=== PATIENT | female | born 1960 | race Caucasian/White ===

== ENCOUNTER 2024-04-16 09:10 | Inpatient (IN) | payer MEDICARE, OTHER ==
[2024-04-16] MEDS ORDERED: NALOXONE 0.4 MG/ML 1 ML VIAL IV PRN ×2 (09:38→11:51)
[2024-04-16] MEDS ORDERED: ACETAMINOPHEN TAB 325 MG TAB PO PRN (09:38)
--- NOTE | 2024-04-16 09:47 | ED ---
General Adult HPI - General Chief complaint: Nausea/Vomiting/Diarrhea Stated complaint: NVD Time Seen by Provider: 04/16/24 09:13 Source: patient, RN/MD, EMS, RN notes reviewed, old records reviewed Mode of arrival: EMS Limitations: no limitations - History of Present Illness Initial comments: 63-year-old female transferred from outside hospital for hypovolemic shock. Patient has had chronic diarrhea for approximately 1 month. She was seen at outside hospital hypotensive with poor IV access. Central line was placed and the patient was resuscitated with 3 L of normal saline. She continued to be hypotensive and was started on norepinephrine and transferred for ICU care. Patient states that the diarrhea has been present for at least 1 month and she had a admission at an outside hospital for similar. She does have history of congestive heart failure. Denies dyspnea. Denies lower extremity swelling. Denies pain complaints. Denies fever. Workup revealed elevated BUN and creatinine. And the patient had minimal urine output. Leal catheter and central line placed prior to transfer. - Related Data Home Medications Medication Instructions Recorded Confirmed Aspirin EC [Ecotrin Low Dose] 81 mg PO DAILY 04/16/24 04/16/24 Atorvastatin [Lipitor] 20 mg PO HS 04/16/24 04/16/24 Empagliflozin [Jardiance] 25 mg PO DAILY 04/16/24 04/16/24 FLUoxetine HCL 40 mg PO DAILY 04/16/24 04/16/24 Magnesium Oxide [Magox 400] 400 mg PO DAILY 04/16/24 04/16/24 Sacubitril/Valsartan [Entresto 24 1 tab PO BID 04/16/24 04/16/24 mg-26 mg Tablet] carvediloL [Coreg] 3.125 mg PO BID 04/16/24 04/16/24 Allergies Allergy/AdvReac Type Severity Reaction Status Date / Time Penicillins Allergy Rash/Hives Verified 04/16/24 10:24 Review of Systems ROS Statement: Those systems with pertinent positive or pertinent negative responses have been documented in the HPI. ROS Other: All systems not noted in ROS Statement are negative. General Exam General appearance: alert, in no apparent distress Head exam: Present: atraumatic, normocephalic Eye exam: Present: normal appearance ENT exam: Present: mucous membranes dry Neck exam: Present: normal inspection. Absent: tenderness, meningismus Respiratory exam: Present: normal lung sounds bilaterally. Absent: respiratory distress, wheezes, rales Cardiovascular Exam: Present: regular rate, normal rhythm GI/Abdominal exam: Present: soft. Absent: distended, tenderness, guarding, rebound Extremities exam: Present: normal inspection, normal capillary refill. Absent: pedal edema Neurological exam: Present: alert, oriented X3 Psychiatric exam: Present: normal affect, normal mood Skin exam: Present: warm, dry, intact Course Vital Signs 04/16/24 04/16/24 09:30 10:23 Temperature 97 F L Pulse Rate 85 Respiratory 19 Rate Blood Pressure 80/51 93/41 O2 Sat by Pulse 100 Oximetry Medical Decision Making - Medical Decision Making Was pt. sent in by a medical professional or institution (ALTHEA Marsh, PARK MANAGER, urgent care, hospital, or intermediate...) When possible be specific @Sent from [facility] for ICU care Did you speak to anyone other than the patient for history (EMS, parent, family, police, friend...)? What history was obtained from this source @ -No Did you review nursing and triage notes (agree or disagree)? Why? @ -I reviewed and agree with nursing and triage notes Were old charts reviewed (outside hosp., previous admission, EMS record, old EKG, old radiological studies, urgent care reports/EKG's, intermediate records)? Report findings @ -No old charts were reviewed Differential Weakness: Hypoglycemia, shock, sepsis, hyponatremia, anemia, infection, TN, ETOH, adverse medicine reaction, overdose, stroke, this is not meant to be an all-inclusive list. EKG interpreted by me (3pts min.). @ -Sinus rhythm with PVC rate of 78 MT interval 137, QRS duration 132, QTc 452 X-rays interpreted by me (1pt min.). @ -None done CT interpreted by me (1pt min.). @ -None done U/S interpreted by me (1pt. min.). @ -None done What testing was considered but not performed or refused? (CT, X-rays, U/S, labs )? Why? @ -None What meds were considered but not given or refused? Why? @ -None Did you discuss the management of the patient with other professionals (professionals i.e. ALTHEA Marsh, PARK MANAGER, lab, RT, psych nurse, public health social worker, metal riveting machine operator, teacher, airplane first officer, case aide)? Give summary @Case discussed with Dr. Tomasz dorsey for the ICU and [facility] physician group regarding admission. Was smoking cessation discussed for >3mins.? @ -No Was critical care preformed (if so, how long)? @ -[Yes 35 minutes Were there social determinants of health that impacted care today? How? (Homelessness, low income, unemployed, alcoholism, drug addiction, transportation, low edu. Level, literacy, decrease access to med. care, usp, rehab)? @ -No Was there de-escalation of care discussed even if they declined (Discuss DNR or withdrawal of care, Hospice)? DNR status @ -No What co-morbidities impacted this encounter? (DM, HTN, Smoking, COPD, CAD, Cancer, CVA, ARF, Chemo, Hep., AIDS, mental health diagnosis, sleep apnea, morbid obesity)? @ -[Congestive heart failure. Was patient admitted / discharged? Hospital course, mention meds given and route, prescriptions, significant lab abnormalities, going to OR and other pertinent info. @ -63-year-old female presenting for evaluation of hypotension likely secondary to hypovolemia from chronic diarrhea. Patient had central line and Leal catheter placed prior to transfer. She received a 3 L bolus. She will be continued on IV fluid and does continue to require norepinephrine for blood pressure support. Repeat laboratory test including CBC, CMP urinalysis, blood culture, and C. difficile have been ordered. Repeat chest x-ray has been ordered these results are pending. Admitted to the ICU Undiagnosed new problem with uncertain prognosis? @ -[No Drug Therapy requiring intensive monitoring for toxicity (Heparin, Nitro, Insulin, Cardizem)? @ -No Were any procedures done? @ -No Diagnosis/symptom? @ -YONATAN, hypovolemia, hypotension Acute, or Chronic, or Acute on Chronic? @ -Acute Uncomplicated (without systemic symptoms) or Complicated (systemic symptoms)? @ -[Complicated Side effects of treatment? @ -No Exacerbation, Progression, or Severe Exacerbation? @ -No Poses a threat to life or bodily function? How? (Chest pain, USA, TN, pneumonia, PE, COPD, DKA, ARF, appy, cholecystitis, CVA, Diverticulitis, Homicidal, Suicidal, threat to staff... and all critical care pts) @Yes, hypovolemic shock - Lab Data Result diagrams: 04/16/24 10:00 04/16/24 10:00 Lab Results 04/16/24 04/16/24 04/16/24 Range/Units 10:00 10:00 10:00 WBC 6.0 (3.8-10.6) k/uL RBC 3.13 L (3.80-5.40) m/uL Hgb 10.3 L (11.4-16.0) gm/dL Hct 32.1 L (34.0-46.0) % MCV 102.6 H (80.0-100.0) fL MCH 33.0 (25.0-35.0) pg MCHC 32.2 (31.0-37.0) g/dL RDW 13.0 (11.5-15.5) % Plt Count 294 (150-450) k/uL MPV 7.5 Neutrophils % 53 % Lymphocytes % 23 % Monocytes % 7 % Eosinophils % 12 % Basophils % 0 % Neutrophils # 3.2 (1.3-7.7) k/uL Lymphocytes # 1.4 (1.0-4.8) k/uL Monocytes # 0.4 (0-1.0) k/uL Eosinophils # 0.7 (0-0.7) k/uL Basophils # 0.0 (0-0.2) k/uL Hypochromasia Slight Macrocytosis Slight PT 11.9 (10.0-12.5) sec INR 1.1 (<1.2) APTT 26.7 (22.0-30.0) sec Sodium 136 L (137-145) mmol/L Potassium 3.9 (3.5-5.1) mmol/L Chloride 106 (98-107) mmol/L Carbon Dioxide 18 L (22-30) mmol/L Anion Gap 12 mmol/L BUN 40 H (7-17) mg/dL Creatinine 2.13 H (0.52-1.04) mg/dL Est GFR (CKD-EPI)AfAm 27 (>60 ml/min/1.73 sqM) Est GFR (CKD-EPI)NonAf 24 (>60 ml/min/1.73 sqM) Glucose 84 (74-99) mg/dL Calcium 9.6 (8.4-10.2) mg/dL Magnesium 2.1 (1.6-2.3) mg/dL Total Bilirubin 0.9 (0.2-1.3) mg/dL AST 37 H (14-36) U/L ALT 17 (4-34) U/L Alkaline Phosphatase 91 (38-126) U/L Total Protein 5.8 L (6.3-8.2) g/dL Albumin 2.8 L (3.5-5.0) g/dL Critical Care Time Critical Care Time: Yes Total Critical Care Time: 35 Disposition Clinical Impression: Hypovolemic shock, Dehydration, YONATAN (acute kidney injury) Disposition: ADMITTED IP TO [facility] Condition: Serious Is patient prescribed a controlled substance at d/c from ED?: No Referrals: Nonstaff,Physician [Primary Care Provider] - 1-2 days Time of Disposition: 09:47
[2024-04-16] MEDS: PANTOPRAZOLE 40 MG/10 ML VIAL IVP STA (09:59)
[2024-04-16] MEDS: NOREPINEPHRINE 32 MG in SODIUM CHLORIDE 0.9% 218 ML IV ONE (10:00)
[2024-04-16] MEDS: SODIUM CHLORIDE 0.9% 1,000 ML IV SCH (10:00)
[2024-04-16 10:12] LABS: Basophils % (A) 0 %; Eosinophils # (A) 0.7 k/uL (0-0.7); Eosinophils % (A) 12 %; HCT 32.1 % (34.0-46.0); HGB 10.3 gm/dL (11.4-16.0); Hypochromasia Slight; Lymphocytes # (A) 1.4 k/uL (1.0-4.8); Lymphocytes % (A) 23 %; MCHC 32.2 g/dL (31.0-37.0); MCV 102.6 fL (80.0-100.0); Macrocytosis Slight; Mean Platelet Volume 7.5; Monocytes # (A) 0.4 k/uL (0-1.0); Monocytes % (A) 7 %; Neutrophils # (A) 3.2 k/uL (1.3-7.7); Neutrophils % (A) 53 %; Platelet Count 294 k/uL (150-450); RBC 3.13 m/uL (3.80-5.40)
[2024-04-16 10:21] LABS: INR 1.1 (<1.2); Partial Thromboplastin Time 26.7 sec (22.0-30.0); Prothrombin Time 11.9 sec (10.0-12.5)
--- NOTE | 2024-04-16 10:29 | XR ---
EXAMINATION TYPE: XR chest 1V portable DATE OF EXAM: 04/16/2024 10:12 AM COMPARISON: None CLINICAL INDICATION: Female, 63 years old with history of gabriel; [facility] TECHNIQUE: XR chest 1V portable Frontal view of the chest. FINDINGS: Lungs/Pleura: Right lower lobe subtle airspace opacities suggested. There is no evidence of pleural e ffusion, focal consolidation, or pneumothorax. Pulmonary vascularity: Unremarkable. Heart/mediastinum: Cardiomediastinal silhouette is unremarkable. Musculoskeletal: No acute osseous pathology. Other findings: None Lines/Tubes: IMPRESSION: Right lower lobe airspace opacities correlate for pneumonia [facility] Tatiana Dillon, , 04/16/2024 10:27 AM
[2024-04-16 10:33] LABS: ALT 17 U/L (4-34); AST 37 U/L (14-36); African American GFR (CKD) 27 (>60 ml/min/1.73 sqM); Albumin 2.8 g/dL (3.5-5.0); Alkaline Phosphatase 91 U/L (38-126); Anion Gap 12 mmol/L; Blood Urea Nitrogen 40 mg/dL (7-17); Calcium 9.6 mg/dL (8.4-10.2); Carbon Dioxide 18 mmol/L (22-30); Chloride 106 mmol/L (98-107); Glucose 84 mg/dL (74-99); Magnesium 2.1 mg/dL (1.6-2.3); Non-African American GFR(CKD) 24 (>60 ml/min/1.73 sqM); Potassium 3.9 mmol/L (3.5-5.1); Sodium 136 mmol/L (137-145); Total Bilirubin 0.9 mg/dL (0.2-1.3); Total Protein 5.8 g/dL (6.3-8.2)
[2024-04-16 11:08] LABS: Appearance,Urine Cloudy (Clear); Bilirubin,Urine Negative (Negative); Blood,Urine Moderate (Negative); Color,Urine Yellow; Glucose,Urine (UA) 4+ (Negative); Hyaline Casts,Urine 3 /lpf (0-2); Ketones,Urine Negative (Negative); Leukocyte Esterase,Urine Small (Negative); Mucus,Urine Few /hpf; Nitrite,Urine Negative (Negative); Protein,Urine 1+ (Negative); RBC,Urine 14 /hpf (0-5); Red Blood Cell Casts,Urine 7 /lpf (0); Specific Gravity,Urine 1.017 (1.001-1.035); Squamous Epithelial Cell,Urine 7 /hpf (0-4); Urobilinogen,Urine <2.0 mg/dL (<2.0); WBC,Urine 40 /hpf (0-5)
[2024-04-16 11:49] LABS: Glucose,Whole Blood 71 mg/dL (70-110)
[2024-04-16 12:16] LABS: Basophils % (A) 1 %; Eosinophils # (A) 0.8 k/uL (0-0.7); Eosinophils % (A) 12 %; HCT 34.3 % (34.0-46.0); HGB 10.8 gm/dL (11.4-16.0); Hypochromasia Slight; Lymphocytes # (A) 1.3 k/uL (1.0-4.8); Lymphocytes % (A) 21 %; MCH 32.9 pg (25.0-35.0); MCHC 31.5 g/dL (31.0-37.0); MCV 104.4 fL (80.0-100.0); Macrocytosis Slight; Mean Platelet Volume 8.4; Monocytes # (A) 0.4 k/uL (0-1.0); Monocytes % (A) 6 %; Neutrophils # (A) 3.7 k/uL (1.3-7.7); Neutrophils % (A) 57 %; Platelet Count 293 k/uL (150-450); RBC 3.29 m/uL (3.80-5.40); RDW 13.1 % (11.5-15.5); WBC 6.5 k/uL (3.8-10.6)
[2024-04-16 12:46] LABS: African American GFR (CKD) 28 (>60 ml/min/1.73 sqM); Anion Gap 9 mmol/L; Blood Urea Nitrogen 40 mg/dL (7-17); Calcium 9.6 mg/dL (8.4-10.2); Carbon Dioxide 21 mmol/L (22-30); Chloride 106 mmol/L (98-107); Glucose 83 mg/dL (74-99); Magnesium 2.1 mg/dL (1.6-2.3); Non-African American GFR(CKD) 24 (>60 ml/min/1.73 sqM); Potassium 4.1 mmol/L (3.5-5.1); Sodium 136 mmol/L (137-145)
--- NOTE | 2024-04-16 13:40 | P.CNPUL ---
History of Present Illness Consult date: 04/16/24 Requesting physician: Kennedy Camargo Reason for consult: other Chief complaint: Low blood pressure. History of present illness: Pulmonary consult dated April 16, 2024. 63-year-old female who was seen in the emergency department, by the ER physician, ship from an outside hospital, for weeks, of nausea, vomiting, diarrhea, and resultant dehydration. Apparently the patient has not been feeli ng well for about a month. She has had chronic loose stools. She apparently had a central line placed, in the left groin, and she was transferred down to [facility]. The patient was then seen, and evaluated, and required norepinephrine, for blood pressure support. Fluid resuscitation was not enough. The patient's systolic blood pressures were still in the 80s. The patient apparently has a history of hyperlipidemia, diabetes, and hypertension. The patient is seen this morning, in room 2, of the emergency department. She is currently on 3 L nasal cannula. The patient is getting saline, via bolus, and also receiving norepinephrine at 0.03 mcg/kg/min. As mentioned, she does have a left femoral triple-lumen catheter in place. White count 6.5, hemoglobin 10.8, hematocrit 34.3, and platelet count normal. Coagulation studies were normal. Sodium 136, potassium 4.1, chlorides 106, CO2 21, BUN 40, creatinine 2.12. Calcium was 9.6, and magnesium was 2.1. Urine was cloudy. There is a moderate amount of blood. Small positive leukocyte esterase, 14 RBCs, 40 WBCs, and rare WBC clumps. Chest x-ray showed possible right lower lobe pneumonia. Review of Systems REVIEW OF SYSTEMS: CONSTITUTIONAL: Weakness. NEUROLOGIC: [ Negative.] HEENT: [ Negative.] CARDIAC: [Negative.] PULMONARY: [Negative.] GI: Nausea, vomiting, and diarrhea. : [Negative.] RHEUMATOLOGIC: [ Negative.] IMMUNOLOGIC: [ Negative.] ENDOCRINE: [Negative. ] DERMATOLOGIC: [Negative.] Past Medical History Past Medical History: Heart Failure, COPD, Hyperlipidemia, Hypertension History of Any Multi-Drug Resistant Organisms: None Reported Past Surgical History: Unable to Obtain Past Psychological History: No Psychological Hx Reported Smoking Status: Former smoker Past Alcohol Use History: None Reported Medications and Allergies Home Medications Medication Instructions Recorded Confirmed Type Aspirin EC [Ecotrin Low Dose] 81 mg PO DAILY 04/16/24 04/16/24 History Atorvastatin [Lipitor] 20 mg PO HS 04/16/24 04/16/24 History Empagliflozin [Jardiance] 25 mg PO DAILY 04/16/24 04/16/24 History FLUoxetine HCL 40 mg PO DAILY 04/16/24 04/16/24 History Magnesium Oxide [Magox 400] 400 mg PO DAILY 04/16/24 04/16/24 History Sacubitril/Valsartan [Entresto 24 1 tab PO BID 04/16/24 04/16/24 History mg-26 mg Tablet] carvediloL [Coreg] 3.125 mg PO BID 04/16/24 04/16/24 History Allergies Allergy/AdvReac Type Severity Reaction Status Date / Time Penicillins Allergy Rash/Hives Verified 04/16/24 10:24 Physical Exam Osteopathic Statement: *. No significant issues noted on an osteopathic structural exam other than those noted in the History and Physical/Consult. Vitals: Vital Signs Temp Pulse Resp BP Pulse Ox 04/16/24 11:00 80 19 103/66 99 04/16/24 10:23 93/41 04/16/24 09:30 97 F L 85 19 80/51 100 Intake and Output 04/15/24 04/16/24 04/16/24 22:59 06:59 14:59 Other: Weight 99.79 kg No acute distress, oriented 3. Awake and alert, currently on 3 L nasal cannula. HEENT examination is grossly unremarkable. Mucous membranes are moist. No oral lesions. Neck supple. Full range of motion. No adenopathy thyromegaly or neck vein d istention. Cardiovascular examination reveals regular rhythm rate. S1-S2 normal. No S3 or S4. No discernible murmur noted. Lungs reveal clear breath sounds. Breath sounds are equal bilaterally. No adventitious lung sounds including wheezes rhonchi or crackles. Abdomen soft bowel sounds are heard. No masses or tenderness. Extremities are intact. No cyanosis clubbing or edema. Left groin triple-lumen catheter. Skin is without rash or lesion. Neurologic examination is brief but nonfocal. Results - Laboratory Findings CBC and BMP: 04/16/24 12:05 04/16/24 12:05 PT/INR, D-dimer PT 11.9 sec (10.0-12.5) 04/16/24 10:00 INR 1.1 (<1.2) 04/16/24 10:00 Abnormal lab findings: Abnormal Labs 04/16/24 04/16/24 04/16/24 10:00 10:00 10:34 RBC 3.13 L Hgb 10.3 L Hct 32.1 L MCV 102.6 H Eosinophils # Sodium 136 L Carbon Dioxide 18 L BUN 40 H Creatinine 2.13 H AST 37 H Total Protein 5.8 L Albumin 2.8 L Urine Appearance Cloudy H Urine Protein 1+ H Urine Glucose (UA) 4+ H Urine Blood Moderate H Ur Leukocyte Esterase Small H Urine RBC 14 H Urine WBC 40 H Urine WBC Clumps Rare H Ur Squamous Epith Cells 7 H Hyaline Casts 3 H Urine Mucus Few H 04/16/24 04/16/24 12:05 12:05 RBC 3.29 L Hgb 10.8 L Hct MCV 104.4 H Eosinophils # 0.8 H Sodium 136 L Carbon Dioxide 21 L BUN 40 H Creatinine 2.12 H AST Total Protein Albumin Urine Appearance Urine Protein Urine Glucose (UA) Urine Blood Ur Leukocyte Esterase Urine RBC Urine WBC Urine WBC Clumps Ur Squamous Epith Cells Hyaline Casts Urine Mucus - Diagnostic Findings Chest x-ray: image reviewed Assessment and Plan Assessment: Chronic nausea, vomiting, and diarrhea, leading to dehydration, and hypotension. S/P left femoral line placement, for fluid administration, and pressors. History of hypertension. History of hyperlipidemia. History of diabetes mellitus. Plan: Plan dated April 16, 2024. I was called by the emergency room physician, as this patient presented with severe and profound hypotension, secondary to dehydration. Apparently for the last month, she has been having nausea, vomiting, and diarrhea. The patient was seen in outside hospital, transferred down here. The patient was given fluid resuscitation, and norepinephrine for blood pressure support. Labs, x-rays, and all medications are reviewed. We will continue to follow the patient, make recommendations along the way. The patient is admitted to the intensive care unit, for further monitoring and management. Additional recommendations and suggestions are forthcoming. Prognosis is guarded. Dictation was produced using [employer] software. Please excuse any grammatical, word or spelling errors. Time with Patient: Greater than 30
[2024-04-16] MEDS: NOREPINEPHRINE 32 MG in SODIUM CHLORIDE 0.9% 218 ML IV SCH (13:49)
--- NOTE | 2024-04-16 13:50 | P.NPCON ---
History of Present Illness - Reason for Consult acute renal failure - History of Present Illness Patient is a 63-year-old female with history of COPD, hypertension, hyperlipidemia and CHF who is admitted to the hospital with complaints of nausea vomiting and diarrhea which has been on and off for almost a month now. Patient was admitted in the thumb area and was maintained on IV fluids. She continued t o be hypotensive and was therefore transferred to [facility]. Currently maintained on Levophed. Patient has received 3 L of fluid bolus in the ER. No previous history of kidney diseases Serum creatinine staying at 2.1 mg/dL. No previous labs available for comparison. No history of fever or chills No diarrhea noted here since admission Past Medical History Past Medical History: Heart Failure, COPD, Hyperlipidemia, Hypertension History of Any Multi-Drug Resistant Organisms: None Reported Past Surgical History: Unable to Obtain Additional Past Surgical History / Comment(s): Left Mastectomy 1995 Chemo and radiation, Left achilles tendon repair Past Anesthesia/Blood Transfusion Reactions: No Reported Reaction Past Psychological History: No Psychological Hx Reported Smoking Status: Former smoker Past Alcohol Use History: None Reported Medications and Allergies Home Medications Medication Instructions Recorded Confirmed Type Aspirin EC [Ecotrin Low Dose] 81 mg PO DAILY 04/16/24 04/16/24 History Atorvastatin [Lipitor] 20 mg PO HS 04/16/24 04/16/24 History Empagliflozin [Jardiance] 25 mg PO DAILY 04/16/24 04/16/24 History FLUoxetine HCL 40 mg PO DAILY 04/16/24 04/16/24 History Magnesium Oxide [Magox 400] 400 mg PO DAILY 04/16/24 04/16/24 History Sacubitril/Valsartan [Entresto 24 1 tab PO BID 04/16/24 04/16/24 History mg-26 mg Tablet] carvediloL [Coreg] 3.125 mg PO BID 04/16/24 04/16/24 History Allergies Allergy/AdvReac Type Severity Reaction Status Date / Time Penicillins Allergy Rash/Hives Verified 04/16/24 10:24 Physical Exam Vitals: Vital Signs Temp Pulse Resp BP Pulse Ox 04/16/24 11:00 80 19 103/66 99 04/16/24 10:23 93/41 04/16/24 09:30 97 F L 85 19 80/51 100 Intake and Output 04/15/24 04/16/2425 22:59 06:59 14:59 Other: Weight 99.79 kg Patient is awake, comfortable, no acute distress. Alert or oriented x 3 Poor dental hygiene Examination of the heart S1 and S2 Examination of the lungs bilateral breath sounds are heard Abdomen is soft nontender Examination of lower extremity shows no significant edema NATIONAL ACCOUNT REPRESENTATIVE exam grossly intact Results - Lab Results Most recent lab results Calcium 9.6 mg/dL (8.4-10.2) 04/16/24 12:05 Magnesium 2.1 mg/dL (1.6-2.3) 04/16/24 12:05 04/16/24 12:05 04/16/24 12:05 Assessment and Plan Assessment: 1. Acute kidney injury, ATN, nonoliguric secondary to hypotension and volume depletion. Currently maintained on IV hydration. UA shows 1+ protein moderate blood WBC is 40. Abdominal imaging was done at an outside facility. 2. Volume depletion from nausea vomiting and diarrhea 3. Hypotension associated with volume depletion and underlying infection possibly viral gastroenteritis 4. Pyuria rule out UTI 5. [place] metabolic acidosis secondary to diarrhea and GI fluid loss, improved 6. Anemia rule out iron deficiency Plan: Continue with aggressive IV hydration. Repeat labs in a.m. Review abdominal imaging done at outside facility to rule out urinary obstruction Continue to avoid nephrotoxic agents Hold Jardiance and Entresto Thank you for the consultation. We will continue to follow the patient with you during her hospitalization
[2024-04-16] MEDS ORDERED: IPRATROPIUM-ALBUTEROL 3 ML NEB INHALATION PRN (16:55)
--- NOTE | 2024-04-16 16:56 | P.HPIM ---
History of Present Illness H&P Date: 04/16/24 63 year old F with COPD 2L home O2, CHF reported EF 30-40%, melanoma of the liver presents to the ED as a transfer from an outside hospital. Sister at bedside contributing to the history. Patient reports intractable nausea, vomiting and diarrhea since February. She was diagnosed with melanoma of the liver in May and started immunotherapy in November or December. Symptoms persistent since then. Last immunotherapy was last Saturday. She reports poor appetite. Denies headache, LE edema, fever or chills, cough, chest pain, shortness of breath, palpitations, changes in urination. No dizziness, numbne ss/weakness/tinging of the extremities. In the ED she underwent extensive evaluation. BP 80/51, HR 85, RR 19, T 97F, 100% on 3L NC. CBC, Coag panel, CMP significant for RBC 3.13, Hg 10.3, Hct 32.1, MCV 102.6, Na 136, bicarb 18, BUN 40, Cr 2.13, AST 37, alb 2.8. Mag 2.1. Lactic acid 0.7. UA moderate blood, small LE. CXR RLL opacity. EKG sinus rhythm with PVCs, intraventricular conduction delay, no ST T wave changes. Patient is admitted to ICU. General: non toxic, no distress, appears at stated age Derm: warm, dry Head: atraumatic, normocephalic, symmetric Mouth: no lip lesion, mucus membranes moist Cardiovascular: S1S2 reg, no murmur Lungs: Clear to auscultation bilaterally, no rales , no accessory muscle use Ext: no gross muscle atrophy, no edema, no contractures Neuro: no focal neuro deficits Psych: Alert and oriented. Based on my assessment of this patient, this patient meets a high complexity level of care. Hypovolemic shock: Levophed to maintain MAP > 65. NS at 130 cc/hr. Hold Coreg and Entresto. Telemetry monitoring. ICU on board. Nausea, vomiting and diarrhea: Persistent likely related to immunotherapy. Obtain stool culture, C. diff, stool for ova and parasites. YONATAN with hyponatremia and metabolic acidosis: Likely prerenal. Holding Entresto and Jardiance. Nephrology on board. Macrocytic anemia: Obtain iron studies, B12, Folate. HFrEF: Not in acute exacerbation. Holding Coreg and Entresto. Holding Jardiance. Judicious use of fluids given history of CHF. Chronic respiratory failure on 2L NC + COPD not in acute exacerbation. Melanoma of the liver: Following Oncology outpatient. CODE STATUS: FULL CODE. DVT Prophylaxis: Heparin GI Prophylaxis: Protonix IV Designated medical POA if patient is not able to make medical decisions for themselves: Brother I have reviewed the following furniture sales consultant notes: ED note. I have reviewed the results of the following tests: As above. I have ordered the following tests: As above. I have discussed the care of this patient with the following independent historian: RN. Sister at bedside. I have independently interpreted the following test below: EKG. I have discussed the management of this patient with the following physician: Past Medical History Past Medical History: Heart Failure, COPD, Hyperlipidemia, Hypertension History of Any Multi-Drug Resistant Organisms: None Reported Past Surgical History: Unable to Obtain Additional Past Surgical History / Comment(s): Left Mastectomy 1995 Chemo and radiation, Left achilles tendon repair Past Anesthesia/Blood Transfusion Reactions: No Reported Reaction Past Psychological History: No Psychological Hx Reported Smoking Status: Former smoker Past Alcohol Use History: None Reported Medications and Allergies Home Medications Medication Instructions Recorded Confirmed Type Aspirin EC [Ecotrin Low Dose] 81 mg PO DAILY 04/16/24 04/16/24 History Atorvastatin [Lipitor] 20 mg PO HS 04/16/24 04/16/24 History Empagliflozin [Jardiance] 25 mg PO DAILY 04/16/24 04/16/24 History FLUoxetine HCL 40 mg PO DAILY 04/16/24 04/16/24 History Magnesium Oxide [Magox 400] 400 mg PO DAILY 04/16/24 04/16/24 History Sacubitril/Valsartan [Entresto 24 1 tab PO BID 04/16/24 04/16/24 History mg-26 mg Tablet] carvediloL [Coreg] 3.125 mg PO BID 04/16/24 04/16/24 History Allergies Allergy/AdvReac Type Severity Reaction Status Date / Time Penicillins Allergy Rash/Hives Verified 04/16/24 10:24 Physical Exam Vitals: Vital Signs Temp Pulse Resp BP Pulse Ox 04/16/24 16:15 87 14 96/61 97 04/16/24 16:00 97.2 F L 89 17 100/65 04/16/24 15:45 86 19 99/64 04/16/24 15:30 90 19 99/66 04/16/24 15:15 87 18 114/88 97 04/16/24 15:00 87 19 93/77 96 04/16/24 14:45 90 16 113/72 88 L 04/16/24 14:30 89 20 109/70 98 04/16/24 14:15 89 17 121/79 96 04/16/24 14:00 89 19 105/75 96 04/16/24 13:45 90 18 103/71 93 L 04/16/24 13:30 90 19 110/79 97 04/16/24 13:15 90 20 125/75 98 04/16/24 13:00 88 17 133/74 95 04/16/24 12:45 87 12 125/74 94 L 04/16/24 12:30 80 19 119/70 92 L 04/16/24 12:15 82 18 120/75 83 L 04/16/24 12:00 87 12 100/57 93 L 04/16/24 11:48 89 16 04/16/24 11:00 80 19 103/66 99 04/16/24 10:23 93/41 04/16/24 09:30 97 F L 85 19 80/51 100 Intake and Output 04/16/24 04/16/24 04/16/24 06:59 14:59 22:59 Intake Total 508.484 660 Output Total 125 125 Balance 383.484 535 Intake: IV 390 260 Sodium Chloride 0.9% 1, 390 260 000 ml @ 130 mls/hr IV . Q7H42M [facility] Rx#:[id number] Intake, IV Titration 0.484 Amount Norepinephrine 32 mg In 0.484 Sodium Chloride 0.9% 218 ml @ 0.05 MCG/KG/MIN 2. 339 mls/hr IV .Q24H [facility] Rx#:[id number] Oral 118 400 Output: Urine 125 125 Other: Weight 99.79 kg Results CBC & Chem 7: 04/16/24 12:05 04/16/24 12:05 Labs: Abnormal Lab Results - Last 24 Hours (Table) 04/16/24 04/16/24 04/16/24 Range/Units 10:00 10:00 10:34 RBC 3.13 L (3.80-5.40) m/uL Hgb 10.3 L (11.4-16.0) gm/dL Hct 32.1 L (34.0-46.0) % MCV 102.6 H (80.0-100.0) fL Eosinophils # (0-0.7) k/uL Sodium 136 L (137-145) mmol/L Carbon Dioxide 18 L (22-30) mmol/L BUN 40 H (7-17) mg/dL Creatinine 2.13 H (0.52-1.04) mg/dL AST 37 H (14-36) U/L Total Protein 5.8 L (6.3-8.2) g/dL Albumin 2.8 L (3.5-5.0) g/dL Urine Appearance Cloudy H (Clear) Urine Protein 1+ H (Negative) Urine Glucose (UA) 4+ H (Negative) Urine Blood Moderate H (Negative) Ur Leukocyte Esterase Small H (Negative) Urine RBC 14 H (0-5) /hpf Urine WBC 40 H (0-5) /hpf Urine WBC Clumps Rare H (None) /hpf Ur Squamous Epith Cells 7 H (0-4) /hpf Hyaline Casts 3 H (0-2) /lpf Urine Mucus Few H (None) /hpf 04/16/24 04/16/24 Range/Units 12:05 12:05 RBC 3.29 L (3.80-5.40) m/uL Hgb 10.8 L (11.4-16.0) gm/dL Hct (34.0-46.0) % MCV 104.4 H (80.0-100.0) fL Eosinophils # 0.8 H (0-0.7) k/uL Sodium 136 L (137-145) mmol/L Carbon Dioxide 21 L (22-30) mmol/L BUN 40 H (7-17) mg/dL Creatinine 2.12 H (0.52-1.04) mg/dL AST (14-36) U/L Total Protein (6.3-8.2) g/dL Albumin (3.5-5.0) g/dL Urine Appearance (Clear) Urine Protein (Negative) Urine Glucose (UA) (Negative) Urine Blood (Negative) Ur Leukocyte Esterase (Negative) Urine RBC (0-5) /hpf Urine WBC (0-5) /hpf Urine WBC Clumps (None) /hpf Ur Squamous Epith Cells (0-4) /hpf Hyaline Casts (0-2) /lpf Urine Mucus (None) /hpf
[2024-04-16 17:55] LABS: Appearance,Urine Cloudy (Clear); Bacteria,Urine Rare /hpf; Bilirubin,Urine Negative (Negative); Blood,Urine Moderate (Negative); Color,Urine Light Yellow; Glucose,Urine (UA) 4+ (Negative); Ketones,Urine Trace (Negative); Leukocyte Esterase,Urine Negative (Negative); Mucus,Urine Occasional /hpf; Nitrite,Urine Negative (Negative); Protein,Urine Trace (Negative); RBC,Urine 17 /hpf (0-5); Specific Gravity,Urine 1.011 (1.001-1.035); Squamous Epithelial Cell,Urine <1 /hpf (0-4); Urobilinogen,Urine <2.0 mg/dL (<2.0); WBC,Urine 2 /hpf (0-5)
[2024-04-16] MEDS: ATORVASTATIN 20 MG TAB PO SCH (19:47)
[2024-04-16] MEDS: HEPARIN SODIUM,PORCINE 5,000 UNIT/ML 1 ML VIAL SQ SCH (19:47)
[2024-04-17 05:07] LABS: African American GFR (CKD) 58 (>60 ml/min/1.73 sqM); Anion Gap 10 mmol/L; Blood Urea Nitrogen 31 mg/dL (7-17); Carbon Dioxide 16 mmol/L (22-30); Chloride 108 mmol/L (98-107); Glucose 86 mg/dL (74-99); Non-African American GFR(CKD) 50 (>60 ml/min/1.73 sqM); Potassium 4.2 mmol/L (3.5-5.1); Sodium 134 mmol/L (137-145)
--- NOTE | 2024-04-17 05:22 | XR ---
EXAMINATION TYPE: XR chest 1V DATE OF EXAM: 04/17/2024 CLINICAL INDICATION: Female, 63 years old with history of RLL pneumonia, progress study. TECHNIQUE: Single AP portable semiupright view of the chest is obtained. COMPARISON: Chest x-ray from one day earlier FINDINGS: Stable patchy right basilar increased opacity. Left lung remains clear. Stable cardiomegal y. Surgical clips in the left axilla are redemonstrated. Osseous structures are intact. IMPRESSION: Stable right lower lung increased opacity could reflect acute infiltrate versus scarring/ atelectasis. [facility], , 04/17/2024 5:20 AM
[2024-04-17 06:58] LABS: Basophils % (A) 0 %; Eosinophils # (A) 0.7 k/uL (0-0.7); Eosinophils % (A) 13 %; HCT 33.4 % (34.0-46.0); HGB 10.9 gm/dL (11.4-16.0); Hypochromasia Slight; Lymphocytes # (A) 1.1 k/uL (1.0-4.8); Lymphocytes % (A) 21 %; MCH 33.8 pg (25.0-35.0); MCHC 32.5 g/dL (31.0-37.0); Macrocytosis Slight; Mean Platelet Volume 8.1; Monocytes # (A) 0.5 k/uL (0-1.0); Monocytes % (A) 9 %; Neutrophils % (A) 55 %; Platelet Count 298 k/uL (150-450); RBC 3.21 m/uL (3.80-5.40); RDW 13.5 % (11.5-15.5); WBC 5.5 k/uL (3.8-10.6)
[2024-04-17] MEDS: ASPIRIN 81 MG PO SCH (08:41)
[2024-04-17] MEDS: FLUoxetine HCL 20 MG CAP PO SCH (08:41)
[2024-04-17] MEDS: PANTOPRAZOLE 40 MG/10 ML VIAL IV SCH (08:41)
[2024-04-17] MEDS: DEXTROSE 5% IN WATER 1,000 ML with SODIUM BICARB (1 MEQ/ML) 150 ML IV SCH (10:41)
[2024-04-17 10:44] VITALS: BMI 32.5
--- NOTE | 2024-04-17 10:59 | P.PN ---
Subjective Patient is seen for follow-up for acute kidney injury mostly ischemic ATN from significant hypotension and volume depletion. Currently off of pressors Maintained on saline at 130 cc an hour No diarrhea reported No significant complaints today. Overall feeling better. Serum creatinine decreased to 1.1 from 2.1 yesterday. Objective - Vital Signs Vital signs: Vital Signs Temp 97.9 F 04/17/24 10:00 Pulse 101 H 04/17/24 10:00 Resp 19 04/17/24 10:00 BP 117/84 04/17/24 10:00 Pulse Ox 95 04/17/24 08:00 FiO2 Intake & Output 04/16/24 04/17/24 04/17/24 18:59 06:59 18:59 Intake Total 9412.325 2316 970 Output Total 350 890 290 Balance 1079.841 670 680 Weight 99.79 kg 99.79 kg Intake: IV 910 1560 390 Sodium Chloride 0.9% 1, 910 1560 390 000 ml @ 130 mls/hr IV . Q7H42M [facility] Rx#:[id number] Intake, IV Titration 1.841 100 Amount Dextrose 5% in Water 1, 100 000 ml @ 100 mls/hr IV . [id number] [facility] with Sodium Bicarb (1 Meq/ml) 150 ml Rx#:[id number] Norepinephrine 32 mg In 1.841 Sodium Chloride 0.9% 218 ml @ 0.05 MCG/KG/MIN 2. 339 mls/hr IV .Q24H [facility] Rx#:[id number] Oral 518 Tube Feeding 480 Output: Urine 350 890 290 Other: Voiding Method Indwelling Catheter Indwelling Catheter Indwelling Catheter - Exam Patient is awake, comfortable, no acute distress. Alert or oriented x 3 Poor dental hygiene Examination of the heart S1 and S2 Examination of the lungs bilateral breath sounds are heard Abdomen is soft nontender Examination of lower extremity shows no significant edema [employer]GER [employer] exam grossly intact - Labs CBC & Chem 7: 04/17/24 05:33 04/17/24 04:34 Labs: Abnormal Lab Results - Last 24 Hours (Table) 04/16/24 04/16/24 04/16/24 Range/Units 10:34 12:05 12:05 RBC 3.29 L (3.80-5.40) m/uL Hgb 10.8 L (11.4-16.0) gm/dL Hct (34.0-46.0) % MCV 104.4 H (80.0-100.0) fL Eosinophils # 0.8 H (0-0.7) k/uL Sodium 136 L (137-145) mmol/L Chloride (98-107) mmol/L Carbon Dioxide 21 L (22-30) mmol/L BUN 40 H (7-17) mg/dL Creatinine 2.12 H (0.52-1.04) mg/dL Urine Appearance Cloudy H (Clear) Urine Protein 1+ H (Negative) Urine Glucose (UA) 4+ H (Negative) Urine Ketones (Negative) Urine Blood Moderate H (Negative) Ur Leukocyte Esterase Small H (Negative) Urine RBC 14 H (0-5) /hpf Urine WBC 40 H (0-5) /hpf Urine WBC Clumps Rare H (None) /hpf Ur Squamous Epith Cells 7 H (0-4) /hpf Urine Bacteria (None) /hpf Hyaline Casts 3 H (0-2) /lpf Urine Mucus Few H (None) /hpf 04/16/24 04/17/24 04/17/24 Range/Units 16:30 04:34 05:33 RBC 3.21 L (3.80-5.40) m/uL Hgb 10.9 L (11.4-16.0) gm/dL Hct 33.4 L (34.0-46.0) % MCV 104.0 H (80.0-100.0) fL Eosinophils # (0-0.7) k/uL Sodium 134 L (137-145) mmol/L Chloride 108 H (98-107) mmol/L Carbon Dioxide 16 L (22-30) mmol/L BUN 31 H (7-17) mg/dL Creatinine 1.15 H (0.52-1.04) mg/dL Urine Appearance Cloudy H (Clear) Urine Protein Trace H (Negative) Urine Glucose (UA) 4+ H (Negative) Urine Ketones Trace H (Negative) Urine Blood Moderate H (Negative) Ur Leukocyte Esterase (Negative) Urine RBC 17 H (0-5) /hpf Urine WBC (0-5) /hpf Urine WBC Clumps (None) /hpf Ur Squamous Epith Cells (0-4) /hpf Urine Bacteria Rare H (None) /hpf Hyaline Casts (0-2) /lpf Urine Mucus Occasional H (None) /hpf Assessment and Plan Assessment: 1. Acute kidney injury, ATN, nonoliguric secondary to hypotension and volume depletion. Currently maintained on IV hydration. UA shows 1+ protein moderate blood WBC is 40. Abdominal imaging was done at an outside facility. 2. Volume depletion from nausea vomiting and diarrhea 3. Hypotension associated with volume depletion and underlying infection possibly viral gastroenteritis 4. Pyuria rule out UTI 5. Nongap metabolic acidosis secondary to diarrhea and GI fluid loss 6. Anemia rule out iron deficiency Plan: Continue with aggressive IV hydration. Change IV fluids to IV bicarb Repeat labs in a.m. Review abdominal imaging done at outside facility to rule out urinary obstruction Continue to avoid nephrotoxic agents Continue to hold Jardiance and Entresto
--- NOTE | 2024-04-17 12:56 | P.PN ---
Subjective Progress Note Date: 04/17/24 63 year old F with COPD 2L home O2, CHF reported EF 30-40%, melanoma of the liver presents to the ED as a transfer from an outside hospital. Sister at bedside contributing to the history. Patient reports intractable nausea, vomiting and diarrhea since February. She was diagnosed with melanoma of the liver in May and started immunotherapy in November or December. Symptoms persistent since then. Last immunotherapy was last Saturday. She reports poor appetite. Denies headache, LE edema, fever or chills, cough, chest pain, shortness of breath, palpitations, changes in urination. No dizziness, numbness/weakness/tinging of the extremities. In the ED she underwent extensive evaluation. BP 80/51, HR 85, RR 19, T 97F, 100% on 3L NC. CBC, Coag panel, CMP significant for RBC 3.13, Hg 10.3, Hct 32.1, MCV 102.6, Na 136, bicarb 18, BUN 40, Cr 2.13, AST 37, alb 2.8. Mag 2.1. Lactic acid 0.7. UA moderate blood, small LE. CXR RLL opacity. EKG sinus rhythm with PVCs, intraventricular conduction delay, no ST T wave changes. Patient is admitted to ICU. Started on NS and Levophed. 04/17 Patient was seen and examined. Feeling better. No bowel movement. Nausea but no vomiting. Off Levophed now. Maintained on D5 bicarb drip at 100 cc/hr. CBC and BMP significant RBC 3.21, Hg 10.9, Hct 33.4, MCV 104, Na 134, Cl 108, bicarb 16, BUN 31, Cr 1.15. UCx growing GNB. General: non toxic, no distress, appears at stated age Derm: warm, dry Head: atraumatic, normocephalic, symmetric Mouth: no lip lesion, mucus membranes moist Cardiovascular: S1S2 reg, no murmur Lungs: Clear to auscultation bilaterally, no rales , no accessory muscle use Ext: no gross muscle atrophy, no edema, no contractures Neuro: no focal neuro deficits Psych: Alert and oriented. Based on my assessment of this patient, this patient meets a high complexity level of care. Hypovolemic shock: Levophed to maintain MAP > 65. D5 bicarb drip at 100 cc/hr per Nephrology. Hold Coreg and Entresto. Telemetry monitoring. ICU on board. Nausea, vomiting and diarrhea: Persistent likely related to immunotherapy. Obtain stool culture, C. diff, stool for ova and parasites. YONATAN with hyponatremia and metabolic acidosis: Likely prerenal. Holding Entresto and Jardiance. IV hydration as above. Nephrology on board. Macrocytic anemia: Obtain iron studies, B12, Folate. HFrEF: Not in acute exacerbation. Holding Coreg and Entresto. Holding Jardiance. Judicious use of fluids given history of CHF. Echo ordered. Chronic respiratory failure on 2L NC + COPD not in acute exacerbation. Melanoma of the liver: Following Oncology outpatient. CODE STATUS: FULL CODE. DVT Prophylaxis: Heparin GI Prophylaxis: Protonix IV Designated medical POA if patient is not able to make medical decisions for themselves: Brother I have reviewed the following showroom consultant notes: Nephrology note. I have reviewed the results of the following tests: CBC, BMP, UCx. I have ordered the following tests: CBC and BMP in the AM. I have discussed the care of this patient with the following independent historian: I have independently interpreted the following test below: I have discussed the management of this patient with the following physician: Objective - Vital Signs Vital signs: Vital Signs Temp 98.0 F 04/17/24 12:00 Pulse 98 04/17/24 12:00 Resp 16 04/17/24 12:00 BP 94/64 04/17/24 12:00 Pulse Ox 97 04/17/24 12:00 FiO2 Intake & Output 04/16/24 04/17/24 04/17/24 18:59 06:59 18:59 Intake Total 9131.201 0701 1070 Output Total 350 890 380 Balance 1079.841 670 690 Weight 99.79 kg 99.79 kg Intake: IV 910 1560 390 Sodium Chloride 0.9% 1, 910 1560 390 000 ml @ 130 mls/hr IV . Q7H42M [facility] Rx#:[id number] Intake, IV Titration 1.841 200 Amount Dextrose 5% in Water 1, 200 000 ml @ 100 mls/hr IV . [id number] [facility] with Sodium Bicarb (1 Meq/ml) 150 ml Rx#:[id number] Norepinephrine 32 mg In 1.841 Sodium Chloride 0.9% 218 ml @ 0.05 MCG/KG/MIN 2. 339 mls/hr IV .Q24H [facility] Rx#:[id number] Oral 518 Tube Feeding 480 Output: Urine 350 890 380 Other: Voiding Method Indwelling Catheter Indwelling Catheter Indwelling Catheter - Labs CBC & Chem 7: 04/17/24 05:33 04/17/24 04:34 Labs: Abnormal Lab Results - Last 24 Hours (Table) 04/16/24 04/17/24 04/17/24 Range/Units 16:30 04:34 05:33 RBC 3.21 L (3.80-5.40) m/uL Hgb 10.9 L (11.4-16.0) gm/dL Hct 33.4 L (34.0-46.0) % MCV 104.0 H (80.0-100.0) fL Sodium 134 L (137-145) mmol/L Chloride 108 H (98-107) mmol/L Carbon Dioxide 16 L (22-30) mmol/L BUN 31 H (7-17) mg/dL Creatinine 1.15 H (0.52-1.04) mg/dL Urine Appearance Cloudy H (Clear) Urine Protein Trace H (Negative) Urine Glucose (UA) 4+ H (Negative) Urine Ketones Trace H (Negative) Urine Blood Moderate H (Negative) Urine RBC 17 H (0-5) /hpf Urine Bacteria Rare H (None) /hpf Urine Mucus Occasional H (None) /hpf Microbiology - Last 24 Hours (Table) 04/16/24 10:34 Urine Culture - Preliminary Urine,Voided Gram Neg Bacilli
--- NOTE | 2024-04-17 13:07 | P.PN ---
Subjective Progress Note Date: 04/17/24 Principal diagnosis: Hypotension. Pulmonary consult dated April 16, 2024. 63-year-old female who was seen in the emergency department, by the ER physician, ship from an outside hospital, for weeks, of nausea, vomiting, diarrhea, and resultant dehydration. Apparently the patient has not been feeling well for about a month. She has had chronic loose stools. She apparently had a central line placed, in the left groin, and she was transferred down to [facility]. The patient was then seen, and evaluated, and required norepinephrine, for blood pressure support. Fluid resuscitation was not enough. The patient's systolic blood pressures were still in the 80s. The patient apparently has a history of hyperlipidemia, diabetes, and hypertension. The patient is seen this morning, in room 2, of the emergency department. She is currently on 3 L nasal cannula. The patient is getting saline, via bolus, and also receiving norepinephrine at 0.03 mcg/kg/min. As mentioned, she does have a left femoral triple-lumen catheter in place. White count 6.5, hemoglobin 10.8, hematocrit 34.3, and platelet count normal. Coagulation studies were normal. Sodium 136, potassium 4.1, chlorides 106, CO2 21, BUN 40, creatinine 2.12. Calcium was 9.6, and magnesium was 2.1. Urine was cloudy. There is a moderate amount of blood. Small positive leukocyte esterase, 14 RBCs, 40 WBCs, and rare WBC clumps. Chest x-ray showed possible right lower lobe pneumonia. Progress note dated April 17, 2024. 63-year-old female seen in the emergency department yesterday, who came to the hospital with complaints of nausea, vomiting, and diarrhea, for weeks, with severe dehydration, and hypotension. Yesterday, the patient was on norepinephrine, and, had a left femoral line placed, at the outside hospital. Today, she is seen in room 257. She is awake and alert. She is on 3 L by nasal cannula. She is getting saline at 130 cc an hour. The leather cartridge belt maker will change her to D5W, with 3 ampoules of sodium bicarbonate, at 100 cc an hour. Current laboratory data includes a white count 5.5, hemoglobin 10.9, hematocrit 33.4, and a platelet count of 298,000. Sodium 134, potassium 4.2, chlorides 108, CO2 16, BUN 31, and creatinine 1.15. Magnesium is 2.1. Calcium is 10. Urine is positive for gram-negative bacilli. Chest x-ray shows stable right lower lung opacity, which may relate to either atelectasis, scarring, or acute infiltrate. Objective - Vital Signs Vital signs: Vital Signs Temp 98.0 F 04/17/24 12:00 Pulse 98 04/17/24 12:00 Resp 16 04/17/24 12:00 BP 94/64 04/17/24 12:00 Pulse Ox 97 04/17/24 12:00 FiO2 Intake & Output 04/16/24 04/17/24 04/17/24 18:59 06:59 18:59 Intake Total 0719.994 8862 1070 Output Total 350 890 380 Balance 1079.841 670 690 Weight 99.79 kg 99.79 kg Intake: IV 910 1560 390 Sodium Chloride 0.9% 1, 910 1560 390 000 ml @ 130 mls/hr IV . Q7H42M [facility] Rx#:[id number] Intake, IV Titration 1.841 200 Amount Dextrose 5% in Water 1, 200 000 ml @ 100 mls/hr IV . [id number] [facility] with Sodium Bicarb (1 Meq/ml) 150 ml Rx#:[id number] Norepinephrine 32 mg In 1.841 Sodium Chloride 0.9% 218 ml @ 0.05 MCG/KG/MIN 2. 339 mls/hr IV .Q24H [facility] Rx#:[id number] Oral 518 Tube Feeding 480 Output: Urine 350 890 380 Other: Voiding Method Indwelling Catheter Indwelling Catheter Indwelling Catheter - Exam No acute distress, oriented 3. HEENT examination is grossly unremarkable. Mucous membranes are moist. No oral lesions. Neck supple. Full range of motion. No adenopathy thyromegaly or neck vein distention. Cardiovascular examination reveals regular rhythm rate. S1-S2 normal. No S3 or S4. No discernible murmur noted. Lungs reveal clear breath sounds. Breath sounds are equal bilaterally. No adventitious lung sounds including wheezes rhonchi or crackles. Abdomen soft bowel sounds are heard. No masses or tenderness. Extremities are intact. No cyanosis clubbing or edema. Skin is without rash or lesion. Neurologic examination is brief but nonfocal. - Labs CBC & Chem 7: 04/17/24 05:33 04/17/24 04:34 Labs: Abnormal Lab Results - Last 24 Hours (Table) 04/16/24 04/17/24 04/17/24 Range/Units 16:30 04:34 05:33 RBC 3.21 L (3.80-5.40) m/uL Hgb 10.9 L (11.4-16.0) gm/dL Hct 33.4 L (34.0-46.0) % MCV 104.0 H (80.0-100.0) fL Sodium 134 L (137-145) mmol/L Chloride 108 H (98-107) mmol/L Carbon Dioxide 16 L (22-30) mmol/L BUN 31 H (7-17) mg/dL Creatinine 1.15 H (0.52-1.04) mg/dL Urine Appearance Cloudy H (Clear) Urine Protein Trace H (Negative) Urine Glucose (UA) 4+ H (Negative) Urine Ketones Trace H (Negative) Urine Blood Moderate H (Negative) Urine RBC 17 H (0-5) /hpf Urine Bacteria Rare H (None) /hpf Urine Mucus Occasional H (None) /hpf Microbiology - Last 24 Hours (Table) 04/16/24 10:34 Urine Culture - Preliminary Urine,Voided Gram Neg Bacilli Assessment and Plan Assessment: Chronic nausea, vomiting, and diarrhea, leading to dehydration, and hypotension. S/P left femoral line placement, for fluid administration, and pressors. Gram-negative bacillary urinary tract infection. History of hypertension. History of hyperlipidemia. History of diabetes mellitus. Plan: Plan dated April 16, 2024. I was called by the emergency room physician, as this patient presented with severe and profound hypotension, secondary to dehydration. Apparently for the last month, she has been having nausea, vomiting, and diarrhea. The patient was seen in outside hospital, transferred down here. The patient was given fluid resuscitation, and norepinephrine for blood pressure support. Labs, x-rays, and all medications are reviewed. We will continue to follow the patient, make recommendations along the way. The patient is admitted to the intensive care unit, for further monitoring and management. Additional recommendations and suggestions are forthcoming. Prognosis is guarded. Dictation was produced using [employer] software. Please excuse any grammatical, word or spelling errors. Plan dated April 17, 2024. 63-year-old female seen in room 257. She is feeling much better. The patient did have a urine sample, showing gram-negative bacilli. She may have a urinary tract infection. The patient is not having any urinary tract complaints. She was on norepinephrine, for blood pressure support, because of severe nausea, vomiting, and diarrhea, for nearly a month. Clinically, she is doing much better. She is currently on nasal O2 at 3 L. Her IV is now D5W with 3 ampoules of sodium bicarb and at 100 cc an hour. Labs, x-rays, and all medications are reviewed. The patient's overall prognosis remains guarded. We will continue to follow the patient, make recommendations along the way. Time with Patient: Less than 30
[2024-04-17] MEDS: SODIUM CHLORIDE 0.9% 1,000 ML IV ONE (13:40)
[2024-04-17] MEDS: NOREPINEPHRINE 4 MG in SODIUM CHLORIDE 0.9% 250 ML IV SCH (15:55)
--- NOTE | 2024-04-17 18:13 | CA ---
Transthoracic Echo Report Name: Desiree Cotton Age: 63 Gender: F : 1960 Exam Date: 04/17/2024 14:05 Exam Location: [place] [facility] Ht (in): 69 Wt (lb): 220 Ordering Physician: Elvia Woods MD Attending/Referring Phys: Roustabout Pusher Maria Esther Paul RDCS Procedure CPT: Indications: chf Cardiac Hx: Technical Quality: Good Contrast 1: Definity Total Dose (mL): 2 Contrast 2: Total Dose (mL): MEASUREMENTS (Male / Female) Normal Values 2D ECHO LV Diastolic Diameter PLAX 5.8 cm 4.2 - 5.9 / 3.9 - 5.3 cm LV Systolic Diameter PLAX 4.5 cm IVS Diastolic Thickness 1.1 cm 0.6 - 1.0 / 0.6 - 0.9 cm LVPW Diastolic Thickness 1.2 cm 0.6 - 1.0 / 0.6 - 0.9 cm LV Relative Wall Thickness 0.4 RV Internal Dim ED PLAX 2.2 cm LA Systolic Diameter LX 4.5 cm 3.0 - 4.0 / 2.7 - 3.8 cm LV Diastolic Volume MOD BP 153.2 cm??? 67 - 155 / 56 - 104 cm??? LV Systolic Volume MOD BP 89.4 cm??? 22 - 58 / 19 - 49 cm??? LV Ejection Fraction MOD BP 41.6 % >= 55 % LV Cardiac Index MOD BP 2737.8 cm???/min???m??? LV Diastolic Volume MOD 4C 146.2 cm??? LV Systolic Volume MOD 4C 94.8 cm??? LV Ejection Fraction MOD 4C 35.2 % LV Cardiac Index MOD 4C 2208.4 cm???/min???m??? LV Diastolic Length 4C 9.0 cm LV Systolic Length 4C 8.5 cm LV Diastolic Volume MOD 2C 157.1 cm??? LV Systolic Volume MOD 2C 88.9 cm??? LV Ejection Fraction MOD 2C 43.4 % LV Cardiac Index MOD 2C 2926.1 cm???/min???m??? LV Diastolic Length 2C 9.3 cm LV Systolic Length 2C 8.8 cm LA Volume 57.6 cm??? 18 - 58 / 22 - 52 cm??? LA Volume Index 25.7 cm???/m??? 16 - 28 cm???/m??? M-MODE Aortic Root Diameter MM 3.6 cm LA Systolic Diameter MM 3.2 cm LA Ao Ratio MM 0.9 AV Cusp Separation MM 1.5 cm DOPPLER AV Peak Velocity 195.2 cm/s AV Peak Gradient 15.2 mmHg AV Mean Velocity 141.5 cm/s AV Mean Gradient 9.0 mmHg AV Velocity Time Integral 39.2 cm LVOT Peak Velocity 100.7 cm/s LVOT Peak Gradient 4.1 mmHg LVOT Velocity Time Integral 18.9 cm TR Peak Velocity 254.5 cm/s TR Peak Gradient 25.9 mmHg Right Ventricular Systolic Press 40.5 mmHg FINDINGS Left Ventricle Left ventricular ejection fraction is estimated at 20-25 %. Mildly increased septal wall thickness. Mildly increased posterior wall thickness. Moderately increased left ventricular diastolic diameter. Severely increased left ventricular diastolic volume. Severely increased left ventricular systolic volume. Moderately decreased left ventricular ejection fraction. Right Ventricle Moderate right ventricular dilatation. Mild pulmonary hypertension. Right Atrium Moderate right atrial dilatation. Left Atrium Moderately increased left atrial diameter. Mildly increased left atrial volume. Mitral Valve Structurally normal mitral valve. Mild mitral regurgitation. No mitral stenosis. Aortic Valve Trileaflet aortic valve. No aortic stenosis. No aortic regurgitation. Tricuspid Valve Structurally normal tricuspid valve. Mild tricuspid regurgitation. No tricuspid stenosis. Pulmonic Valve Structurally normal pulmonic valve. Trace pulmonic regurgitation. No pulmonic stenosis. Pericardium No pericardial or pleural effusion. Aorta Aorta at upper limits of normal. CONCLUSIONS Diagnosis congestive heart failure Reduced LV systolic function ejection fraction less than 25% Biatrial enlargement RV enlargement Dilated IVC Previewed by: Dr. Tc Bryan MD (Electronically Signed) Final Date: 17 April 2024 18:12
[2024-04-18 04:24] LABS: Basophils % (A) 0 %; Eosinophils # (A) 0.6 k/uL (0-0.7); Eosinophils % (A) 12 %; HCT 34.8 % (34.0-46.0); Hypochromasia Slight; Lymphocytes # (A) 1.1 k/uL (1.0-4.8); Lymphocytes % (A) 24 %; MCH 32.8 pg (25.0-35.0); MCHC 31.7 g/dL (31.0-37.0); MCV 103.4 fL (80.0-100.0); Macrocytosis Slight; Monocytes # (A) 0.3 k/uL (0-1.0); Monocytes % (A) 7 %; Neutrophils # (A) 2.5 k/uL (1.3-7.7); Neutrophils % (A) 54 %; Platelet Count 310 k/uL (150-450); RBC 3.36 m/uL (3.80-5.40); RDW 12.9 % (11.5-15.5); WBC 4.7 k/uL (3.8-10.6)
[2024-04-18 04:51] LABS: African American GFR (CKD) 86 (>60 ml/min/1.73 sqM); Anion Gap 5 mmol/L; Blood Urea Nitrogen 20 mg/dL (7-17); Calcium 9.7 mg/dL (8.4-10.2); Carbon Dioxide 29 mmol/L (22-30); Chloride 102 mmol/L (98-107); Glucose 96 mg/dL (74-99); Non-African American GFR(CKD) 75 (>60 ml/min/1.73 sqM); Potassium 3.3 mmol/L (3.5-5.1); Sodium 136 mmol/L (137-145)
[2024-04-18] MEDS ORDERED: Potassium Replacement Protocol 1 EACH MISC MISCELLANE PRN (04:56)
[2024-04-18] MEDS: POTASSIUM CHLORIDE ER 20 MEQ TAB.ER PO SCH (06:16)
--- NOTE | 2024-04-18 06:51 | XR ---
EXAMINATION TYPE: XR chest 1V DATE OF EXAM: 04/18/2024 COMPARISON: 04/17/2024 CLINICAL INDICATION: Female, 63 years old with history of RLL pneumonia; TECHNIQUE: Single frontal view of the chest is obtained. FINDINGS: There is been no interval change in the mild cardiomegaly and an mild diffuse increased interstitial density reflecting either chronic interstitial changes or mild vascular congestion/interstitial edema . There is no pneumothorax or pleural effusion. The osseous structures are intact. IMPRESSION: No interval changes as described above. [facility], , 04/18/2024 6:49 AM
--- NOTE | 2024-04-18 10:10 | P.PN ---
Subjective Progress Note Date: 04/18/24 63 year old F with COPD 2L home O2, CHF reported EF 30-40%, melanoma of the liver presents to the ED as a transfer from an outside hospital. Sister at bedside contributing to the history. Patient reports intractable nausea, vomiting and diarrhea since February. She was diagnosed with melanoma of the liver in May and started immunotherapy in November or December. Symptoms persistent since then. Last immunotherapy was last Saturday. She reports poor appetite. Denies headache, LE edema, fever or chills, cough, chest pain, shortness of breath, palpitations, changes in urination. No dizziness, numbness/weakness/tinging of the extremities. In the ED she underwent extensive evaluation. BP 80/51, HR 85, RR 19, T 97F, 100% on 3L NC. CBC, Coag panel, CMP significant for RBC 3.13, Hg 10.3, Hct 32.1, MCV 102.6, Na 136, bicarb 18, BUN 40, Cr 2.13, AST 37, alb 2.8. Mag 2.1. Lactic acid 0.7. UA moderate blood, small LE. CXR RLL opacity. EKG sinus rhythm with PVCs, intraventricular conduction delay, no ST T wave changes. Patient is admitted to ICU. Started on NS and Levophed. 04/17 Patient was seen and examined. Feeling better. No bowel movement. Nausea but no vomiting. Off Levophed now. Maintained on D5 bicarb drip at 100 cc/hr. CBC and BMP significant RBC 3.21, Hg 10.9, Hct 33.4, MCV 104, Na 134, Cl 108, bicarb 16, BUN 31, Cr 1.15. UCx growing GNB. 04/18 Patient was seen and examined. Feeling better. Had a bowel movement however cultures werent collected. On Levophed at 0.01 mcg/kg/min. Echo shows EF 20-25% mod diastolic dysfunction. CBC and BMP significant RBC 3.36, Hg 11, MCV 103.4, Na 136, K 3.3, BUN 20. Cortisol 1.6. General: non toxic, no distress, appears at stated age Derm: warm, dry Head: atraumatic, normocephalic, symmetric Mouth: no lip lesion, mucus membranes moist Cardiovascular: S1S2 reg, no murmur Lungs: Clear to auscultation bilaterally, no rales , no accessory muscle use Ext: no gross muscle atrophy, no edema, no contractures Neuro: no focal neuro deficits Psych: Alert and oriented. Based on my assessment of this patient, this patient meets a high complexity level of care. Hypovolemic shock: Levophed to maintain MAP > 65. D5 bicarb drip at 100 cc/hr per Nephrology. Hold Coreg and Entresto. Telemetry monitoring. ICU on board. Hypokalemia: Replace via protocol. Check Mag. Repeat BMP in the AM. Nausea, vomiting and diarrhea: Persistent likely related to immunotherapy. Obtain stool culture, C. diff, stool for ova and parasites. Hyponatremia: Likely prerenal. Holding Entresto and Jardiance. IV hydration as above. Nephrology on board. Macrocytic anemia: Obtain iron studies, B12, Folate. HFrEF: Not in acute exacerbation. Holding Coreg and Entresto. Holding Jardiance. Judicious use of fluids given history of CHF. Echo ordered. Chronic respiratory failure on 2L NC + COPD not in acute exacerbation. Melanoma of the liver: Following Oncology outpatient. Resolved: YONATAN CODE STATUS: FULL CODE. DVT Prophylaxis: Heparin GI Prophylaxis: Protonix IV Designated medical POA if patient is not able to make medical decisions for themselves: Brother I have reviewed the following senior application security consultant notes: Pulmonary note. I have reviewed the results of the following tests: CBC, BMP, Cortisol. I have ordered the following tests: CBC and BMP in the AM. Mag. Stool Cx pending . Iron studies, B12, Folate pending. I have discussed the care of this patient with the following independent historian: ALLAN. I have independently interpreted the following test below: I have discussed the management of this patient with the following physician: Objective - Vital Signs Vital signs: Vital Signs Temp 97.9 F 04/18/24 08:00 Pulse 99 04/18/24 09:45 Resp 12 04/18/24 09:45 BP 108/72 04/18/24 09:45 Pulse Ox 93 L 04/18/24 09:45 FiO2 Intake & Output 04/17/24 04/18/24 04/18/24 18:59 06:59 18:59 Intake Total 2631.862 1293.148 320 Output Total 695 880 155 Balance 1936.862 413.148 165 Weight 99.79 kg 102.7 kg Intake: IV 390 1100 320 Dextrose 5% in Water 1, 1100 300 000 ml @ 100 mls/hr IV . [id number] BUZZ with Sodium Bicarb (1 Meq/ml) 150 ml Rx#:[id number] KVO 20 Sodium Chloride 0.9% 1, 390 000 ml @ 130 mls/hr IV . [id number] BUZZ Rx#:[id number] Intake, IV Titration 1521.862 193.148 0 Amount Dextrose 5% in Water 1, 500 100 000 ml @ 100 mls/hr IV . [id number] BUZZ with Sodium Bicarb (1 Meq/ml) 150 ml Rx#:[id number] Norepinephrine 4 mg In 21.862 93.148 0 Sodium Chloride 0.9% 250 ml @ 0.03 MCG/KG/MIN 11. 406 mls/hr IV .[id number] BUZZ Rx#:[id number] Sodium Chloride 0.9% 1, 1000 000 ml @ 999 mls/hr IV . Q1H1M ONE Rx#:[id number] Tube Feeding 720 Output: Urine 695 880 155 Other: Voiding Method Indwelling Catheter Indwelling Catheter Indwelling Catheter - Labs CBC & Chem 7: 04/18/24 04:13 04/18/24 04:13 Labs: Abnormal Lab Results - Last 24 Hours (Table) 04/17/24 04/18/24 04/18/24 Range/Units 14:40 04:13 04:13 RBC 3.36 L (3.80-5.40) m/uL Hgb 11.0 L (11.4-16.0) gm/dL MCV 103.4 H (80.0-100.0) fL Sodium 136 L (137-145) mmol/L Potassium 3.3 L (3.5-5.1) mmol/L BUN 20 H (7-17) mg/dL Cortisol 1.6 L (3.1-22.4) UG/DL Microbiology - Last 24 Hours (Table) 04/16/24 11:46 Blood Culture - Preliminary Blood 04/16/24 10:34 Urine Culture - Preliminary Urine,Voided Gram Neg Bacilli
[2024-04-18 11:31] LABS: % Iron Saturation 20.37 (12.00-45.00); Iron 33 UG/DL (50-170); Total Iron Binding Capacity 162 UG/DL (228-460)
--- NOTE | 2024-04-18 11:45 | P.PN ---
Subjective Progress Note Date: 04/18/24 Patient is seen for follow-up for acute kidney injury mostly ischemic ATN from significant hypotension and volume depletion. Currently off of pressors Maintained on bicarb drip low K 3.3 today low cortisol level , plan to start Solu-cortef No new complaints today. Overall feeling better. Serum creatinine 0.8 from 1.1 from 2.1 Objective - Vital Signs Vital signs: Vital Signs Temp 97.9 F 04/18/24 08:00 Pulse 105 H 04/18/24 11:00 Resp 16 04/18/24 11:00 BP 98/67 04/18/24 11:00 Pulse Ox 96 04/18/24 11:00 FiO2 Intake & Output 04/17/24 04/18/24 04/18/24 18:59 06:59 18:59 Intake Total 2631.862 1293.148 540 Output Total 695 880 305 Balance 1936.862 413.148 235 Weight 99.79 kg 102.7 kg Intake: IV 390 1100 540 Dextrose 5% in Water 1, 1100 500 000 ml @ 100 mls/hr IV . [id number] BUZZ with Sodium Bicarb (1 Meq/ml) 150 ml Rx#:[id number] KVO 40 Sodium Chloride 0.9% 1, 390 000 ml @ 130 mls/hr IV . Q7H42M BUZZ Rx#:[id number] Intake, IV Titration 1521.862 193.148 0 Amount Dextrose 5% in Water 1, 500 100 000 ml @ 100 mls/hr IV . [id number] BUZZ with Sodium Bicarb (1 Meq/ml) 150 ml Rx#:[id number] Norepinephrine 4 mg In 21.862 93.148 0 Sodium Chloride 0.9% 250 ml @ 0.03 MCG/KG/MIN 11. 406 mls/hr IV .[id number] BUZZ Rx#:[id number] Sodium Chloride 0.9% 1, 1000 000 ml @ 999 mls/hr IV . Q1H1M ONE Rx#:[id number] Tube Feeding 720 Output: Urine 695 880 305 Other: Voiding Method Indwelling Catheter Indwelling Catheter Indwelling Catheter - Exam Patient is awake, comfortable, no acute distress. Alert or oriented x 3 Poor dental hygiene Examination of the heart S1 and S2 Examination of the lungs bilateral breath sounds are heard Abdomen is soft nontender Examination of lower extremity shows no significant edema [employer] exam grossly intact - Labs CBC & Chem 7: 04/18/24 04:13 04/18/24 04:13 Labs: Abnormal Lab Results - Last 24 Hours (Table) 04/17/24 04/18/24 04/18/24 Range/Units 14:40 04:13 04:13 RBC 3.36 L (3.80-5.40) m/uL Hgb 11.0 L (11.4-16.0) gm/dL MCV 103.4 H (80.0-100.0) fL Sodium 136 L (137-145) mmol/L Potassium 3.3 L (3.5-5.1) mmol/L BUN 20 H (7-17) mg/dL Cortisol 1.6 L (3.1-22.4) UG/DL Microbiology - Last 24 Hours (Table) 04/16/24 11:46 Blood Culture - Preliminary Blood 04/16/24 10:34 Urine Culture - Preliminary Urine,Voided Gram Neg Bacilli Assessment and Plan Assessment: 1. Acute kidney injury, ATN, nonoliguric secondary to hypotension and volume depletion. Currently maintained on IV hydration. UA shows 1+ protein moderate blood WBC is 40. Abdominal imaging was done at an outside facility. 2. Volume depletion from nausea vomiting and diarrhea 3. Hypotension associated with volume depletion and underlying infection possibly viral gastroenteritis 4. Pyuria rule out UTI, WBC 2 on UA 04/16 5. Nongap metabolic acidosis secondary to diarrhea and GI fluid loss 6. Anemia rule out iron deficiency 7. Adrenal insufficiency, cortisol level 1.6 Plan: YONATAN resolved , cr. 0.8, discontinue IV bicarb drip Encourage PO hydration Adrenal insufficiency, started on solu-cortef hypokalemia, replacement ordered Review abdominal imaging done at outside facility to rule out urinary obstructi on Continue to avoid nephrotoxic agents Continue to hold Jardiance and Entresto check labs in am
[2024-04-18] MEDS: HYDROCORTISONE SUCCINATE 100 MG/2 ML VIAL IV SCH (11:46)
[2024-04-18] MEDS ORDERED: Magnesium Replacement Protocol 1 EACH MISC MISCELLANE PRN (11:57)
[2024-04-18] MEDS: MAGNESIUM SULFATE-D5W PMX 1 GM in DEXTROSE/WATER 1 100ML.BAG IVPB SCH ×2 (12:33→18:07)
--- NOTE | 2024-04-18 13:01 | P.PN ---
Subjective Progress Note Date: 04/18/24 Principal diagnosis: Hypotension. Pulmonary consult dated April 16, 2024. 63-year-old female who was seen in the emergency department, by the ER physician, ship from an outside hospital, for weeks, of nausea, vomiting, diarrhea, and resultant dehydration. Apparently the patient has not been feeling well for about a month. She has had chronic loose stools. She apparently had a central line placed, in the left groin, and she was transferred down to [facility]. The patient was then seen, and evaluated, and required norepinephrine, for blood pressure support. Fluid resuscitation was not enough. The patient's systolic blood pressures were still in the 80s. The patient apparently has a history of hyperlipidemia, diabetes, and hypertension. The patient is seen this morning, in room 2, of the emergency department. She is currently on 3 L nasal cannula. The patient is getting saline, via bolus, and also receiving norepinephrine at 0.03 mcg/kg/min. As mentioned, she does have a left femoral triple-lumen catheter in place. White count 6.5, hemoglobin 10.8, hematocrit 34.3, and platelet count normal. Coagulation studies were normal. Sodium 136, potassium 4.1, chlorides 106, CO2 21, BUN 40, creatinine 2.12. Calcium was 9.6, and magnesium was 2.1. Urine was cloudy. There is a moderate amount of blood. Small positive leukocyte esterase, 14 RBCs, 40 WBCs, and rare WBC clumps. Chest x-ray showed possible right lower lobe pneumonia. Progress note dated April 17, 2024. 63-year-old female seen in the emergency department yesterday, who came to the hospital with complaints of nausea, vomiting, and diarrhea, for weeks, with severe dehydration, and hypotension. Yesterday, the patient was on norepinephrine, and, had a left femoral line placed, at the outside hospital. Today, she is seen in room 257. She is awake and alert. She is on 3 L by nasal cannula. She is getting saline at 130 cc an hour. The broom worker will change her to D5W, with 3 ampoules of sodium bicarbonate, at 100 cc an hour. Current laboratory data includes a white count 5.5, hemoglobin 10.9, hematocrit 33.4, and a platelet count of 298,000. Sodium 134, potassium 4.2, chlorides 108, CO2 16, BUN 31, and creatinine 1.15. Magnesium is 2.1. Calcium is 10. Urine is positive for gram-negative bacilli. Chest x-ray shows stable right lower lung opacity, which may relate to either atelectasis, scarring, or acute infiltrate. Progress note dated April 18. 63-year-old female seen today in room 257. The patient developed hypotension last night, and had to go back on norepinephrine. I asked him to draw a cortisol level on the patient. It was quite low at 1.6. Currently, the norepinephrine has been weaned off, but she will likely need it again. Cu rrently, she is on 2 L nasal cannula. She is getting D5W with 3 ampoules of sodium bicarbonate at 100 cc an hour. The patient is also getting saline at 10 cc an hour. We add hydrocortisone 50 mg IV push every 6 hours. White count 4.7, hemoglobin 11, hematocrit 34.8, platelet count normal. Sodium 136, potassium 4.1, chlorides 102, CO2 29, BUN 20, and creatinine 0.83. Magnesium 1.5. Cortisol level was 1.6. Urine was positive for gram-negative bacilli. Chest x-ray shows no interval change. Objective - Vital Signs Vital signs: Vital Signs Temp 97.7 F 04/18/24 12:00 Pulse 106 H 04/18/24 12:15 Resp 21 04/18/24 12:15 BP 101/71 04/18/24 12:15 Pulse Ox 95 04/18/24 12:15 FiO2 Intake & Output 04/17/24 04/18/24 04/18/24 18:59 06:59 18:59 Intake Total 2631.862 1293.148 650 Output Total 695 880 430 Balance 1936.862 413.148 220 Weight 99.79 kg 102.7 kg Intake: IV 390 1100 650 Dextrose 5% in Water 1, 1100 600 000 ml @ 100 mls/hr IV . [id number] BUZZ with Sodium Bicarb (1 Meq/ml) 150 ml Rx#:[id number] KVO 50 Sodium Chloride 0.9% 1, 390 000 ml @ 130 mls/hr IV . Q7H42M BUZZ Rx#:[id number] Intake, IV Titration 1521.862 193.148 0 Amount Dextrose 5% in Water 1, 500 100 000 ml @ 100 mls/hr IV . [id number] BUZZ with Sodium Bicarb (1 Meq/ml) 150 ml Rx#:[id number] Norepinephrine 4 mg In 21.862 93.148 0 Sodium Chloride 0.9% 250 ml @ 0.03 MCG/KG/MIN 11. 406 mls/hr IV .[id number] BUZZ Rx#:[id number] Sodium Chloride 0.9% 1, 1000 000 ml @ 999 mls/hr IV . Q1H1M ONE Rx#:[id number] Tube Feeding 720 Output: Urine 695 880 430 Other: Voiding Method Indwelling Catheter Indwelling Catheter Indwelling Catheter - Exam No acute distress, oriented 3. HEENT examination is grossly unremarkable. Mucous membranes are moist. No oral lesions. Neck supple. Full range of motion. No adenopathy thyromegaly or neck vein distention. Cardiovascular examination reveals regular rhythm rate. S1-S2 normal. No S3 or S4. No discernible murmur noted. Lungs reveal clear breath sounds. Breath sounds are equal bilaterally. No adventitious lung sounds including wheezes rhonchi or crackles. Abdomen soft bowel sounds are heard. No masses or tenderness. Extremities are intact. No cyanosis clubbing or edema. Skin is without rash or lesion. Neurologic examination is brief but nonfocal. - Labs CBC & Chem 7: 04/18/24 04:13 04/18/24 11:00 Labs: Abnormal Lab Results - Last 24 Hours (Table) 04/17/24 04/18/24 04/18/24 Range/Units 14:40 04:13 04:13 RBC 3.36 L (3.80-5.40) m/uL Hgb 11.0 L (11.4-16.0) gm/dL MCV 103.4 H (80.0-100.0) fL Sodium 136 L (137-145) mmol/L Potassium 3.3 L (3.5-5.1) mmol/L BUN 20 H (7-17) mg/dL Magnesium (1.6-2.3) mg/dL Iron 33 L (50-170) UG/DL TIBC 162 L (228-460) UG/DL Transferrin 116.0 L (204.0-354.0) mg/dL Ferritin 800.0 H (10.0-291.0) ng/mL Vitamin B12 1104.0 H (200.0-944.0) pg/mL Cortisol 1.6 L (3.1-22.4) UG/DL 04/18/24 Range/Units 11:00 RBC (3.80-5.40) m/uL Hgb (11.4-16.0) gm/dL MCV (80.0-100.0) fL Sodium (137-145) mmol/L Potassium (3.5-5.1) mmol/L BUN (7-17) mg/dL Magnesium 1.5 L (1.6-2.3) mg/dL Iron (50-170) UG/DL TIBC (228-460) UG/DL Transferrin (204.0-354.0) mg/dL Ferritin (10.0-291.0) ng/mL Vitamin B12 (200.0-944.0) pg/mL Cortisol (3.1-22.4) UG/DL Microbiology - Last 24 Hours (Table) 04/16/24 11:46 Blood Culture - Preliminary Blood 04/16/24 10:34 Urine Culture - Preliminary Urine,Voided Gram Neg Bacilli Assessment and Plan Assessment: Chronic nausea, vomiting, and diarrhea, leading to dehydration, and hypotension. Absolute/relative adrenal insufficiency. S/P left femoral line placement, for fluid administration, and pressors. Gram-negative bacillary urinary tract infection. History of hypertension. History of hyperlipidemia. History of diabetes mellitus. Plan: Plan dated April 16, 2024. I was called by the emergency room physician, as this patient presented with severe and profound hypotension, secondary to dehydration. Apparently for the last month, she has been having nausea, vomiting, and diarrhea. The patient was seen in outside hospital, transferred down here. The patient was given fluid resuscitation, and norepinephrine for blood pressure support. Labs, x-rays, and all medications are reviewed. We will continue to follow the patient, make recommendations along the way. The patient is admitted to the intensive care unit, for further monitoring and management. Additional recommendations and suggestions are forthcoming. Prognosis is guarded. Dictation was produced using [employer] software. Please excuse any grammatical, word or spelling errors. Plan dated April 17, 2024. 63-year-old female seen in room 257. She is feeling much better. The patient did have a urine sample, showing gram-negative bacilli. She may have a urinary tract infection. The patient is not having any urinary tract complaints. She was on norepinephrine, for blood pressure support, because of severe nausea, vomiting, and diarrhea, for nearly a month. Clinically, she is doing much better. She is currently on nasal O2 at 3 L. Her IV is now D5W with 3 ampoules of sodium bicarb and at 100 cc an hour. Labs, x-rays, and all medications are reviewed. The patient's overall prognosis remains guarded. We will continue to follow the patient, make recommendations along the way. Plan dated April 18, 2024. The patient is seen in room 257. She continues on O2 at 2 L. She is getting D5W with 3 A of sodium bicarbonate at 100 cc an hour. She is also getting saline at 10 cc an hour. The patient's cortisol level was 1.6. She is placed on hydrocortisone 50 mg every 6 hours. Labs, x-rays, and medications are reviewed. We will continue to follow the patient, and make recommendations along the way. The patient was on norepinephrine through the night, and it was just recently turned off. And may need to be restarted. The patient will stay in the intensive care unit. Labs, x-rays, and medications are reviewed. We will continue to follow the patient, and make recommendations. Dictation was produced using [employer] software. Please excuse any grammatical, word or spelling errors. Time with Patient: Greater than 30
[2024-04-19 06:33] LABS: Basophils % (A) 0 %; Eosinophils % (A) 1 %; HCT 33.1 % (34.0-46.0); HGB 10.8 gm/dL (11.4-16.0); Hypochromasia Slight; Lymphocytes # (A) 0.5 k/uL (1.0-4.8); Lymphocytes % (A) 11 %; MCH 33.4 pg (25.0-35.0); MCHC 32.7 g/dL (31.0-37.0); Macrocytosis Slight; Mean Platelet Volume 7.4; Monocytes # (A) 0.2 k/uL (0-1.0); Monocytes % (A) 5 %; Neutrophils # (A) 3.8 k/uL (1.3-7.7); Neutrophils % (A) 82 %; Platelet Count 344 k/uL (150-450); RBC 3.25 m/uL (3.80-5.40); RDW 12.8 % (11.5-15.5); WBC 4.7 k/uL (3.8-10.6)
[2024-04-19 06:44] LABS: African American GFR (CKD) >90 (>60 ml/min/1.73 sqM); Anion Gap 5 mmol/L; Blood Urea Nitrogen 16 mg/dL (7-17); Calcium 9.6 mg/dL (8.4-10.2); Carbon Dioxide 30 mmol/L (22-30); Chloride 100 mmol/L (98-107); Glucose 151 mg/dL (74-99); Non-African American GFR(CKD) >90 (>60 ml/min/1.73 sqM); Sodium 135 mmol/L (137-145)
--- NOTE | 2024-04-19 06:47 | XR ---
EXAMINATION TYPE: XR chest 1V portable DATE OF EXAM: 04/19/2024 COMPARISON: 04/18/2024 CLINICAL INDICATION: Female, 63 years old with history of PNA; TECHNIQUE: Single frontal view of the chest is obtained. FINDINGS: Stable mild cardiomegaly with moderate pulmonary vascular congestion. No pleural effusion or pneumoth orax. No airspace consolidation. The osseous structures are intact. IMPRESSION: No change in the acute cardiopulmonary process. [facility], Workstation: [facility], 04/19/2024 6:45 AM
[2024-04-19 07:05] LABS: Potassium 3.7 mmol/L (3.5-5.1)
--- NOTE | 2024-04-19 10:22 | P.PN ---
Subjective Progress Note Date: 04/19/24 63 year old F with COPD 2L home O2, CHF reported EF 30-40%, melanoma of the liver presents to the ED as a transfer from an outside hospital. Sister at bedside contributing to the history. Patient reports intractable nausea, vomiting and diarrhea since February. She was diagnosed with melanoma of the liver in May and started immunotherapy in November or December. Symptoms persistent since then. Last immunotherapy was last Saturday. She reports poor appetite. Denies headache, LE edema, fever or chills, cough, chest pain, shortness of breath, palpitations, changes in urination. No dizziness, numbness/weakness/tinging of the extremities. In the ED she underwent extensive evaluation. BP 80/51, HR 85, RR 19, T 97F, 100% on 3L NC. CBC, Coag panel, CMP significant for RBC 3.13, Hg 10.3, Hct 32.1, MCV 102.6, Na 136, bicarb 18, BUN 40, Cr 2.13, AST 37, alb 2.8. Mag 2.1. Lactic acid 0.7. UA moderate blood, small LE. CXR RLL opacity. EKG sinus rhythm with PVCs, intraventricular conduction delay, no ST T wave changes. Patient is admitted to ICU. Started on NS and Levophed. Cortisol was low at 1.6, started on Solu-Cortef. Echo shows EF 20-25% mod diastolic dysfunction. UCx growing Klebsiella 10-50k, patient asymptomatic but started empirically on Rocephin. 04/19 Patient was seen and examined. Feeling better. Had a bowel movement which was formed, cultures sent. Reports some swelling in the legs. Weaned off Levophed. UCx Klebsiella. BCx negative so far. CBC and BMP significant RBC 3.25, Hg 10.8, Hct 33.1, MCV 102, Na 135, glu 151. Mag 2.0. Iron studies show Fe 33, Ferritin 800, B12 1104, Folate 6.2. CXR shows mild cardiomegaly with moderate pulmonary vascular congestion. General: non toxic, no distress, appears at stated age Derm: warm, dry Head: atraumatic, normocephalic, symmetric Mouth: no lip lesion, mucus membranes moist Cardiovascular: S1S2 reg, no murmur Lungs: Decreased BS bilaterally, no rales , no accessory muscle use Ext: no gross muscle atrophy, 1+ LE edema, no contractures Neuro: no focal neuro deficits Psych: Alert and oriented. Based on my assessment of this patient, this patient meets a high complexity level of care. HFrEF with mild exacerbation: Holding Coreg and Entresto. Restart Jardiance. Judicious use of fluids given history of CHF. Echo as above. Consider low dose of Lasix when BP improves. Hypovolemia, shock resolved: Levophed weaned off. Off IV fluids. Hold Coreg and Entresto. Telemetry monitoring. Downgrade when bed available. Adrenal insufficiency: Cortisol 1.6. Started on Solu-Cortef at 50 mg IV Q6H. Check ACTH. Nausea, vomiting and diarrhea: Persistent likely related to immunotherapy. Obtain stool culture, C. diff, stool for ova and parasites. Hyponatremia: Likely hypovolemic. Improved. Nephrology on board. Macrocytic anemia: Iron studies indicate AOCD likely related to malignancy. B12 1104. Folate low-normal at 6.3, started on Folic acid 1 mg PO QD. Chronic respiratory failure on 2L NC + COPD not in acute exacerbation. Melanoma of the liver: Following Oncology outpatient. Resolved: YONATAN, Hypovolemic shock, HypoK, HypoMg CODE STATUS: FULL CODE. DVT Prophylaxis: Heparin GI Prophylaxis: Protonix IV Designated medical POA if patient is not able to make medical decisions for themselves: Brother I have reviewed the following strategy consultant notes: Pulmonary note. I have reviewed the results of the following tests: CBC, BMP, Mag, Iron studies, B12, Folate. I have ordered the following tests: CBC and BMP in the AM. Mag. Stool Cx pending . ACTH. I have discussed the care of this patient with the following independent historian: ALLAN. I have independently interpreted the following test below: CXR I have discussed the management of this patient with the following physician: Objective - Vital Signs Vital signs: Vital Signs Temp 97.6 F 04/19/24 08:00 Pulse 86 04/19/24 09:00 Resp 16 04/19/24 09:00 BP 93/67 04/19/24 09:00 Pulse Ox 95 04/19/24 09:00 FiO2 Intake & Output 04/18/24 04/19/24 04/19/24 17:59 06:59 18:59 Intake Total 40 Output Total 205 Balance -165 Weight Intake: IV 40 Dextrose 5% in Water 1, 0 000 ml @ 100 mls/hr IV . [id number] BUZZ with Sodium Bicarb (1 Meq/ml) 150 ml Rx#:[id number] KVO 40 Intake, IV Titration Amount Norepinephrine 4 mg In Sodium Chloride 0.9% 250 ml @ 0.03 MCG/KG/MIN 11. 406 mls/hr IV .[id number] BUZZ Rx#:[id number] Output: Urine 205 Other: Voiding Method Indwelling Catheter # Bowel Movements 1 - Labs CBC & Chem 7: 04/19/24 05:59 04/19/24 05:59 Labs: Abnormal Lab Results - Last 24 Hours (Table) 04/18/24 04/18/24 04/19/24 Range/Units 04:13 11:00 05:59 RBC (3.80-5.40) m/uL Hgb (11.4-16.0) gm/dL Hct (34.0-46.0) % MCV (80.0-100.0) fL Lymphocytes # (1.0-4.8) k/uL Sodium 135 L (137-145) mmol/L Glucose 151 H (74-99) mg/dL Magnesium 1.5 L (1.6-2.3) mg/dL Iron 33 L (50-170) UG/DL TIBC 162 L (228-460) UG/DL Transferrin 116.0 L (204.0-354.0) mg/dL Ferritin 800.0 H (10.0-291.0) ng/mL Vitamin B12 1104.0 H (200.0-944.0) pg/mL 04/19/24 Range/Units 05:59 RBC 3.25 L (3.80-5.40) m/uL Hgb 10.8 L (11.4-16.0) gm/dL Hct 33.1 L (34.0-46.0) % MCV 102.0 H (80.0-100.0) fL Lymphocytes # 0.5 L (1.0-4.8) k/uL Sodium (137-145) mmol/L Glucose (74-99) mg/dL Magnesium (1.6-2.3) mg/dL Iron (50-170) UG/DL TIBC (228-460) UG/DL Transferrin (204.0-354.0) mg/dL Ferritin (10.0-291.0) ng/mL Vitamin B12 (200.0-944.0) pg/mL Microbiology - Last 24 Hours (Table) 04/16/24 11:46 Blood Culture - Preliminary Blood 04/16/24 10:34 Urine Culture - Final Urine,Voided Klebsiella pneumoniae
[2024-04-19] MEDS: FOLIC ACID 1 MG TAB PO SCH (10:35)
--- NOTE | 2024-04-19 12:10 | P.PN ---
Subjective Progress Note Date: 04/19/24 Principal diagnosis: Hypotension. Pulmonary consult dated April 16, 2024. 63-year-old female who was seen in the emergency department, by the ER physician, ship from an outside hospital, for weeks, of nausea, vomiting, diarrhea, and resultant dehydration. Apparently the patient has not been feeling well for about a month. She has had chronic loose stools. She apparently had a central line placed, in the left groin, and she was transferred down to [facility]. The patient was then seen, and evaluated, and required norepinephrine, for blood pressure support. Fluid resuscitation was not enough. The patient's systolic blood pressures were still in the 80s. The patient apparently has a history of hyperlipidemia, diabetes, and hypertension. The patient is seen this morning, in room 2, of the emergency department. She is currently on 3 L nasal cannula. The patient is getting saline, via bolus, and also receiving norepinephrine at 0.03 mcg/kg/min. As mentioned, she does have a left femoral triple-lumen catheter in place. White count 6.5, hemoglobin 10.8, hematocrit 34.3, and platelet count normal. Coagulation studies were normal. Sodium 136, potassium 4.1, chlorides 106, CO2 21, BUN 40, creatinine 2.12. Calcium was 9.6, and magnesium was 2.1. Urine was cloudy. There is a moderate amount of blood. Small positive leukocyte esterase, 14 RBCs, 40 WBCs, and rare WBC clumps. Chest x-ray showed possible right lower lobe pneumonia. Progress note dated April 17, 2024. 63-year-old female seen in the emergency department yesterday, who came to the hospital with complaints of nausea, vomiting, and diarrhea, for weeks, with severe dehydration, and hypotension. Yesterday, the patient was on norepinephrine, and, had a left femoral line placed, at the outside hospital. Today, she is seen in room 257. She is awake and alert. She is on 3 L by nasal cannula. She is getting saline at 130 cc an hour. The cabinetmaker supervisor will change her to D5W, with 3 ampoules of sodium bicarbonate, at 100 cc an hour. Current laboratory data includes a white count 5.5, hemoglobin 10.9, hematocrit 33.4, and a platelet count of 298,000. Sodium 134, potassium 4.2, chlorides 108, CO2 16, BUN 31, and creatinine 1.15. Magnesium is 2.1. Calcium is 10. Urine is positive for gram-negative bacilli. Chest x-ray shows stable right lower lung opacity, which may relate to either atelectasis, scarring, or acute infiltrate. Progress note dated April 18. 63-year-old female seen today in room 257. The patient developed hypotension last night, and had to go back on norepinephrine. I asked him to draw a cortisol level on the patient. It was quite low at 1.6. Currently, the norepinephrine has been weaned off, but she will likely need it again. Cu rrently, she is on 2 L nasal cannula. She is getting D5W with 3 ampoules of sodium bicarbonate at 100 cc an hour. The patient is also getting saline at 10 cc an hour. We add hydrocortisone 50 mg IV push every 6 hours. White count 4.7, hemoglobin 11, hematocrit 34.8, platelet count normal. Sodium 136, potassium 4.1, chlorides 102, CO2 29, BUN 20, and creatinine 0.83. Magnesium 1.5. Cortisol level was 1.6. Urine was positive for gram-negative bacilli. Chest x-ray shows no interval change. Progress note dated April 19, 2024. 63-year-old female seen today in room 257. She is resting comfortably. She is on 2 L nasal cannula. She had been on norepinephrine, but it has been weaned off. Nonetheless, her blood pressures are still a bit low. She is getting saline at KVO. Her cortisol level was very low, and she was placed on hydrocortisone 50 mg IV push every 6 hours for her adrenal insufficiency. She had demonstrated Klebsiella in the urine, and is currently on Rocephin. Labs include a white count 4.7, hemoglobin 10.8, hematocrit 33.1, and a platelet count of 344,000. Sodium 135, potassium 3.7, chlorides 100, CO2 30, BUN 16, creatinine 0.63. Glucose is 151. Calcium 9.6, magnesium is 2.0. Chest x-ray shows mild cardiomegaly, with mild pulmonary vascular congestion. Objective - Vital Signs Vital signs: Vital Signs Temp 97.6 F 04/19/24 12:00 Pulse 90 04/19/24 12:00 Resp 12 04/19/24 12:00 BP 98/75 04/19/24 12:00 Pulse Ox 94 L 04/19/24 12:00 FiO2 Intake & Output 04/18/24 04/19/24 04/19/24 17:59 06:59 18:59 Intake Total 60 Output Total 265 Balance -205 Weight Intake: IV 60 Dextrose 5% in Water 1, 0 000 ml @ 100 mls/hr IV . [id number] BUZZ with Sodium Bicarb (1 Meq/ml) 150 ml Rx#:[id number] KVO 60 Intake, IV Titration Amount Norepinephrine 4 mg In Sodium Chloride 0.9% 250 ml @ 0.03 MCG/KG/MIN 11. 406 mls/hr IV .[id number] BUZZ Rx#:[id number] Output: Urine 265 Other: Voiding Method Indwelling Catheter # Bowel Movements 1 - Exam No acute distress, oriented 3. Currently on 2 L. HEENT examination is grossly unremarkable. Mucous membranes are moist. No oral lesions. Neck supple. Full range of motion. No adenopathy thyromegaly or neck vein distention. Cardiovascular examination reveals regular rhythm rate. S1-S2 normal. No S3 or S4. No discernible murmur noted. Lungs reveal clear breath sounds. Breath sounds are equal bilaterally. No adventitious lung sounds including wheezes rhonchi or crackles. Abdomen soft bowel sounds are heard. No masses or tenderness. Extremities are intact. No cyanosis clubbing or edema. Skin is without rash or lesion. Neurologic examination is brief but nonfocal. - Labs CBC & Chem 7: 04/19/24 05:59 04/19/24 05:59 Labs: Abnormal Lab Results - Last 24 Hours (Table) 04/18/24 04/18/24 04/19/24 Range/Units 04:13 11:00 05:59 RBC (3.80-5.40) m/uL Hgb (11.4-16.0) gm/dL Hct (34.0-46.0) % MCV (80.0-100.0) fL Lymphocytes # (1.0-4.8) k/uL Sodium 135 L (137-145) mmol/L Glucose 151 H (74-99) mg/dL Magnesium 1.5 L (1.6-2.3) mg/dL Iron 33 L (50-170) UG/DL TIBC 162 L (228-460) UG/DL Transferrin 116.0 L (204.0-354.0) mg/dL Ferritin 800.0 H (10.0-291.0) ng/mL Vitamin B12 1104.0 H (200.0-944.0) pg/mL 04/19/24 Range/Units 05:59 RBC 3.25 L (3.80-5.40) m/uL Hgb 10.8 L (11.4-16.0) gm/dL Hct 33.1 L (34.0-46.0) % MCV 102.0 H (80.0-100.0) fL Lymphocytes # 0.5 L (1.0-4.8) k/uL Sodium (137-145) mmol/L Glucose (74-99) mg/dL Magnesium (1.6-2.3) mg/dL Iron (50-170) UG/DL TIBC (228-460) UG/DL Transferrin (204.0-354.0) mg/dL Ferritin (10.0-291.0) ng/mL Vitamin B12 (200.0-944.0) pg/mL Microbiology - Last 24 Hours (Table) 04/16/24 11:46 Blood Culture - Preliminary Blood 04/16/24 10:34 Urine Culture - Final Urine,Voided Klebsiella pneumoniae Assessment and Plan Assessment: Chronic nausea, vomiting, and diarrhea, leading to dehydration, and hypotension. Absolute/relative adrenal insufficiency. S/P left femoral line placement, for fluid administration, and pressors. Klebsiella urinary tract infection. History of hypertension. History of hyperlipidemia. History of diabetes mellitus. Plan: Plan dated April 16, 2024. I was called by the emergency room physician, as this patient presented with severe and profound hypotension, secondary to dehydration. Apparently for the last month, she has been having nausea, vomiting, and diarrhea. The patient was seen in outside hospital, transferred down here. The patient was given fluid resuscitation, and norepinephrine for blood pressure support. Labs, x-rays, and all medications are reviewed. We will continue to follow the patient, make recommendations along the way. The patient is admitted to the intensive care unit, for further monitoring and management. Additional recommendations and suggestions are forthcoming. Prognosis is guarded. Dictation was produced using [employer] software. Please excuse any grammatical, word or spelling errors. Plan dated April 17, 2024. 63-year-old female seen in room 257. She is feeling much better. The patient did have a urine sample, showing gram-negative bacilli. She may have a urinary tract infection. The patient is not having any urinary tract complaints. She was on norepinephrine, for blood pressure support, because of severe nausea, vomiting, and diarrhea, for nearly a month. Clinically, she is doing much better. She is currently on nasal O2 at 3 L. Her IV is now D5W with 3 ampoules of sodium bicarb and at 100 cc an hour. Labs, x-rays, and all medications are reviewed. The patient's overall prognosis remains guarded. We will continue to follow the patient, make recommendations along the way. Plan dated April 18, 2024. The patient is seen in room 257. She continues on O2 at 2 L. She is getting D5W with 3 A of sodium bicarbonate at 100 cc an hour. She is also getting saline at 10 cc an hour. The patient's cortisol level was 1.6. She is placed on hydrocortisone 50 mg every 6 hours. Labs, x-rays, and medications are reviewed. We will continue to follow the patient, and make recommendations along the way. The patient was on norepinephrine through the night, and it was just recently turned off. And may need to be restarted. The patient will stay in the intensive care unit. Labs, x-rays, and medications are reviewed. We will continue to follow the patient, and make recommendations. Dictation was produced using [employer] software. Please excuse any grammatical, word or spelling errors. Plan dated April 19, 2024. The patient is seen today in room 257. She continues on nasal O2 at 2 L. The patient had been on norepinephrine, but that has been weaned down. She is getting saline at KVO. For adrenal insufficiency, the patient was placed on hydrocortisone, 50 mg every 6 hours. Klebsiella, was found to have a urine, and the patient is currently on Rocephin, for urinary tract infection, and urosepsis. All labs, x-rays, and medications are reviewed. We will continue to follow the patient, make recommendations. The patient may be able to be transferred out of the intensive care unit, later today, if she does not require norepinephrine. We will continue to follow. Dictation was produced using [employer] software. Please excuse any grammatical, word or spelling errors. Time with Patient: Greater than 30
--- NOTE | 2024-04-19 12:20 | P.PN ---
Subjective Progress Note Date: 04/19/24 Patient is seen for follow-up for acute kidney injury mostly ischemic ATN from significant hypotension and volume depletion. s/p pressors and IVF No new complaints today. Overall feeling better. Serum creatinine 0.6 from 0.8 Objective - Vital Signs Vital signs: Vital Signs Temp 97.6 F 04/19/24 12:00 Pulse 90 04/19/24 12:00 Resp 12 04/19/24 12:00 BP 98/75 04/19/24 12:00 Pulse Ox 94 L 04/19/24 12:00 FiO2 Intake & Output 04/18/24 04/19/24 04/19/24 17:59 06:59 18:59 Intake Total 60 Output Total 265 Balance -205 Weight Intake: IV 60 Dextrose 5% in Water 1, 0 000 ml @ 100 mls/hr IV . [id number] [id number] with Sodium Bicarb (1 Meq/ml) 150 ml Rx#:[id number] KVO 60 Intake, IV Titration Amount Norepinephrine 4 mg In Sodium Chloride 0.9% 250 ml @ 0.03 MCG/KG/MIN 11. 406 mls/hr IV .[id number] [id number] Rx#:[id number] Output: Urine 265 Other: Voiding Method Indwelling Catheter # Bowel Movements 1 - Exam Patient is awake, comfortable, no acute distress. Alert or oriented x 3 Poor dental hygiene Examination of the heart S1 and S2 Examination of the lungs bilateral breath sounds are heard Abdomen is soft nontender Examination of lower extremity shows no significant edema [employer] exam grossly intact - Labs CBC & Chem 7: 04/19/24 05:59 04/19/24 05:59 Labs: Abnormal Lab Results - Last 24 Hours (Table) 04/18/24 04/18/24 04/19/24 Range/Units 04:13 11:00 05:59 RBC (3.80-5.40) m/uL Hgb (11.4-16.0) gm/dL Hct (34.0-46.0) % MCV (80.0-100.0) fL Lymphocytes # (1.0-4.8) k/uL Sodium 135 L (137-145) mmol/L Glucose 151 H (74-99) mg/dL Magnesium 1.5 L (1.6-2.3) mg/dL Iron 33 L (50-170) UG/DL TIBC 162 L (228-460) UG/DL Transferrin 116.0 L (204.0-354.0) mg/dL Ferritin 800.0 H (10.0-291.0) ng/mL Vitamin B12 1104.0 H (200.0-944.0) pg/mL 04/19/24 Range/Units 05:59 RBC 3.25 L (3.80-5.40) m/uL Hgb 10.8 L (11.4-16.0) gm/dL Hct 33.1 L (34.0-46.0) % MCV 102.0 H (80.0-100.0) fL Lymphocytes # 0.5 L (1.0-4.8) k/uL Sodium (137-145) mmol/L Glucose (74-99) mg/dL Magnesium (1.6-2.3) mg/dL Iron (50-170) UG/DL TIBC (228-460) UG/DL Transferrin (204.0-354.0) mg/dL Ferritin (10.0-291.0) ng/mL Vitamin B12 (200.0-944.0) pg/mL Microbiology - Last 24 Hours (Table) 04/16/24 11:46 Blood Culture - Preliminary Blood 04/16/24 10:34 Urine Culture - Final Urine,Voided Klebsiella pneumoniae Assessment and Plan Assessment: 1. Acute kidney injury, ATN, nonoliguric secondary to hypotension and volume depletion. Currently maintained on IV hydration. UA shows 1+ protein moderate blood WBC is 40. Abdominal imaging was done at an outside facility. 2. Volume depletion from nausea vomiting and diarrhea 3. Hypotension associated with volume depletion and underlying infection possibly viral gastroenteritis 4. Pyuria rule out UTI, WBC 2 on UA 04/16 5. Nongap metabolic acidosis secondary to diarrhea and GI fluid loss 6. Anemia rule out iron deficiency 7. Adrenal insufficiency, cortisol level 1.6 started on solu-cortef Plan: YONATAN resolved Encourage PO hydration Continue to avoid nephrotoxic agents OK to resume Jardiance and Entresto if needed check labs in am
[2024-04-20 03:18] LABS: HGB 10.1 gm/dL (11.4-16.0); MCH 32.9 pg (25.0-35.0); MCHC 32.6 g/dL (31.0-37.0); MCV 100.8 fL (80.0-100.0); Mean Platelet Volume 7.6; Platelet Count 360 k/uL (150-450); RBC 3.08 m/uL (3.80-5.40); RDW 13.4 % (11.5-15.5); WBC 5.4 k/uL (3.8-10.6)
[2024-04-20 03:57] LABS: African American GFR (CKD) 90 (>60 ml/min/1.73 sqM); Anion Gap 5 mmol/L; Blood Urea Nitrogen 21 mg/dL (7-17); Calcium 9.5 mg/dL (8.4-10.2); Carbon Dioxide 31 mmol/L (22-30); Chloride 100 mmol/L (98-107); Glucose 146 mg/dL (74-99); Non-African American GFR(CKD) 78 (>60 ml/min/1.73 sqM); Potassium 3.5 mmol/L (3.5-5.1); Sodium 136 mmol/L (137-145)
[2024-04-20] MEDS: carvediloL 3.125 MG TAB PO SCH (06:48)
--- NOTE | 2024-04-20 06:48 | P.PN ---
Subjective Progress Note Date: 04/20/24 63 year old F with COPD 2L home O2, CHF reported EF 30-40%, melanoma of the liver presents to the ED as a transfer from an outside hospital. Sister at bedside contributing to the history. Patient reports intractable nausea, vomiting and diarrhea since February. She was diagnosed with melanoma of the liver in May and started immunotherapy in November or December. Symptoms persistent since then. Last immunotherapy was last Saturday. She reports poor appetite. Denies headache, LE edema, fever or chills, cough, chest pain, shortness of breath, palpitations, changes in urination. No dizziness, numbness/weakness/tinging of the extremities. In the ED she underwent extensive evaluation. BP 80/51, HR 85, RR 19, T 97F, 100% on 3L NC. CBC, Coag panel, CMP significant for RBC 3.13, Hg 10.3, Hct 32.1, MCV 102.6, Na 136, bicarb 18, BUN 40, Cr 2.13, AST 37, alb 2.8. Mag 2.1. Lactic acid 0.7. UA moderate blood, small LE. CXR RLL opacity. EKG sinus rhythm with PVCs, intraventricular conduction delay, no ST T wave changes. Patient is admitted to ICU. Started on NS and Levophed. Cortisol was low at 1.6, started on Solu-Cortef. Echo shows EF 20-25% mod diastolic dysfunction. UCx growing Klebsiella 10-50k, patient asymptomatic but started empirically on Rocephin. Levophed weaned off 04/19 and patient transferred out of ICU. 04/20 Patient was seen and examined. Feeling better. Stool cultures are pending however diarrhea seems to have improved significantly. Off IVF. BCx negative so far. CBC and BMP significant RBC 3.08, Hg 10.1, Hct 31, MCV 100.8, Na 136, bicarb 31, BUN 21, glu 146. General: non toxic, no distress, appears at stated age Derm: warm, dry Head: atraumatic, normocephalic, symmetric Mouth: no lip lesion, mucus membranes moist Cardiovascular: S1S2 reg, no murmur Lungs: Decreased BS bilaterally, no rales , no accessory muscle use Ext: no gross muscle atrophy, 1+ LE edema, no contractures Neuro: no focal neuro deficits Psych: Alert and oriented. Based on my assessment of this patient, this patient meets a high complexity level of care. HFrEF with mild exacerbation: Restart Coreg 3.125 mg PO BID and Entresto 24-26mg PO BID. Restart Jardiance 10 mg PO QD. Judicious use of fluids given history of CHF. Echo as above. Consider low dose of Lasix if BP maintains. Hypovolemia, shock resolved: Levophed weaned off. Off IV fluids. Restarted Coreg and Entresto as above today. Telemetry monitoring. Adrenal insufficiency: Cortisol 1.6. Continue Solu-Cortef at 50 mg IV Q6H. ACTH pending. Nausea, vomiting and diarrhea: Persistent likely related to immunotherapy. Stool culture, C. diff, stool for ova and parasites pending. Hyponatremia: Likely hypovolemic. Improved. Nephrology on board. Macrocytic anemia: Iron studies indicate AOCD likely related to malignancy. B12 1104. Folate low-normal at 6.3, started on Folic acid 1 mg PO QD. Chronic respiratory failure on 2L NC + COPD not in acute exacerbation. Melanoma of the liver: Following Oncology outpatient. Resolved: YONATAN, Hypovolemic shock, HypoK, HypoMg Shock resolved. Borderline BP, restarted Coreg + Entresto + Jardiance today. Monitor BP. Appears a bit volume overloaded. Consider low dose Lasix for diuresis if BP maintains. PT consulted. Anticipate DC in 1-2 days. CODE STATUS: FULL CODE. DVT Prophylaxis: Heparin GI Prophylaxis: Protonix IV Designated medical POA if patient is not able to make medical decisions for them selves: Brother I have reviewed the following aerodynamic consultant notes: Nephrology note. I have reviewed the results of the following tests: CBC, BMP, Mag, Iron studies, B12, Folate. I have ordered the following tests: CBC and BMP in the AM. Mag. Stool Cx pending. ACTH pending. I have discussed the care of this patient with the following independent historian: I have independently interpreted the following test below: I have discussed the management of this patient with the following physician: Objective - Vital Signs Vital signs: Vital Signs Temp 97.6 F 04/20/24 00:50 Pulse 96 04/20/24 00:50 Resp 18 04/20/24 00:50 BP 105/69 04/20/24 00:50 Pulse Ox 95 04/20/24 00:50 FiO2 Intake & Output 04/19/24 04/19/24 04/20/24 06:59 18:59 06:59 Intake Total 320 540 Output Total 595 Balance -275 540 Weight Intake: IV 80 Dextrose 5% in Water 1, 0 000 ml @ 100 mls/hr IV . [id number] BUZZ with Sodium Bicarb (1 Meq/ml) 150 ml Rx#:[id number] KVO 80 Oral 240 540 Output: Urine 595 Other: Voiding Method Indwelling Catheter Bedside Commode # Voids 1 # Bowel Movements 1 - Labs CBC & Chem 7: 04/20/24 02:55 04/20/24 02:55 Labs: Abnormal Lab Results - Last 24 Hours (Table) 04/19/24 04/20/24 04/20/24 Range/Units 05:59 02:55 02:55 RBC 3.08 L (3.80-5.40) m/uL Hgb 10.1 L (11.4-16.0) gm/dL Hct 31.0 L (34.0-46.0) % MCV 100.8 H (80.0-100.0) fL Sodium 135 L 136 L (137-145) mmol/L Carbon Dioxide 31 H (22-30) mmol/L BUN 21 H (7-17) mg/dL Glucose 151 H 146 H (74-99) mg/dL Microbiology - Last 24 Hours (Table) 04/16/24 11:46 Blood Culture - Preliminary Blood
[2024-04-20] MEDS: DAPAGLIFLOZIN PROPANEDIOL 10 MG TABLET PO SCH (07:59)
[2024-04-20] MEDS: SACUBITRIL/VALSARTAN 24 MG-26 MG TABLET PO SCH (07:59)
[2024-04-20] MEDS: PANTOPRAZOLE 40 MG TABLET PO SCH (07:59)
--- NOTE | 2024-04-20 11:39 | P.PN ---
Subjective Patient is seen in follow-up for acute kidney injury. Renal function back to baseline. Tolerating oral intake. No active complaints. Vital signs are stable. General: No acute distress. HEENT: Head exam is unremarkable. LUNGS: No audible rhonchi or wheezes. HEART: Rate and Rhythm are regular. ABDOMEN: Nontender. EXTREMITITES: Trace edema in ankles. Objective - Vital Signs Vital signs: Vital Signs Temp 97.7 F 04/20/24 07:07 Pulse 86 04/20/24 07:07 Resp 18 04/20/24 07:07 BP 120/73 04/20/24 07:07 Pulse Ox 95 04/20/24 07:46 FiO2 Intake & Output 04/19/24 04/20/24 04/20/24 18:59 06:59 18:59 Intake Total 320 540 Output Total 595 Balance -275 540 Intake: IV 80 Dextrose 5% in Water 1, 0 000 ml @ 100 mls/hr IV . [id number] BUZZ with Sodium Bicarb (1 Meq/ml) 150 ml Rx#:[id number] KVO 80 Oral 240 540 Output: Urine 595 Other: Voiding Method Indwelling Catheter Bedside Commode # Voids 1 # Bowel Movements 1 - Labs CBC & Chem 7: 04/20/24 02:55 04/20/24 02:55 Labs: Abnormal Lab Results - Last 24 Hours (Table) 04/20/24 04/20/24 Range/Units 02:55 02:55 RBC 3.08 L (3.80-5.40) m/uL Hgb 10.1 L (11.4-16.0) gm/dL Hct 31.0 L (34.0-46.0) % MCV 100.8 H (80.0-100.0) fL Sodium 136 L (137-145) mmol/L Carbon Dioxide 31 H (22-30) mmol/L BUN 21 H (7-17) mg/dL Glucose 146 H (74-99) mg/dL Microbiology - Last 24 Hours (Table) 04/19/24 07:50 Stool Culture - Preliminary Stool 04/16/24 11:46 Blood Culture - Preliminary Blood Assessment and Plan Plan: Assessment: 1. Acute kidney injury secondary to ATN secondary to hypovolemia, hypotension. Resolved. GFR back to baseline. 2. Adrenal insufficiency maintained on Solu-Cortef. 3. Metabolic acidosis secondary to acute kidney injury, IV fluids and GI losses. Resolved. 4. Acute on chronic systolic CHF ejection fraction of 20 to 25%. Plan: Maintain SGLT2 inhibitor. Change IV Solu-Cortef to oral Cortef 5 twice daily. Patient will need to follow-up with endocrinology outpatient for further workup for adrenal sufficiency. Avoid nephrotoxins. Follow-up outpatient 1 to 2 weeks postdischarge.
[2024-04-20] MEDS: POTASSIUM CHLORIDE ER 20 MEQ TAB.ER PO STA (12:10)
--- NOTE | 2024-04-20 16:56 | P.PN ---
Subjective Progress Note Date: 04/20/24 63-year-old female who was seen in the emergency department, by the ER physician, ship from an outside hospital, for weeks, of nausea, vomiting, diarrhea, and resultant dehydration. Apparently the patient has not been feeling well for about a month. She has had chronic loose stools. She apparently had a central line placed, in the left groin, and she was transferred down to [facility]. The patient was then seen, and evaluated, and required norepinephrine, for blood pressure support. Fluid resuscitation was not enough. The patient's systolic blood pressures were still in the 80s. The patient apparently has a history of hyperlipidemia, diabetes, and hypertension. The patient is seen this morning, in room 2, of the emergency department. She is currently on 3 L nasal cannula. The patient is getting saline, via bolus, and also receiving norepinephrine at 0.03 mcg/kg/min. As mentioned, she does have a left femoral triple-lumen catheter in place. White count 6.5, hemoglobin 10.8, hematocrit 34.3, and platelet count normal. Coagulation studies were normal. Sodium 136, potassium 4.1, chlorides 106, CO2 21, BUN 40, creatinine 2.12. Calcium was 9.6, and magnesium was 2.1. Urine was cloudy. There is a moderate amount of blood. Small positive leukocyte esterase, 14 RBCs, 40 WBCs, and rare WBC clumps. Chest x-ray showed possible right lower lobe pneumonia. Progress note dated April 17, 2024. 63-year-old female seen in the emergency department yesterday, who came to the hospital with complaints of nausea, vomiting, and diarrhea, for weeks, with severe dehydration, and hypotension. Yesterday, the patient was on norepinephrine, and, had a left femoral line placed, at the outside hospital. Today, she is seen in room 257. She is awake and alert. She is on 3 L by nasal cannula. She is getting saline at 130 cc an hour. The member services coordinator will change her to D5W, with 3 ampoules of sodium bicarbonate, at 100 cc an hour. Current laboratory data includes a white count 5.5, hemoglobin 10.9, hematocrit 33.4, and a platelet count of 298,000. Sodium 134, potassium 4.2, chlorides 108, CO2 16, BUN 31, and creatinine 1.15. Magnesium is 2.1. Calcium is 10. Urine is positive for gram-negative bacilli. Chest x-ray shows stable right lower lung opacity, which may relate to either atelectasis, scarring, or acute infiltrate. Progress note dated April 18. 63-year-old female seen today in room 257. The patient developed hypotension last night, and had to go back on norepinephrine. I asked him to draw a cortisol level on the patient. It was quite low at 1.6. Currently, the norepinephrine has been weaned off, but she will likely need it again. C urrently, she is on 2 L nasal cannula. She is getting D5W with 3 ampoules of sodium bicarbonate at 100 cc an hour. The patient is also getting saline at 10 cc an hour. We add hydrocortisone 50 mg IV push every 6 hours. White count 4.7, hemoglobin 11, hematocrit 34.8, platelet count normal. Sodium 136, potassium 4.1, chlorides 102, CO2 29, BUN 20, and creatinine 0.83. Magnesium 1.5. Cortisol level was 1.6. Urine was positive for gram-negative bacilli. Chest x-ray shows no interval change. Progress note dated April 19, 2024. 63-year-old female seen today in room 257. She is resting comfortably. She is on 2 L nasal cannula. She had been on norepinephrine, but it has been weaned off. Nonetheless, her blood pressures are still a bit low. She is getting saline at KVO. Her cortisol level was very low, and she was placed on hydrocortisone 50 mg IV push every 6 hours for her adrenal insufficiency. She had demonstrated Klebsiella in the urine, and is currently on Rocephin. Labs include a white count 4.7, hemoglobin 10.8, hematocrit 33.1, and a platelet count of 344,000. Sodium 135, potassium 3.7, chlorides 100, CO2 30, BUN 16, creatinine 0.63. Glucose is 151. Calcium 9.6, magnesium is 2.0. Chest x-ray shows mild cardiomegaly, with mild pulmonary vascular congestion. On 04/20/2024, patient is being seen for a follow-up. The patient is doing well. She was seen by our services earlier for nausea and emesis and diarrhea and secondary dehydration and hypotension. The patient resuscitated IV fluids. She was given bicarb replacement. She was suspected to have adrenal sufficiency and the patient was given IV hydrocortisone. Subsequently, she was found to have a gram-negative urine tract infection with Klebsiella. The patient is currently on IV Rocephin. Hemodynamically stable. Afebrile. White cell count of 5.4. Hemoglobin is at 10 and a platelet count of 360. Renal function is normal. Electrolytes are normal and the patient is currently on room air oxygen. Serum iron was low at 33. No other new complaints for now. The patient is feeling better. Cultures are still pending however, the patient's diarrhea is improved. The blood pressure is also within normal limits. She has heart failure with reduced left ventricular ejection fraction and had echocardiogram showed an ejection fraction of 20 to 25% and biatrial enlargement and RV enlargement with dilated IVC. She is on Entresto. She is on Coreg. IV fluids are currently at KVO. Objective - Vital Signs Vital signs: Vital Signs Temp 97.9 F 04/20/24 12:56 Pulse 69 04/20/24 12:56 Resp 18 04/20/24 12:56 BP 105/73 04/20/24 12:56 Pulse Ox 93 L 04/20/24 12:56 FiO2 Intake & Output 04/19/24 04/20/24 04/20/24 18:59 06:59 18:59 Intake Total 320 540 Output Total 595 Balance -275 540 Intake: IV 80 Dextrose 5% in Water 1, 0 000 ml @ 100 mls/hr IV . [id number] BUZZ with Sodium Bicarb (1 Meq/ml) 150 ml Rx#:[id number] KVO 80 Oral 240 540 Output: Urine 595 Other: Voiding Method Indwelling Catheter Bedside Commode # Voids 1 # Bowel Movements 1 - Exam No acute distress, oriented 3. Currently on room air oxygen HEENT examination is grossly unremarkable. Mucous membranes are moist. No oral lesions. Neck supple. Full range of motion. No adenopathy thyromegaly or neck vein distention. Cardiovascular examination reveals regular rhythm rate. S1-S2 normal. No S3 or S4. No discernible murmur noted. Lungs reveal clear breath sounds. Breath sounds are equal bilaterally. No adventitious lung sounds including wheezes rhonchi or crackles. Abdomen soft bowel sounds are heard. No masses or tenderness. Extremities are intact. No cyanosis clubbing or edema. Skin is without rash or lesion. Neurologic examination is brief but nonfocal. - Labs CBC & Chem 7: 04/20/24 02:55 03 02:55 Labs: Abnormal Lab Results - Last 24 Hours (Table) 04/20/24 04/20/24 Range/Units 02:55 02:55 RBC 3.08 L (3.80-5.40) m/uL Hgb 10.1 L (11.4-16.0) gm/dL Hct 31.0 L (34.0-46.0) % MCV 100.8 H (80.0-100.0) fL Sodium 136 L (137-145) mmol/L Carbon Dioxide 31 H (22-30) mmol/L BUN 21 H (7-17) mg/dL Glucose 146 H (74-99) mg/dL Microbiology - Last 24 Hours (Table) 04/19/24 07:50 Stool Culture - Preliminary Stool 04/16/24 11:46 Blood Culture - Preliminary Blood Assessment and Plan Plan: Chronic nausea, vomiting, and diarrhea, leading to dehydration, and hypotension, recovered and the patient is currently normotensive and diarrhea is subsiding. Hypotension secondary to basketball depletion and possibly a septic component from the gram-negative urine tract infection CHF with impaired LV function with an ejection fraction of 20 to 25% Klebsiella urinary tract infection History of hypertension. History of hyperlipidemia. History of diabetes mellitus. Plan: Patient currently on room air oxygen IV fluids to KVO Continue IV Rocephin Entresto Coreg Farxiga Discontinue the stress dose hydrocortisone Monitor hemodynamics Echocardiogram was noted Maintained on aspirin Time with Patient: Greater than 30
[2024-04-20] MEDS: HYDROCORTISONE 10 MG TAB PO SCH (22:18)
[2024-04-21 04:46] LABS: African American GFR (CKD) 87 (>60 ml/min/1.73 sqM); Anion Gap 5 mmol/L; Blood Urea Nitrogen 23 mg/dL (7-17); Calcium 9.4 mg/dL (8.4-10.2); Carbon Dioxide 30 mmol/L (22-30); Chloride 101 mmol/L (98-107); Glucose 96 mg/dL (74-99); Non-African American GFR(CKD) 75 (>60 ml/min/1.73 sqM); Sodium 136 mmol/L (137-145)
[2024-04-21 05:04] LABS: HCT 30.7 % (34.0-46.0); HGB 9.7 gm/dL (11.4-16.0); Hypochromasia Moderate; MCH 33.1 pg (25.0-35.0); MCHC 31.7 g/dL (31.0-37.0); MCV 104.5 fL (80.0-100.0); Macrocytosis Slight; Mean Platelet Volume 7.1; Platelet Count 282 k/uL (150-450); RBC 2.94 m/uL (3.80-5.40); WBC 5.2 k/uL (3.8-10.6)
[2024-04-21] MEDS: POTASSIUM CHLORIDE ER 20 MEQ TAB.ER PO STA (06:58)
--- NOTE | 2024-04-21 14:40 | P.PN ---
Subjective Progress Note Date: 04/21/24 Hospital Course: 63 year old F with COPD 2L home O2, CHF reported EF 30-40%, melanoma of the li ronald presents to the ED as a transfer from an outside hospital. Sister at bedside contributing to the history. Patient reports intractable nausea, vomiting and diarrhea since February. She was diagnosed with melanoma of the liver in May and started immunotherapy in November or December. Symptoms persistent since then. Last immunotherapy was last Saturday. She reports poor appetite. Denies headache, LE edema, fever or chills, cough, chest pain, shortness of breath, palpitations, changes in urination. No dizziness, numbness/weakness/tinging of the extremities. In the ED she underwent extensive evaluation. BP 80/51, HR 85, RR 19, T 97F, 100% on 3L NC. CBC, Coag panel, CMP significant for RBC 3.13, Hg 10.3, Hct 32.1, MCV 102.6, Na 136, bicarb 18, BUN 40, Cr 2.13, AST 37, alb 2.8. Mag 2.1. Lactic acid 0.7. UA moderate blood, small LE. CXR RLL opacity. EKG sinus rhythm with PVCs, intraventricular conduction delay, no ST T wave changes. Patient is admitted to ICU. Started on NS and Levophed. Cortisol was low at 1.6, started on Solu-Cortef. Echo shows EF 20-25% mod diastolic dysfunction. UCx growing Klebsiella 10-50k, patient asymptomatic but started empirically on Rocephin. Levo was weaned and patient transferred to [facility]. Restart Coreg 3.125 mg PO BID and Entresto 24-26mg PO BID. Restart Jardiance 10 mg PO QD. Change IV Solu-Cortef to oral Cortef 5 twice daily.Patient will need to follow-up with endocrinology outpatient for further workup for adrenal sufficiency. Subjective: Patient was seen and examined at bedside, feeling generally well, Fatigue is still present, denies shortness of breath or chest pain Pertinent positives and negatives as discussed above, a complete review of systems was performed and all other systems are negative. Vitals Signs Reviewed. General: [nontoxic], [no distress], [appears at stated age] Derm: [warm], [dry] Head: [atraumatic], [normocephalic], [symmetric] Eyes: [EOMI], [no lid lag], [anicteric sclera] Mouth: [no lip lesion], [mucus membranes moist] Cardiovascular: [S1S2 reg], [no murmur] Lungs: [CTA bilateral], [no rhonchi, no rales] , [no accessory muscle use] Abdominal: [soft], [ nontender to palpation], [no guarding], [no appreciable organomegaly] Ext: [no gross muscle atrophy], [no edema], [no contractures] Neuro: [ CN II-XI grossly intact], [no focal neuro deficits] Psych: [Alert], [oriented], [appropriate affect] Data Reviewed Today: Pertinent Labs: No leukocytosis, hemoglobin stable at 9.7, platelet count normal, sodium stable 136, potassium low 3.0, normal bicarb, creatinine Assessment and Plan: HypoKalemia, resolved, repeat in the morning HFrEF with mild exacerbation -continue Coreg 3.125 mg PO BID and Entresto 24-26mg PO BID, Jardiance 10 mg PO QD -Judicious use of fluids given history of CHF. Echo as above. Consider low dose of Lasix if BP maintains. Hypovolemic shock resolved - Levophed weaned off. Off IV fluids. Restarted Coreg and Entresto as above . Telemetry monitoring. Adrenal insufficiency -Cortisol 1.6. stopped Solu-Cortef at 50 mg IV Q6H, on cortef 5 PO BID since 04/20. ACTH <1.50.Patient will need to f/u with endocrinology as outpatient Nausea, vomiting and diarrhea: Persistent likely related to immunotherapy. Stool culture, C. diff, stool for ova and parasites pending. Hyponatremia: Likely hypovolemic. Improved. Nephrology on board. Macrocytic anemia: Iron studies indicate AOCD likely related to malignancy. B12 1104. Folate low-normal at 6.3, started on Folic acid 1 mg PO QD. Chronic respiratory failure on 2L NC + COPD not in acute exacerbation. Melanoma of the liver: Following Oncology outpatient. Resolved: YONATAN, Hypovolemic shock, HypoK, HypoMg CODE STATUS: FULL CODE. DVT Prophylaxis: Heparin Anticipated discharge place: home Anticipated discharge time: 24-48 hours Objective - Vital Signs Vital signs: Vital Signs Temp 97.7 F 04/21/24 00:56 Pulse 80 04/21/24 08:00 Resp 18 04/21/24 08:00 BP 109/70 04/21/24 06:52 Pulse Ox 91 L 04/21/24 06:52 FiO2 Intake & Output 04/20/24 04/21/24 04/21/24 18:59 06:59 18:59 Intake Total 360 Balance 360 Intake: Oral 360 Other: Voiding Method Toilet Toilet # Voids 1 2 # Bowel Movements 1 - Labs CBC & Chem 7: 04/21/24 04:08 04/21/24 04:08 Labs: Abnormal Lab Results - Last 24 Hours (Table) 04/21/24 04/21/24 Range/Units 04:08 04:08 RBC 2.94 L (3.80-5.40) m/uL Hgb 9.7 L (11.4-16.0) gm/dL Hct 30.7 L (34.0-46.0) % MCV 104.5 H (80.0-100.0) fL Sodium 136 L (137-145) mmol/L Potassium 3.0 L (3.5-5.1) mmol/L BUN 23 H (7-17) mg/dL Microbiology - Last 24 Hours (Table) 04/19/24 07:50 Stool Culture - Preliminary Stool
[2024-04-21] MEDS: SODIUM CHLORIDE 0.9% 500 ML 500 ML IV ONE (16:30)
--- NOTE | 2024-04-21 18:12 | P.PN ---
Subjective Progress Note Date: 04/21/24 63-year-old female who was seen in the emergency department, by the ER physician, ship from an outside hospital, for weeks, of nausea, vomiting, diarrhea, and resultant dehydration. Apparently the patient has not been feeling well for about a month. She has had chronic loose stools. She apparently had a central line placed, in the left groin, and she was transferred down to [facility]. The patient was then seen, and evaluated, and required norepinephrine, for blood pressure support. Fluid resuscitation was not enough. The patient's systolic blood pressures were still in the 80s. The patient apparently has a history of hyperlipidemia, diabetes, and hypertension. The patient is seen this morning, in room 2, of the emergency department. She is currently on 3 L nasal cannula. The patient is getting saline, via bolus, and also receiving norepinephrine at 0.03 mcg/kg/min. As mentioned, she does have a left femoral triple-lumen catheter in place. White count 6.5, hemoglobin 10.8, hematocrit 34.3, and platelet count normal. Coagulation studies were normal. Sodium 136, potassium 4.1, chlorides 106, CO2 21, BUN 40, creatinine 2.12. Calcium was 9.6, and magnesium was 2.1. Urine was cloudy. There is a moderate amount of blood. Small positive leukocyte esterase, 14 RBCs, 40 WBCs, and rare WBC clumps. Chest x-ray showed possible right lower lobe pneumonia. Progress note dated April 17, 2024. 63-year-old female seen in the emergency department yesterday, who came to the hospital with complaints of nausea, vomiting, and diarrhea, for weeks, with severe dehydration, and hypotension. Yesterday, the patient was on norepinephrine, and, had a left femoral line placed, at the outside hospital. Today, she is seen in room 257. She is awake and alert. She is on 3 L by nasal cannula. She is getting saline at 130 cc an hour. The varnish finisher will change her to D5W, with 3 ampoules of sodium bicarbonate, at 100 cc an hour. Current laboratory data includes a white count 5.5, hemoglobin 10.9, hematocrit 33.4, and a platelet count of 298,000. Sodium 134, potassium 4.2, chlorides 108, CO2 16, BUN 31, and creatinine 1.15. Magnesium is 2.1. Calcium is 10. Urine is positive for gram-negative bacilli. Chest x-ray shows stable right lower lung opacity, which may relate to either atelectasis, scarring, or acute infiltrate. Progress note dated April 18. 63-year-old female seen today in room 257. The patient developed hypotension last night, and had to go back on norepinephrine. I asked him to draw a cortisol level on the patient. It was quite low at 1.6. Currently, the norepinephrine has been weaned off, but she will likely need it again. C urrently, she is on 2 L nasal cannula. She is getting D5W with 3 ampoules of sodium bicarbonate at 100 cc an hour. The patient is also getting saline at 10 cc an hour. We add hydrocortisone 50 mg IV push every 6 hours. White count 4.7, hemoglobin 11, hematocrit 34.8, platelet count normal. Sodium 136, potassium 4.1, chlorides 102, CO2 29, BUN 20, and creatinine 0.83. Magnesium 1.5. Cortisol level was 1.6. Urine was positive for gram-negative bacilli. Chest x-ray shows no interval change. Progress note dated April 19, 2024. 63-year-old female seen today in room 257. She is resting comfortably. She is on 2 L nasal cannula. She had been on norepinephrine, but it has been weaned off. Nonetheless, her blood pressures are still a bit low. She is getting saline at KVO. Her cortisol level was very low, and she was placed on hydrocortisone 50 mg IV push every 6 hours for her adrenal insufficiency. She had demonstrated Klebsiella in the urine, and is currently on Rocephin. Labs include a white count 4.7, hemoglobin 10.8, hematocrit 33.1, and a platelet count of 344,000. Sodium 135, potassium 3.7, chlorides 100, CO2 30, BUN 16, creatinine 0.63. Glucose is 151. Calcium 9.6, magnesium is 2.0. Chest x-ray shows mild cardiomegaly, with mild pulmonary vascular congestion. On 04/20/2024, patient is being seen for a follow-up. The patient is doing well. She was seen by our services earlier for nausea and emesis and diarrhea and secondary dehydration and hypotension. The patient resuscitated IV fluids. She was given bicarb replacement. She was suspected to have adrenal sufficiency and the patient was given IV hydrocortisone. Subsequently, she was found to have a gram-negative urine tract infection with Klebsiella. The patient is currently on IV Rocephin. Hemodynamically stable. Afebrile. White cell count of 5.4. Hemoglobin is at 10 and a platelet count of 360. Renal function is normal. Electrolytes are normal and the patient is currently on room air oxygen. Serum iron was low at 33. No other new complaints for now. The patient is feeling better. Cultures are still pending however, the patient's diarrhea is improved. The blood pressure is also within normal limits. She has heart failure with reduced left ventricular ejection fraction and had echocardiogram showed an ejection fraction of 20 to 25% and biatrial enlargement and RV enlargement with dilated IVC. She is on Entresto. She is on Coreg. IV fluids are currently at KVO. On 04/21/2024, the patient is being seen for a follow-up. Doing well. No specific complaints on today's evaluation. She is currently on room air oxygen with a pulse ox of 93%. The white cell count is at 5.2, hemoglobin 9.7, platelet count of 282, BUN of 23 with a creatinine of 0.8 and a sodium levels at 136. Potassium level is at 3.0. Rest of the medications remains unchanged. Objective - Vital Signs Vital signs: Vital Signs Temp 98.0 F 04/21/24 14:00 Pulse 60 04/21/24 14:00 Resp 18 04/21/24 14:00 BP 98/65 04/21/24 14:00 Pulse Ox 93 L 04/21/24 14:00 FiO2 Intake & Output 04/20/24 04/21/24 04/21/24 18:59 06:59 18:59 Intake Total 360 Balance 360 Intake: Oral 360 Other: Voiding Method Toilet Toilet # Voids 1 2 # Bowel Movements 1 - Exam No acute distress, oriented 3. Currently on room air oxygen HEENT examination is grossly unremarkable. Mucous membranes are moist. No oral lesions. Neck supple. Full range of motion. No adenopathy thyromegaly or neck vein distention. Cardiovascular examination reveals regular rhythm rate. S1-S2 normal. No S3 or S4. No discernible murmur noted. Lungs reveal clear breath sounds. Breath sounds are equal bilaterally. No adventitious lung sounds including wheezes rhonchi or crackles. Abdomen soft bowel sounds are heard. No masses or tenderness. Extremities are intact. No cyanosis clubbing or edema. Skin is without rash or lesion. Neurologic examination is brief but nonfocal. - Labs CBC & Chem 7: 04/21/24 04:08 04/21/24 04:08 Labs: Abnormal Lab Results - Last 24 Hours (Table) 04/21/24 04/21/24 Range/Units 04:08 04:08 RBC 2.94 L (3.80-5.40) m/uL Hgb 9.7 L (11.4-16.0) gm/dL Hct 30.7 L (34.0-46.0) % MCV 104.5 H (80.0-100.0) fL Sodium 136 L (137-145) mmol/L Potassium 3.0 L (3.5-5.1) mmol/L BUN 23 H (7-17) mg/dL Microbiology - Last 24 Hours (Table) 04/16/24 11:46 Blood Culture - Final Blood 04/19/24 07:50 Stool Culture - Preliminary Stool Assessment and Plan Plan: Chronic nausea, vomiting, and diarrhea, leading to dehydration, and hypotension, recovered and the patient is currently normotensive and diarrhea is subsiding. Hypotension secondary to basketball depletion and possibly a septic component from the gram-negative urine tract infection CHF with impaired LV function with an ejection fraction of 20 to 25% Klebsiella urinary tract infection History of hypertension. History of hyperlipidemia. History of diabetes mellitus. Plan: Patient currently on room air oxygen IV fluids to KVO Continue IV Rocephin Josesto Coreg Farga Monitor hemodynamics Echocardiogram was noted Maintained on aspirin
[2024-04-22 07:06] VITALS: BP 112/74; RESP 18; TEMP 97.7
[2024-04-22 08:09] VITALS: PULSE 86
[2024-04-22 08:35] LABS: Basophils # (A) 0.07 X 10*3/uL (0.00-0.10); Basophils % (A) 1.3 %; Eosinophils # (A) 0.55 X 10*3/uL (0.04-0.35); Eosinophils % (A) 10.4 %; HCT 30.6 % (37.2-46.3); HGB 10.1 g/dL (12.0-15.0); Lymphocytes # (A) 1.45 X 10*3/uL (0.90-5.00); Lymphocytes % (A) 27.5 %; MCH 33.6 pg (27.0-32.0); MCV 101.7 FL (80.0-97.0); Mean Platelet Volume 9.3 FL (9.5-12.2); Monocytes # (A) 0.72 X 10*3/uL (0.20-1.00); Monocytes % (A) 13.7 %; NRBC Per 100 WBC 0 X 10*3/uL (0.00-0.01); Neutrophils # (A) 2.46 X 10*3/uL (1.80-7.70); Neutrophils % (A) 46.7 %; Platelet Count 364 X 10*3/uL (140-440); RBC 3.01 X 10*6/uL (4.10-5.20); RDW 13.2 % (11.5-14.5); WBC 5.27 X 10*3/uL (4.50-10.00)
[2024-04-22 08:59] LABS: BUN/Creat Ratio 23.86 Ratio (12.00-20.00); Blood Urea Nitrogen 16.7 mg/dL (9.0-27.0); Calcium 8.9 mg/dL (8.7-10.3); Carbon Dioxide 25.7 mmol/L (21.6-31.8); Chloride 105 mmol/L (96-109); Glucose 105 mg/dL (70-110); Potassium 3.7 mmol/L (3.5-5.5); Sodium 140 mmol/L (135-145)
--- NOTE | 2024-04-22 13:37 | P.DS ---
Providers Date of admission: 04/16/24 09:39 Attending physician: Kennedy Camargo Consults: 04/16/24 09:38 Consult Physician Routine Consulting Provider: Liv Lynn Consult Reason/Comments: YONATAN Do you want consulting provider notified?: Yes 04/16/24 11:01 Consult Physician Routine Consulting Provider: Chito Tolbert Reason/Comments: ICU management Do you want consulting provider notified?: Already Contacted Primary care physician: [facility] Course: Discharge Diagnosis: Hypovolemic shock, resolved Secondary adrenal insufficiency Nausea, vomiting, diarrhea, improved Hyponatremia, resolved Hypokalemia, resolved HFrEF with mild exacerbation, resolved Macrocytic anemia YONATAN secondary to hypovolemic shock, resolved Hospital Course: 63 year old F with COPD 2L home O2, CHF reported EF 30-40%, melanoma of the liver presents to the ED as a transfer from an outside hospital. Sister at bedside contributing to the history. Patient reports intractable nausea, vom iting and diarrhea since February. She was diagnosed with melanoma of the liver in May and started immunotherapy in November or December. Symptoms persistent since then. Last immunotherapy was last Saturday. She reports poor appetite. Denies headache, LE edema, fever or chills, cough, chest pain, shortness of breath, palpitations, changes in urination. No dizziness, numbness/weakness/tinging of the extremities. In the ED she underwent extensive evaluation. BP 80/51, HR 85, RR 19, T 97F, 100% on 3L NC. CBC, Coag panel, CMP significant for RBC 3.13, Hg 10.3, Hct 32.1, MCV 102.6, Na 136, bicarb 18, BUN 40, Cr 2.13, AST 37, alb 2.8. Mag 2.1. Lactic acid 0.7. UA moderate blood, small LE. CXR RLL opacity. EKG sinus rhythm with PVCs, intraventricular conduction delay, no ST T wave changes. Patient is admitted to ICU. Started on NS and Levophed. Cortisol was low at 1.6, started on Solu-Cortef. Echo shows EF 20-25% mod diastolic dysfunction. UCx growing Klebsiella 10-50k, patient asymptomatic but started empirically on Rocephin. Levo was weaned and patient transferred to [facility]. Restart Coreg 3.125 mg PO BID and Entresto 24-26mg PO BID. Restart Jardiance 10 mg PO QD. Change IV Solu-Cortef to oral Cortef 5 twice daily.Patient will need to follow-up with endocrinology outpatient for further workup for adrenal sufficiency. Patient has been discharged on 04/22 in stable condition, home blood pressures stable, sodium and potassium normalized, creatinine WNL, no leukocytosis, stable hemoglobin of 10.1. Patient was instructed to follow-up with primary care physician, cardiology, nephrology, requested referral to our credit control clerk. She was provided with 1 more day of antibiotics to complete 5 days course for UTI, will be discharged on oral Cortef, folic acid 1 mg daily. Patient seen and examined at bedside. No active complaints Vital signs reviewed and stable. General: [nontoxic], [no distress], [appears at stated age] Derm: [warm], [dry] Head: [atraumatic], [normocephalic], [symmetric] Eyes: [EOMI], [no lid lag], [anicteric sclera] Mouth: [no lip lesion], [mucus membranes moist] Cardiovascular: [S1S2 reg], [no murmur] Lungs: [CTA bilateral], [no rhonchi, no rales] , [no accessory muscle use] Abdominal: [soft], [ nontender to palpation], [no guarding], [no appreciable organomegaly] Ext: [no gross muscle atrophy], [no edema], [no contractures] Neuro: [ CN II-XI grossly intact], [no focal neuro deficits] Psych: [Alert], [oriented], [appropriate affect] A total of 42 minutes of time were spent preparing this complex discharge summary. Patient was discharged on 04/22/2024. Patient Condition at Discharge: Serious Plan - Discharge Summary Discharge Rx Participant: Yes New Discharge Prescriptions: New Hydrocortisone [Cortef] 5 mg PO BID #30 tab Folic Acid 1 mg PO DAILY #30 tab ceFIXime [Suprax] 400 mg PO DAILY #1 capsule Continue Sacubitril/Valsartan [Entresto 24 mg-26 mg Tablet] 1 tab PO BID Aspirin EC [Ecotrin Low Dose] 81 mg PO DAILY Empagliflozin [Jardiance] 25 mg PO DAILY carvediloL [Coreg] 3.125 mg PO BID Magnesium Oxide [Magox 400] 400 mg PO DAILY Atorvastatin [Lipitor] 20 mg PO HS FLUoxetine HCL 40 mg PO DAILY Discharge Medication List Aspirin EC [Ecotrin Low Dose] 81 mg PO DAILY 04/16/24 [History] Atorvastatin [Lipitor] 20 mg PO HS 04/16/24 [History] Empagliflozin [Jardiance] 25 mg PO DAILY 04/16/24 [History] FLUoxetine HCL 40 mg PO DAILY 04/16/24 [History] Magnesium Oxide [Magox 400] 400 mg PO DAILY 04/16/24 [History] Sacubitril/Valsartan [Entresto 24 mg-26 mg Tablet] 1 tab PO BID 04/16/24 [History] carvediloL [Coreg] 3.125 mg PO BID 04/16/24 [History] Folic Acid 1 mg PO DAILY #30 tab 04/22/24 [Rx] Hydrocortisone [Cortef] 5 mg PO BID #30 tab 04/22/24 [Rx] ceFIXime [Suprax] 400 mg PO DAILY #1 capsule 04/22/24 [Rx] Follow up Appointment(s)/Referral(s): Jason Siddiqui MD [STAFF PHYSICIAN] - 1 Week Nonstaff,Physician [REFERRING] - 1-2 days Joshua Simon DO [STAFF PHYSICIAN] - 1 Week Patient Instructions/Handouts: Heart Failure (DC), Dehydration (DC), Secondary Adrenal Insufficiency (DC) Activity/Diet/Wound Care/Special Instructions: Please,follow up [facility] primary care physician, glucose control to see an credit control clerk for further evaluation of possible adrenal insufficiency as we discussed. Please, follow-up with electrician supervisor airplane. We also provided you contact information of , a bottle packer, in case you don't have one. you need to follow up regarding your Heart failure. Discharge Disposition: HOME SELF-CARE
--- NOTE | 2024-04-22 19:59 | P.PN ---
Subjective Progress Note Date: 04/22/24 63-year-old female who was seen in the emergency department, by the ER physician, ship from an outside hospital, for weeks, of nausea, vomiting, diarrhea, and resultant dehydration. Apparently the patient has not been feeling well for about a month. She has had chronic loose stools. She apparently had a central line placed, in the left groin, and she was transferred down to [facility]. The patient was then seen, and evaluated, and required norepinephrine, for blood pressure support. Fluid resuscitation was not enough. The patient's systolic blood pressures were still in the 80s. The patient apparently has a history of hyperlipidemia, diabetes, and hypertension. The patient is seen this morning, in room 2, of the emergency department. She is currently on 3 L nasal cannula. The patient is getting saline, via bolus, and also receiving norepinephrine at 0.03 mcg/kg/min. As mentioned, she does have a left femoral triple-lumen catheter in place. White count 6.5, hemoglobin 10.8, hematocrit 34.3, and platelet count normal. Coagulation studies were normal. Sodium 136, potassium 4.1, chlorides 106, CO2 21, BUN 40, creatinine 2.12. Calcium was 9.6, and magnesium was 2.1. Urine was cloudy. There is a moderate amount of blood. Small positive leukocyte esterase, 14 RBCs, 40 WBCs, and rare WBC clumps. Chest x-ray showed possible right lower lobe pneumonia. Progress note dated April 17, 2024. 63-year-old female seen in the emergency department yesterday, who came to the hospital with complaints of nausea, vomiting, and diarrhea, for weeks, with severe dehydration, and hypotension. Yesterday, the patient was on norepinephrine, and, had a left femoral line placed, at the outside hospital. Today, she is seen in room 257. She is awake and alert. She is on 3 L by nasal cannula. She is getting saline at 130 cc an hour. The cyber defense forensics analyst will change her to D5W, with 3 ampoules of sodium bicarbonate, at 100 cc an hour. Current laboratory data includes a white count 5.5, hemoglobin 10.9, hematocrit 33.4, and a platelet count of 298,000. Sodium 134, potassium 4.2, chlorides 108, CO2 16, BUN 31, and creatinine 1.15. Magnesium is 2.1. Calcium is 10. Urine is positive for gram-negative bacilli. Chest x-ray shows stable right lower lung opacity, which may relate to either atelectasis, scarring, or acute infiltrate. Progress note dated April 18. 63-year-old female seen today in room 257. The patient developed hypotension last night, and had to go back on norepinephrine. I asked him to draw a cortisol level on the patient. It was quite low at 1.6. Currently, the norepinephrine has been weaned off, but she will likely need it again. C urrently, she is on 2 L nasal cannula. She is getting D5W with 3 ampoules of sodium bicarbonate at 100 cc an hour. The patient is also getting saline at 10 cc an hour. We add hydrocortisone 50 mg IV push every 6 hours. White count 4.7, hemoglobin 11, hematocrit 34.8, platelet count normal. Sodium 136, potassium 4.1, chlorides 102, CO2 29, BUN 20, and creatinine 0.83. Magnesium 1.5. Cortisol level was 1.6. Urine was positive for gram-negative bacilli. Chest x-ray shows no interval change. Progress note dated April 19, 2024. 63-year-old female seen today in room 257. She is resting comfortably. She is on 2 L nasal cannula. She had been on norepinephrine, but it has been weaned off. Nonetheless, her blood pressures are still a bit low. She is getting saline at KVO. Her cortisol level was very low, and she was placed on hydrocortisone 50 mg IV push every 6 hours for her adrenal insufficiency. She had demonstrated Klebsiella in the urine, and is currently on Rocephin. Labs include a white count 4.7, hemoglobin 10.8, hematocrit 33.1, and a platelet count of 344,000. Sodium 135, potassium 3.7, chlorides 100, CO2 30, BUN 16, creatinine 0.63. Glucose is 151. Calcium 9.6, magnesium is 2.0. Chest x-ray shows mild cardiomegaly, with mild pulmonary vascular congestion. On 04/20/2024, patient is being seen for a follow-up. The patient is doing well. She was seen by our services earlier for nausea and emesis and diarrhea and secondary dehydration and hypotension. The patient resuscitated IV fluids. She was given bicarb replacement. She was suspected to have adrenal sufficiency and the patient was given IV hydrocortisone. Subsequently, she was found to have a gram-negative urine tract infection with Klebsiella. The patient is currently on IV Rocephin. Hemodynamically stable. Afebrile. White cell count of 5.4. Hemoglobin is at 10 and a platelet count of 360. Renal function is normal. Electrolytes are normal and the patient is currently on room air oxygen. Serum iron was low at 33. No other new complaints for now. The patient is feeling better. Cultures are still pending however, the patient's diarrhea is improved. The blood pressure is also within normal limits. She has heart failure with reduced left ventricular ejection fraction and had echocardiogram showed an ejection fraction of 20 to 25% and biatrial enlargement and RV enlargement with dilated IVC. She is on Entresto. She is on Coreg. IV fluids are currently at KVO. On 04/21/2024, the patient is being seen for a follow-up. Doing well. No specific complaints on today's evaluation. She is currently on room air oxygen with a pulse ox of 93%. The white cell count is at 5.2, hemoglobin 9.7, platelet count of 282, BUN of 23 with a creatinine of 0.8 and a sodium levels at 136. Potassium level is at 3.0. Rest of the medications remains unchanged. On 04/22/2024, the patient is being seen for a follow-up. No new complaints. Doing well. Hemodynamically stable. The patient is to be discharged home today and she will complete the course of antibiotics on outpatient basis and she will be given cefixime 4 mg. No specific complaints. She is on room air oxygen. To lerating her diet. Hemodynamically stable. Objective - Vital Signs Vital signs: Vital Signs Temp 97.7 F 04/22/24 07:01 Pulse 86 04/22/24 08:00 Resp 18 04/22/24 08:00 BP 112/74 04/22/24 07:01 Pulse Ox 94 L 04/22/24 07:01 FiO2 Intake & Output 04/21/24 04/22/24 04/22/24 18:59 06:59 18:59 Intake Total 540 Balance 540 Intake: Oral 540 Other: Voiding Method Toilet Toilet Toilet # Voids 4 4 # Bowel Movements 3 - Exam No acute distress, oriented 3. Currently on room air oxygen HEENT examination is grossly unremarkable. Mucous membranes are moist. No oral lesions. Neck supple. Full range of motion. No adenopathy thyromegaly or neck vein distention. Cardiovascular examination reveals regular rhythm rate. S1-S2 normal. No S3 or S4. No discernible murmur noted. Lungs reveal clear breath sounds. Breath sounds are equal bilaterally. No adventitious lung sounds including wheezes rhonchi or crackles. Abdomen soft bowel sounds are heard. No masses or tenderness. Extremities are intact. No cyanosis clubbing or edema. Skin is without rash or lesion. Neurologic examination is brief but nonfocal. - Labs CBC & Chem 7: 04/22/24 03:54 04/22/24 03:54 Labs: Abnormal Lab Results - Last 24 Hours (Table) 04/22/24 04/22/24 Range/Units 03:54 03:54 RBC 3.01 L (4.10-5.20) X 10*6/uL Hgb 10.1 L (12.0-15.0) g/dL Hct 30.6 L (37.2-46.3) % MCV 101.7 H (80.0-97.0) FL MCH 33.6 H (27.0-32.0) pg MPV 9.3 L (9.5-12.2) FL Eosinophils # 0.55 H (0.04-0.35) X 10*3/uL BUN/Creatinine Ratio 23.86 H (12.00-20.00) Ratio Microbiology - Last 24 Hours (Table) 04/19/24 07:50 Stool Culture - Final Stool 04/16/24 11:46 Blood Culture - Final Blood Assessment and Plan Plan: Chronic nausea, vomiting, and diarrhea, leading to dehydration, and hypotension, recovered and the patient is currently normotensive and diarrhea is recovered and the patient is normalized. Hypotension secondary to basketball depletion and possibly a septic component from the gram-negative urine tract infection, recovered CHF with impaired LV function with an ejection fraction of 20 to 25% Klebsiella urinary tract infection, on IV Rocephin History of hypertension. History of hyperlipidemia. History of diabetes mellitus. Plan: Patient currently on room air oxygen IV fluids to KVO Continue IV Rocephin [facility] Monitor hemodynamics Echocardiogram was noted Maintained on aspirin Will discharge home on antibiotics
--- NOTE | 2024-04-24 11:43 | CDI ---
Documentation Clarification Form Date: 04/24/2024 11:29:41 AM From: Leigh Stephens Admit Date: 04/16/2024 09:39:00 AM Patient Name: Desiree Cotton Visit Number: [id number] Discharge Date: 04/22/2024 03:06:00 PM ATTENTION: The Clinical Documentation Specialists (CDI) and [facility] Coding Staff appreciate your assistance in clarifying documentation. Please respond to the clarification below the line at the bottom and electronically sign. The CDI & [facility] Coding staff will review the response and follow-up if needed. Please note: Queries are made part of the Legal Health Record. If you have any questions, please contact the author of this message via ITS. Doctor/Provider: Elvia Woods Per PN's 04/20 - 04/22 Hypotension secondary to volume depletion and possibly a septic component from the gram negative UTI. Based on this information and the findings below, is there an additional diagnosis that is clinically appropriate for this patient? History/Risk Factors: Gram negative UTI, ATN, hypovolemic shock, Clinical Indicators: WBC 6.0 Lactic acid: .7 Blood cultures: negative Vitals signs: 97 Fm 85 bpm, 19, 80/51, 100% 3L NC Treatment: IV Rocephin, Levophed Antibiotics: Rocephin IV Bolus: Saline bolus and Vasopressor Is there an additional diagnosis that is clinically appropriate for this patient? [ ] Sepsis, present on admission [ ] Sepsis, developed during stay, not present on admission [ ] Severe Sepsis with organ failure [ ] Septic Shock [ x ] SIRS, without underlying infectious process [ ] No additional diagnosis/not clinically significant [ ] Other, please specify [ ] Unable to determine SIRS Criteria: 2 or more of the following may indicate SIRS Temperature < 96.8F (36C) or > 101.0F (38.3C) Heart Rate > 90 bpm Respiratory Rate > 20 breaths/min or PaCO2 < 32 mmHg White Blood Cell Count > 12,000 or < 4,000 cells/mm3 or > 10% bands MTDD
== END 2024-04-22 15:06 | disposition home or self-care (01) | DRG 682 ==
LOC: EC 09:10 → 2SICU 09:39 → 4SSUR 04-19 16:13
PROVIDERS: ADMIT Student in an Organized Health Care Education/Training Program; ATTEND Student in an Organized Health Care Education/Training Program
PROC: 3E043XZ Introduction of Vasopressor into Central Vein, Percutaneous Approach (ICD-10-PCS; principal; 2024-04-16)
DX: N17.0 Acute kidney failure with tubular necrosis (principal); I50.23 Acute on chronic systolic (congestive) heart failure; R57.1 Hypovolemic shock; E27.49 Other adrenocortical insufficiency; E87.20 Acidosis, unspecified; B96.1 Klebsiella pneumoniae [K. pneumoniae] as the cause of diseases classified elsewhere; D63.8 Anemia in other chronic diseases classified elsewhere; C22.8 Malignant neoplasm of liver, primary, unspecified as to type; J44.9 Chronic obstructive pulmonary disease, unspecified; E11.9 Type 2 diabetes mellitus without complications; I11.0 Hypertensive heart disease with heart failure; J96.10 Chronic respiratory failure, unspecified whether with hypoxia or hypercapnia; R65.10 Systemic inflammatory response syndrome (SIRS) of non-infectious origin without acute organ dysfunction; E87.1 Hypo-osmolality and hyponatremia; N39.0 Urinary tract infection, site not specified; D53.9 Nutritional anemia, unspecified; E78.5 Hyperlipidemia, unspecified; E86.0 Dehydration; E87.6 Hypokalemia; I45.9 Conduction disorder, unspecified; I49.3 Ventricular premature depolarization; Z99.81 Dependence on supplemental oxygen; Z79.82 Long term (current) use of aspirin; Z79.84 Long term (current) use of oral hypoglycemic drugs; Z79.899 Other long term (current) drug therapy; Z87.891 Personal history of nicotine dependence; Z90.12 Acquired absence of left breast and nipple; Z92.3 Personal history of irradiation; Z92.21 Personal history of antineoplastic chemotherapy; A08.4 Viral intestinal infection, unspecified; E83.42 Hypomagnesemia
CPT/HCPCS: 36415; 71045; 80048; 80053; 81001; 82024; 82533; 82607; 82728; 82746; 83540; 83550; 83605; 83735; 84132; 85025; 85027; 85610; 85730; 87040; 87045; 87046; 87077; 87086; 87186; 93005; 93306; 94760; 96365; 96366; 96375; 99291

== ENCOUNTER 2024-05-28 17:46 | Inpatient (IN) | payer MEDICARE, OTHER ==
[2024-05-28] MEDS ORDERED: NALOXONE 0.4 MG/ML 1 ML VIAL IV PRN (18:27)
--- NOTE | 2024-05-28 18:27 | ED ---
General Adult HPI - General Chief complaint: Dizziness Stated complaint: UTI Time Seen by Provider: 05/28/24 17:50 Source: EMS Mode of arrival: EMS Limitations: no limitations - History of Present Illness Initial comments: Dictation was produced using [employer] dictation software. please excuse any grammatical, word or spelling errors. Chief Complaint: 63-year-old female transferred to our emergency department for urosepsis History of Present Illness: Patient 63-year-old female transferred from [facility]. Patient was initially seen there for worsening weakness. She was worked up found to be hypotensive. Central venous catheter was placed. Patient had UTI was given broad-spectrum antibiotics and vancomycin and cefepime. She had right femoral central venous catheter line placed. Patient states she feels improved. Patient transferred for ICU admission. The ROS documented in this emergency department record has been reviewed and confirmed by me. Those systems with pertinent positive or negative responses have been documented in the HPI. All other systems are other negative and/or noncontributory. - Related Data Home Medications Medication Instructions Recorded Confirmed Aspirin EC [Ecotrin Low Dose] 81 mg PO DAILY 04/16/24 04/16/24 Atorvastatin [Lipitor] 20 mg PO HS 04/16/24 04/16/24 Empagliflozin [Jardiance] 25 mg PO DAILY 04/16/24 04/16/24 FLUoxetine HCL 40 mg PO DAILY 04/16/24 04/16/24 Magnesium Oxide [Magox 400] 400 mg PO DAILY 04/16/24 04/16/24 Sacubitril/Valsartan [Entresto 24 1 tab PO BID 04/16/24 04/16/24 mg-26 mg Tablet] carvediloL [Coreg] 3.125 mg PO BID 04/16/24 04/16/24 Previous Rx's Medication Instructions Recorded Folic Acid 1 mg PO DAILY #30 tab 04/22/24 Hydrocortisone [Cortef] 5 mg PO BID #30 tab 04/22/24 ceFIXime [Suprax] 400 mg PO DAILY #1 capsule 04/22/24 Allergies Allergy/AdvReac Type Severity Reaction Status Date / Time Penicillins Allergy Rash/Hives Verified 05/28/24 18:00 Review of Systems ROS Statement: Those systems with pertinent positive or pertinent negative responses have been documented in the HPI. ROS Other: All systems not noted in ROS Statement are negative. Past Medical History Past Medical History: Heart Failure, COPD, Hyperlipidemia, Hypertension History of Any Multi-Drug Resistant Organisms: None Reported Past Surgical History: Unable to Obtain Additional Past Surgical History / Comment(s): Left Mastectomy 1995 Chemo and radiation, Left achilles tendon repair Past Anesthesia/Blood Transfusion Reactions: No Reported Reaction Past Psychological History: No Psychological Hx Reported Smoking Status: Former smoker Past Alcohol Use History: None Reported General Exam - General Exam Comments Initial Comments: PHYSICAL EXAM: General Impression: Alert and oriented x3, not in acute distress HEENT: Normocephalic atraumatic, extra-ocular movements intact, pupils equal and reactive to light bilaterally, mucous membranes moist. Cardiovascular: Heart regular rate and rhythm Chest: Able to complete full sentences, no retractions, no tachypnea Abdomen: abdomen soft, non-tender, non-distended, no organomegaly Musculoskeletal: Pulses present and equal in all extremities, no peripheral edema Motor: no focal deficits noted Neurological: CN II-XII grossly intact, no focal motor or sensory deficits noted Skin: Intact with no visualized rashes right femoral central venous catheter site clean dry and intact Psych: Normal affect and mood Limitations: no limitations Course Vital Signs 05/28/24 05/28/24 17:56 18:05 Temperature 98.5 F Pulse Rate 91 Respiratory 22 Rate Blood Pressure 99/69 O2 Sat by Pulse 91 L 94 L Oximetry Medical Decision Making - Medical Decision Making Was pt. sent in by a medical professional or institution (ALTHEA Marsh, GLOBAL ACCOUNT DIRECTOR, urgent care, hospital, or longterm...) When possible be specific @ -Sent in from [facility] Did you speak to anyone other than the patient for history (EMS, parent, family, police, friend...)? What history was obtained from this source @ -No Did you review nursing and triage notes (agree or disagree)? Why? @ -I reviewed and agree with nursing and triage notes Were old charts reviewed (outside hosp., previous admission, EMS record, old EKG, old radiological studies, urgent care reports/EKG's, longterm records)? Report findings @ -Transfer documentation reviewed. Discharge summary from April 22, 2024 also reviewed show patient was recently admitted Differential Diagnosis (chest pain, altered mental status, abdominal pain women, abdominal pain men, vaginal bleeding, musculoskeletal, weakness, fever, dyspnea, syncope, headache, dizziness, GI bleed, back pain, seizure, CVA, palpatations, mental health)? @ -Differential Weakness: Hypoglycemia, shock, sepsis, hyponatremia, anemia, infection, DC, ETOH, adverse medicine reaction, overdose, stroke, this is not meant to be an all-inclusive list. EKG interpreted by me (3pts min.). @ -None done X-rays interpreted by me (1pt min.). @ -None done CT interpreted by me (1pt min.). @ -None done U/S interpreted by me (1pt. min.). @ -None done What testing was considered but not performed or refused? (CT, X-rays, U/S, labs)? Why? @ -None What meds were considered but not given or refused? Why? @ -None Was smoking cessation discussed for >3mins.? @ -No Were there social determinants of health that impacted care today? How? (Homelessness, low income, unemployed, alcoholism, drug addiction, transportation, low edu. Level, literacy, decrease access to med. care, half-way, rehab)? @ -No Was there de-escalation of care discussed even if they declined (Discuss DNR or withdrawal of care, Hospice)? DNR status @ -No What co-morbidities impacted this encounter? (DM, HTN, Smoking, COPD, CAD, Cancer, CVA, ARF, Chemo, Hep., AIDS, mental health diagnosis, sleep apnea, morbid obesity)? @ -Malignant melanoma, history of septic shock Was patient admitted / discharged? Hospital course, mention meds given and route, prescriptions, significant lab abnormalities, going to OR and other pertinent info. @ -63-year-old female transferred for urosepsis. Patient seen and initially evaluated at [facility]. She started on pressors after her blood pressure did not improve with IV fluids. Patient given broad-spectrum antibiotics. Vital signs on arrival are within acceptable limits. Patient well-appearing at the bedside no acute distress. Patient be admitted to ICU. Case discussed with hospitalist for admission. Case discussed with foster winder for ICU admission. Did you discuss the management of the patient with other professionals (professionals i.e. , PA, GLOBAL ACCOUNT DIRECTOR, lab, RT, psych nurse, medical social worker, clothes wringer, teacher, training officer, foster care case manager)? Give summary @ -See above Was critical care preformed (if so, how long)? @ -Yes, 33 minutes for continued management of urosepsis Undiagnosed new problem with uncertain prognosis? @ -No Drug Therapy requiring intensive monitoring for toxicity (Heparin, Nitro, Insulin, Cardizem)? @ -No Were any procedures done? @ -No Diagnosis/symptom? Acute, or Chronic, or Acute on Chronic? Uncomplicated (without systemic symptoms) or Complicated (systemic symptoms)? @ -Urosepsis Side effects of treatment? @ -No Exacerbation, Progression, or Severe Exacerbation? @ -No Poses a threat to life or bodily function? How? (Chest pain, USA, DC, pneumonia, PE, COPD, DKA, ARF, appy, cholecystitis, CVA, Diverticulitis, Homicidal, Suicidal, threat to staff... and all critical care pts) @ -yes Disposition Clinical Impression: Sepsis secondary to UTI Disposition: ADMITTED IP TO THIS [facility] Condition: Critical Referrals: Nonstaff,Physician [Primary Care Provider] - 1-2 days Decision Time: 18:27
[2024-05-28] MEDS ORDERED: VANCOMYCIN IV PER PHARMACY 1 EACH MISC MISCELLANE PRN (18:29)
[2024-05-28] MEDS: NOREPINEPHRINE 4 MG in SODIUM CHLORIDE 0.9% 250 ML IV ONE (18:38)
[2024-05-28] MEDS: LACTATED RINGERS 1,000 ML IV SCH (18:40)
[2024-05-28] MEDS: HYDROCORTISONE SUCCINATE 100 MG/2 ML VIAL IV STA (18:41)
[2024-05-28 19:49] LABS: Glucose,Whole Blood 69 mg/dL (70-110)
[2024-05-28 22:57] LABS: Glucose,Whole Blood 133 mg/dL (70-110)
[2024-05-29] MEDS: CEFEPIME 1 GM in SODIUM CHLORIDE 0.9% 50 ML IVPB SCH (00:19)
[2024-05-29 03:18] LABS: Basophils # (A) 0.06 10*3/uL (0.00-0.10); Basophils % (A) 0.9 %; Eosinophils # (A) 0.02 10*3/uL (0.04-0.35); Eosinophils % (A) 0.3 %; HCT 32.4 % (37.2-46.3); HGB 10.3 g/dL (12.0-15.0); Lymphocytes % (A) 9.2 %; MCH 32.6 pg (27.0-32.0); MCHC 31.8 g/dL (32.0-37.0); MCV 102.5 fL (80.0-97.0); Mean Platelet Volume 9.6 fL (9.5-12.2); Monocytes # (A) 0.14 10*3/uL (0.20-1.00); Monocytes % (A) 2.1 %; Platelet Count 271 10*3/uL (140-440); RBC 3.16 10*6/uL (4.10-5.20); RDW 12.2 % (11.5-14.5); WBC 6.55 10*3/uL (4.50-10.00)
[2024-05-29 03:46] LABS: African American GFR (CKD) 45 (>60 ml/min/1.73 sqM); Anion Gap 13 mmol/L; Blood Urea Nitrogen 33 mg/dL (7-17); Calcium 10.4 mg/dL (8.4-10.2); Carbon Dioxide 19 mmol/L (22-30); Chloride 101 mmol/L (98-107); Glucose 127 mg/dL (74-99); Non-African American GFR(CKD) 39 (>60 ml/min/1.73 sqM); Potassium 4.7 mmol/L (3.5-5.1); Sodium 133 mmol/L (137-145)
--- NOTE | 2024-05-29 08:08 | XR ---
EXAMINATION TYPE: XR chest 1V portable DATE OF EXAM: 05/29/2024 5:35 AM COMPARISON: 04/19/2024 CLINICAL INDICATION: Female, 63 years old with history of sepsis, , FINDINGS: Heart mildly enlarged. Mild hyperinflation. Similar interstitial density, right greater than left. No consolidation or pleural effusion. Surgical clips left axilla. IMPRESSION: COPD with similar mild cardiomegaly and interstitial opacities, right greater than left. [facility], Workstation: [email or web address], 05/29/2024 8:06 AM
[2024-05-29] MEDS: VANCOMYCIN 1,250 MG in SODIUM CHLORIDE 0.9% 250 ML IVPB ONE (10:08)
--- NOTE | 2024-05-29 10:32 | P.CNPUL ---
History of Present Illness Consult date: 05/29/24 Requesting physician: Usman العلي Reason for consult: other Chief complaint: Hypotension. History of present illness: Pulmonary consultation dated May 29, 2024. 63-year-old female sent in from an outside hospital, with urinary tract infection/urosepsis. The patient was seen in our emergency department, and was evaluated for dizziness, and urinary tract infection. The patient was appare ntly found to be hypotensive, a central line was placed, patient was given antibiotics, and norepinephrine. The patient is seen today in the intensive care unit, room 262. She is on 3 L of oxygen. He is getting lactated Ringer's at 100 cc an hour, norepinephrine at 7 mcg/min. She is currently on cefepime and vancomycin. I have asked the nurses to check a cortisol level, TSH. I saw the patient between April 16, and April 22, at which time she was admitted with nausea, vomiting, diarrhea, and hypotension. At that time also she required a central venous catheter, and also norepinephrine. She does have a history of hypertension, hyperlipidemia, CHF, COPD, and diabetes. Current laboratory data includes a white count of 6.55, hemoglobin 10.3, hematocrit 32.4, and platelet count 271,000. Sodium 133, potassium 4.7, chlorides 101, CO2 19, anion gap 13, BUN 33, creatinine 1.41. Glucose is 127. Calcium 10.4. The patient's chest x- ray shows changes of COPD, cardiomegaly, and interstitial opacities, right greater than left. Review of Systems REVIEW OF SYSTEMS: CONSTITUTIONAL: Weakness. NEUROLOGIC: [ Negative.] HEENT: [ Negative.] CARDIAC: [Negative.] PULMONARY: [Negative.] GI: [Negative.] : Urinary tract infection. RHEUMATOLOGIC: [ Negative.] IMMUNOLOGIC: [ Negative.] ENDOCRINE: [Negative. ] DERMATOLOGIC: [Negative.] Past Medical History Past Medical History: Heart Failure, COPD, Hyperlipidemia, Hypertension History of Any Multi-Drug Resistant Organisms: None Reported Past Surgical History: Unable to Obtain Additional Past Surgical History / Comment(s): Left Mastectomy 1994 Chemo and radiation, Left achilles tendon repair Past Anesthesia/Blood Transfusion Reactions: No Reported Reaction Past Psychological History: No Psychological Hx Reported Smoking Status: Former smoker Past Alcohol Use History: None Reported Medications and Allergies Home Medications Medication Instructions Recorded Confirmed Type Aspirin EC [Ecotrin Low Dose] 81 mg PO DAILY 04/16/24 05/28/24 History Empagliflozin [Jardiance] 25 mg PO DAILY 04/16/24 05/28/24 History FLUoxetine HCL 40 mg PO DAILY 04/16/24 05/28/24 History Magnesium Oxide [Magox 400] 400 mg PO DAILY 04/16/24 05/28/24 History Sacubitril/Valsartan [Entresto 24 1 tab PO BID 04/16/24 05/28/24 History mg-26 mg Tablet] carvediloL [Coreg] 3.125 mg PO BID 04/16/24 05/28/24 History Folic Acid 1 mg PO DAILY #30 tab 04/22/24 05/28/24 Rx Hydrocortisone [Cortef] 5 mg PO BID #30 tab 04/22/24 05/28/24 Rx Allergies Allergy/AdvReac Type Severity Reaction Status Date / Time Penicillins Allergy Rash/Hives Verified 05/28/24 18:51 Physical Exam Osteopathic Statement: *. No significant issues noted on an osteopathic structural exam other than those noted in the History and Physical/Consult. Vitals: Vital Signs Temp Pulse Resp BP Pulse Ox 05/29/24 10:00 90 11 L 112/63 100 05/29/24 09:15 98 05/29/24 09:00 86 17 114/58 97 05/29/24 08:00 97.4 F L 92 16 93/48 97 05/29/24 07:00 89 14 110/68 99 05/29/24 06:00 98 19 94/60 94 L 05/29/24 05:00 89 15 101/60 86 L 05/29/24 04:00 97.4 F L 84 18 94/59 97 05/29/24 03:00 88 23 85/57 98 05/29/24 02:00 87 19 93/58 97 05/29/24 01:00 81 15 100/70 97 05/29/24 00:00 97.4 F L 87 13 117/74 97 05/28/24 23:03 22 100/66 96 05/28/24 23:00 83 12 104/78 97 05/28/24 22:00 86 17 102/64 98 05/28/24 21:00 88 13 102/65 98 05/28/24 20:00 97.6 F 84 19 88/64 97 05/28/24 19:49 94 L 05/28/24 19:41 98.8 F 92 15 94/76 98 05/28/24 19:00 84 16 97/50 99 05/28/24 18:43 85 20 98/54 97 05/28/24 18:05 94 L 05/28/24 17:56 98.5 F 91 22 99/69 91 L Intake and Output 05/28/24 05/29/24 05/29/24 22:59 06:59 14:59 Intake Total 366.842 929.714 419.129 Output Total 225 1400 590 Balance 141.842 -470.286 -170.871 Intake: IV 300 Lactated Ringers 1,000 ml 300 @ 100 mls/hr IV .Q10H BUZZ Rx#:[id number] Intake, IV Titration 366.842 929.714 119.129 Amount Lactated Ringers 1,000 ml 300 800 100 @ 100 mls/hr IV .Q10H BUZZ Rx#:[id number] Norepinephrine 4 mg In 66.842 129.714 19.129 Sodium Chloride 0.9% 250 ml @ 0.03 MCG/KG/MIN 7. 772 mls/hr IV .Q24H ONE Rx#:[id number] Output: Urine 225 1400 590 Other: Voiding Method Indwelling Catheter Indwelling Catheter Indwelling Catheter Weight 68 kg 84.9 kg No acute distress, oriented 3. Currently on 3 L. HEENT examination is grossly unremarkable. Mucous membranes are moist. No oral lesions. Neck supple. Full range of motion. No adenopathy thyromegaly or neck vein distention. Cardiovascular examination reveals regular rhythm rate. S1-S2 normal. No S3 or S4. No discernible murmur noted. Lungs reveal clear breath sounds. Breath sounds are equal bilaterally. No adventitious lung sounds including wheezes rhonchi or crackles. Abdomen soft bowel sounds are heard. No masses or tenderness. Extremities are intact. No cyanosis clubbing or edema. Skin is without rash or lesion. Neurologic examination is brief but nonfocal. Results - Laboratory Findings CBC and BMP: 05/29/24 02:45 05/29/24 02:45 Abnormal lab findings: Abnormal Labs 05/28/24 05/28/24 05/29/24 19:48 22:56 02:45 RBC Hgb Hct MCV MCH MCHC Lymphocytes # Monocytes # Eosinophils # Sodium 133 L Carbon Dioxide 19 L BUN 33 H Creatinine 1.41 H Glucose 127 H POC Glucose (mg/dL) 69 L 133 H Calcium 10.4 H 05/29/24 02:45 RBC 3.16 L Hgb 10.3 L Hct 32.4 L MCV 102.5 H MCH 32.6 H MCHC 31.8 L Lymphocytes # 0.60 L Monocytes # 0.14 L Eosinophils # 0.02 L Sodium Carbon Dioxide BUN Creatinine Glucose POC Glucose (mg/dL) Calcium - Diagnostic Findings Chest x-ray: image reviewed Assessment and Plan Assessment: Suspected urinary tract infection, with urosepsis, and septic shock. History of recent admission, between April 16 and April 22, 2024, for hypotension secondary to nausea, vomiting, and diarrhea. History of hypertension. History of hyperlipidemia. History of CHF. History of COPD. History of diabetes mellitus. Plan: Plan dated May 29, 2024. The patient is seen in consultation, in room 262. The patient is currently on 3 L nasal cannula. She does have a central line in place. She is getting lactated Ringer's at 100 cc an hour. She is getting norepinephrine at 7 mcg/min, her antibiotics include cefepime and vancomycin. We asked the nurse to put a order in for a stat cortisol level, TSH. All labs, x-rays, and medications are reviewed. The patient's prognosis remains guarded. Will continue to follow the patient, make recommendations. Dictation was produced using [employer] software. Please excuse any grammatical, word or spelling errors. Time with Patient: Greater than 30
[2024-05-29 11:10] LABS: T4, Free (Free Thyroxine) 1.98 ng/dL (0.78-2.19)
--- NOTE | 2024-05-29 14:16 | P.HPIM ---
History of Present Illness 62-year-old female came in with complaints of UTI which includes dysuria which was severe found to have abnormal urine found to be septic, hypotensive, admitted to ICU and Levophed drip at this time patient has history of congestive heart failure EF of around 25% not in acute exacerbation at this time patient was on Entresto as an outpatient patient is presently receiving 100 cc of normal saline. Patient is on cefepime. 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 Well developed, well nourished. Obese HEENT: Pupils are round and equally reacting to light. EOMI. No scleral icterus. No conjunctival pallor. Normocephalic, atraumatic. No pharyngeal erythema. No thyromegaly. CARDIOVASCULAR: S1 and S2 present. No murmurs, rubs, or gallops. PULMONARY: Chest is clear to auscultation, no wheezing or crackles. ABDOMEN: Soft, nontender, nondistended, normoactive bowel sounds. No palpable organomegaly. MUSCULOSKELETAL: No joint swelling or deformity. EXTREMITIES: No cyanosis, clubbing, or pedal edema. NEUROLOGICAL: Gross neurological examination did not reveal any focal deficits. SKIN: No rashes. Assessment and plan Septic shock secondary to urinary tract infection: Patient will be continued on cefepime, vancomycin can be discontinued, awaiting urine cultures and blood cultures. Patient is also on hydrocortisone and home may have history of adrenal insufficiency - Acute renal failure probably acute tubular necrosis from septic shock continue with IV fluids and Levophed - Congestive heart failure chronic systolic function EF of around 25% without any acute exacerbation patient is hypovolemic at this time actually receiving IV fluids but will require close monitoring for heart failure. Her Entresto is being held at this time exacerbation. - Hypertension - Hyperlipidemia - COPD without any acute exacerbation - Type 2 diabetes mellitus for which patient was started on sliding scale insulin hold off on Jardiance DVT prophylaxis: Subcutaneous heparin Past Medical History Past Medical History: Heart Failure, COPD, Hyperlipidemia, Hypertension History of Any Multi-Drug Resistant Organisms: None Reported Past Surgical History: Unable to Obtain Additional Past Surgical History / Comment(s): Left Mastectomy 1995 Chemo and radiation, Left achilles tendon repair Past Anesthesia/Blood Transfusion Reactions: No Reported Reaction Past Psychological History: No Psychological Hx Reported Smoking Status: Former smoker Past Alcohol Use History: None Reported Medications and Allergies Home Medications Medication Instructions Recorded Confirmed Type Aspirin EC [Ecotrin Low Dose] 81 mg PO DAILY 04/16/24 05/28/24 History Empagliflozin [Jardiance] 25 mg PO DAILY 04/16/24 05/28/24 History FLUoxetine HCL 40 mg PO DAILY 04/16/24 05/28/24 History Magnesium Oxide [Magox 400] 400 mg PO DAILY 04/16/24 05/28/24 History Sacubitril/Valsartan [Entresto 24 1 tab PO BID 04/16/24 05/28/24 History mg-26 mg Tablet] carvediloL [Coreg] 3.125 mg PO BID 04/16/24 05/28/24 History Folic Acid 1 mg PO DAILY #30 tab 04/22/24 05/28/24 Rx Hydrocortisone [Cortef] 5 mg PO BID #30 tab 04/22/24 05/28/24 Rx Allergies Allergy/AdvReac Type Severity Reaction Status Date / Time Penicillins Allergy Rash/Hives Verified 05/28/24 18:51 Physical Exam Vitals: Vital Signs Temp Pulse Resp BP Pulse Ox 05/29/24 14:00 96 15 95/56 98 05/29/24 13:00 93 23 106/67 96 05/29/24 12:00 97.6 F 89 17 108/61 97 05/29/24 11:00 89 12 113/53 97 05/29/24 10:00 90 11 L 112/63 100 05/29/24 09:15 98 05/29/24 09:00 86 17 114/58 97 05/29/24 08:00 97.4 F L 92 16 93/48 97 05/29/24 07:00 89 14 110/68 99 05/29/24 06:00 98 19 94/60 94 L 05/29/24 05:00 89 15 101/60 86 L 05/29/24 04:00 97.4 F L 84 18 94/59 97 05/29/24 03:00 88 23 85/57 98 05/29/24 02:00 87 19 93/58 97 05/29/24 01:00 81 15 100/70 97 05/29/24 00:00 97.4 F L 87 13 117/74 97 05/28/24 23:03 22 100/66 96 05/28/24 23:00 83 12 104/78 97 05/28/24 22:00 86 17 102/64 98 05/28/24 21:00 88 13 102/65 98 05/28/24 20:00 97.6 F 84 19 88/64 97 05/28/24 19:49 94 L 05/28/24 19:41 98.8 F 92 15 94/76 98 05/28/24 19:00 84 16 97/50 99 05/28/24 18:43 85 20 98/54 97 05/28/24 18:05 94 L 05/28/24 17:56 98.5 F 91 22 99/69 91 L Intake and Output 05/28/24 05/29/24 05/29/24 22:59 06:59 14:59 Intake Total 366.842 708.498 1549.444 Output Total 225 1400 1065 Balance 141.842 -470.286 592.444 Intake: IV 1000 Cefepime 1 gm In Sodium 50 Chloride 0.9% 50 ml @ 100 mls/hr IVPB Q12H BUZZ Rx# :[id number] Lactated Ringers 1,000 ml 700 @ 100 mls/hr IV .Q10H BUZZ Rx#:[id number] Vancomycin 1,250 mg In 250 Sodium Chloride 0.9% 250 ml @ 125 mls/hr IVPB Q24H BUZZ Rx#:[id number] Intake, IV Titration 366.842 929.714 157.444 Amount Lactated Ringers 1,000 ml 300 800 100 @ 100 mls/hr IV .Q10H BUZZ Rx#:[id number] Norepinephrine 4 mg In 66.842 129.714 57.444 Sodium Chloride 0.9% 250 ml @ 0.03 MCG/KG/MIN 7. 772 mls/hr IV .Q24H ONE Rx#:[id number] Oral 500 Output: Urine 225 1400 1065 Other: Voiding Method Indwelling Catheter Indwelling Catheter Indwelling Catheter Weight 68 kg 84.9 kg Results CBC & Chem 7: 05/29/24 02:45 05/29/24 02:45 Labs: Abnormal Lab Results - Last 24 Hours (Table) 05/28/24 05/28/24 05/29/24 Range/Units 19:48 22:56 02:45 RBC (4.10-5.20) 10*6/uL Hgb (12.0-15.0) g/dL Hct (37.2-46.3) % MCV (80.0-97.0) fL MCH (27.0-32.0) pg MCHC (32.0-37.0) g/dL Lymphocytes # (0.90-5.00) 10*3/uL Monocytes # (0.20-1.00) 10*3/uL Eosinophils # (0.04-0.35) 10*3/uL Sodium 133 L (137-145) mmol/L Carbon Dioxide 19 L (22-30) mmol/L BUN 33 H (7-17) mg/dL Creatinine 1.41 H (0.52-1.04) mg/dL Glucose 127 H (74-99) mg/dL POC Glucose (mg/dL) 69 L 133 H (70-110) mg/dL Calcium 10.4 H (8.4-10.2) mg/dL TSH (0.465-4.680) mIU/L 05/29/24 05/29/24 Range/Units 02:45 09:40 RBC 3.16 L (4.10-5.20) 10*6/uL Hgb 10.3 L (12.0-15.0) g/dL Hct 32.4 L (37.2-46.3) % MCV 102.5 H (80.0-97.0) fL MCH 32.6 H (27.0-32.0) pg MCHC 31.8 L (32.0-37.0) g/dL Lymphocytes # 0.60 L (0.90-5.00) 10*3/uL Monocytes # 0.14 L (0.20-1.00) 10*3/uL Eosinophils # 0.02 L (0.04-0.35) 10*3/uL Sodium (137-145) mmol/L Carbon Dioxide (22-30) mmol/L BUN (7-17) mg/dL Creatinine (0.52-1.04) mg/dL Glucose (74-99) mg/dL POC Glucose (mg/dL) (70-110) mg/dL Calcium (8.4-10.2) mg/dL TSH 0.273 L (0.465-4.680) mIU/L Thrombosis Risk Factor Assmnt - Choose All That Apply Any of the Below Risk Factors Present?: Yes Each Factor Represents 1 point: Abnormal pulmonary function (COPD), Sepsis (< 1month) Other Risk Factors: Yes Each Risk Factor Represents 2 Points: Age 61-74 years Other congenital or acquired thrombophilia - If yes, enter type in comment: No Thrombosis Risk Factor Assessment Total Risk Factor Score: 4 Thrombosis Risk Factor Assessment Level: Moderate Risk
--- NOTE | 2024-05-29 15:07 | P.CRDCN ---
History of Present Illness History of present illness: HISTORY OF PRESENTING ILLNESS This is a pleasant 63-year-old with past medical history significant for hypertension, hyperlipidemia, cardiomyopathy apparently nonischemic, congestive heart failure, previous breast cancer in remission and more recent melanoma. She follows in the office with a predatory hunter out of bed X. She states she has been diagnosed with congestive heart failure and prior echo from her hospital from April 2024 showed EF 20-25%. Apparently there has been no discussion regarding a defibrillator in the past however. She believes she had a heart catheterization which showed no blockages. She denies any recent chest pain or pressure. Denies any significant shortness of breath. She has been feeling somewhat more fatigued and weak and was walking around and felt more weak and tried to sit down and tripped over her dog and fell. She had workup in the [facility] with concern of UTI and hypotension. She was placed on vasopressors. She remains on norepinephrine currently with well-controlled MAP. Creatinine 1.4. Her home carvedilol and heart failure regimen have been stopped and she is receiving IV fluids at 100 cc/h. EKG shows normal sinus rhyt hm with nonspecific ST depressions. Troponin normal. She states she has been receiving some form of chemotherapy or immunotherapy for her melanoma. She has been noted to have increasing ectopy with bigeminy as well as brief runs of nonsustained ventricular tachycardia. Magnesium and potassium in normal range. REVIEW OF SYSTEMS At the time of my exam: CONSTITUTIONAL: Denies fever or chills. CARDIOVASCULAR: Denies chest pain, shortness of breath, orthopnea, PND or palpitations. RESPIRATORY: Denies cough. GASTROINTESTINAL: Denies abdominal pain, diarrhea, constipation, nausea or vomiting. MUSCULOSKELETAL: Denies myalgias. NEUROLOGIC: Denies numbness, tingling or weakness. ENDOCRINE: Denies fatigue, weight change, polydipsia or polyurina. GENITOURINARY: Denies burning, hematuria or urgency with micturation. HEMATOLOGIC: Denies history of anemia or bleeding. PHYSICAL EXAMINATION Vital signs reviewed. CONSTITUTIONAL: No apparent distress. HEENT: Head is normocephalic. Pupils are equal, round. Sclerae anicteric. Mucous membranes of the mouth are moist. No JVD. No carotid bruit. CHEST EXAMINATION: Lungs are clear to auscultation. No chest wall tenderness is noted on palpation or with deep breathing. HEART EXAMINATION: Regular rate and rhythm. S1, S2 heard. No murmurs, gallops or rub. ABDOMEN: Soft, nontender. Positive bowel sounds. EXTREMITIES: 2+ peripheral pulses, no lower extremity edema and no calf tenderness. NEUROLOGIC EXAMINATION: Patient is awake, alert and oriented x3. ASSESSMENT Chronic systolic heart failure Ectopy with PVCs as well as ventricular tachycardia likely related to underlying cardiomyopathy Cardiomyopathy apparently nonischemic per patient Hypertension Hyperlipidemia Shock likely related to septic shock Sepsis Melanoma PLAN Patient with symptoms mainly attributed to weakness and shock with likely infectious etiology. Continue with current supportive care including norepinephrine. No need to repeat echo. Continue to hold heart failure regimen however add back carvedilol low-dose to help with ectopy. May consider discontinuation of SGLT2 inhibitor if patient has frequent UTIs. Obtain records from primary predatory hunter. No need to repeat echo. Further recommendations to follow. Past Medical History Past Medical History: Heart Failure, COPD, Hyperlipidemia, Hypertension History of Any Multi-Drug Resistant Organisms: None Reported Past Surgical History: Unable to Obtain Additional Past Surgical History / Comment(s): Left Mastectomy 1995 Chemo and radiation, Left achilles tendon repair Past Anesthesia/Blood Transfusion Reactions: No Reported Reaction Past Psychological History: No Psychological Hx Reported Smoking Status: Former smoker Past Alcohol Use History: None Reported Medications and Allergies Home Medications Medication Instructions Recorded Confirmed Type Aspirin EC [Ecotrin Low Dose] 81 mg PO DAILY 04/16/24 05/28/24 History Empagliflozin [Jardiance] 25 mg PO DAILY 04/16/24 05/28/24 History FLUoxetine HCL 40 mg PO DAILY 04/16/24 05/28/24 History Magnesium Oxide [Magox 400] 400 mg PO DAILY 04/16/24 05/28/24 History Sacubitril/Valsartan [Entresto 24 1 tab PO BID 04/16/24 05/28/24 History mg-26 mg Tablet] carvediloL [Coreg] 3.125 mg PO BID 04/16/24 05/28/24 History Folic Acid 1 mg PO DAILY #30 tab 04/22/24 05/28/24 Rx Hydrocortisone [Cortef] 5 mg PO BID #30 tab 04/22/24 05/28/24 Rx Allergies Allergy/AdvReac Type Severity Reaction Status Date / Time Penicillins Allergy Rash/Hives Verified 05/28/24 18:51 Physical Exam Vitals: Vital Signs Temp Pulse Resp BP Pulse Ox 05/29/24 14:00 96 15 95/56 98 05/29/24 13:00 93 23 106/67 96 05/29/24 12:00 97.6 F 89 17 108/61 97 05/29/24 11:00 89 12 113/53 97 05/29/24 10:00 90 11 L 112/63 100 05/29/24 09:15 98 05/29/24 09:00 86 17 114/58 97 05/29/24 08:00 97.4 F L 92 16 93/48 97 05/29/24 07:00 89 14 110/68 99 05/29/24 06:00 98 19 94/60 94 L 05/29/24 05:00 89 15 101/60 86 L 05/29/24 04:00 97.4 F L 84 18 94/59 97 05/29/24 03:00 88 23 85/57 98 05/29/24 02:00 87 19 93/58 97 05/29/24 01:00 81 15 100/70 97 05/29/24 00:00 97.4 F L 87 13 117/74 97 05/28/24 23:03 22 100/66 96 05/28/24 23:00 83 12 104/78 97 05/28/24 22:00 86 17 102/64 98 05/28/24 21:00 88 13 102/65 98 05/28/24 20:00 97.6 F 84 19 88/64 97 05/28/24 19:49 94 L 05/28/24 19:41 98.8 F 92 15 94/76 98 05/28/24 19:00 84 16 97/50 99 05/28/24 18:43 85 20 98/54 97 05/28/24 18:05 94 L 05/28/24 17:56 98.5 F 91 22 99/69 91 L Intake and Output 05/29/24 05/29/24 05/29/24 06:59 14:59 22:59 Intake Total 949.919 1727.444 Output Total 1400 1065 Balance -470.286 592.444 Intake: IV 1000 Cefepime 1 gm In Sodium 50 Chloride 0.9% 50 ml @ 100 mls/hr IVPB Q12H [facility] Rx# :[id number] Lactated Ringers 1,000 ml 700 @ 100 mls/hr IV .Q10H [facility] Rx#:[id number] Vancomycin 1,250 mg In 250 Sodium Chloride 0.9% 250 ml @ 125 mls/hr IVPB Q24H [facility] Rx#:[id number] Intake, IV Titration 929.714 157.444 Amount Lactated Ringers 1,000 ml 800 100 @ 100 mls/hr IV .Q10H [facility] Rx#:[id number] Norepinephrine 4 mg In 129.714 57.444 Sodium Chloride 0.9% 250 ml @ 0.03 MCG/KG/MIN 7. 772 mls/hr IV .Q24H [facility] Rx#:[id number] Oral 500 Output: Urine 1400 1065 Other: Voiding Method Indwelling Catheter Indwelling Catheter Weight 84.9 kg Results 05/29/24 02:45 05/29/24 02:45 CBC 05/29/24 Range/Units 02:45 WBC 6.55 (4.50-10.00) 10*3/uL RBC 3.16 L (4.10-5.20) 10*6/uL Hgb 10.3 L (12.0-15.0) g/dL Hct 32.4 L (37.2-46.3) % Plt Count 271 (140-440) 10*3/uL Comprehensive Metabolic Panel 05/29/24 Range/Units 02:45 Sodium 133 L (137-145) mmol/L Potassium 4.7 (3.5-5.1) mmol/L Chloride 101 (98-107) mmol/L Carbon Dioxide 19 L (22-30) mmol/L BUN 33 H (7-17) mg/dL Creatinine 1.41 H (0.52-1.04) mg/dL Glucose 127 H (74-99) mg/dL Calcium 10.4 H (8.4-10.2) mg/dL Current Medications Generic Name Dose Route Start Last Admin Trade Name Freq PRN Reason Stop Dose Admin Aspirin 81 mg 05/30/24 09:00 Aspirin 81 Mg PO DAILY [facility] Famotidine 20 mg 05/29/24 21:00 Famotidine 20 Mg Tab PO BID [facility] Fluoxetine HCl 40 mg 05/29/24 14:30 Fluoxetine Hcl 20 Mg Cap PO DAILY [facility] Heparin Sodium (Porcine) 5,000 unit 05/29/24 16:00 Heparin Sodium,Porcine 5,000 Unit/Ml 1 Ml Vial SQ Q8HR [facility] Norepinephrine Bitartrate 4 mg 254 mls @ 7.772 mls/hr 05/28/24 18:25 05/29/24 11:05 / Sodium Chloride IV 05/29/24 18:24 0.08 mcg/kg/min .Q24H ONE 20.726 mls/hr Administration Protocol 0.03 MCG/KG/MIN Lactated Ringer's 1,000 mls @ 100 mls/hr 05/28/24 18:30 05/29/24 14:14 Lactated Ringers IV 100 mls/hr .Q10H [facility] Administration Cefepime HCl 1 gm/ Sodium 50 mls @ 100 mls/hr 05/29/24 00:00 05/29/24 12:29 Chloride IVPB 100 mls/hr Q12H [facility] Administration Protocol Insulin Human Lispro 0 unit 05/29/24 17:30 Insulin Lispro (Humalog) 100 Unit/Ml 10 Ml Vl SQ ACHS [facility] Protocol Naloxone HCl 0.2 mg 05/28/24 18:27 Naloxone 0.4 Mg/Ml 1 Ml Vial IV Q2M PRN Opioid Reversal Intake and Output 05/29/24 05/29/24 05/29/24 06:59 14:59 22:59 Intake Total 728.615 0074.444 Output Total 1400 1065 Balance -470.286 592.444 Intake: IV 1000 Cefepime 1 gm In Sodium 50 Chloride 0.9% 50 ml @ 100 mls/hr IVPB Q12H [facility] Rx# :[id number] Lactated Ringers 1,000 ml 700 @ 100 mls/hr IV .Q10H [facility] Rx#:[id number] Vancomycin 1,250 mg In 250 Sodium Chloride 0.9% 250 ml @ 125 mls/hr IVPB Q24H [facility] Rx#:[id number] Intake, IV Titration 929.714 157.444 Amount Lactated Ringers 1,000 ml 800 100 @ 100 mls/hr IV .Q10H [facility] Rx#:[id number] Norepinephrine 4 mg In 129.714 57.444 Sodium Chloride 0.9% 250 ml @ 0.03 MCG/KG/MIN 7. 772 mls/hr IV .Q24H [facility] Rx#:[id number] Oral 500 Output: Urine 1400 1065 Other: Voiding Method Indwelling Catheter Indwelling Catheter Weight 84.9 kg 05/29/24 02:45 05/29/24 02:45
[2024-05-29] MEDS: HEPARIN SODIUM,PORCINE 5,000 UNIT/ML 1 ML VIAL SQ SCH (16:27)
[2024-05-29] MEDS: FLUoxetine HCL 20 MG CAP PO SCH (16:27)
[2024-05-29 17:08] LABS: Glucose,Whole Blood 111 mg/dL (70-110)
[2024-05-29] MEDS: INSULIN LISPRO (HumaLOG) 100 UNIT/ML 10 mL VL SQ SCH (17:08)
[2024-05-29] MEDS: carvediloL 3.125 MG TAB PO SCH (17:29)
[2024-05-29] MEDS: NOREPINEPHRINE 4 MG in SODIUM CHLORIDE 0.9% 250 ML IV SCH (18:47)
[2024-05-29 20:43] LABS: Glucose,Whole Blood 134 mg/dL (70-110)
[2024-05-29] MEDS: FAMOTIDINE 20 MG TAB PO SCH (20:45)
[2024-05-29] MEDS ORDERED: FAMOTIDINE 20 MG TAB PO SCH (21:00)
[2024-05-30 05:27] LABS: African American GFR (CKD) >90 (>60 ml/min/1.73 sqM); Anion Gap 7 mmol/L; Blood Urea Nitrogen 21 mg/dL (7-17); Carbon Dioxide 25 mmol/L (22-30); Chloride 105 mmol/L (98-107); Glucose 99 mg/dL (74-99); Non-African American GFR(CKD) 81 (>60 ml/min/1.73 sqM); Potassium 3.7 mmol/L (3.5-5.1); Sodium 137 mmol/L (137-145)
[2024-05-30 06:23] LABS: HCT 32.7 % (37.2-46.3); HGB 10.4 g/dL (12.0-15.0); MCH 32.5 pg (27.0-32.0); MCHC 31.8 g/dL (32.0-37.0); MCV 102.2 fL (80.0-97.0); Mean Platelet Volume 9.5 fL (9.5-12.2); Platelet Count 266 10*3/uL (140-440); RDW 12.4 % (11.5-14.5)
[2024-05-30 06:23] LABS: Glucose,Whole Blood 102 mg/dL (70-110)
[2024-05-30] MEDS ORDERED: Potassium Replacement Protocol 1 EACH MISC MISCELLANE PRN (07:53)
[2024-05-30] MEDS ORDERED: Magnesium Replacement Protocol 1 EACH MISC MISCELLANE PRN (07:53)
[2024-05-30] MEDS: MAGNESIUM SULFATE-D5W PMX 1 GM in DEXTROSE/WATER 1 100ML.BAG IVPB SCH (08:45)
[2024-05-30] MEDS: ASPIRIN 81 MG PO SCH (08:45)
[2024-05-30] MEDS: POTASSIUM BICARBONATE/CIT AC 20 MEQ TABLET.EFF NG-TUBE SCH ×2 (08:45→14:17)
[2024-05-30] MEDS ORDERED: VANCOMYCIN 1,250 MG in SODIUM CHLORIDE 0.9% 250 ML IVPB SCH (09:00)
--- NOTE | 2024-05-30 10:11 | P.PN ---
Subjective Progress Note Date: 05/30/24 Principal diagnosis: Hypotension, sepsis. Pulmonary consultation dated May 29, 2024. 63-year-old female sent in from an outside hospital, with urinary tract infection/urosepsis. The patient was seen in our emergency department, and was evaluated for dizziness, and urinary tract infection. The patient was apparently found to be hypotensive, a central line was placed, patient was given antibiotics, and norepinephrine. The patient is seen today in the intensive care unit, room 262. She is on 3 L of oxygen. He is getting lactated Ringer's at 100 cc an hour, norepinephrine at 7 mcg/min. She is currently on cefepime and vancomycin. I have asked the nurses to check a cortisol level, TSH. I saw the patient between April 16, and April 22, at which time she was admitted with nausea, vomiting, diarrhea, and hypotension. At that time also she required a central venous catheter, and also norepinephrine. She does have a history of hypertension, hyperlipidemia, CHF, COPD, and diabetes. Current laboratory data includes a white count of 6.55, hemoglobin 10.3, hematocrit 32.4, and platelet count 271,000. Sodium 133, potassium 4.7, chlorides 101, CO2 19, anion gap 13, BUN 33, creatinine 1.41. Glucose is 127. Calcium 10.4. The patient's chest x- ray shows changes of COPD, cardiomegaly, and interstitial opacities, right greater than left. Progress note dated May 30, 2024. 63-year-old female admitted with a diagnosis of urinary tract infection/urosepsis. The patient is seen today in room 262. She remains on norepinephrine at 9 mcg/min. She is on 2 L nasal cannula. She is getting lactated Ringer's at 100 cc an hour. She continues on cefepime. Because of her ongoing hypotension, relatively low her cortisol level, the patient is placed on hydrocortisone 50 mg every 6 hours. White count is 10.4, hemoglobin 10.4, hematocrit 32.7, platelet count 266,000. Sodium 137, potassium 3.7, chlorides 105, CO2 25, BUN 21, and creatinine 0.77. Glucose is 102. Calcium 10, magnesium 1.6. Chest x-ray shows changes of COPD, with some cardiomegaly. Objective - Vital Signs Vital signs: Vital Signs Temp 98.1 F 05/30/24 08:00 Pulse 93 05/30/24 09:00 Resp 14 05/30/24 09:00 BP 83/59 05/30/24 09:00 Pulse Ox 97 05/30/24 09:00 FiO2 Intake & Output 05/29/24 05/30/24 05/30/24 18:59 06:59 18:59 Intake Total 2216.086 1703.171 526.829 Output Total 1540 1045 310 Balance 676.086 658.171 216.829 Weight 87.9 kg Intake: IV 1400 1200 300 Cefepime 1 gm In Sodium 50 Chloride 0.9% 50 ml @ 100 mls/hr IVPB Q12H [facility] Rx# :[id number] Lactated Ringers 1,000 ml 1100 1200 300 @ 100 mls/hr IV .Q10H [facility] Rx#:[id number] Vancomycin 1,250 mg In 250 Sodium Chloride 0.9% 250 ml @ 125 mls/hr IVPB Q24H [facility] Rx#:[id number] Intake, IV Titration 316.086 281.171 226.829 Amount Lactated Ringers 1,000 ml 100 @ 100 mls/hr IV .Q10H [facility] Rx#:[id number] Norepinephrine 4 mg In 216.086 Sodium Chloride 0.9% 250 ml @ 0.03 MCG/KG/MIN 7. 772 mls/hr IV .Q24H [facility] Rx#:[id number] Norepinephrine 4 mg In 281.171 226.829 Sodium Chloride 0.9% 250 ml @ 0.03 MCG/KG/MIN 9. 704 mls/hr IV .Q24H [facility] Rx#:[id number] Oral 500 222 Output: Urine 1540 1045 310 Other: Voiding Method Indwelling Catheter Indwelling Catheter Indwelling Catheter # Bowel Movements 1 1 - Exam No acute distress, oriented 3. Currently on 2 L. HEENT examination is grossly unremarkable. Mucous membranes are moist. No oral lesions. Neck supple. Full range of motion. No adenopathy thyromegaly or neck vein distention. Cardiovascular examination reveals regular rhythm rate. S1-S2 normal. No S3 or S4. No discernible murmur noted. Lungs reveal clear breath sounds. Breath sounds are equal bilaterally. No adventitious lung sounds including wheezes rhonchi or crackles. Abdomen soft bowel sounds are heard. No masses or tenderness. Extremities are intact. No cyanosis clubbing or edema. Skin is without rash or lesion. Neurologic examination is brief but nonfocal. - Labs CBC & Chem 7: 05/30/24 05:19 05/30/24 04:43 Labs: Abnormal Lab Results - Last 24 Hours (Table) 05/29/24 05/29/24 05/29/24 Range/Units 09:40 17:06 20:42 WBC (4.50-10.00) 10*3/uL RBC (4.10-5.20) 10*6/uL Hgb (12.0-15.0) g/dL Hct (37.2-46.3) % MCV (80.0-97.0) fL MCH (27.0-32.0) pg MCHC (32.0-37.0) g/dL BUN (7-17) mg/dL POC Glucose (mg/dL) 111 H 134 H (70-110) mg/dL TSH 0.273 L (0.465-4.680) mIU/L 05/30/24 05/30/24 Range/Units 04:43 05:19 WBC 10.40 H (4.50-10.00) 10*3/uL RBC 3.20 L (4.10-5.20) 10*6/uL Hgb 10.4 L (12.0-15.0) g/dL Hct 32.7 L (37.2-46.3) % MCV 102.2 H (80.0-97.0) fL MCH 32.5 H (27.0-32.0) pg MCHC 31.8 L (32.0-37.0) g/dL BUN 21 H (7-17) mg/dL POC Glucose (mg/dL) (70-110) mg/dL TSH (0.465-4.680) mIU/L Assessment and Plan Assessment: Suspected urinary tract infection, with urosepsis, and septic shock. History of recent admission, between April 16 and April 22, 2024, for hypotension secondary to nausea, vomiting, and diarrhea. Possible relative adrenal insufficiency. History of hypertension. History of hyperlipidemia. History of CHF. History of COPD. History of diabetes mellitus. Plan: Plan dated May 29, 2024. The patient is seen in consultation, in room 262. The patient is currently on 3 L nasal cannula. She does have a central line in place. She is getting lactated Ringer's at 100 cc an hour. She is getting norepinephrine at 7 mcg/min, her antibiotics include cefepime and vancomycin. We asked the nurse to put a order in for a stat cortisol level, TSH. All labs, x-rays, and medications are reviewed. The patient's prognosis remains guarded. Will continue to follow the patient, make recommendations. Dictation was produced using ulike software. Please excuse any grammatical, word or sp elling errors. Plan dated May 30, 2024. The patient was seen in consultation yesterday. The patient continues on antibiotics. Additional recommendations and suggestions are forthcoming. The patient is on norepinephrine at 9 mcg/min. Because the cortisol level is relatively low, the patient is given hydrocortisone 50 mg every 6 hours, IV push. We will continue to follow make recommendations. Labs, x-rays, and medications are reviewed. Prognosis is guarded. The patient remains critically ill. Dictation was produced using ulike software. Please excuse any grammatical, word or spelling errors. Time with Patient: Greater than 30
--- NOTE | 2024-05-30 11:02 | P.PN ---
Subjective Progress Note Date: 05/30/24 HISTORY OF PRESENTING ILLNESS This is a pleasant 63-year-old with past medical history significant for hyp ertension, hyperlipidemia, cardiomyopathy apparently nonischemic, congestive heart failure, previous breast cancer in remission and more recent melanoma. She follows in the office with a bumper operator out of bed X. She states she has been diagnosed with congestive heart failure and prior echo from her hospital from April 2024 showed EF 20-25%. Apparently there has been no discussion regarding a defibrillator in the past however. She believes she had a heart catheterization which showed no blockages. She denies any recent chest pain or pressure. Denies any significant shortness of breath. She has been feeling somewhat more fatigued and weak and was walking around and felt more weak and tried to sit down and tripped over her dog and fell. She had workup in the [facility] with concern of UTI and hypotension. She was placed on vasopressors. She remains on norepinephrine currently with well-controlled MAP. Creatinine 1.4. Her home carvedilol and heart failure regimen have been stopped and she is receiving IV fluids at 100 cc/h. EKG shows normal sinus rhythm with nonspecific ST depressions. Troponin normal. She states she has been receiving some form of chemotherapy or immunotherapy for her melanoma. She has been noted to have increasing ectopy with bigeminy as well as brief runs of nonsustained ventricular tachycardia. Magnesium and potassium in normal range. 05/30 Patient is feeling okay. Denies any chest pain or pressure. No shortness of breath or dizziness. She remains on Levophed with blood pressures 8090s. WBC 10.4, hemoglobin 10.4, potassium 3.7, creatinine 0.77, magnesium 1.6. PHYSICAL EXAMINATION Vital signs reviewed. CONSTITUTIONAL: No apparent distress. HEENT: Head is normocephalic. Pupils are equal, round. Sclerae anicteric. Mucous membranes of the mouth are moist. No JVD. No carotid bruit. CHEST EXAMINATION: Lungs are clear to auscultation. No chest wall tenderness is noted on palpation or with deep breathing. HEART EXAMINATION: Regular rate and rhythm. S1, S2 heard. No murmurs, gallops or rub. ABDOMEN: Soft, nontender. Positive bowel sounds. EXTREMITIES: 2+ peripheral pulses, no lower extremity edema and no calf tenderness. NEUROLOGIC EXAMINATION: Patient is awake, alert and oriented x3. ASSESSMENT Chronic systolic heart failure Ectopy with PVCs as well as ventricular tachycardia likely related to underlying cardiomyopathy Cardiomyopathy apparently nonischemic per patient Hypertension Hyperlipidemia Shock likely related to septic shock Sepsis Melanoma PLAN Symptoms mainly attributed to weakness and shock with likely infectious etiology. Continue with current supportive care including norepinephrine. No need to repeat echo. Continue to hold heart failure regimen. Be somewhat improved with Coreg. May consider discontinuation of SGLT2 inhibitor if patient has frequent UTIs. Obtain records from primary bumper operator. Further recommendations to follow. Patient seen and examined in rounds with Dr. Hearn, plan of care agreed upon. Objective - Vital Signs Vital signs: Vital Signs Temp 97.5 F L 05/30/24 04:00 Pulse 98 05/30/24 07:00 Resp 18 05/30/24 07:00 BP 100/58 05/30/24 07:00 Pulse Ox 99 05/30/24 07:00 FiO2 Intake & Output 05/29/24 05/30/24 05/30/24 18:59 06:59 18:59 Intake Total 2216.086 1703.171 100 Output Total 1540 1045 75 Balance 676.086 658.171 25 Weight 87.9 kg Intake: IV 1400 1200 100 Cefepime 1 gm In Sodium 50 Chloride 0.9% 50 ml @ 100 mls/hr IVPB Q12H [facility] Rx# :[id number] Lactated Ringers 1,000 ml 1100 1200 100 @ 100 mls/hr IV .Q10H [facility] Rx#:[id number] Vancomycin 1,250 mg In 250 Sodium Chloride 0.9% 250 ml @ 125 mls/hr IVPB Q24H [facility] Rx#:[id number] Intake, IV Titration 316.086 281.171 Amount Lactated Ringers 1,000 ml 100 @ 100 mls/hr IV .Q10H [facility] Rx#:[id number] Norepinephrine 4 mg In 216.086 Sodium Chloride 0.9% 250 ml @ 0.03 MCG/KG/MIN 7. 772 mls/hr IV .Q24H [facility] Rx#:[id number] Norepinephrine 4 mg In 281.171 Sodium Chloride 0.9% 250 ml @ 0.03 MCG/KG/MIN 9. 704 mls/hr IV .Q24H [facility] Rx#:[id number] Oral 500 222 Output: Urine 1540 1045 75 Other: Voiding Method Indwelling Catheter Indwelling Catheter # Bowel Movements 1 1 - Labs CBC & Chem 7: 05/30/24 05:19 05/30/24 04:43 Labs: Abnormal Lab Results - Last 24 Hours (Table) 05/29/24 05/29/24 05/29/24 Range/Units 09:40 17:06 20:42 WBC (4.50-10.00) 10*3/uL RBC (4.10-5.20) 10*6/uL Hgb (12.0-15.0) g/dL Hct (37.2-46.3) % MCV (80.0-97.0) fL MCH (27.0-32.0) pg MCHC (32.0-37.0) g/dL BUN (7-17) mg/dL POC Glucose (mg/dL) 111 H 134 H (70-110) mg/dL TSH 0.273 L (0.465-4.680) mIU/L 05/30/24 05/30/24 Range/Units 04:43 05:19 WBC 10.40 H (4.50-10.00) 10*3/uL RBC 3.20 L (4.10-5.20) 10*6/uL Hgb 10.4 L (12.0-15.0) g/dL Hct 32.7 L (37.2-46.3) % MCV 102.2 H (80.0-97.0) fL MCH 32.5 H (27.0-32.0) pg MCHC 31.8 L (32.0-37.0) g/dL BUN 21 H (7-17) mg/dL POC Glucose (mg/dL) (70-110) mg/dL TSH (0.465-4.680) mIU/L
[2024-05-30 11:08] LABS: Glucose,Whole Blood 106 mg/dL (70-110)
[2024-05-30] MEDS: HYDROCORTISONE SUCCINATE 100 MG/2 ML VIAL IV SCH (11:28)
[2024-05-30 13:25] LABS: Magnesium 2.1 mg/dL (1.6-2.3); Potassium 3.8 mmol/L (3.5-5.1)
--- NOTE | 2024-05-30 14:16 | P.PN ---
Subjective Progress Note Date: 05/30/24 63-year-old with past medical history significant for hypertension, hyperlipidemia, cardiomyopathy apparently nonischemic, congestive heart failure, previous breast cancer in remission and more recent melanoma. She has been feeling somewhat more fatigued and weak and was walking around and felt more weak and tried to sit down and tripped over her dog and fell. She had workup in the [facility] with concern of UTI and hypotension. She was placed on vasopressors. Patient was admitted to ICU 05/30. Patient seen and examined. Blood work done this morning showed sodium 137, potassium 3.7, BUN 21, creatinine 0.77. Currently on IV cefepime. Patient also on Levophed and Solu-Cortef. Continues to have poor appetite REVIEW OF SYSTEMS: CONSTITUTIONAL: No fever, no malaise,. CARDIOVASCULAR: No chest pain, no palpitations, no syncope. PULMONARY: No shortness of breath, no cough, GASTROINTESTINAL: No diarrhea, no nausea, no vomiting, no abdominal pain. NEUROLOGICAL: No headaches, no weakness, PHYSICAL EXAMINATION: GENERAL: The patient is alert, chronically ill looking HEENT: Pupils are round and equally reacting to light. EOMI. No scleral icterus. No conjunctival pallor. Normocephalic, atraumatic. No pharyngeal erythema. No thyromegaly. CARDIOVASCULAR: S1 and S2 present. No murmurs, rubs, or gallops. PULMONARY: C good air entry bilateraly, no wheezing or crackles. ABDOMEN: Soft, nontender, nondistended, normoactive bowel sounds. No palpable organomegaly. MUSCULOSKELETAL: No joint swelling or deformity. EXTREMITIES: No cyanosis, clubbing, or pedal edema. NEUROLOGICAL: Gross neurological examination did not reveal any focal deficits. SKIN: No rashes. Assessment and plan UTI Septic shock Possible relative adrenal insufficiency. History of hypertension. History of hyperlipidemia. History of CHF. History of COPD. History of diabetes mellitus. Monitor vital signs Monitor CBC Monitor CMP Continue telemetry monitoring Ordered blood cultures Order urine culture Continue Levophed Continue IV cefepime Continue aspirin, Coreg Cardiology following ID consulted Labs and medication were reviewed.. Continue same treatment. Continue with s ymptomatic treatment. Resume home medication. Monitor labs and vitals. DVT and GI prophylaxis. Further recommendations as per clinical course of the patient Dictation was produced using [employer] dictation software. please excuse any grammatical, word or spelling errors. Objective - Vital Signs Vital signs: Vital Signs Temp 97.9 F 05/30/24 12:00 Pulse 86 05/30/24 14:00 Resp 14 05/30/24 14:00 BP 107/70 05/30/24 14:00 Pulse Ox 97 05/30/24 14:00 FiO2 Intake & Output 05/29/24 05/30/24 05/30/24 18:59 06:59 18:59 Intake Total 2216.086 5114.127 9907.734 Output Total 1540 1045 685 Balance 676.086 658.171 510.734 Weight 87.9 kg Intake: IV 1400 1200 800 Cefepime 1 gm In Sodium 50 Chloride 0.9% 50 ml @ 100 mls/hr IVPB Q12H [facility] Rx# :[id number] Lactated Ringers 1,000 ml 1100 1200 800 @ 100 mls/hr IV .Q10H [facility] Rx#:[id number] Vancomycin 1,250 mg In 250 Sodium Chloride 0.9% 250 ml @ 125 mls/hr IVPB Q24H [facility] Rx#:[id number] Intake, IV Titration 316.086 281.171 395.734 Amount Lactated Ringers 1,000 ml 100 @ 100 mls/hr IV .Q10H [facility] Rx#:[id number] Norepinephrine 4 mg In 216.086 Sodium Chloride 0.9% 250 ml @ 0.03 MCG/KG/MIN 7. 772 mls/hr IV .Q24H [facility] Rx#:[id number] Norepinephrine 4 mg In 281.171 395.734 Sodium Chloride 0.9% 250 ml @ 0.03 MCG/KG/MIN 9. 704 mls/hr IV .Q24H [facility] Rx#:[id number] Oral 500 222 Output: Urine 1540 1045 685 Other: Voiding Method Indwelling Catheter Indwelling Catheter Indwelling Catheter # Bowel Movements 1 1 - Labs CBC & Chem 7: 05/30/24 05:19 05/30/24 12:58 Labs: Abnormal Lab Results - Last 24 Hours (Table) 05/29/24 05/29/24 05/30/24 Range/Units 17:06 20:42 04:43 WBC (4.50-10.00) 10*3/uL RBC (4.10-5.20) 10*6/uL Hgb (12.0-15.0) g/dL Hct (37.2-46.3) % MCV (80.0-97.0) fL MCH (27.0-32.0) pg MCHC (32.0-37.0) g/dL BUN 21 H (7-17) mg/dL POC Glucose (mg/dL) 111 H 134 H (70-110) mg/dL 05/30/24 Range/Units 05:19 WBC 10.40 H (4.50-10.00) 10*3/uL RBC 3.20 L (4.10-5.20) 10*6/uL Hgb 10.4 L (12.0-15.0) g/dL Hct 32.7 L (37.2-46.3) % MCV 102.2 H (80.0-97.0) fL MCH 32.5 H (27.0-32.0) pg MCHC 31.8 L (32.0-37.0) g/dL BUN (7-17) mg/dL POC Glucose (mg/dL) (70-110) mg/dL Microbiology - Last 24 Hours (Table) 05/29/24 09:26 Urine Culture - Final Urine,Catheterized
[2024-05-30 16:20] LABS: Glucose,Whole Blood 116 mg/dL (70-110)
[2024-05-30 19:34] LABS: Glucose,Whole Blood 167 mg/dL (70-110)
[2024-05-31 05:59] LABS: Basophils # (A) 0.02 10*3/uL (0.00-0.10); Basophils % (A) 0.6 %; HCT 30.7 % (37.2-46.3); HGB 9.6 g/dL (12.0-15.0); Lymphocytes # (A) 0.39 10*3/uL (0.90-5.00); Lymphocytes % (A) 10.9 %; MCHC 31.3 g/dL (32.0-37.0); MCV 102.3 fL (80.0-97.0); Mean Platelet Volume 9.4 fL (9.5-12.2); Monocytes # (A) 0.11 10*3/uL (0.20-1.00); Monocytes % (A) 3.1 %; Neutrophils # (A) 3.03 10*3/uL (1.80-7.70); Neutrophils % (A) 84.8 %; Platelet Count 218 10*3/uL (140-440); RDW 12.4 % (11.5-14.5); WBC 3.57 10*3/uL (4.50-10.00)
[2024-05-31 06:14] LABS: Glucose,Whole Blood 108 mg/dL (70-110)
[2024-05-31 06:16] LABS: African American GFR (CKD) >90 (>60 ml/min/1.73 sqM); Anion Gap 11 mmol/L; Blood Urea Nitrogen 12 mg/dL (7-17); Calcium 9.6 mg/dL (8.4-10.2); Carbon Dioxide 24 mmol/L (22-30); Chloride 104 mmol/L (98-107); Glucose 109 mg/dL (74-99); Magnesium 1.7 mg/dL (1.6-2.3); Non-African American GFR(CKD) >90 (>60 ml/min/1.73 sqM); Sodium 139 mmol/L (137-145)
[2024-05-31] MEDS: MAGNESIUM SULFATE-D5W PMX 1 GM in DEXTROSE/WATER 1 100ML.BAG IVPB ONE (06:51)
--- NOTE | 2024-05-31 09:02 | P.PN ---
Subjective Progress Note Date: 05/31/24 Principal diagnosis: Hypotension, sepsis. Pulmonary consultation dated May 29, 2024. 63-year-old female sent in from an outside hospital, with urinary tract infection/urosepsis. The patient was seen in our emergency department, and was evaluated for dizziness, and urinary tract infection. The patient was apparently found to be hypotensive, a central line was placed, patient was given antibiotics, and norepinephrine. The patient is seen today in the intensive care unit, room 262. She is on 3 L of oxygen. He is getting lactated Ringer's at 100 cc an hour, norepinephrine at 7 mcg/min. She is currently on cefepime and vancomycin. I have asked the nurses to check a cortisol level, TSH. I saw the patient between April 16, and April 22, at which time she was admitted with nausea, vomiting, diarrhea, and hypotension. At that time also she required a central venous catheter, and also norepinephrine. She does have a history of hypertension, hyperlipidemia, CHF, COPD, and diabetes. Current laboratory data includes a white count of 6.55, hemoglobin 10.3, hematocrit 32.4, and platelet count 271,000. Sodium 133, potassium 4.7, chlorides 101, CO2 19, anion gap 13, BUN 33, creatinine 1.41. Glucose is 127. Calcium 10.4. The patient's chest x- ray shows changes of COPD, cardiomegaly, and interstitial opacities, right greater than left. Progress note dated May 30, 2024. 63-year-old female admitted with a diagnosis of urinary tract infection/urosepsis. The patient is seen today in room 262. She remains on norepinephrine at 9 mcg/min. She is on 2 L nasal cannula. She is getting lactated Ringer's at 100 cc an hour. She continues on cefepime. Because of her ongoing hypotension, relatively low her cortisol level, the patient is placed on hydrocortisone 50 mg every 6 hours. White count is 10.4, hemoglobin 10.4, hematocrit 32.7, platelet count 266,000. Sodium 137, potassium 3.7, chlorides 105, CO2 25, BUN 21, and creatinine 0.77. Glucose is 102. Calcium 10, magnesium 1.6. Chest x-ray shows changes of COPD, with some cardiomegaly. Progress note dated May 31, 2024. 63-year-old female seen today in room 262. The patient was initially admitted with a diagnosis of urinary tract infection/urosepsis, with hypotension. The patient was on norepinephrine, up until this morning. Currently, she is on 2 L of oxygen by nasal cannula. She is getting lactated Ringer's at 100 cc an hour. We did give her hydrocortisone yesterday, 50 mg every 6 hours IV push, which allowed her to come off the norepinephrine. We believe she has relative adrenal insufficiency. Currently, she is resting comfortably without complaints. White count is 3.6, hemoglobin 9.6, hematocrit 30.7, platelet count 218,000. Sodium 139, potassium 4, chlorides 104, CO2 24, anion gap 11, BUN 12, creatinine 0.64. Glucose is 108. Calcium 9.6, magnesium is normal at 1.7. Objective - Vital Signs Vital signs: Vital Signs Temp 97.9 F 05/31/24 08:00 Pulse 75 05/31/24 08:00 Resp 14 05/31/24 08:00 BP 95/57 05/31/24 08:00 Pulse Ox 98 05/31/24 08:00 FiO2 Intake & Output 05/30/24 05/31/24 05/31/24 18:59 06:59 18:59 Intake Total 2371.525 1530.119 100 Output Total 1660 1925 175 Balance 711.525 -394.881 -75 Weight 88.5 kg Intake: IV 1250 1300 100 Cefepime 1 gm In Sodium 50 Chloride 0.9% 50 ml @ 100 mls/hr IVPB Q12H [facility] Rx# :[id number] Lactated Ringers 1,000 ml 1100 1200 100 @ 100 mls/hr IV .Q10H [facility] Rx#:[id number] Magnesium Sulfate-D5w Pmx 100 100 1 gm In Dextrose/Water 1 100ml.bag @ 100 mls/hr IVPB Q1H [facility] Rx#: [id number] Intake, IV Titration 761.525 230.119 Amount Norepinephrine 4 mg In 761.525 230.119 Sodium Chloride 0.9% 250 ml @ 0.03 MCG/KG/MIN 9. 704 mls/hr IV .Q24H [facility] Rx#:[id number] Oral 360 Output: Urine 1660 1925 175 Other: Voiding Method Indwelling Catheter Indwelling Catheter Indwelling Catheter # Bowel Movements 1 - Exam No acute distress, oriented 3. Currently on 2 L. HEENT examination is grossly unremarkable. Mucous membranes are moist. No oral lesions. Neck supple. Full range of motion. No adenopathy thyromegaly or neck vein distention. Cardiovascular examination reveals regular rhythm rate. S1-S2 normal. No S3 or S4. No discernible murmur noted. Lungs reveal clear breath sounds. Breath sounds are equal bilaterally. No adventitious lung sounds including wheezes rhonchi or crackles. Abdomen soft bowel sounds are heard. No masses or tenderness. Extremities are intact. No cyanosis clubbing or edema. Skin is without rash or lesion. Neurologic examination is brief but nonfocal. - Labs CBC & Chem 7: 05/31/24 05:28 05/31/24 05:28 Labs: Abnormal Lab Results - Last 24 Hours (Table) 05/30/24 05/30/24 05/31/24 Range/Units 16:19 19:32 05:28 WBC (4.50-10.00) 10*3/uL RBC (4.10-5.20) 10*6/uL Hgb (12.0-15.0) g/dL Hct (37.2-46.3) % MCV (80.0-97.0) fL MCHC (32.0-37.0) g/dL MPV (9.5-12.2) fL Lymphocytes # (0.90-5.00) 10*3/uL Monocytes # (0.20-1.00) 10*3/uL Eosinophils # (0.04-0.35) 10*3/uL Glucose 109 H (74-99) mg/dL POC Glucose (mg/dL) 116 H 167 H (70-110) mg/dL 05/31/24 Range/Units 05:28 WBC 3.57 L (4.50-10.00) 10*3/uL RBC 3.00 L (4.10-5.20) 10*6/uL Hgb 9.6 L (12.0-15.0) g/dL Hct 30.7 L (37.2-46.3) % MCV 102.3 H (80.0-97.0) fL MCHC 31.3 L (32.0-37.0) g/dL MPV 9.4 L (9.5-12.2) fL Lymphocytes # 0.39 L (0.90-5.00) 10*3/uL Monocytes # 0.11 L (0.20-1.00) 10*3/uL Eosinophils # 0.00 L (0.04-0.35) 10*3/uL Glucose (74-99) mg/dL POC Glucose (mg/dL) (70-110) mg/dL Microbiology - Last 24 Hours (Table) 05/29/24 09:40 Blood Culture - Preliminary Blood 05/29/24 09:26 Urine Culture - Final Urine,Catheterized Assessment and Plan Assessment: Suspected urinary tract infection, with urosepsis, and septic shock. History of recent admission, between April 16 and April 22, 2024, for hypotension secondary to nausea, vomiting, and diarrhea. Probable relative adrenal insufficiency. History of hypertension. History of hyperlipidemia. History of CHF. History of COPD. History of diabetes mellitus. Plan: Plan dated May 29, 2024. The patient is seen in consultation, in room 262. The patient is currently on 3 L nasal cannula. She does have a central line in place. She is getting lactated Ringer's at 100 cc an hour. She is getting norepinephrine at 7 mcg/min, her antibiotics include cefepime and vancomycin. We asked the nurse to put a order in for a stat cortisol level, TSH. All labs, x-rays, and medicatio ns are reviewed. The patient's prognosis remains guarded. Will continue to follow the patient, make recommendations. Dictation was produced using [employer] software. Please excuse any grammatical, word or spelling errors. Plan dated May 30, 2024. The patient was seen in consultation yesterday. The patient continues on antibiotics. Additional recommendations and suggestions are forthcoming. The patient is on norepinephrine at 9 mcg/min. Because the cortisol level is relatively low, the patient is given hydrocortisone 50 mg every 6 hours, IV push. We will continue to follow make recommendations. Labs, x-rays, and medications are reviewed. Prognosis is guarded. The patient remains critically ill. Dictation was produced using [employer] software. Please excuse any grammatical, word or spelling errors. Plan dated May 31, 2024. The patient appears to be doing much better. Once we started giving her hydrocortisone, she was able to be weaned off norepinephrine. This would suggest relative adrenal insufficiency. Labs, x-rays, and medications are reviewed. The patient is currently on 2 L. Respiratory status is stable. Hemodynamic status is stable. The patient has been having a few runs of ventricular tachycardia, and if she leaves the unit today, she should go to 3 S. or the cardiac stepdown unit. We will continue to follow. Prognosis is guarde d. All labs, x-rays, and medications are reviewed. Dictation was produced using [employer] dictation software. Please excuse any grammatical, word or spelling errors. Time with Patient: Less than 30
--- NOTE | 2024-05-31 10:43 | P.CONS ---
History of Present Illness - Reason for Consult Consult date: 05/30/24 Sepsis Requesting physician: Nilesh Lezama - Chief Complaint Weakness x few days - History of Present Illness Patient is a 63-year-old female with a past medical history significant for COPD hypertension hyperlipidemia heart failure with initial presentation to the [facility] for evaluation of worsening weakness that apparently was getting worse over the last few days before presentation to the hospital patient was found to be hypotensive she did have a positive UA was diagnosed with sepsis secondary to UTI given a dose of vancomycin and cefepime subsequently patient has been transferred to [facility] for ICU admission patient on presentation to the hospital was afebrile and no fever have been called subsequently patient was not tachycardic she was hypotensive and is currently on a pressor support not hypoxic or need for supplemental oxygen patient did have white count 10.40 creatinine 0.77 blood urine culture obtained which are currently pending patient did have a chest x-ray COPD with similar mild cardiomegaly and interstitial opacity right greater than left patient has been continued on cefepime infectious disease was consulted today for further management of antibiotic therapy patient denies having any headache or URI symptoms no chest pain no shortness with occasional cough denies any nausea vomiting abdominal pain did have some burning of urine but no hematuria or flank pain Review of Systems Positive point and negatives has been mentioned in the HPI, complete review of systems was performed and all other systems are negative Past Medical History Past Medical History: Heart Failure, COPD, Hyperlipidemia, Hypertension History of Any Multi-Drug Resistant Organisms: None Reported Past Surgical History: Unable to Obtain Additional Past Surgical History / Comment(s): Left Mastectomy 1995 Chemo and radiation, Left achilles tendon repair Past Anesthesia/Blood Transfusion Reactions: No Reported Reaction Past Psychological History: No Psychological Hx Reported Smoking Status: Former smoker Past Alcohol Use History: None Reported Medications and Allergies Home Medications Medication Instructions Recorded Confirmed Type Aspirin EC [Ecotrin Low Dose] 81 mg PO DAILY 04/16/24 05/28/24 History Empagliflozin [Jardiance] 25 mg PO DAILY 04/16/24 05/28/24 History FLUoxetine HCL 40 mg PO DAILY 04/16/24 05/28/24 History Magnesium Oxide [Magox 400] 400 mg PO DAILY 04/16/24 05/28/24 History Sacubitril/Valsartan [Entresto 24 1 tab PO BID 04/16/24 05/28/24 History mg-26 mg Tablet] carvediloL [Coreg] 3.125 mg PO BID 04/16/24 05/28/24 History Folic Acid 1 mg PO DAILY #30 tab 04/22/24 05/28/24 Rx Hydrocortisone [Cortef] 5 mg PO BID #30 tab 04/22/24 05/28/24 Rx Allergies Allergy/AdvReac Type Severity Reaction Status Date / Time Penicillins Allergy Rash/Hives Verified 05/28/24 18:51 Physical Exam Vitals: Vital Signs Temp Pulse Resp BP Pulse Ox 05/30/24 14:00 86 14 107/70 97 05/30/24 13:45 89 22 99/67 96 05/30/24 13:30 85 16 105/60 95 05/30/24 13:15 84 19 95/51 96 05/30/24 13:00 89 24 96/62 96 05/30/24 12:45 87 20 94/59 96 05/30/24 12:30 85 19 94/65 97 05/30/24 12:15 86 20 62/49 97 05/30/24 12:00 97.9 F 94 16 91/57 98 05/30/24 11:45 81 20 93/48 98 05/30/24 11:30 86 19 81/52 97 05/30/24 11:15 81 19 77/59 98 05/30/24 11:00 80 20 83/59 98 05/30/24 10:45 80 16 86/58 98 05/30/24 10:30 81 21 102/23 97 05/30/24 10:15 89 22 82/51 95 05/30/24 10:00 84 22 86/57 95 05/30/24 09:45 82 22 89/59 95 05/30/24 09:30 87 24 97/55 95 05/30/24 09:15 95 18 94/68 96 05/30/24 09:00 93 14 83/59 97 05/30/24 08:45 87 16 86/51 97 05/30/24 08:30 88 12 99/60 98 05/30/24 08:15 93 19 99/50 98 05/30/24 08:00 98.1 F 88 22 83/51 98 05/30/24 07:45 87 20 72/48 100 05/30/24 07:30 89 19 96/59 98 05/30/24 07:15 93 14 94/50 98 05/30/24 07:00 98 18 100/58 99 05/30/24 06:45 101 H 21 96/62 98 05/30/24 06:30 107 H 18 95/53 96 05/30/24 06:15 103 H 18 100/53 95 05/30/24 06:00 93 21 87/54 95 05/30/24 05:45 101 H 19 99/59 93 L 05/30/24 05:30 99 21 97/56 95 05/30/24 05:15 106 H 17 93/57 90 L 05/30/24 05:00 101 H 19 87/66 94 L 05/30/24 04:45 105 H 19 94/62 96 05/30/24 04:30 102 H 20 85/56 96 05/30/24 04:15 104 H 17 102/54 97 05/30/24 04:00 97.5 F L 103 H 22 109/58 97 05/30/24 03:45 105 H 20 103/58 96 05/30/24 03:30 106 H 16 95/67 97 05/30/24 03:15 101 H 16 99/56 98 05/30/24 03:00 100 23 89/53 97 05/30/24 02:45 105 H 19 83/54 97 05/30/24 02:30 103 H 18 76/42 97 05/30/24 02:15 98 21 91/57 96 05/30/24 02:00 103 H 19 78/52 97 05/30/24 01:45 100 22 85/55 97 05/30/24 01:30 102 H 24 85/53 96 05/30/24 01:15 98 22 86/57 97 05/30/24 01:00 100 20 85/57 99 05/30/24 00:45 98 21 97/59 99 05/30/24 00:30 99 14 88/58 99 05/30/24 00:15 100 22 91/62 98 05/30/24 00:00 97.5 F L 100 19 81/60 99 05/29/24 23:45 98 22 65/42 98 05/29/24 23:30 107 H 18 83/47 98 05/29/24 23:16 101 H 24 83/47 98 05/29/24 23:15 101 H 21 79/57 98 05/29/24 23:00 101 H 23 83/57 98 05/29/24 22:45 100 24 88/69 99 05/29/24 22:30 98 23 81/58 99 05/29/24 22:15 96 22 81/52 05/29/24 22:00 101 H 21 78/53 97 05/29/24 21:45 102 H 20 75/51 97 05/29/24 21:30 101 H 22 71/51 98 05/29/24 21:15 100 23 79/55 97 05/29/24 21:00 101 H 23 77/54 98 05/29/24 20:45 100 22 86/55 98 05/29/24 20:30 102 H 22 89/54 98 05/29/24 20:15 101 H 26 H 84/55 98 05/29/24 20:00 97.5 F L 101 H 30 H 94/56 95 05/29/24 19:45 99 53 H 90/58 98 05/29/24 19:30 104 H 15 81/57 98 05/29/24 19:15 104 H 23 87/47 97 05/29/24 19:00 102 H 23 88/51 97 05/29/24 18:00 103 H 21 74/55 96 05/29/24 17:00 107 H 14 91/51 98 05/29/24 16:00 97.5 F L 90 20 113/71 99 05/29/24 15:00 86 16 104/62 96 Intake and Output 05/29/24 05/30/24 05/30/24 22:59 06:59 14:59 Intake Total 1298.116 778.902 3386.734 Output Total 750 770 685 Balance 548.116 193.697 510.734 Intake: IV 800 800 800 Lactated Ringers 1,000 ml 800 800 800 @ 100 mls/hr IV .Q10H [facility] Rx#:[id number] Intake, IV Titration 276.116 163.697 395.734 Amount Norepinephrine 4 mg In 158.642 Sodium Chloride 0.9% 250 ml @ 0.03 MCG/KG/MIN 7. 772 mls/hr IV .Q24H [facility] Rx#:[id number] Norepinephrine 4 mg In 117.474 163.697 395.734 Sodium Chloride 0.9% 250 ml @ 0.03 MCG/KG/MIN 9. 704 mls/hr IV .Q24H [facility] Rx#:[id number] Oral 222 Output: Urine 750 770 685 Other: Voiding Method Indwelling Catheter Indwelling Catheter Indwelling Catheter # Bowel Movements 1 1 Weight 87.9 kg GENERAL DESCRIPTION: Elderly female lying in bed, no distress. No tachypnea or accessory muscle of respiration use. HEENT: Shows Pallor , no scleral icterus. Oral mucous membrane is dry. NECK: Trachea central, no thyromegaly. LUNGS: Unlabored breathing. Clear to auscultation anteriorly. No wheeze or crackle. HEART: S1, S2, regular rate and rhythm. No loud murmur ABDOMEN: Soft, no tenderness , guarding or rigidity, no organomegaly EXTREMITIES: No edema of feet. SKIN: No rash, no masses palpable. NEUROLOGICAL: The patient is awake, alert, oriented x3, mood and affect normal. Results CBC & Chem 7: 05/31/24 05:28 05/31/24 05:28 Labs: Abnormal Lab Results - Last 24 Hours (Table) 05/29/24 05/29/24 05/30/24 Range/Units 17:06 20:42 04:43 WBC (4.50-10.00) 10*3/uL RBC (4.10-5.20) 10*6/uL Hgb (12.0-15.0) g/dL Hct (37.2-46.3) % MCV (80.0-97.0) fL MCH (27.0-32.0) pg MCHC (32.0-37.0) g/dL BUN 21 H (7-17) mg/dL POC Glucose (mg/dL) 111 H 134 H (70-110) mg/dL 05/30/24 Range/Units 05:19 WBC 10.40 H (4.50-10.00) 10*3/uL RBC 3.20 L (4.10-5.20) 10*6/uL Hgb 10.4 L (12.0-15.0) g/dL Hct 32.7 L (37.2-46.3) % MCV 102.2 H (80.0-97.0) fL MCH 32.5 H (27.0-32.0) pg MCHC 31.8 L (32.0-37.0) g/dL BUN (7-17) mg/dL POC Glucose (mg/dL) (70-110) mg/dL Microbiology - Last 24 Hours (Table) 05/29/24 09:26 Urine Culture - Final Urine,Catheterized Assessment and Plan (1) Penicillin allergy Current Visit: Yes Status: Acute Code(s): Z88.0 - ALLERGY STATUS TO PENICILLIN SNOMED Code(s): 53998902 (2) Sepsis secondary to UTI Current Visit: Yes Status: Acute Code(s): A41.9 - SEPSIS, UNSPECIFIED ORGANISM; N39.0 - URINARY TRACT INFECTION, SITE NOT SPECIFIED SNOMED Code(s): 118625827 Plan: 1patient [facility] with sepsis in this patient who did have hyperte nsion with elevated white count urinary symptoms positive UA concerning for likely urinary source for this sepsis and likely from enteric gram-negative pathogen 2-nursing staff has been advised to get blood and urine culture information from the facility where patient presented initially 3-penicillin allergy that we will limit number of antibiotic safety use 4-patient to be treated with cefepime while waiting for those culture to be finalized 5-check ultrasound of the bladder and kidneys to make sure no evidence of any structural abnormality We will follow on clinical condition and cultures to further adjust medication if needed Thank you for this consultation we will follow the patient along with you Dictation was produced using [employer] dictation software. please excuse any grammatical, word or spelling errors. Time with Patient: Greater than 30
--- NOTE | 2024-05-31 12:03 | US ---
EXAMINATION TYPE: US kidneys/renal and bladder DATE OF EXAM: 05/31/2024 COMPARISON: NONE CLINICAL INDICATION: Female, 63 years old with history of uti and bacteremia; TECHNIQUE: Grayscale imaging of the bilateral kidneys and urinary bladder: FINDINGS: EXAM MEASUREMENTS: Right Kidney: 12.9x5.1x5.7 cm Left Kidney: 11.24.5x5.8 cm slightly limited scan due to pt body habitus & overlying bowel/rib shadow Right Kidney: No hydronephrosis or masses seen Left Kidney: No hydronephrosis or masses seen Bladder: ?thickened irregular wall: 0.7cm vs bladder not being full enough? Bilateral Jets seen: pt has catheter in, unable to visualize jets IMPRESSION: 1. No solid renal mass, renal calcification or hydronephrosis. 2. Limited evaluation of the urinary bladder due to presence of Leal catheter and suboptimal distent ion [facility] Workstation: [email or web address] 05/31/2024 12:01 PM
--- NOTE | 2024-05-31 12:14 | P.PN ---
Subjective Progress Note Date: 05/31/24 HISTORY OF PRESENTING ILLNESS This is a pleasant 63-year-old with past medical history significant for hyp ertension, hyperlipidemia, cardiomyopathy apparently nonischemic, congestive heart failure, previous breast cancer in remission and more recent melanoma. She follows in the office with a hot repairman out of bed X. She states she has been diagnosed with congestive heart failure and prior echo from her hospital from April 2024 showed EF 20-25%. Apparently there has been no discussion regarding a defibrillator in the past however. She believes she had a heart catheterization which showed no blockages. She denies any recent chest pain or pressure. Denies any significant shortness of breath. She has been feeling somewhat more fatigued and weak and was walking around and felt more weak and tried to sit down and tripped over her dog and fell. She had workup in the [facility] with concern of UTI and hypotension. She was placed on vasopressors. She remains on norepinephrine currently with well-controlled MAP. Creatinine 1.4. Her home carvedilol and heart failure regimen have been stopped and she is receiving IV fluids at 100 cc/h. EKG shows normal sinus rhythm with nonspecific ST depressions. Troponin normal. She states she has been receiving some form of chemotherapy or immunotherapy for her melanoma. She has been noted to have increasing ectopy with bigeminy as well as brief runs of nonsustained ventricular tachycardia. Magnesium and potassium in normal range. 05/30 Patient is feeling okay. Denies any chest pain or pressure. No shortness of breath or dizziness. She remains on Levophed with blood pressures 8090s. WBC 10.4, hemoglobin 10.4, potassium 3.7, creatinine 0.77, magnesium 1.6. 05/31 Seen and examined in ICU. She is feeling better. No chest pain or shortness of breath. She has been off of Levophed. Creatinine 0.64, potassium 4.0, magnesi um 1.7. PHYSICAL EXAMINATION Vital signs reviewed. CONSTITUTIONAL: No apparent distress. HEENT: Head is normocephalic. Pupils are equal, round. Sclerae anicteric. Mucous membranes of the mouth are moist. No JVD. No carotid bruit. CHEST EXAMINATION: Lungs are clear to auscultation. No chest wall tenderness is noted on palpation or with deep breathing. HEART EXAMINATION: Regular rate and rhythm. S1, S2 heard. No murmurs, gallops or rub. ABDOMEN: Soft, nontender. Positive bowel sounds. EXTREMITIES: 2+ peripheral pulses, no lower extremity edema and no calf tenderness. NEUROLOGIC EXAMINATION: Patient is awake, alert and oriented x3. ASSESSMENT Chronic systolic heart failure Ectopy with PVCs as well as ventricular tachycardia likely related to underlying cardiomyopathy Cardiomyopathy apparently nonischemic per patient Hypertension Hyperlipidemia Shock likely related to septic shock Sepsis Melanoma PLAN She has been improving symptom mcmanus. She is off Levophed. Kidney function has been stable. Symptoms mainly attributed to weakness and shock with likely infectious etiology. May consider discontinuation of SGLT2 inhibitor if patient has frequent UTIs. Cardiology to sign off, reinitiate heart failure regimen as tolerates and monitor for volume overload. Please call with any questions or concerns. Otherwise follow-up with hot repairman 1 week postdischarge. Patient seen and examined in rounds with Dr. Hearn, plan of care agreed upon. Objective - Vital Signs Vital signs: Vital Signs Temp 97.9 F 05/31/24 08:00 Pulse 74 05/31/24 11:00 Resp 12 05/31/24 11:00 BP 94/83 05/31/24 11:00 Pulse Ox 96 05/31/24 11:00 FiO2 Intake & Output 05/30/24 05/31/24 05/31/24 18:59 06:59 18:59 Intake Total 2371.525 1530.119 760 Output Total 1660 1925 625 Balance 711.525 -394.881 135 Weight 88.5 kg Intake: IV 1250 1300 400 Cefepime 1 gm In Sodium 50 Chloride 0.9% 50 ml @ 100 mls/hr IVPB Q12H BUZZ Rx# :[id number] Lactated Ringers 1,000 ml 1100 1200 400 @ 100 mls/hr IV .Q10H BUZZ Rx#:[id number] Magnesium Sulfate-D5w Pmx 100 100 1 gm In Dextrose/Water 1 100ml.bag @ 100 mls/hr IVPB Q1H BUZZ Rx#: [id number] Intake, IV Titration 761.525 230.119 Amount Norepinephrine 4 mg In 761.525 230.119 Sodium Chloride 0.9% 250 ml @ 0.03 MCG/KG/MIN 9. 704 mls/hr IV .Q24H BUZZ Rx#:[id number] Oral 360 360 Output: Urine 1660 1925 625 Other: Voiding Method Indwelling Catheter Indwelling Catheter Indwelling Catheter # Bowel Movements 1 - Labs CBC & Chem 7: 05/31/24 05:28 05/31/24 05:28 Labs: Abnormal Lab Results - Last 24 Hours (Table) 05/30/24 05/30/24 05/31/24 Range/Units 16:19 19:32 05:28 WBC (4.50-10.00) 10*3/uL RBC (4.10-5.20) 10*6/uL Hgb (12.0-15.0) g/dL Hct (37.2-46.3) % MCV (80.0-97.0) fL MCHC (32.0-37.0) g/dL MPV (9.5-12.2) fL Lymphocytes # (0.90-5.00) 10*3/uL Monocytes # (0.20-1.00) 10*3/uL Eosinophils # (0.04-0.35) 10*3/uL Glucose 109 H (74-99) mg/dL POC Glucose (mg/dL) 116 H 167 H (70-110) mg/dL 05/31/24 Range/Units 05:28 WBC 3.57 L (4.50-10.00) 10*3/uL RBC 3.00 L (4.10-5.20) 10*6/uL Hgb 9.6 L (12.0-15.0) g/dL Hct 30.7 L (37.2-46.3) % MCV 102.3 H (80.0-97.0) fL MCHC 31.3 L (32.0-37.0) g/dL MPV 9.4 L (9.5-12.2) fL Lymphocytes # 0.39 L (0.90-5.00) 10*3/uL Monocytes # 0.11 L (0.20-1.00) 10*3/uL Eosinophils # 0.00 L (0.04-0.35) 10*3/uL Glucose (74-99) mg/dL POC Glucose (mg/dL) (70-110) mg/dL Microbiology - Last 24 Hours (Table) 05/29/24 09:40 Blood Culture - Preliminary Blood 04/18/25 09:26 Urine Culture - Final Urine,Catheterized
[2024-05-31 12:29] LABS: Glucose,Whole Blood 157 mg/dL (70-110)
--- NOTE | 2024-05-31 14:09 | P.PN ---
Subjective Progress Note Date: 05/31/24 63-year-old with past medical history significant for hypertension, hyperlipidemia, cardiomyopathy apparently nonischemic, congestive heart failure, previous breast cancer in remission and more recent melanoma. She has been feeling somewhat more fatigued and weak and was walking around and felt more weak and tried to sit down and tripped over her dog and fell. She had workup in the [facility] with concern of UTI and hypotension. She was placed on vasopressors. Patient was admitted to ICU 05/30. Patient seen and examined. Blood work done this morning showed sodium 137, potassium 3.7, BUN 21, creatinine 0.77. Currently on IV cefepime. Patient also on Levophed and Solu-Cortef. Continues to have poor appetite /20. Patient seen and examined. Patient currently off Levophed drip. Patient more alert, denies any chest pain. Denies shortness of breath. REVIEW OF SYSTEMS: CONSTITUTIONAL: No fever, no malaise,. CARDIOVASCULAR: No chest pain, no palpitations, no syncope. PULMONARY: No shortness of breath, no cough, GASTROINTESTINAL: No diarrhea, no nausea, no vomiting, no abdominal pain. NEUROLOGICAL: No headaches, no weakness, PHYSICAL EXAMINATION: GENERAL: The patient is alert, chronically ill looking HEENT: Pupils are round and equally reacting to light. EOMI. No scleral icterus. No conjunctival pallor. Normocephalic, atraumatic. No pharyngeal erythema. No thyromegaly. CARDIOVASCULAR: S1 and S2 present. No murmurs, rubs, or gallops. PULMONARY: C good air entry bilateraly, no wheezing or crackles. ABDOMEN: Soft, nontender, nondistended, normoactive bowel sounds. No palpable organomegaly. MUSCULOSKELETAL: No joint swelling or deformity. EXTREMITIES: No cyanosis, clubbing, or pedal edema. NEUROLOGICAL: Gross neurological examination did not reveal any focal deficits. SKIN: No rashes. Assessment and plan UTI Septic shock Possible relative adrenal insufficiency. History of hypertension. History of hyperlipidemia. History of CHF. History of COPD. History of diabetes mellitus. Monitor vital signs Monitor CBC Monitor CMP Continue telemetry monitoring Follow-up on blood cultures and follow-up urine cultures Continue IV cefepime Continue aspirin, [facility] Cardiology signed off ID following Labs and medication were reviewed.. Continue same treatment. Continue with symptomatic treatment. Resume home medication. Monitor labs and vitals. DVT and GI prophylaxis. Further recommendations as per clinical course of the patient Dictation was produced using [employer] dictation software. please excuse any grammatical, word or spelling errors. Objective - Vital Signs Vital signs: Vital Signs Temp 97.9 F 05/31/24 08:00 Pulse 74 05/31/24 11:00 Resp 12 05/31/24 11:00 BP 94/83 05/31/24 11:00 Pulse Ox 96 05/31/24 11:00 FiO2 Intake & Output 05/30/24 05/31/24 05/31/24 18:59 06:59 18:59 Intake Total 2371.525 1530.119 760 Output Total 1660 1925 625 Balance 711.525 -394.881 135 Weight 88.5 kg Intake: IV 1250 1300 400 Cefepime 1 gm In Sodium 50 Chloride 0.9% 50 ml @ 100 mls/hr IVPB Q12H BUZZ Rx# :[id number] Lactated Ringers 1,000 ml 1100 1200 400 @ 100 mls/hr IV .Q10H BUZZ Rx#:[id number] Magnesium Sulfate-D5w Pmx 100 100 1 gm In Dextrose/Water 1 100ml.bag @ 100 mls/hr IVPB Q1H BUZZ Rx#: [id number] Intake, IV Titration 761.525 230.119 Amount Norepinephrine 4 mg In 761.525 230.119 Sodium Chloride 0.9% 250 ml @ 0.03 MCG/KG/MIN 9. 704 mls/hr IV .Q24H BUZZ Rx#:[id number] Oral 360 360 Output: Urine 1660 1925 625 Other: Voiding Method Indwelling Catheter Indwelling Catheter Indwelling Catheter # Bowel Movements 1 - Labs CBC & Chem 7: 05/31/24 05:28 05/31/24 05:28 Labs: Abnormal Lab Results - Last 24 Hours (Table) 05/30/24 05/30/24 05/31/24 Range/Units 16:19 19:32 05:28 WBC (4.50-10.00) 10*3/uL RBC (4.10-5.20) 10*6/uL Hgb (12.0-15.0) g/dL Hct (37.2-46.3) % MCV (80.0-97.0) fL MCHC (32.0-37.0) g/dL MPV (9.5-12.2) fL Lymphocytes # (0.90-5.00) 10*3/uL Monocytes # (0.20-1.00) 10*3/uL Eosinophils # (0.04-0.35) 10*3/uL Glucose 109 H (74-99) mg/dL POC Glucose (mg/dL) 116 H 167 H (70-110) mg/dL 05/31/24 05/31/24 Range/Units 05:28 12:28 WBC 3.57 L (4.50-10.00) 10*3/uL RBC 3.00 L (4.10-5.20) 10*6/uL Hgb 9.6 L (12.0-15.0) g/dL Hct 30.7 L (37.2-46.3) % MCV 102.3 H (80.0-97.0) fL MCHC 31.3 L (32.0-37.0) g/dL MPV 9.4 L (9.5-12.2) fL Lymphocytes # 0.39 L (0.90-5.00) 10*3/uL Monocytes # 0.11 L (0.20-1.00) 10*3/uL Eosinophils # 0.00 L (0.04-0.35) 10*3/uL Glucose (74-99) mg/dL POC Glucose (mg/dL) 157 H (70-110) mg/dL Microbiology - Last 24 Hours (Table) 05/29/24 09:40 Blood Culture - Preliminary Blood 05/29/24 09:26 Urine Culture - Final Urine,Catheterized
[2024-05-31 14:25] LABS: Appearance,Urine Clear (Clear); Bilirubin,Urine Negative (Negative); Blood,Urine Moderate (Negative); Color,Urine Colorless; Glucose,Urine (UA) 4+ (Negative); Hyaline Casts,Urine 1 /lpf (0-2); Leukocyte Esterase,Urine Moderate (Negative); Mucus,Urine Rare /hpf; Nitrite,Urine Negative (Negative); Protein,Urine Trace (Negative); RBC,Urine 3 /hpf (0-5); Specific Gravity,Urine 1.019 (1.001-1.035); Squamous Epithelial Cell,Urine <1 /hpf (0-4); Urobilinogen,Urine <2.0 mg/dL (<2.0); WBC,Urine 21 /hpf (0-5)
[2024-05-31 14:28] LABS: Ketones,Urine 2+ (Negative)
--- NOTE | 2024-05-31 14:39 | P.PN ---
Subjective Progress Note Date: 05/31/24 Principal diagnosis: Reason for follow-up is UTI/sepsis Patient is a 63-year-old female with a past medical history significant for COPD hypertension hyperlipidemia heart failure with initial presentation to the [facility] for evaluation of worsening weakness, patient diagnosed with sepsis secondary UTI prompting transfer to [facility]. On today's evaluation that is 05/31/2024, Patient is afebrile patient is currently on room air and denies having any shortness of breath, the patient denies any chest pain or cough, the patient denies any nausea vomiting did not have any abdominal pain and no diarrhea. Patient white count is 3.57 creatinine 0.64 blood cultures so far pending abdominal bladder ultrasound no solid renal mass or hydronephrosis Objective - Vital Signs Vital signs: Vital Signs Temp 98.0 F 05/31/24 13:00 Pulse 75 05/31/24 14:00 Resp 12 05/31/24 14:00 BP 93/71 05/31/24 14:00 Pulse Ox 95 05/31/24 14:00 FiO2 Intake & Output 05/30/24 05/31/24 05/31/24 18:59 06:59 18:59 Intake Total 2371.525 0557.362 4105 Output Total 1660 1925 875 Balance 711.525 -394.881 285 Weight 88.5 kg Intake: IV 1250 1300 800 Cefepime 1 gm In Sodium 50 100 Chloride 0.9% 50 ml @ 100 mls/hr IVPB Q12H BUZZ Rx# :[id number] Lactated Ringers 1,000 ml 1100 1200 700 @ 100 mls/hr IV .Q10H BUZZ Rx#:[id number] Magnesium Sulfate-D5w Pmx 100 100 1 gm In Dextrose/Water 1 100ml.bag @ 100 mls/hr IVPB Q1H BUZZ Rx#: [id number] Intake, IV Titration 761.525 230.119 Amount Norepinephrine 4 mg In 761.525 230.119 Sodium Chloride 0.9% 250 ml @ 0.03 MCG/KG/MIN 9. 704 mls/hr IV .Q24H BUZZ Rx#:[id number] Oral 360 360 Output: Urine 1660 1925 875 Other: Voiding Method Indwelling Catheter Indwelling Catheter Indwelling Catheter # Bowel Movements 1 - Exam GENERAL DESCRIPTION: An elderly female lying in bed in no distress RESPIRATORY SYSTEM: Unlabored breathing , decreased breath sounds at bases HEART: S1 S2 regular rate and rhythm , ABDOMEN: Soft , no tenderness EXTREMITIES: No edema feet - Labs CBC & Chem 7: 05/31/24 05:28 05/31/24 05:28 Labs: Abnormal Lab Results - Last 24 Hours (Table) 05/30/24 05/30/24 05/31/24 Range/Units 16:19 19:32 05:28 WBC (4.50-10.00) 10*3/uL RBC (4.10-5.20) 10*6/uL Hgb (12.0-15.0) g/dL Hct (37.2-46.3) % MCV (80.0-97.0) fL MCHC (32.0-37.0) g/dL MPV (9.5-12.2) fL Lymphocytes # (0.90-5.00) 10*3/uL Monocytes # (0.20-1.00) 10*3/uL Eosinophils # (0.04-0.35) 10*3/uL Glucose 109 H (74-99) mg/dL POC Glucose (mg/dL) 116 H 167 H (70-110) mg/dL Urine Protein (Negative) Urine Glucose (UA) (Negative) Urine Ketones (Negative) Urine Blood (Negative) Ur Leukocyte Esterase (Negative) Urine WBC (0-5) /hpf Urine Mucus (None) /hpf 05/31/24 05/31/24 05/31/24 Range/Units 05:28 12:28 14:10 WBC 3.57 L (4.50-10.00) 10*3/uL RBC 3.00 L (4.10-5.20) 10*6/uL Hgb 9.6 L (12.0-15.0) g/dL Hct 30.7 L (37.2-46.3) % MCV 102.3 H (80.0-97.0) fL MCHC 31.3 L (32.0-37.0) g/dL MPV 9.4 L (9.5-12.2) fL Lymphocytes # 0.39 L (0.90-5.00) 10*3/uL Monocytes # 0.11 L (0.20-1.00) 10*3/uL Eosinophils # 0.00 L (0.04-0.35) 10*3/uL Glucose (74-99) mg/dL POC Glucose (mg/dL) 157 H (70-110) mg/dL Urine Protein Trace H (Negative) Urine Glucose (UA) 4+ H (Negative) Urine Ketones 2+ H (Negative) Urine Blood Moderate H (Negative) Ur Leukocyte Esterase Moderate H (Negative) Urine WBC 21 H (0-5) /hpf Urine Mucus Rare H (None) /hpf Microbiology - Last 24 Hours (Table) 05/29/24 09:40 Blood Culture - Preliminary Blood 05/29/24 09:26 Urine Culture - Final Urine,Catheterized Assessment and Plan (1) Penicillin allergy Current Visit: Yes Status: Acute Code(s): Z88.0 - ALLERGY STATUS TO PENICILLIN SNOMED Code(s): 37850313 (2) Sepsis secondary to UTI Current Visit: Yes Status: Acute Code(s): A41.9 - SEPSIS, UNSPECIFIED ORGANISM; N39.0 - URINARY TRACT INFECTION, SITE NOT SPECIFIED SNOMED Code(s): 521475576 Plan: 1patient presented hospital with sepsis in this patient who did have hypertension with elevated white count urinary symptoms positive UA concerning for likely urinary source for this sepsis and likely from enteric gram-negative pathogen 2--penicillin allergy that we will limit number of antibiotic safety use 3- ultrasound of the bladder and kidneys did not show any hydronephrosis 4patient is currently being treated with cefepime pending finalization of the culture done at the initial facility Dictation was produced using [employer] dictation software. please excuse any grammatical, word or spelling errors.
[2024-05-31 16:27] LABS: Glucose,Whole Blood 140 mg/dL (70-110)
[2024-05-31 20:12] LABS: Glucose,Whole Blood 134 mg/dL (70-110)
[2024-06-01 05:05] LABS: HCT 26.5 % (37.2-46.3); HGB 8.4 g/dL (12.0-15.0); Lymphocytes # (A) 0.48 10*3/uL (0.90-5.00); Lymphocytes % (A) 10.3 %; MCH 31.9 pg (27.0-32.0); MCHC 31.7 g/dL (32.0-37.0); MCV 100.8 fL (80.0-97.0); Mean Platelet Volume 9.4 fL (9.5-12.2); Monocytes # (A) 0.22 10*3/uL (0.20-1.00); Monocytes % (A) 4.7 %; Neutrophils # (A) 3.96 10*3/uL (1.80-7.70); Neutrophils % (A) 84.6 %; Platelet Count 198 10*3/uL (140-440); RBC 2.63 10*6/uL (4.10-5.20); RDW 12.3 % (11.5-14.5); WBC 4.68 10*3/uL (4.50-10.00)
[2024-06-01 05:17] LABS: ALT 8 U/L (4-34); AST 15 U/L (14-36); African American GFR (CKD) >90 (>60 ml/min/1.73 sqM); Albumin 2.4 g/dL (3.5-5.0); Alkaline Phosphatase 70 U/L (38-126); Anion Gap 7 mmol/L; Blood Urea Nitrogen 14 mg/dL (7-17); Calcium 9.5 mg/dL (8.4-10.2); Carbon Dioxide 25 mmol/L (22-30); Chloride 102 mmol/L (98-107); Glucose 123 mg/dL (74-99); Non-African American GFR(CKD) >90 (>60 ml/min/1.73 sqM); Potassium 3.4 mmol/L (3.5-5.1); Sodium 134 mmol/L (137-145); Total Bilirubin 0.4 mg/dL (0.2-1.3); Total Protein 5.3 g/dL (6.3-8.2)
[2024-06-01] MEDS: POTASSIUM CHLORIDE 20 MEQ in WATER FOR INJECTION 1 100ML.BAG IVPB SCH (05:44)
[2024-06-01 06:14] LABS: Glucose,Whole Blood 133 mg/dL (70-110)
[2024-06-01] MEDS: SODIUM CHLORIDE 0.9% 1,000 ML IV SCH (09:05)
--- NOTE | 2024-06-01 09:06 | P.PN ---
Subjective Progress Note Date: 06/01/24 HPI: This patient has nonischemic cardiomyopathy urinary tract infection was transferred with significant hypotension from an outside hospital placed on Levophed which has been discontinued patient feels well today has no chest discomfort or shortness of breath her blood pressure is between 93-1 08 systolic doing well decent urine output. She is receiving antibiotics for UTI. I am recommending that we place her on 75 cc of normal saline increase activity and if she does well possible discharge to telemetry later on today she is maintaining sinus rhythm. PHYSICIAL EXAM: Vitals are stable JVD 1 cm no carotid bruit S1-S2 heard normally no significant murmurs lungs reveal decent air entry abdomen is soft lower extremities reveal diminished pulses Central nervous system is normal. IMPRESSION: 1. UTI with hypotension. 2. Nonischemic cardiomyopathy. 3. History of melanoma. 4. History of hyperlipidemia. 5.. RECOMMENDATIONS: Continue supportive care, 75 cc normal saline daily increase activity move her to telemetry if stable later on today.. Objective - Vital Signs Vital signs: Vital Signs Temp 97.5 F L 06/01/24 00:00 Pulse 72 06/01/24 06:00 Resp 18 06/01/24 06:00 BP 108/78 06/01/24 06:00 Pulse Ox 92 L 06/01/24 06:00 FiO2 Intake & Output 05/31/24 06/01/24 06/01/24 18:59 06:59 18:59 Intake Total 1560 1250 Output Total 1075 1035 Balance 485 215 Weight 91.4 kg Intake: IV 1200 1250 Cefepime 1 gm In Sodium 100 50 Chloride 0.9% 50 ml @ 100 mls/hr IVPB Q12H BUZZ Rx# :[id number] Lactated Ringers 1,000 ml 1100 1200 @ 100 mls/hr IV .Q10H BUZZ Rx#:[id number] Oral 360 Output: Urine 1075 1035 Other: Voiding Method Indwelling Catheter Indwelling Catheter - Labs CBC & Chem 7: 06/01/24 04:22 06/01/24 04:22 Labs: Abnormal Lab Results - Last 24 Hours (Table) 05/31/24 05/31/24 05/31/24 Range/Units 12:28 14:10 16:26 RBC (4.10-5.20) 10*6/uL Hgb (12.0-15.0) g/dL Hct (37.2-46.3) % MCV (80.0-97.0) fL MCHC (32.0-37.0) g/dL MPV (9.5-12.2) fL Lymphocytes # (0.90-5.00) 10*3/uL Eosinophils # (0.04-0.35) 10*3/uL Sodium (137-145) mmol/L Potassium (3.5-5.1) mmol/L Glucose (74-99) mg/dL POC Glucose (mg/dL) 157 H 140 H (70-110) mg/dL Total Protein (6.3-8.2) g/dL Albumin (3.5-5.0) g/dL Urine Protein Trace H (Negative) Urine Glucose (UA) 4+ H (Negative) Urine Ketones 2+ H (Negative) Urine Blood Moderate H (Negative) Ur Leukocyte Esterase Moderate H (Negative) Urine WBC 21 H (0-5) /hpf Urine Mucus Rare H (None) /hpf 05/31/24 06/01/24 06/01/24 Range/Units 20:11 04:22 04:22 RBC 2.63 L (4.10-5.20) 10*6/uL Hgb 8.4 L (12.0-15.0) g/dL Hct 26.5 L (37.2-46.3) % MCV 100.8 H (80.0-97.0) fL MCHC 31.7 L (32.0-37.0) g/dL MPV 9.4 L (9.5-12.2) fL Lymphocytes # 0.48 L (0.90-5.00) 10*3/uL Eosinophils # 0.00 L (0.04-0.35) 10*3/uL Sodium 134 L (137-145) mmol/L Potassium 3.4 L (3.5-5.1) mmol/L Glucose 123 H (74-99) mg/dL POC Glucose (mg/dL) 134 H (70-110) mg/dL Total Protein 5.3 L (6.3-8.2) g/dL Albumin 2.4 L (3.5-5.0) g/dL Urine Protein (Negative) Urine Glucose (UA) (Negative) Urine Ketones (Negative) Urine Blood (Negative) Ur Leukocyte Esterase (Negative) Urine WBC (0-5) /hpf Urine Mucus (None) /hpf 06/01/24 Range/Units 06:12 RBC (4.10-5.20) 10*6/uL Hgb (12.0-15.0) g/dL Hct (37.2-46.3) % MCV (80.0-97.0) fL MCHC (32.0-37.0) g/dL MPV (9.5-12.2) fL Lymphocytes # (0.90-5.00) 10*3/uL Eosinophils # (0.04-0.35) 10*3/uL Sodium (137-145) mmol/L Potassium (3.5-5.1) mmol/L Glucose (74-99) mg/dL POC Glucose (mg/dL) 133 H (70-110) mg/dL Total Protein (6.3-8.2) g/dL Albumin (3.5-5.0) g/dL Urine Protein (Negative) Urine Glucose (UA) (Negative) Urine Ketones (Negative) Urine Blood (Negative) Ur Leukocyte Esterase (Negative) Urine WBC (0-5) /hpf Urine Mucus (None) /hpf Microbiology - Last 24 Hours (Table) 05/29/24 09:40 Blood Culture - Preliminary Blood
[2024-06-01 11:37] LABS: Glucose,Whole Blood 135 mg/dL (70-110)
--- NOTE | 2024-06-01 13:58 | P.PN ---
Subjective Progress Note Date: 06/01/24 63-year-old female sent in from an outside hospital, with urinary tract infection/urosepsis. The patient was seen in our emergency department, and was evaluated for dizziness, and urinary tract infection. The patient was apparently found to be hypotensive, a central line was placed, patient was given antibiotics, and norepinephrine. The patient is seen today in the intensive care unit, room 262. She is on 3 L of oxygen. He is getting lactated Ringer's at 100 cc an hour, norepinephrine at 7 mcg/min. She is currently on cefepime and vancomycin. I have asked the nurses to check a cortisol level, TSH. I saw the patient between April 16, and April 22, at which time she was admitted with nausea, vomiting, diarrhea, and hypotension. At that time also she required a central venous catheter, and also norepinephrine. She does have a history of hypertension, hyperlipidemia, CHF, COPD, and diabetes. Current laboratory data includes a white count of 6.55, hemoglobin 10.3, hematocrit 32.4, and platelet count 271,000. Sodium 133, potassium 4.7, chlorides 101, CO2 19, anion gap 13, BUN 33, creatinine 1.41. Glucose is 127. Calcium 10.4. The patient's chest x- ray shows changes of COPD, cardiomegaly, and interstitial opacities, right greater than left. Progress note dated May 30, 2024. 63-year-old female admitted with a diagnosis of urinary tract infection/urosepsis. The patient is seen today in room 262. She remains on norepinephrine at 9 mcg/min. She is on 2 L nasal cannula. She is getting lactated Ringer's at 100 cc an hour. She continues on cefepime. Because of her ongoing hypotension, relatively low her cortisol level, the patient is placed on hydrocortisone 50 mg every 6 hours. White count is 10.4, hemoglobin 10.4, hematocrit 32.7, platelet count 266,000. Sodium 137, potassium 3.7, chlorides 105, CO2 25, BUN 21, and creatinine 0.77. Glucose is 102. Calcium 10, magnesium 1.6. Chest x-ray shows changes of COPD, with some cardiomegaly. Progress note dated May 31, 2024. 63-year-old female seen today in room 262. The patient was initially admitted with a diagnosis of urinary tract infection/urosepsis, with hypotension. The patient was on norepinephrine, up until this morning. Currently, she is on 2 L of oxygen by nasal cannula. She is getting lactated Ringer's at 100 cc an hour. We did give her hydrocortisone yesterday, 50 mg every 6 hours IV push, which allowed her to come off the norepinephrine. We believe she has relative adrenal insufficiency. Currently, she is resting comfortably without complaints. White count is 3.6, hemoglobin 9.6, hematocrit 30.7, platelet count 218,000. Sodium 139, potassium 4, chlorides 104, CO2 24, anion gap 11, BUN 12, creatinine 0.64. Glucose is 108. Calcium 9.6, magnesium is normal at 1.7. On 06/01/2024, the patient is being seen for a follow-up. Condition is stable. Hemodynamically stable. No respiratory distress and the patient is currently on room air oxygen. She remains in normal sinus rate of 75 cc an hour. She remains on broad-spectrum antibiotics with IV cefepime. Noted the patient was given antibiotics prior to her admission to our hospital and based on that the cultures came back negative. Urine tract infection/sepsis was highly suspected. She is currently afebrile. Pressors were discontinued yesterday and the patient has been off pressors since. Leal catheter still in place. The white cell count is 4.6 with a hemoglobin 8.4 and a platelet count of 198. Sodium levels at 134, potassium is at 3.4, BUN is 14 with a creatinine of 0.5. Chest x-ray at the time of admission showed mild pulm vascular congestion and cardiomegaly. Otherwise no other acute abnormalities noted. She is awake and alert and communicating. Cardiac rhythm is sinus. Objective - Vital Signs Vital signs: Vital Signs Temp 98.3 F 06/01/24 08:00 Pulse 77 06/01/24 08:00 Resp 23 06/01/24 09:00 BP 93/62 06/01/24 09:00 Pulse Ox 94 L 06/01/24 08:00 FiO2 Intake & Output 05/31/24 06/01/24 06/01/24 18:59 06:59 18:59 Intake Total 1560 1250 Output Total 1075 1035 Balance 485 215 Weight 91.4 kg Intake: IV 1200 1250 Cefepime 1 gm In Sodium 100 50 Chloride 0.9% 50 ml @ 100 mls/hr IVPB Q12H [facility] Rx# :[id number] Lactated Ringers 1,000 ml 1100 1200 @ 100 mls/hr IV .Q10H [facility] Rx#:[id number] Oral 360 Output: Urine 1075 1035 Other: Voiding Method Indwelling Catheter Indwelling Catheter - Exam The patient appeared well nourished and normally developed. Vital signs as documented. Head exam is unremarkable. No scleral icterus or corneal arcus noted. Neck is without jugular venous distension, thyromegaly, or carotid bruits. Carotid upstrokes are brisk bilaterally. Lungs are clear to auscultation and percussion. Few crackles at lung base bilaterally otherwise normal. Cardiac exam reveals the PMI to be normally sized and situated. Rhythm is regular. First and second heart sounds normal. No murmurs, rubs or gallops. Abdominal exam reveals normal bowel sounds, no masses, no organomegaly and no aortic enlargement. Extremities are nonedematous and both femoral and pedal pulses are normal. Examination of the skin revealed no evidence of significant rashes, suspicious appearing nevi or other concerning lesions. Neurologically, the patient is awake and alert and the patient does not have any focal neurological deficit. Cranial nerves are essentially intact. - Labs CBC & Chem 7: 06/01/24 04:22 06/01/24 04:22 Labs: Abnormal Lab Results - Last 24 Hours (Table) 05/31/24 05/31/24 05/31/24 Range/Units 12:28 14:10 16:26 RBC (4.10-5.20) 10*6/uL Hgb (12.0-15.0) g/dL Hct (37.2-46.3) % MCV (80.0-97.0) fL MCHC (32.0-37.0) g/dL MPV (9.5-12.2) fL Lymphocytes # (0.90-5.00) 10*3/uL Eosinophils # (0.04-0.35) 10*3/uL Sodium (137-145) mmol/L Potassium (3.5-5.1) mmol/L Glucose (74-99) mg/dL POC Glucose (mg/dL) 157 H 140 H (70-110) mg/dL Total Protein (6.3-8.2) g/dL Albumin (3.5-5.0) g/dL Urine Protein Trace H (Negative) Urine Glucose (UA) 4+ H (Negative) Urine Ketones 2+ H (Negative) Urine Blood Moderate H (Negative) Ur Leukocyte Esterase Moderate H (Negative) Urine WBC 21 H (0-5) /hpf Urine Mucus Rare H (None) /hpf 05/31/24 06/01/24 06/01/24 Range/Units 20:11 04:22 04:22 RBC 2.63 L (4.10-5.20) 10*6/uL Hgb 8.4 L (12.0-15.0) g/dL Hct 26.5 L (37.2-46.3) % MCV 100.8 H (80.0-97.0) fL MCHC 31.7 L (32.0-37.0) g/dL MPV 9.4 L (9.5-12.2) fL Lymphocytes # 0.48 L (0.90-5.00) 10*3/uL Eosinophils # 0.00 L (0.04-0.35) 10*3/uL Sodium 134 L (137-145) mmol/L Potassium 3.4 L (3.5-5.1) mmol/L Glucose 123 H (74-99) mg/dL POC Glucose (mg/dL) 134 H (70-110) mg/dL Total Protein 5.3 L (6.3-8.2) g/dL Albumin 2.4 L (3.5-5.0) g/dL Urine Protein (Negative) Urine Glucose (UA) (Negative) Urine Ketones (Negative) Urine Blood (Negative) Ur Leukocyte Esterase (Negative) Urine WBC (0-5) /hpf Urine Mucus (None) /hpf 06/01/24 Range/Units 06:12 RBC (4.10-5.20) 10*6/uL Hgb (12.0-15.0) g/dL Hct (37.2-46.3) % MCV (80.0-97.0) fL MCHC (32.0-37.0) g/dL MPV (9.5-12.2) fL Lymphocytes # (0.90-5.00) 10*3/uL Eosinophils # (0.04-0.35) 10*3/uL Sodium (137-145) mmol/L Potassium (3.5-5.1) mmol/L Glucose (74-99) mg/dL POC Glucose (mg/dL) 133 H (70-110) mg/dL Total Protein (6.3-8.2) g/dL Albumin (3.5-5.0) g/dL Urine Protein (Negative) Urine Glucose (UA) (Negative) Urine Ketones (Negative) Urine Blood (Negative) Ur Leukocyte Esterase (Negative) Urine WBC (0-5) /hpf Urine Mucus (None) /hpf Microbiology - Last 24 Hours (Table) 05/29/24 09:40 Blood Culture - Preliminary Blood Assessment and Plan Plan: Shock with secondary hypotension. This could be multifactorial. Obviously, there is a significant concern for an underlying recurrent urine tract infection. The patient had a recent hospitalization with gram-negative UTI. During this current admission, cultures are still negative. Remains on IV cefepime. Hemodynamically stable and the patient is currently off pressors. The patient is also known to have severe cardiomyopathy. Suspected urinary tract infection, with urosepsis, and septic shock. Chronic systolic heart failure. Echocardiogram from 04/17/2024 shows significant impairment of the LV function with an EF of around 20 to 25%. Apparently the patient has undergone previous cardiac catheterization that was normal. No discussions about defibrillator. No significant valvular abnormalities. There is biatrial enlargement and RV wall enlargement and dilated IVC History of recent admission, between April 16 and April 22, 2024, for hypotension secondary to nausea, vomiting, and diarrhea, recovered and the patient is coming in for recurrent events. Probable relative adrenal insufficiency. History of hypertension. History of hyperlipidemia. History of CHF. History of COPD. History of diabetes mellitus. Plan: Patient is hemodynamically stable off pressors Patient is on room air oxygen Cultures are negative and the patient remains on IV cefepime Recurrent UTI could be related to Jardiance and this medication will be consid ered. Change IV fluids to KVO Continue Coreg May restart Entresto as long as the patient's blood pressure tolerates Continue IV cefepime pending further cultures Cardiology to follow-up on the cardiomyopathy. Consider AICD placement later stage. Patient is stable and the patient should be able to transfer out of the intensive care unit. Time with Patient: Greater than 30
[2024-06-01 19:41] LABS: Glucose,Whole Blood 157 mg/dL (70-110)
[2024-06-01 21:05] LABS: Glucose,Whole Blood 147 mg/dL (70-110)
--- NOTE | 2024-06-01 21:18 | CT ---
EXAMINATION TYPE: CT chest wo con DATE OF EXAM: 06/01/2024 8:39 PM COMPARISON: 05/28/2024. CLINICAL INDICATION: Female, 63 years old with history of hypoxia; TECHNIQUE: Multiple axial images were obtained through the chest. Sagittal and coronal reformats were created for review. MIP was performed on a separate workstation. Contrast used: mL of (None if empty) Oral contrast used: (None if empty) CT DLP: 427.5 mGycm, Automated exposure control for dose reduction was used. FINDINGS: LUNGS/ PLEURA: 11 mm left apical pulmonary nodule. No focal consolidation, pneumothorax or pleural ef fusion. AIRWAY: Patent and unremarkable. HEART: Size within normal limits. Mild coronary artery calcifications present. MEDIASTINUM: No gross evidence of adenopathy. AP window lymph node which is prominent measuring up to 9 mm in short axis. Right low paratracheal lymph node measuring 12 mm in short axis. VASCULATURE: No aortic aneurysm. MUSCULOSKELETAL: Moderate disc degeneration changes are present throughout the thoracolumbar spine se condary to osteophyte formation and facet joint arthropathy. SOFT TISSUES/LYMPH NODES: Unremarkable. LOWER NECK: No significant findings. UPPER ABDOMEN: No significant findings. IMPRESSION: 1. No evidence for acute airspace process. No Evidence for heart failure 2. Left upper lobe nodular-like opacity measuring up to 11 mm with extension to the pleura seen on s agittal imaging. low-risk and high-risk patients: consider CT at 3 months, PET-CT, or tissue sampling . Follow up recommendations for incidental pulmonary nodules, are per [employer] or [employer]. 3. https://radiopaedia.org/articles/cxhuwbhbgi-uycabep-haxcjsxsq-hsjgxg-fqjtlfgobyklfrs-[email or web address]?lang=us 4. Prominent mediastinal lymph nodes possibly reactive. Attention follow-up imaging. [facility], , 06/01/2024 9:15 PM
--- NOTE | 2024-06-02 03:34 | PN ---
PROGRESS NOTE She is admitted to the ICU currently, she is hypoxemic. She is treated for urosepsis with severe UTI, partially-treated. Possible that further cultures negative. She was hypoxic to 81 today for unclear etiology why. CT of the chest shows a millimeter left apical pulmonary nodule. She is on systolic heart failure medications and also hypotension. Blood pressure is kind of low. Cardiology, Pulmonary, and Infectious Disease are looking at her. No adenopathy. Moderate degenerative disk disease throughout the thoracic or the lumbar spine, facet arthropathy, heart failure, airspace disease, nodular density, expansion of the pleura. Repeat CAT scan in 6 months. Prognosis is guarded. Possibly, continue with IV antibiotics. Check for orthostatic hypotension. Possibly discharge to home soon. MMODL / IJN: [id number] /
[2024-06-02 05:28] LABS: Glucose,Whole Blood 141 mg/dL (70-110)
[2024-06-02 11:37] LABS: Glucose,Whole Blood 126 mg/dL (70-110)
[2024-06-02] MEDS: SACUBITRIL/VALSARTAN 24 MG-26 MG TABLET PO SCH (11:41)
--- NOTE | 2024-06-02 11:45 | P.PN ---
Progress Note - Text Progress Note Date: 06/02/24 HPI: This lady has nonischemic cardiomyopathy UTI. She came in hypotensive required some IV fluids and also transient use of Levophed doing well today her blood pressure is in the 110 range she is already on a beta-cathy I will add Entresto 1 twice daily and see how she does will resume all medications except Jardiance in view of recent UTI. She is doing much better. PHYSICIAL EXAM: JVD 1 cm no carotid bruit vitals are stable S1-S2 heard normally no significant murmurs lungs reveal decent air entry abdomen is soft lower extremities reveal diminished pulses Central nervous system is normal. IMPRESSION: 1. Nonischemic cardiomyopathy. 2. UTI with sepsis details unavailable. 3.. 4.. 5.. RECOMMENDATIONS: Continue current medications and Entresto and see how she does, continue beta-cathy.
--- NOTE | 2024-06-02 13:52 | PN ---
PROGRESS NOTE SUBJECTIVE: White female, remains in ICU. She has drug-resistant UTI, systolic heart failure. CAT scan of her lung shows 11 mm lung nodule. Moderate degenerative disk disease in her back. She remains on IV antibiotics for drug-resistant UTI. Potassium 3.7. Sugars in the low 100s today. She is feeling better. OBJECTIVE: VITAL SIGNS: Temperature 98.5, pulse 66, respiratory rate 16 to 18, blood pressure is severely low 87/62, 98% on room air. I have to cut down her blood pressure medication due to severe hypotension, nonischemic cardiomyopathy, UTI with sepsis if we can. We may have to give her midodrine, Entresto, this is probably too much for her at this point due to hypotension. Otherwise, we will have to use midodrine. Prognosis guarded. MMODL / IJN: [id number] /
--- NOTE | 2024-06-02 15:18 | P.PN ---
Subjective Progress Note Date: 06/02/24 63-year-old female sent in from an outside hospital, with urinary tract infection/urosepsis. The patient was seen in our emergency department, and was evaluated for dizziness, and urinary tract infection. The patient was apparently found to be hypotensive, a central line was placed, patient was given antibiotics, and norepinephrine. The patient is seen today in the intensive care unit, room 262. She is on 3 L of oxygen. He is getting lactated Ringer's at 100 cc an hour, norepinephrine at 7 mcg/min. She is currently on cefepime and vancomycin. I have asked the nurses to check a cortisol level, TSH. I saw the patient between April 16, and April 22, at which time she was admitted with nausea, vomiting, diarrhea, and hypotension. At that time also she required a central venous catheter, and also norepinephrine. She does have a history of hypertension, hyperlipidemia, CHF, COPD, and diabetes. Current laboratory data includes a white count of 6.55, hemoglobin 10.3, hematocrit 32.4, and platelet count 271,000. Sodium 133, potassium 4.7, chlorides 101, CO2 19, anion gap 13, BUN 33, creatinine 1.41. Glucose is 127. Calcium 10.4. The patient's chest x- ray shows changes of COPD, cardiomegaly, and interstitial opacities, right greater than left. Progress note dated May 30, 2024. 63-year-old female admitted with a diagnosis of urinary tract infection/urosepsis. The patient is seen today in room 262. She remains on norepinephrine at 9 mcg/min. She is on 2 L nasal cannula. She is getting lactated Ringer's at 100 cc an hour. She continues on cefepime. Because of her ongoing hypotension, relatively low her cortisol level, the patient is placed on hydrocortisone 50 mg every 6 hours. White count is 10.4, hemoglobin 10.4, hematocrit 32.7, platelet count 266,000. Sodium 137, potassium 3.7, chlorides 105, CO2 25, BUN 21, and creatinine 0.77. Glucose is 102. Calcium 10, magnesium 1.6. Chest x-ray shows changes of COPD, with some cardiomegaly. Progress note dated May 31, 2024. 63-year-old female seen today in room 262. The patient was initially admitted with a diagnosis of urinary tract infection/urosepsis, with hypotension. The patient was on norepinephrine, up until this morning. Currently, she is on 2 L of oxygen by nasal cannula. She is getting lactated Ringer's at 100 cc an hour. We did give her hydrocortisone yesterday, 50 mg every 6 hours IV push, which allowed her to come off the norepinephrine. We believe she has relative adrenal insufficiency. Currently, she is resting comfortably without complaints. White count is 3.6, hemoglobin 9.6, hematocrit 30.7, platelet count 218,000. Sodium 139, potassium 4, chlorides 104, CO2 24, anion gap 11, BUN 12, creatinine 0.64. Glucose is 108. Calcium 9.6, magnesium is normal at 1.7. On 06/01/2024, the patient is being seen for a follow-up. Condition is stable. Hemodynamically stable. No respiratory distress and the patient is currently on room air oxygen. She remains in normal sinus rate of 75 cc an hour. She remains on broad-spectrum antibiotics with IV cefepime. Noted the patient was given antibiotics prior to her admission to our hospital and based on that the cultures came back negative. Urine tract infection/sepsis was highly suspected. She is currently afebrile. Pressors were discontinued yesterday and the patient has been off pressors since. Leal catheter still in place. The white cell count is 4.6 with a hemoglobin 8.4 and a platelet count of 198. Sodium levels at 134, potassium is at 3.4, BUN is 14 with a creatinine of 0.5. Chest x-ray at the time of admission showed mild pulm vascular congestion and cardiomegaly. Otherwise no other acute abnormalities noted. She is awake and alert and communicating. Cardiac rhythm is sinus. On 06/02/2024, the patient is awake and alert and communicating. No significant hypotension she is on no pressors. During this time, the patient was started on Coreg and Entresto will be also started if the blood pressure tolerates. Remains on IV cefepime. All of the cultures came back negative. She is currently on room air oxygen. Denies having any shortness of breath. Denies having any chest pain. The white cell count is at 4.6 from yesterday. Potassium level is at 3.7. No other new labs from today. Remains on stress dose hydrocortisone. The patient is off Jardiance. Objective - Vital Signs Vital signs: Vital Signs Temp 97.7 F 06/02/24 04:00 Pulse 62 06/02/24 04:00 Resp 14 06/02/24 04:00 BP 87/56 06/02/24 04:00 Pulse Ox 97 06/02/24 04:00 FiO2 Intake & Output 06/01/24 06/02/24 06/02/24 18:59 06:59 18:59 Intake Total 1365 160 Output Total 500 900 Balance 865 -740 Weight 91 kg Intake: IV 665 60 Lactated Ringers 1,000 ml 400 @ 100 mls/hr IV .Q10H [facility] Rx#:[id number] Sodium Chloride 0.9% 1, 265 60 000 ml @ 20 mls/hr IV . Q24H [facility] Rx#:[id number] Intake, IV Titration 100 100 Amount Cefepime 2 gm In Dextrose 100 5% in Water 100 ml @ 25 mls/hr IVPB Q8H [facility] Rx#: [id number] Potassium Chloride 20 meq 100 In Water For Injection 1 100ml.bag @ 50 mls/hr IVPB Q2H [facility] Rx#: [id number] Oral 600 Output: Urine 500 900 Other: Voiding Method Indwelling Catheter External Catheter - Exam The patient appeared well nourished and normally developed. Vital signs as documented. Head exam is unremarkable. No scleral icterus or corneal arcus noted. Neck is without jugular venous distension, thyromegaly, or carotid bruits. Carotid upstrokes are brisk bilaterally. Lungs are clear to auscultation and percussion. Few crackles at lung base bilaterally otherwise normal. Cardiac exam reveals the PMI to be normally sized and situated. Rhythm is regular. First and second heart sounds normal. No murmurs, rubs or gallops. Abdominal exam reveals normal bowel sounds, no masses, no organomegaly and no aortic enlargement. Extremities are nonedematous and both femoral and pedal pulses are normal. Examination of the skin revealed no evidence of significant rashes, suspicious appearing nevi or other concerning lesions. Neurologically, the patient is awake and alert and the patient does not have any focal neurological deficit. Cranial nerves are essentially intact. - Labs CBC & Chem 7: 06/01/24 04:22 06/02/24 08:52 Labs: Abnormal Lab Results - Last 24 Hours (Table) 06/01/24 06/01/24 06/01/24 Range/Units 11:36 19:40 21:03 POC Glucose (mg/dL) 135 H 157 H 147 H (70-110) mg/dL 06/02/24 Range/Units 05:26 POC Glucose (mg/dL) 141 H (70-110) mg/dL Microbiology - Last 24 Hours (Table) 05/31/24 14:10 Urine Culture - Final Urine,Clean Catch 05/29/24 09:40 Blood Culture - Preliminary Blood Assessment and Plan Plan: Shock with secondary hypotension. This could be multifactorial. Obviously, there is a significant concern for an underlying recurrent urine tract infection. The patient had a recent hospitalization with gram-negative UTI. During this current admission, cultures are still negative. Remains on IV cefepime. Hemodynamically stable and the patient is currently off pressors. The patient is also known to have severe cardiomyopathy. Suspected urinary tract infection, with urosepsis, and septic shock. Chronic systolic heart failure. Echocardiogram from 04/17/2024 shows significant impairment of the LV function with an EF of around 20 to 25%. Apparently the patient has undergone previous cardiac catheterization that was normal. No discussions about defibrillator. No significant valvular abnormalities. There is biatrial enlargement and RV wall enlargement and dilated IVC History of recent admission, between April 16 and April 22, 2024, for hypotension secondary to nausea, vomiting, and diarrhea, recovered and the patient is coming in for recurrent events. Probable relative adrenal insufficiency. History of hypertension. History of hyperlipidemia. History of CHF. History of COPD. History of diabetes mellitus. Plan: Patient is hemodynamically stable off pressors, currently on Coreg and Entresto to be started as long as the patient's blood pressure tolerates. Patient is on room air oxygen Cultures are negative and the patient remains on IV cefepime Continue stress dose hydrocortisone Recurrent UTI could be related to Jardiance and this medication will be considered. Change IV fluids to KVO Continue Coreg May restart Entresto as long as the patient's blood pressure tolerates Cardiology to follow-up on the cardiomyopathy. Consider AICD placement later stage. Patient is stable and the patient should be able to transfer out of the intensive care unit. Time with Patient: Greater than 30
[2024-06-02 16:38] LABS: Glucose,Whole Blood 158 mg/dL (70-110)
[2024-06-02 20:38] LABS: Glucose,Whole Blood 129 mg/dL (70-110)
--- NOTE | 2024-06-03 02:04 | PN ---
PROGRESS NOTE SUBJECTIVE: Admitted with drug-resistant UTI, sepsis, COPD, systolic CHF. Cardiology and pulmonary has seen her. Remains on broad-spectrum antibiotics. The patient has no significant hypertension, on no pressors. Started on Coreg and Entresto and still the blood pressure worse. Remains on cefepime. White count 4.6, potassium 3.7. She is on stress dose hydrocortisone, off Jardiance. Sleeping comfortably. OBJECTIVE: CARDIOVASCULAR: S1, S2. LUNGS: Transmitted upper sounds. GI: Soft. HEMATOLOGY: Negative Homans. ASSESSMENT: Congestive heart failure, hypotension secondary to drug-resistant urinary tract infection, progressive nausea, vomiting, renal insufficiency, hypertension, dyslipidemia, congestive heart failure, chronic obstructive pulmonary disease, diabetes mellitus. Starting at this time IV KVO. Prognosis guarded. Home soon. MMODL / IJN: [id number] /
[2024-06-03 06:01] LABS: Glucose,Whole Blood 119 mg/dL (70-110)
[2024-06-03 06:32] LABS: Eosinophils # (A) 0.02 10*3/uL (0.04-0.35); Eosinophils % (A) 0.4 %; HCT 27.5 % (37.2-46.3); HGB 8.7 g/dL (12.0-15.0); Lymphocytes # (A) 0.67 10*3/uL (0.90-5.00); Lymphocytes % (A) 13.9 %; MCH 31.6 pg (27.0-32.0); MCHC 31.6 g/dL (32.0-37.0); Monocytes # (A) 0.46 10*3/uL (0.20-1.00); Monocytes % (A) 9.5 %; Neutrophils # (A) 3.64 10*3/uL (1.80-7.70); Neutrophils % (A) 75.6 %; Platelet Count 189 10*3/uL (140-440); RBC 2.75 10*6/uL (4.10-5.20); RDW 12.3 % (11.5-14.5); WBC 4.82 10*3/uL (4.50-10.00)
[2024-06-03 07:11] LABS: ALT 10 U/L (4-34); AST 18 U/L (14-36); African American GFR (CKD) >90 (>60 ml/min/1.73 sqM); Albumin 2.4 g/dL (3.5-5.0); Alkaline Phosphatase 62 U/L (38-126); Anion Gap 4 mmol/L; Blood Urea Nitrogen 20 mg/dL (7-17); Calcium 9.5 mg/dL (8.4-10.2); Carbon Dioxide 27 mmol/L (22-30); Chloride 104 mmol/L (98-107); Glucose 119 mg/dL (74-99); Non-African American GFR(CKD) >90 (>60 ml/min/1.73 sqM); Potassium 3.3 mmol/L (3.5-5.1); Sodium 135 mmol/L (137-145); Total Bilirubin 0.3 mg/dL (0.2-1.3); Total Protein 5.3 g/dL (6.3-8.2)
--- NOTE | 2024-06-03 08:24 | P.PN ---
Subjective Progress Note Date: 06/01/24 Principal diagnosis: Reason for follow-up is UTI/sepsis Patient is a 63-year-old female with a past medical history significant for COPD hypertension hyperlipidemia heart failure with initial presentation to the [facility] for evaluation of worsening weakness, patient diagnosed with sepsis secondary UTI prompting transfer to [facility]. On today's evaluation that is 06/01/2024, patient has been afebrile, patient is breathing comfortably and is currently on room air, patient denies having any chest pain and cough, patient denies nausea vomiting or diarrhea and no abdominal pain The patient white count normalized to 4.68 creatinine 0.59 Objective - Vital Signs Vital signs: Vital Signs Temp 98.3 F 06/01/24 12:00 Pulse 77 06/01/24 12:00 Resp 12 06/01/24 12:00 BP 102/65 06/01/24 12:00 Pulse Ox 81 L 06/01/24 12:00 FiO2 Intake & Output 05/31/24 06/01/24 06/01/24 18:59 06:59 18:59 Intake Total 1560 1250 485 Output Total 1075 1035 200 Balance 485 215 285 Weight 91.4 kg Intake: IV 1200 1250 385 Cefepime 1 gm In Sodium 100 50 Chloride 0.9% 50 ml @ 100 mls/hr IVPB Q12H [facility] Rx# :[id number] Lactated Ringers 1,000 ml 1100 1200 300 @ 100 mls/hr IV .Q10H [facility] Rx#:[id number] Sodium Chloride 0.9% 1, 85 000 ml @ 75 mls/hr IV . [id number] [facility] Rx#:[id number] Intake, IV Titration 100 Amount Potassium Chloride 20 meq 100 In Water For Injection 1 100ml.bag @ 50 mls/hr IVPB Q2H [facility] Rx#: [id number] Oral 360 Output: Urine 1075 1035 200 Other: Voiding Method Indwelling Catheter Indwelling Catheter Indwelling Catheter - Exam GENERAL DESCRIPTION: An elderly female lying in bed in no distress RESPIRATORY SYSTEM: Unlabored breathing , decreased breath sounds at bases HEART: S1 S2 regular rate and rhythm , ABDOMEN: Soft , no tenderness EXTREMITIES: No edema feet - Labs CBC & Chem 7: 06/03/24 05:46 06/03/24 05:46 Labs: Abnormal Lab Results - Last 24 Hours (Table) 05/31/24 05/31/24 05/31/24 Range/Units 14:10 16:26 20:11 RBC (4.10-5.20) 10*6/uL Hgb (12.0-15.0) g/dL Hct (37.2-46.3) % MCV (80.0-97.0) fL MCHC (32.0-37.0) g/dL MPV (9.5-12.2) fL Lymphocytes # (0.90-5.00) 10*3/uL Eosinophils # (0.04-0.35) 10*3/uL Sodium (137-145) mmol/L Potassium (3.5-5.1) mmol/L Glucose (74-99) mg/dL POC Glucose (mg/dL) 140 H 134 H (70-110) mg/dL Total Protein (6.3-8.2) g/dL Albumin (3.5-5.0) g/dL Urine Protein Trace H (Negative) Urine Glucose (UA) 4+ H (Negative) Urine Ketones 2+ H (Negative) Urine Blood Moderate H (Negative) Ur Leukocyte Esterase Moderate H (Negative) Urine WBC 21 H (0-5) /hpf Urine Mucus Rare H (None) /hpf 06/01/24 06/01/24 06/01/24 Range/Units 04:22 04:22 06:12 RBC 2.63 L (4.10-5.20) 10*6/uL Hgb 8.4 L (12.0-15.0) g/dL Hct 26.5 L (37.2-46.3) % MCV 100.8 H (80.0-97.0) fL MCHC 31.7 L (32.0-37.0) g/dL MPV 9.4 L (9.5-12.2) fL Lymphocytes # 0.48 L (0.90-5.00) 10*3/uL Eosinophils # 0.00 L (0.04-0.35) 10*3/uL Sodium 134 L (137-145) mmol/L Potassium 3.4 L (3.5-5.1) mmol/L Glucose 123 H (74-99) mg/dL POC Glucose (mg/dL) 133 H (70-110) mg/dL Total Protein 5.3 L (6.3-8.2) g/dL Albumin 2.4 L (3.5-5.0) g/dL Urine Protein (Negative) Urine Glucose (UA) (Negative) Urine Ketones (Negative) Urine Blood (Negative) Ur Leukocyte Esterase (Negative) Urine WBC (0-5) /hpf Urine Mucus (None) /hpf 06/01/24 Range/Units 11:36 RBC (4.10-5.20) 10*6/uL Hgb (12.0-15.0) g/dL Hct (37.2-46.3) % MCV (80.0-97.0) fL MCHC (32.0-37.0) g/dL MPV (9.5-12.2) fL Lymphocytes # (0.90-5.00) 10*3/uL Eosinophils # (0.04-0.35) 10*3/uL Sodium (137-145) mmol/L Potassium (3.5-5.1) mmol/L Glucose (74-99) mg/dL POC Glucose (mg/dL) 135 H (70-110) mg/dL Total Protein (6.3-8.2) g/dL Albumin (3.5-5.0) g/dL Urine Protein (Negative) Urine Glucose (UA) (Negative) Urine Ketones (Negative) Urine Blood (Negative) Ur Leukocyte Esterase (Negative) Urine WBC (0-5) /hpf Urine Mucus (None) /hpf Microbiology - Last 24 Hours (Table) 05/29/24 09:40 Blood Culture - Preliminary Blood Assessment and Plan (1) Penicillin allergy Current Visit: Yes Status: Acute Code(s): Z88.0 - ALLERGY STATUS TO PENICILLIN SNOMED Code(s): 92273342 (2) Sepsis secondary to UTI Current Visit: Yes Status: Acute Code(s): A41.9 - SEPSIS, UNSPECIFIED ORGANISM; N39.0 - URINARY TRACT INFECTION, SITE NOT SPECIFIED SNOMED Code(s): 047700730 Plan: 1patient presented hospital with sepsis in this patient who did have hypertension with elevated white count urinary symptoms positive UA concerning for likely urinary source for this sepsis and likely from enteric gram-negative pathogen 2--penicillin allergy that we will limit number of antibiotic safety use 3- ultrasound of the bladder and kidneys did not show any hydronephrosis 4patient UA has been positive blood cultures currently pending continue cefepime while waiting for the cultures from the transferring facility Dictation was produced using [employer] dictation software. please excuse any grammatical, word or spelling errors. Time with Patient: Less than 30
--- NOTE | 2024-06-03 08:25 | P.PN ---
Subjective Progress Note Date: 06/02/24 Principal diagnosis: Reason for follow-up is UTI/sepsis Patient is a 63-year-old female with a past medical history significant for COPD hypertension hyperlipidemia heart failure with initial presentation to the [facility] for evaluation of worsening weakness, patient diagnosed with sepsis secondary UTI prompting transfer to [facility]. On today's evaluation that is 06/02/2024, Patient is afebrile this morning patient denies having any chest pain shortness of breath or cough, the patient is currently on room air, patient denies any abdominal pain no diarrhea no nausea no vomiting. The patient did not have a lab draw today repeat urine has been negative blood cultures are pending Objective - Vital Signs Vital signs: Vital Signs Temp 98.6 F 06/02/24 15:34 Pulse 62 06/02/24 15:34 Resp 16 06/02/24 15:34 BP 106/73 06/02/24 15:34 Pulse Ox 97 06/02/24 15:34 FiO2 Intake & Output 06/01/24 06/02/24 06/02/24 18:59 06:59 18:59 Intake Total 7232 592 9820 Output Total 500 900 300 Balance 865 -740 1090 Weight 91 kg Intake: IV 665 60 110 Cefepime 2 gm In Dextrose 100 5% in Water 100 ml @ 25 mls/hr IVPB Q8H [facility] Rx#: [id number] Invasive Line 2 10 Lactated Ringers 1,000 ml 400 @ 100 mls/hr IV .Q10H [facility] Rx#:[id number] Sodium Chloride 0.9% 1, 265 60 000 ml @ 20 mls/hr IV . Q24H [facility] Rx#:[id number] Intake, IV Titration 100 100 Amount Cefepime 2 gm In Dextrose 100 5% in Water 100 ml @ 25 mls/hr IVPB Q8H [facility] Rx#: [id number] Potassium Chloride 20 meq 100 In Water For Injection 1 100ml.bag @ 50 mls/hr IVPB Q2H [facility] Rx#: [id number] Oral 600 1280 Output: Urine 500 900 300 Other: Voiding Method Indwelling Catheter External Catheter # Voids 2 # Bowel Movements 1 - Exam GENERAL DESCRIPTION: An elderly female lying in bed in no distress RESPIRATORY SYSTEM: Unlabored breathing , decreased breath sounds at bases HEART: S1 S2 regular rate and rhythm , ABDOMEN: Soft , no tenderness EXTREMITIES: No edema feet - Labs CBC & Chem 7: 06/03/24 05:46 06/03/24 05:46 Labs: Abnormal Lab Results - Last 24 Hours (Table) 06/01/24 06/01/24 06/02/24 Range/Units 19:40 21:03 05:26 POC Glucose (mg/dL) 157 H 147 H 141 H (70-110) mg/dL 06/02/24 Range/Units 11:35 POC Glucose (mg/dL) 126 H (70-110) mg/dL Microbiology - Last 24 Hours (Table) 05/31/24 14:10 Urine Culture - Final Urine,Clean Catch 05/29/24 09:40 Blood Culture - Preliminary Blood Assessment and Plan (1) Penicillin allergy Current Visit: Yes Status: Acute Code(s): Z88.0 - ALLERGY STATUS TO PENICILLIN SNOMED Code(s): 37931092 (2) Sepsis secondary to UTI Current Visit: Yes Status: Acute Code(s): A41.9 - SEPSIS, UNSPECIFIED ORGANISM; N39.0 - URINARY TRACT INFECTION, SITE NOT SPECIFIED SNOMED Code(s): 303322966 Plan: 1patient presented hospital with sepsis in this patient who did have hypertension with elevated white count urinary symptoms positive UA concerning for likely urinary source for this sepsis and likely from enteric gram-negative pathogen 2--penicillin allergy that we will limit number of antibiotic safety use 3- ultrasound of the bladder and kidneys did not show any hydronephrosis 4patient has shown overall clinical improvement culture here has been negative still waiting for the culture from the transferring facility: Continue with cefepime Dictation was produced using [employer] dictation software. please excuse any grammatical, word or spelling errors. Time with Patient: Less than 30
[2024-06-03] MEDS: POTASSIUM CHLORIDE ER 20 MEQ TAB.ER PO SCH (09:22)
[2024-06-03 11:09] VITALS: BMI 29.7
[2024-06-03 11:12] LABS: Glucose,Whole Blood 126 mg/dL (70-110)
[2024-06-03] MEDS: LOSARTAN 25 MG TAB PO SCH (11:25)
--- NOTE | 2024-06-03 14:13 | P.PN ---
Subjective Progress Note Date: 06/03/24 HPI: This lady feels much better today she is not on any pressors blood pressure is good yesterday she did not tolerate or we did not give Entresto because of low pressure but today I will try losartan 25 mg daily in addition to carvedilol she has nonischemic cardiomyopathy UTI which has improved. We can move her to telemetry unit send and add losartan overall she is doing better. PHYSICIAL EXAM: Vitals are stable JVD 1 cm no carotid bruit S1-S2 heard normally no significant murmurs lungs are clear abdomen is soft lower extremities reveal diminished pulses no edema Central nervous system is normal. IMPRESSION: 1. Nonischemic cardiomyopathy. 2. UTI with sepsis. 3.. 4.. 5.. RECOMMENDATIONS: Clinically doing better same medications and 25 mg of losartan increase activity and move her to telemetry. Possible discharge soon. Objective - Vital Signs Vital signs: Vital Signs Temp 98.2 F 06/03/24 12:00 Pulse 71 06/03/24 12:00 Resp 20 06/03/24 12:00 BP 117/55 06/03/24 12:00 Pulse Ox 96 06/03/24 12:00 FiO2 Intake & Output 06/02/24 06/03/24 06/03/24 18:59 06:59 18:59 Intake Total 1910 700 480 Output Total 300 350 Balance 1610 350 480 Weight 91.3 kg 91.3 kg Intake: IV 110 220 0 Cefepime 2 gm In Dextrose 100 200 5% in Water 100 ml @ 25 mls/hr IVPB Q8H [facility] Rx#: [id number] Invasive Line 2 10 20 0 Oral 1800 Tube Feeding 480 480 Output: Urine 300 350 Other: Voiding Method External Catheter Toilet # Voids 2 1 2 # Bowel Movements 1 1 - Labs CBC & Chem 7: 06/03/24 05:46 06/03/24 05:46 Labs: Abnormal Lab Results - Last 24 Hours (Table) 06/02/24 06/02/24 06/03/24 Range/Units 16:36 20:36 05:46 RBC 2.75 L (4.10-5.20) 10*6/uL Hgb 8.7 L (12.0-15.0) g/dL Hct 27.5 L (37.2-46.3) % MCV 100.0 H (80.0-97.0) fL MCHC 31.6 L (32.0-37.0) g/dL MPV 9.0 L (9.5-12.2) fL Lymphocytes # 0.67 L (0.90-5.00) 10*3/uL Eosinophils # 0.02 L (0.04-0.35) 10*3/uL Sodium (137-145) mmol/L Potassium (3.5-5.1) mmol/L BUN (7-17) mg/dL Glucose (74-99) mg/dL POC Glucose (mg/dL) 158 H 129 H (70-110) mg/dL Total Protein (6.3-8.2) g/dL Albumin (3.5-5.0) g/dL 06/03/24 06/03/24 06/03/24 Range/Units 05:46 06:00 11:10 RBC (4.10-5.20) 10*6/uL Hgb (12.0-15.0) g/dL Hct (37.2-46.3) % MCV (80.0-97.0) fL MCHC (32.0-37.0) g/dL MPV (9.5-12.2) fL Lymphocytes # (0.90-5.00) 10*3/uL Eosinophils # (0.04-0.35) 10*3/uL Sodium 135 L (137-145) mmol/L Potassium 3.3 L (3.5-5.1) mmol/L BUN 20 H (7-17) mg/dL Glucose 119 H (74-99) mg/dL POC Glucose (mg/dL) 119 H 126 H (70-110) mg/dL Total Protein 5.3 L (6.3-8.2) g/dL Albumin 2.4 L (3.5-5.0) g/dL
--- NOTE | 2024-06-03 16:21 | P.PN ---
Subjective Progress Note Date: 06/03/24 63-year-old female sent in from an outside hospital, with urinary tract infection/urosepsis. The patient was seen in our emergency department, and was evaluated for dizziness, and urinary tract infection. The patient was apparently found to be hypotensive, a central line was placed, patient was given antibiotics, and norepinephrine. The patient is seen today in the intensive care unit, room 262. She is on 3 L of oxygen. He is getting lactated Ringer's at 100 cc an hour, norepinephrine at 7 mcg/min. She is currently on cefepime and vancomycin. I have asked the nurses to check a cortisol level, TSH. I saw the patient between April 16, and April 22, at which time she was admitted with nausea, vomiting, diarrhea, and hypotension. At that time also she required a central venous catheter, and also norepinephrine. She does have a history of hypertension, hyperlipidemia, CHF, COPD, and diabetes. Current laboratory data includes a white count of 6.55, hemoglobin 10.3, hematocrit 32.4, and platelet count 271,000. Sodium 133, potassium 4.7, chlorides 101, CO2 19, anion gap 13, BUN 33, creatinine 1.41. Glucose is 127. Calcium 10.4. The patient's chest x- ray shows changes of COPD, cardiomegaly, and interstitial opacities, right greater than left. Progress note dated May 30, 2024. 63-year-old female admitted with a diagnosis of urinary tract infection/urosepsis. The patient is seen today in room 262. She remains on norepinephrine at 9 mcg/min. She is on 2 L nasal cannula. She is getting lactated Ringer's at 100 cc an hour. She continues on cefepime. Because of her ongoing hypotension, relatively low her cortisol level, the patient is placed on hydrocortisone 50 mg every 6 hours. White count is 10.4, hemoglobin 10.4, hematocrit 32.7, platelet count 266,000. Sodium 137, potassium 3.7, chlorides 105, CO2 25, BUN 21, and creatinine 0.77. Glucose is 102. Calcium 10, magnesium 1.6. Chest x-ray shows changes of COPD, with some cardiomegaly. Progress note dated May 31, 2024. 63-year-old female seen today in room 262. The patient was initially admitted with a diagnosis of urinary tract infection/urosepsis, with hypotension. The patient was on norepinephrine, up until this morning. Currently, she is on 2 L of oxygen by nasal cannula. She is getting lactated Ringer's at 100 cc an hour. We did give her hydrocortisone yesterday, 50 mg every 6 hours IV push, which allowed her to come off the norepinephrine. We believe she has relative adrenal insufficiency. Currently, she is resting comfortably without complaints. White count is 3.6, hemoglobin 9.6, hematocrit 30.7, platelet count 218,000. Sodium 139, potassium 4, chlorides 104, CO2 24, anion gap 11, BUN 12, creatinine 0.64. Glucose is 108. Calcium 9.6, magnesium is normal at 1.7. On 06/01/2024, the patient is being seen for a follow-up. Condition is stable. Hemodynamically stable. No respiratory distress and the patient is currently on room air oxygen. She remains in normal sinus rate of 75 cc an hour. She remains on broad-spectrum antibiotics with IV cefepime. Noted the patient was given antibiotics prior to her admission to our hospital and based on that the cultures came back negative. Urine tract infection/sepsis was highly suspected. She is currently afebrile. Pressors were discontinued yesterday and the patient has been off pressors since. Leal catheter still in place. The white cell count is 4.6 with a hemoglobin 8.4 and a platelet count of 198. Sodium levels at 134, potassium is at 3.4, BUN is 14 with a creatinine of 0.5. Chest x-ray at the time of admission showed mild pulm vascular congestion and cardiomegaly. Otherwise no other acute abnormalities noted. She is awake and alert and communicating. Cardiac rhythm is sinus. On 06/02/2024, the patient is awake and alert and communicating. No significant hypotension she is on no pressors. During this time, the patient was started on Coreg and Entresto will be also started if the blood pressure tolerates. Remains on IV cefepime. All of the cultures came back negative. She is currently on room air oxygen. Denies having any shortness of breath. Denies having any chest pain. The white cell count is at 4.6 from yesterday. Potassium level is at 3.7. No other new labs from today. Remains on stress dose hydrocortisone. The patient is off Jardiance. On 06/03/2024, the patient is being seen for a follow-up. The patient is on room air oxygen. The patient is hemodynamically stable. Blood pressure remains soft and the patient was not started on Entresto. The patient remains on Coreg 3.125 mg twice a day. She will be started on low-dose Cozaar 25 mg p.o. daily. The patient will be taken off in the antibiotics and the patient completed total of 6 days of IV cefepime. White cell count is 4.8. Hemoglobin 8.7 and platelet count of 189. BUN is 20 with a creatinine 0.6 and a sodium levels at 135. Potassium level is to be replaced at 3.3. The patient will be also taken off the stress dose hydrocortisone. Objective - Vital Signs Vital signs: Vital Signs Temp 97.8 F 06/03/24 08:00 Pulse 63 06/03/24 08:00 Resp 18 06/03/24 08:00 BP 106/70 06/03/24 08:00 Pulse Ox 98 06/03/24 08:00 FiO2 Intake & Output 06/02/24 06/03/24 06/03/24 18:59 06:59 18:59 Intake Total 1910 700 0 Output Total 300 350 Balance 1610 350 0 Weight 91.3 kg Intake: IV 110 220 0 Cefepime 2 gm In Dextrose 100 200 5% in Water 100 ml @ 25 mls/hr IVPB Q8H [facility] Rx#: [id number] Invasive Line 2 10 20 0 Oral 1800 Tube Feeding 480 Output: Urine 300 350 Other: Voiding Method External Catheter # Voids 2 1 # Bowel Movements 1 - Exam The patient appeared well nourished and normally developed. Vital signs as documented. Head exam is unremarkable. No scleral icterus or corneal arcus noted. Neck is without jugular venous distension, thyromegaly, or carotid bruits. Car otid upstrokes are brisk bilaterally. Lungs are clear to auscultation and percussion. Few crackles at lung base bilaterally otherwise normal. Cardiac exam reveals the PMI to be normally sized and situated. Rhythm is regular. First and second heart sounds normal. No murmurs, rubs or gallops. Abdominal exam reveals normal bowel sounds, no masses, no organomegaly and no aortic enlargement. Extremities are nonedematous and both femoral and pedal pulses are normal. Examination of the skin revealed no evidence of significant rashes, suspicious appearing nevi or other concerning lesions. Neurologically, the patient is awake and alert and the patient does not have any focal neurological deficit. Cranial nerves are essentially intact. - Labs CBC & Chem 7: 06/03/24 05:46 06/03/24 05:46 Labs: Abnormal Lab Results - Last 24 Hours (Table) 06/02/24 06/02/24 06/02/24 Range/Units 11:35 16:36 20:36 RBC (4.10-5.20) 10*6/uL Hgb (12.0-15.0) g/dL Hct (37.2-46.3) % MCV (80.0-97.0) fL MCHC (32.0-37.0) g/dL MPV (9.5-12.2) fL Lymphocytes # (0.90-5.00) 10*3/uL Eosinophils # (0.04-0.35) 10*3/uL Sodium (137-145) mmol/L Potassium (3.5-5.1) mmol/L BUN (7-17) mg/dL Glucose (74-99) mg/dL POC Glucose (mg/dL) 126 H 158 H 129 H (70-110) mg/dL Total Protein (6.3-8.2) g/dL Albumin (3.5-5.0) g/dL 06/03/24 06/03/24 06/03/24 Range/Units 05:46 05:46 06:00 RBC 2.75 L (4.10-5.20) 10*6/uL Hgb 8.7 L (12.0-15.0) g/dL Hct 27.5 L (37.2-46.3) % MCV 100.0 H (80.0-97.0) fL MCHC 31.6 L (32.0-37.0) g/dL MPV 9.0 L (9.5-12.2) fL Lymphocytes # 0.67 L (0.90-5.00) 10*3/uL Eosinophils # 0.02 L (0.04-0.35) 10*3/uL Sodium 135 L (137-145) mmol/L Potassium 3.3 L (3.5-5.1) mmol/L BUN 20 H (7-17) mg/dL Glucose 119 H (74-99) mg/dL POC Glucose (mg/dL) 119 H (70-110) mg/dL Total Protein 5.3 L (6.3-8.2) g/dL Albumin 2.4 L (3.5-5.0) g/dL Assessment and Plan Plan: Shock with secondary hypotension. This could be multifactorial. Obviously, there is a significant concern for an underlying recurrent urine tract infection. The patient had a recent hospitalization with gram-negative UTI. During this current admission, cultures are still negative. Completed course of IV cefepime. Hemodynamically stable and the patient is currently off pressors. The patient is also known to have severe cardiomyopathy. Suspected urinary tract infection, with urosepsis, and septic shock. Chronic systolic heart failure. Echocardiogram from 04/17/2024 shows significant impairment of the LV function with an EF of around 20 to 25%. Apparently the patient has undergone previous cardiac catheterization that was normal. No discussions about defibrillator. No significant valvular abnormalities. There is biatrial enlargement and RV wall enlargement and dilated IVC History of recent admission, between April 16 and April 22, 2024, for hypotension secondary to nausea, vomiting, and diarrhea, recovered and the patient is coming in for recurrent events. Probable relative adrenal insufficiency. History of hypertension. History of hyperlipidemia. History of CHF. History of COPD. History of diabetes mellitus. Plan: Patient is hemodynamically stable off pressors, currently on Coreg and the patient will be started on low-dose Cozaar. Unable to tolerate Entresto because of the soft blood pressure. Patient is on room air oxygen Cultures are negative and the patient completed a total of 6-day course of IV cefepime and this will be discontinued Discontinue stress dose hydrocortisone Recurrent UTI could be related to Jardiance and this medication will be cons idered. Change IV fluids to KVO Continue Coreg Continue losartan and monitor blood pressure Cardiology to follow-up on the cardiomyopathy. Consider AICD placement later stage. Patient is stable and the patient should be able to transfer out of the intensive care unit.
[2024-06-03 16:37] LABS: Glucose,Whole Blood 99 mg/dL (70-110)
[2024-06-03 20:12] LABS: Glucose,Whole Blood 110 mg/dL (70-110)
[2024-06-03 22:01] VITALS: TEMP 97.5
[2024-06-04 05:47] LABS: Glucose,Whole Blood 89 mg/dL (70-110)
[2024-06-04 08:47] VITALS: RESP 16
[2024-06-04 11:20] LABS: Glucose,Whole Blood 80 mg/dL (70-110)
[2024-06-04 13:34] VITALS: BP 101/69; PULSE 78
--- NOTE | 2024-06-04 13:55 | P.PN ---
Subjective Progress Note Date: 06/04/24 HISTORY OF PRESENTING ILLNESS This is a pleasant 63-year-old with past medical history significant for hyp ertension, hyperlipidemia, cardiomyopathy apparently nonischemic, congestive heart failure, previous breast cancer in remission and more recent melanoma. She follows in the office with a chief port director out of bed X. She states she has been diagnosed with congestive heart failure and prior echo from her hospital from April 2024 showed EF 20-25%. Apparently there has been no discussion regarding a defibrillator in the past however. She believes she had a heart catheterization which showed no blockages. She denies any recent chest pain or pressure. Denies any significant shortness of breath. She has been feeling somewhat more fatigued and weak and was walking around and felt more weak and tried to sit down and tripped over her dog and fell. She had workup in the [facility] with concern of UTI and hypotension. She was placed on vasopressors. She remains on norepinephrine currently with well-controlled MAP. Creatinine 1.4. Her home carvedilol and heart failure regimen have been stopped and she is receiving IV fluids at 100 cc/h. EKG shows normal sinus rhythm with nonspecific ST depressions. Troponin normal. She states she has been receiving some form of chemotherapy or immunotherapy for her melanoma. She has been noted to have increasing ectopy with bigeminy as well as brief runs of nonsustained ventricular tachycardia. Magnesium and potassium in normal range. 06/04 Patient has been transferred out of the intensive care unit. Patient has been maintained on losartan for blood pressure control and plan to increase her activity. Blood pressure readings are low today. Blood pressure 92/62, heart rate 79, pulse ox 97% on room air. PHYSICAL EXAMINATION Vital signs reviewed. CONSTITUTIONAL: No apparent distress. CHEST EXAMINATION: Lungs are clear to auscultation. No chest wall tenderness is noted on palpation or with deep breathing. HEART EXAMINATION: Regular rate and rhythm. S1, S2 heard. No murmurs, gallops or rub. ABDOMEN: Soft, nontender. EXTREMITIES:1+ peripheral pulses, no lower extremity edema and no calf tenderness. NEUROLOGIC EXAMINATION: Patient is awake, alert and oriented x3. ASSESSMENT Chronic systolic heart failure Ectopy with PVCs as well as ventricular tachycardia likely related to underlying cardiomyopathy Cardiomyopathy apparently nonischemic per patient Hypertension Hyperlipidemia Shock likely related to septic shock UTI and sepsis Melanoma PLAN Continue patient on aspirin 81 mg daily, Coreg 3.125 mg twice daily Change losartan to lisinopril at 2.5 mg daily Monitor blood pressure Further recommendations to follow. Nurse practitioner note has been reviewed, I agree with documented findings and plan of care. Patient was seen and examined. Objective - Vital Signs Vital signs: Vital Signs Temp 97.5 F L 06/04/24 08:00 Pulse 79 06/04/24 08:00 Resp 16 06/04/24 08:00 BP 92/62 06/04/24 08:00 Pulse Ox 97 06/04/24 08:00 FiO2 Intake & Output 06/03/24 06/04/24 06/04/24 18:59 06:59 18:59 Intake Total 480 120 236 Balance 480 120 236 Weight 91.3 kg 91.4 kg Intake: IV 0 Invasive Line 2 0 Oral 120 236 Tube Feeding 480 Other: Voiding Method Toilet Toilet Toilet # Voids 2 1 # Bowel Movements 1 - Labs CBC & Chem 7: 06/03/24 05:46 06/03/24 05:46 Labs: Abnormal Lab Results - Last 24 Hours (Table) 06/03/24 Range/Units 11:10 POC Glucose (mg/dL) 126 H (70-110) mg/dL Microbiology - Last 24 Hours (Table) 05/29/24 09:40 Blood Culture - Final Blood
--- NOTE | 2024-06-04 13:56 | P.PN ---
Subjective Progress Note Date: 06/04/24 63-year-old female sent in from an outside hospital, with urinary tract infection/urosepsis. The patient was seen in our emergency department, and was evaluated for dizziness, and urinary tract infection. The patient was apparently found to be hypotensive, a central line was placed, patient was given antibiotics, and norepinephrine. The patient is seen today in the intensive care unit, room 262. She is on 3 L of oxygen. He is getting lactated Ringer's at 100 cc an hour, norepinephrine at 7 mcg/min. She is currently on cefepime and vancomycin. I have asked the nurses to check a cortisol level, TSH. I saw the patient between April 16, and April 22, at which time she was admitted with nausea, vomiting, diarrhea, and hypotension. At that time also she required a central venous catheter, and also norepinephrine. She does have a history of hypertension, hyperlipidemia, CHF, COPD, and diabetes. Current laboratory data includes a white count of 6.55, hemoglobin 10.3, hematocrit 32.4, and platelet count 271,000. Sodium 133, potassium 4.7, chlorides 101, CO2 19, anion gap 13, BUN 33, creatinine 1.41. Glucose is 127. Calcium 10.4. The patient's chest x- ray shows changes of COPD, cardiomegaly, and interstitial opacities, right greater than left. Progress note dated May 30, 2024. 63-year-old female admitted with a diagnosis of urinary tract infection/urosepsis. The patient is seen today in room 262. She remains on norepinephrine at 9 mcg/min. She is on 2 L nasal cannula. She is getting lactated Ringer's at 100 cc an hour. She continues on cefepime. Because of her ongoing hypotension, relatively low her cortisol level, the patient is placed on hydrocortisone 50 mg every 6 hours. White count is 10.4, hemoglobin 10.4, hematocrit 32.7, platelet count 266,000. Sodium 137, potassium 3.7, chlorides 105, CO2 25, BUN 21, and creatinine 0.77. Glucose is 102. Calcium 10, magnesium 1.6. Chest x-ray shows changes of COPD, with some cardiomegaly. Progress note dated May 31, 2024. 63-year-old female seen today in room 262. The patient was initially admitted with a diagnosis of urinary tract infection/urosepsis, with hypotension. The patient was on norepinephrine, up until this morning. Currently, she is on 2 L of oxygen by nasal cannula. She is getting lactated Ringer's at 100 cc an hour. We did give her hydrocortisone yesterday, 50 mg every 6 hours IV push, which allowed her to come off the norepinephrine. We believe she has relative adrenal insufficiency. Currently, she is resting comfortably without complaints. White count is 3.6, hemoglobin 9.6, hematocrit 30.7, platelet count 218,000. Sodium 139, potassium 4, chlorides 104, CO2 24, anion gap 11, BUN 12, creatinine 0.64. Glucose is 108. Calcium 9.6, magnesium is normal at 1.7. On 06/01/2024, the patient is being seen for a follow-up. Condition is stable. Hemodynamically stable. No respiratory distress and the patient is currently on room air oxygen. She remains in normal sinus rate of 75 cc an hour. She remains on broad-spectrum antibiotics with IV cefepime. Noted the patient was given antibiotics prior to her admission to our hospital and based on that the cultures came back negative. Urine tract infection/sepsis was highly suspected. She is currently afebrile. Pressors were discontinued yesterday and the patient has been off pressors since. Leal catheter still in place. The white cell count is 4.6 with a hemoglobin 8.4 and a platelet count of 198. Sodium levels at 134, potassium is at 3.4, BUN is 14 with a creatinine of 0.5. Chest x-ray at the time of admission showed mild pulm vascular congestion and cardiomegaly. Otherwise no other acute abnormalities noted. She is awake and alert and communicating. Cardiac rhythm is sinus. On 06/02/2024, the patient is awake and alert and communicating. No significant hypotension she is on no pressors. During this time, the patient was started on Coreg and Entresto will be also started if the blood pressure tolerates. Remains on IV cefepime. All of the cultures came back negative. She is currently on room air oxygen. Denies having any shortness of breath. Denies having any chest pain. The white cell count is at 4.6 from yesterday. Potassium level is at 3.7. No other new labs from today. Remains on stress dose hydrocortisone. The patient is off Jardiance. On 06/03/2024, the patient is being seen for a follow-up. The patient is on room air oxygen. The patient is hemodynamically stable. Blood pressure remains soft and the patient was not started on Entresto. The patient remains on Coreg 3.125 mg twice a day. She will be started on low-dose Cozaar 25 mg p.o. daily. The patient will be taken off in the antibiotics and the patient completed total of 6 days of IV cefepime. White cell count is 4.8. Hemoglobin 8.7 and platelet count of 189. BUN is 20 with a creatinine 0.6 and a sodium levels at 135. Potassium level is to be replaced at 3.3. The patient will be also taken off the stress dose hydrocortisone. On 06/04/2024, the patient sitting up in a chair and she remains on room air oxygen. No hypotension. Her blood pressure remains soft and the most recent BP is 101/69 and the patient is currently on Coreg 3.125 mg p.o. twice daily and lisinopril 2.5 mg p.o. daily. She is also on aspirin. Antibiotics were discontinued and the patient is currently off the hydrocortisone stress dose. Denies having any specific complaints. The labs from yesterday were noted. No new labs are available from today. Objective - Vital Signs Vital signs: Vital Signs Temp 97.5 F L 06/04/24 08:00 Pulse 79 06/04/24 08:00 Resp 16 06/04/24 08:00 BP 92/62 06/04/24 08:00 Pulse Ox 97 06/04/24 08:00 FiO2 Intake & Output 06/03/24 06/04/24 06/04/24 18:59 06:59 18:59 Intake Total 480 120 236 Balance 480 120 236 Weight 91.3 kg 91.4 kg Intake: IV 0 Invasive Line 2 0 Oral 120 236 Tube Feeding 480 Other: Voiding Method Toilet Toilet Toilet # Voids 2 1 # Bowel Movements 1 - Exam The patient appeared well nourished and normally developed. Vital signs as documented. Head exam is unremarkable. No scleral icterus or corneal arcus noted. Neck is without jugular venous distension, thyromegaly, or carotid bruits. Carotid upstrokes are brisk bilaterally. Lungs are clear to auscultation and percussion. Few crackles at lung base bilaterally otherwise normal. Cardiac exam reveals the PMI to be normally sized and situated. Rhythm is regular. First and second heart sounds normal. No murmurs, rubs or gallops. Abdominal exam reveals normal bowel sounds, no masses, no organomegaly and no ao rtic enlargement. Extremities are nonedematous and both femoral and pedal pulses are normal. Examination of the skin revealed no evidence of significant rashes, suspicious appearing nevi or other concerning lesions. Neurologically, the patient is awake and alert and the patient does not have any focal neurological deficit. Cranial nerves are essentially intact. - Labs CBC & Chem 7: 06/03/24 05:46 06/03/24 05:46 Labs: Abnormal Lab Results - Last 24 Hours (Table) 06/03/24 Range/Units 11:10 POC Glucose (mg/dL) 126 H (70-110) mg/dL Microbiology - Last 24 Hours (Table) 05/29/24 09:40 Blood Culture - Final Blood Assessment and Plan Plan: Shock with secondary hypotension. This could be multifactorial. Obviously, there is a significant concern for an underlying recurrent urine tract infection. The patient had a recent hospitalization with gram-negative UTI. During this current admission, cultures are still negative. Completed course of IV cefepime. Hemodynamically stable and the patient is currently off pressors. The patient is also known to have severe cardiomyopathy. Suspected urinary tract infection, with urosepsis, and septic shock. Chronic systolic heart failure. Echocardiogram from 04/17/2024 shows significant impairment of the LV function with an EF of around 20 to 25%. Apparently the patient has undergone previous cardiac catheterization that was normal. No discussions about defibrillator. No significant valvular abnormalities. There is biatrial enlargement and RV wall enlargement and dilated IVC. The patient is currently on Coreg and lisinopril. History of recent admission, between April 16 and April 22, 2024, for hypotension secondary to nausea, vomiting, and diarrhea, recovered and the patient is coming in for recurrent events. Metastatic melanoma History of hypertension. History of hyperlipidemia. History of CHF. History of COPD. History of diabetes mellitus. Plan: Patient is hemodynamically stable off pressors, currently on Coreg and lisinopril 2.5 mg p.o. daily.. Unable to tolerate Entresto because of the soft blood pressure. Patient is on room air oxygen Cultures are negative and the patient completed a total of 6-day course of IV cefepime and antibiotics were discontinued on 06/03/2024 Discontinue stress dose hydrocortisone on 06/03/2024. No signs of any adrenal sufficiency. Recurrent UTI could be related to Jardiance and this medication will be considered. Change IV fluids to KVO Continue Coreg Continue lisinopril 2.5 mg p.o. daily and monitor blood pressure Cardiology to follow-up on the cardiomyopathy. Consider AICD placement later stage. Patient is stable
--- NOTE | 2024-06-04 14:06 | P.PN ---
Subjective Progress Note Date: 06/03/24 Principal diagnosis: Reason for follow-up is UTI/sepsis Patient is a 63-year-old female with a past medical history significant for COPD hypertension hyperlipidemia heart failure with initial presentation to the [facility] for evaluation of worsening weakness, patient diagnosed with sepsis secondary UTI prompting transfer to [facility]. On today's evaluation that is 06/03/2024,the patient denies any fever or any chills, patient is breathing comfortably on room air, the patient denies chest pain shortness of breath and no significant cough, patient denies abdominal pain, no nausea vomiting or diarrhea. Patient did have a white count of 4.82 creatinine 0.62 blood urine culture here negative Objective - Vital Signs Vital signs: Vital Signs Temp 98.2 F 06/03/24 12:00 Pulse 71 06/03/24 12:00 Resp 20 06/03/24 12:00 BP 117/55 06/03/24 12:00 Pulse Ox 96 06/03/24 12:00 FiO2 Intake & Output 06/02/24 06/03/24 06/03/24 18:59 06:59 18:59 Intake Total 1910 700 0 Output Total 300 350 Balance 1610 350 0 Weight 91.3 kg 91.3 kg Intake: IV 110 220 0 Cefepime 2 gm In Dextrose 100 200 5% in Water 100 ml @ 25 mls/hr IVPB Q8H [facility] Rx#: [id number] Invasive Line 2 10 20 0 Oral 1800 Tube Feeding 480 Output: Urine 300 350 Other: Voiding Method External Catheter Toilet # Voids 2 1 # Bowel Movements 1 - Exam GENERAL DESCRIPTION: An elderly female lying in bed in no distress RESPIRATORY SYSTEM: Unlabored breathing , decreased breath sounds at bases HEART: S1 S2 regular rate and rhythm , ABDOMEN: Soft , no tenderness EXTREMITIES: No edema feet - Labs CBC & Chem 7: 06/03/24 05:46 06/03/24 05:46 Labs: Abnormal Lab Results - Last 24 Hours (Table) 06/02/24 06/02/24 06/03/24 Range/Units 16:36 20:36 05:46 RBC 2.75 L (4.10-5.20) 10*6/uL Hgb 8.7 L (12.0-15.0) g/dL Hct 27.5 L (37.2-46.3) % MCV 100.0 H (80.0-97.0) fL MCHC 31.6 L (32.0-37.0) g/dL MPV 9.0 L (9.5-12.2) fL Lymphocytes # 0.67 L (0.90-5.00) 10*3/uL Eosinophils # 0.02 L (0.04-0.35) 10*3/uL Sodium (137-145) mmol/L Potassium (3.5-5.1) mmol/L BUN (7-17) mg/dL Glucose (74-99) mg/dL POC Glucose (mg/dL) 158 H 129 H (70-110) mg/dL Total Protein (6.3-8.2) g/dL Albumin (3.5-5.0) g/dL 06/03/24 06/03/24 06/03/24 Range/Units 05:46 06:00 11:10 RBC (4.10-5.20) 10*6/uL Hgb (12.0-15.0) g/dL Hct (37.2-46.3) % MCV (80.0-97.0) fL MCHC (32.0-37.0) g/dL MPV (9.5-12.2) fL Lymphocytes # (0.90-5.00) 10*3/uL Eosinophils # (0.04-0.35) 10*3/uL Sodium 135 L (137-145) mmol/L Potassium 3.3 L (3.5-5.1) mmol/L BUN 20 H (7-17) mg/dL Glucose 119 H (74-99) mg/dL POC Glucose (mg/dL) 119 H 126 H (70-110) mg/dL Total Protein 5.3 L (6.3-8.2) g/dL Albumin 2.4 L (3.5-5.0) g/dL Assessment and Plan (1) Penicillin allergy Current Visit: Yes Status: Acute Code(s): Z88.0 - ALLERGY STATUS TO PENICILLIN SNOMED Code(s): 73347432 (2) Sepsis secondary to UTI Current Visit: Yes Status: Acute Code(s): A41.9 - SEPSIS, UNSPECIFIED ORGANISM; N39.0 - URINARY TRACT INFECTION, SITE NOT SPECIFIED SNOMED Code(s): 976812439 Plan: 1patient presented hospital with sepsis in this patient who did have h ypertension with elevated white count urinary symptoms positive UA concerning for likely urinary source for this sepsis and likely from enteric gram-negative pathogen 2--penicillin allergy that we will limit number of antibiotic safety use 3- ultrasound of the bladder and kidneys did not show any hydronephrosis 4patient has shown overall clinical improvement culture here has been negative still waiting for the culture from the [facility] for now we will continue the patient on cefepime Dictation was produced using [employer] dictation software. please excuse any grammatical, word or spelling errors. Time with Patient: Less than 30
--- NOTE | 2024-06-04 14:07 | P.PN ---
Subjective Progress Note Date: 06/04/24 Principal diagnosis: Reason for follow-up is UTI/sepsis Patient is a 63-year-old female with a past medical history significant for COPD hypertension hyperlipidemia heart failure with initial presentation to the [facility] for evaluation of worsening weakness, patient diagnosed with sepsis secondary UTI prompting transfer to [facility]. On today's evaluation that is 06/04/2024,the patient remains to be afebrile, patient is on room air not requiring supplemental oxygen and denies any shortness of breath no chest pain or cough.Patient denies having any nausea or vomiting, no abdominal pain and no diarrhea has been reported. No new labs obtained today we did obtain culture from [facility] blood culture negative urine positive for Klebsiella sensitive to ceftriaxone Objective - Vital Signs Vital signs: Vital Signs Temp 97.5 F L 06/04/24 08:00 Pulse 79 06/04/24 08:00 Resp 16 06/04/24 08:00 BP 92/62 06/04/24 08:00 Pulse Ox 97 06/04/24 08:00 FiO2 Intake & Output 06/03/24 06/04/24 06/04/24 18:59 06:59 18:59 Intake Total 480 120 236 Balance 480 120 236 Weight 91.3 kg 91.4 kg Intake: IV 0 Invasive Line 2 0 Oral 120 236 Tube Feeding 480 Other: Voiding Method Toilet Toilet Toilet # Voids 2 1 # Bowel Movements 1 - Exam GENERAL DESCRIPTION: An elderly female lying in bed in no distress RESPIRATORY SYSTEM: Unlabored breathing , decreased breath sounds at bases HEART: S1 S2 regular rate and rhythm , ABDOMEN: Soft , no tenderness EXTREMITIES: No edema feet - Labs CBC & Chem 7: 06/03/24 05:46 06/03/24 05:46 Labs: Microbiology - Last 24 Hours (Table) 05/29/24 09:40 Blood Culture - Final Blood Assessment and Plan (1) Penicillin allergy Current Visit: Yes Status: Acute Code(s): Z88.0 - ALLERGY STATUS TO PENICILLIN SNOMED Code(s): 48789587 (2) Sepsis secondary to UTI Current Visit: Yes Status: Acute Code(s): A41.9 - SEPSIS, UNSPECIFIED ORGANISM; N39.0 - URINARY TRACT INFECTION, SITE NOT SPECIFIED SNOMED Code(s): 379863312 Plan: 1patient presented hospital with sepsis in this patient who did have hypertension with elevated white count urinary symptoms positive UA concerning for likely urinary source for this sepsis and likely from enteric gram-negative pathogen 2--penicillin allergy that we will limit number of antibiotic safety use 3- ultrasound of the bladder and kidneys did not show any hydronephrosis 4patient has shown overall clinical improvement, culture obtained from [place] [facility] which were positive for Klebsiella sensitive to ceftriaxone will finish therapy with oral Ceftin prescription sent to the pharmacy Dictation was produced using [employer] dictation software. please excuse any grammatical, word or spelling errors. Time with Patient: Less than 30
--- NOTE | 2024-06-04 20:53 | PN ---
PROGRESS NOTE She remains out of the ICU. She wants to go home tomorrow. Discussed with her discharge instructions. She is status post UTI, sepsis, COPD. Continue with current treatments. Discharge medicines reviewed. Prognosis is guarded. MMODL / IJN: [id number] /
[2024-06-05] MEDS ORDERED: LOSARTAN 25 MG TAB PO SCH (09:00)
== END 2024-06-04 14:33 | disposition home or self-care (01) | DRG 871 ==
LOC: EC 17:46 → SUPCPDRO 17:46 → 2SICU 18:27 → 3SCARD 06-03 13:05
PROVIDERS: ADMIT Family Medicine; ATTEND Family Medicine
PROC: 3E043XZ Introduction of Vasopressor into Central Vein, Percutaneous Approach (ICD-10-PCS; principal; 2024-05-28)
DX: A41.50 Gram-negative sepsis, unspecified (principal); N17.0 Acute kidney failure with tubular necrosis; R65.21 Severe sepsis with septic shock; C43.9 Malignant melanoma of skin, unspecified; I11.0 Hypertensive heart disease with heart failure; E11.9 Type 2 diabetes mellitus without complications; J44.9 Chronic obstructive pulmonary disease, unspecified; I42.8 Other cardiomyopathies; I47.20 Ventricular tachycardia, unspecified; I50.22 Chronic systolic (congestive) heart failure; E27.40 Unspecified adrenocortical insufficiency; E87.1 Hypo-osmolality and hyponatremia; N39.0 Urinary tract infection, site not specified; E78.5 Hyperlipidemia, unspecified; R91.1 Solitary pulmonary nodule; I49.3 Ventricular premature depolarization; M47.819 Spondylosis without myelopathy or radiculopathy, site unspecified; M51.369 Other intervertebral disc degeneration, lumbar region without mention of lumbar back pain or lower extremity pain; M51.34 Other intervertebral disc degeneration, thoracic region; R09.02 Hypoxemia; Z79.82 Long term (current) use of aspirin; Z79.84 Long term (current) use of oral hypoglycemic drugs; Z79.899 Other long term (current) drug therapy; Z85.3 Personal history of malignant neoplasm of breast; Z87.891 Personal history of nicotine dependence; Z88.0 Allergy status to penicillin; Z90.12 Acquired absence of left breast and nipple; Z91.81 History of falling; Z71.3 Dietary counseling and surveillance
CPT/HCPCS: 51702; 71045; 71250; 76770; 80048; 80053; 81001; 82533; 83735; 83880; 84132; 84439; 84443; 85025; 85027; 87040; 87086; 93005; 94760; 96365; 96375; 99285

== ENCOUNTER 2024-06-27 00:12 | Inpatient (IN) | payer MEDICARE, OTHER ==
--- NOTE | 2024-06-27 00:57 | ED ---
General Adult HPI - General Chief complaint: Nausea/Vomiting/Diarrhea Stated complaint: Low blood pressure Time Seen by Provider: 06/27/24 00:15 Source: EMS Mode of arrival: EMS - History of Present Illness Initial comments: This is a 63-year-old female past medical history of COPD, breast cancer, congestive heart failure presenting as a transfer from [facility] for dehydration. Patient had presented there earlier today for 7 days of nausea, vomiting clear fluid. Endorse generalized weakness and lightheadedness. Was so lightheaded today that she was unable to ambulate. Denies any chest pain, shortness of breath abdominal pain or fevers. Has not had any episodes of melena or hematochezia. Patient was noted to be hypotensive at transferring facility and was given 4 L IV fluids after repeat ultrasound showed collapsible IVC. CT at transferring facility showed acute diverticulitis, and an elevated creatinine concerning for YONATAN. Patient transferred here for further treatment - Related Data Home Medications Medication Instructions Recorded Confirmed Aspirin EC [Ecotrin Low Dose] 81 mg PO DAILY 04/16/24 06/27/24 FLUoxetine HCL 40 mg PO DAILY 04/16/24 06/27/24 Magnesium Oxide [Magox 400] 400 mg PO DAILY 04/16/24 06/27/24 carvediloL [Coreg] 3.125 mg PO BID 04/16/24 06/27/24 Folate 1333 Mcg Dfe 1,333 mcg PO DAILY 06/27/24 06/27/24 Ipratropium-Albuterol Nebulize 3 ml INHALATION RT-TID 06/27/24 06/27/24 [Duoneb 0.5 mg-3 mg/3 ml Soln] Losartan [Cozaar] 25 mg PO DAILY 06/27/24 06/27/24 Previous Rx's Medication Instructions Recorded Famotidine [Pepcid] 20 mg PO HS 90 Days #90 tab 06/03/24 Allergies Allergy/AdvReac Type Severity Reaction Status Date / Time Penicillins Allergy Rash/Hives Verified 06/27/24 11:22 Review of Systems ROS Statement: Those systems with pertinent positive or pertinent negative responses have been documented in the HPI. ROS Other: All systems not noted in ROS Statement are negative. Past Medical History Past Medical History: Heart Failure, COPD, Hyperlipidemia, Hypertension History of Any Multi-Drug Resistant Organisms: None Reported Past Surgical History: Unable to Obtain Additional Past Surgical History / Comment(s): Left Mastectomy 1995 Chemo and radiation, Left achilles tendon repair Past Anesthesia/Blood Transfusion Reactions: No Reported Reaction Past Psychological History: No Psychological Hx Reported Smoking Status: Former smoker Past Alcohol Use History: None Reported General Exam - General Exam Comments Initial Comments: PE: CONSTITUTIONAL: No apparent distress, somewhat ill-appearing, nontoxic SKIN: Warm, dry, no jaundice, hives or petechiae EYES: Pupils are equally round, extraocular movements intact without nystagmus, clear conjunctiva, non-icteric sclera HENT: Normocephalic atraumatic, dry mucous membranes NECK: , Full range of motion, normal appearance PULMONARY: Clear to auscultation without wheezes, rhonchi, or rales, normal excursion, no accessory muscle use and no stridor CARDIOVASCULAR: Regular rate, rhythm, normal S1 and S2. No appreciated murmurs, rubs or gallops. Strong radial pulses with intact distal perfusion. No lower extremity edema GASTROINTESTINAL: Soft, active bowel sounds throughout, non-tender, non- distended, no palpable masses, no rebound or guarding. No hepatosplenomegaly GENITOURINARY: MUSCULOSKELETAL: Extremities have no gross deformity, no edema, redness, or swelling. No calf swelling NEUROLOGIC:_a/o x 3, GCS 15, normal mentation and speech. Moves all extremities x 4 without motor or sensory deficit PSYCHIATRIC:_normal mood and affect, thought process is clear and linear Course Vital Signs 06/27/24 06/27/24 06/27/24 00:19 01:20 02:15 Temperature 98.1 F Pulse Rate 71 73 77 Respiratory 16 18 Rate Blood Pressure 90/54 95/58 98/72 O2 Sat by Pulse 95 95 98 Oximetry 06/27/24 06/27/24 06/27/24 04:00 05:06 06:56 Temperature 98.2 F Pulse Rate 84 79 Respiratory 20 Rate Blood Pressure 106/73 101/66 103/73 O2 Sat by Pulse 98 99 Oximetry 06/27/24 06/27/24 06/27/24 08:00 10:00 11:06 Temperature Pulse Rate 78 79 Respiratory 18 18 Rate Blood Pressure 101/64 121/72 O2 Sat by Pulse 97 100 100 Oximetry 06/27/24 06/27/24 06/27/24 14:00 16:00 16:55 Temperature Pulse Rate 83 82 82 Respiratory 18 18 18 Rate Blood Pressure 102/78 105/72 105/72 O2 Sat by Pulse 95 97 96 Oximetry Medical Decision Making - Medical Decision Making Was pt. sent in by a medical professional or institution (, PA, SITE SUPERINTENDENT, urgent care, hospital, or group home...) When possible be specific @ -Patient was transferred for [facility] Did you speak to anyone other than the patient for history (EMS, parent, family, police, friend...)? What history was obtained from this source @ -No Did you review nursing and triage notes (agree or disagree)? Why? @ -I reviewed nursing and triage notes Were old charts reviewed (outside hosp., previous admission, EMS record, old EKG, old radiological studies, urgent care reports/EKG's, group home records)? Report findings @ -Medical records reviewed-medical records from recent admission in May 2024, patient's creatinine at that time was 0.62. Additionally reviewed medical records from transferring facility, that states patient has present had presented for generalized weakness, 7 days nausea and vomiting clear liquid. On review of labs from transferring facility were significant for hemoglobin of 11.7, creatinine 2.24, BUN 37, lactic of 1.5, CT abdomen pelvis report reviewed, impression showed "mild changes of acute diverticulitis involving the mid and distal sigmoid colon" no free intraperitoneal peritoneal air or fluid, no abscess, patient was given 4 L total of normal saline since 3 PM this afternoon, she was monitored closely with ultrasound that showed a persistently collapsible IVC, of note patient also does have dilated cardiomyopathy with EF of 15 to 30%, was transferred here for admission. Differential Diagnosis (chest pain, altered mental status, abdominal pain women, abdominal pain men, vaginal bleeding, weakness, fever, dyspnea, syncope, headache, dizziness, GI bleed, back pain, seizure, CVA, palpatations, mental health, musculoskeletal)? @Differential Abdominal Pain Women: Appendicitis, Cholecystitis, diverticulosis, ischemic bowel, pancreatitis, hepatitis, UTI, gastroenteritis, AAA, incarcerated hernia, bowel obstruction, constipation, inflammatory bowel, hepatitis, peptic ulcer disease, splenic infarction, perforated viscus, vulvitis, ovarian torsion, PID, kidney stone, placenta abruption, this is not meant to be an all-inclusive list. Of note as imaging has already been obtained, and symptoms have not worsened since transfer I do not feel further imaging is indicated at this point EKG interpreted by me (3pts min.). @ -As above X-rays interpreted by me (1pt min.). @ -None done CT interpreted by me (1pt min.). @ -None done U/S interpreted by me (1pt. min.). @ -None done What testing was considered but not performed or refused? (CT, X-rays, U/S, labs)? Why? @ -None What meds were considered but not given or refused? Why? @ -None Did you discuss the management of the patient with other professionals (professionals i.e. Dr., PA, SITE SUPERINTENDENT, lab, RT, psych nurse, social work administrator, research associate molecular biology, teacher, principal gifts officer, director case)? Give summary @ -No Was smoking cessation discussed for >3mins.? @ -No Was critical care preformed (if so, how long)? @ -Yes, 35 minutes Were there social determinants of health that impacted care today? How? (Homelessness, low income, unemployed, alcoholism, drug addiction, transportation, low edu. Level, literacy, decrease access to med. care, halfway, rehab)? @ -No Was there de-escalation of care discussed even if they declined (Discuss DNR or withdrawal of care, Hospice)? @ -No What co-morbidities impacted this encounter? (DM, HTN, Smoking, COPD, CAD, Cancer, CVA, ARF, Chemo, Hep., AIDS, mental health diagnosis, sleep apnea, morbid obesity)? @ -COPD, CHF, hypertension Was patient admitted / discharged? Hospital course, mention meds given and route, prescriptions, significant lab abnormalities, going to OR and other pertinent info. Admission-this is a 63-year-old female past medical history as noted above presenting as a transfer from [facility] due to nausea, vomiting and resultant dehydration as well as diverticulitis. Blood pressure on arrival 90/54, otherwise vital signs stable on my assessment, patient is somewhat ill- appearing though nontoxic. Mucous membranes are quite dry, abdominal exam is overall benign. Given that patient appears persistently volume depleted,she will receive additional IV fluids, including 1 L normal saline and maintenance was at 75 cc an hour in addition to Zofran, Rocephin and Flagyl, will obtain repeat basic labs as well and admit for further treatment. Patient agreeable with plan of care. Labs are significant for creatinine of 1.54 which is improved from creatinine measured at transferring facility.Hemoglobin is 8.8 however I suspect this is delusional due to the large volume of IV fluids patient has received. Patient's blood pressure did stabilize with fluid administration. Patient case was discussed with Dr. Lezama who kindly accepted patient for admission. Patient admit murali in stable condition. Undiagnosed new problem with uncertain prognosis? @ -No Drug Therapy requiring intensive monitoring for toxicity (Heparin, Nitro, Insulin, Cardizem)? @ -No Were any procedures done? @ -No Diagnosis/symptom? @Diverticulitis, YONATAN, dehydration Acute, or Chronic, or Acute on Chronic? @Acute Uncomplicated (without systemic symptoms) or Complicated (systemic symptoms)? @Complicated Side effects of treatment? @ -No Exacerbation, Progression, or Severe Exacerbation? @ -No Poses a threat to life or bodily function? How? (Chest pain, [place], [place], pneumonia, PE, COPD, DKA, ARF, appy, cholecystitis, CVA, Diverticulitis, Homicidal, Suicidal, threat to staff... and all critical care pts) @Yes, if left untreated could lead to hypovolemic and septic shock - Lab Data Result diagrams: 07/01/24 14:14 07/01/24 14:14 Lab Results 06/27/24 06/27/24 06/27/24 Range/Units 01:07 01:07 06:55 WBC 5.71 (4.50-10.00) 10*3/uL RBC 2.74 L (4.10-5.20) 10*6/uL Hgb 8.8 L (12.0-15.0) g/dL Hct 27.3 L (37.2-46.3) % MCV 99.6 H (80.0-97.0) fL MCH 32.1 H (27.0-32.0) pg MCHC 32.2 (32.0-37.0) g/dL RDW (11.5-14.5) % Plt Count 311 (140-440) 10*3/uL MPV 9.2 L (9.5-12.2) fL Immature Gran % (Auto) 0.2 % Absolute Nucleated RBC % Neutrophils % 48.6 % Lymphocytes % 22.1 % Monocytes % 14.4 % Eosinophils % 13.8 % Basophils % 0.9 % Immature Gran # 0.01 (0.00-0.04) 10*3/uL Neutrophils # 2.78 (1.80-7.70) 10*3/uL Lymphocytes # 1.26 (0.90-5.00) 10*3/uL Monocytes # 0.82 (0.20-1.00) 10*3/uL Eosinophils # 0.79 H (0.04-0.35) 10*3/uL Basophils # 0.05 (0.00-0.10) 10*3/uL NRBC/100 WBC Diff (0.00-0.01) X 10*3/uL Sodium 132 L (137-145) mmol/L Potassium 3.8 (3.5-5.1) mmol/L Chloride 101 (98-107) mmol/L Carbon Dioxide 22 (22-30) mmol/L Anion Gap 9 mmol/L BUN 32 H (7-17) mg/dL Creatinine 1.54 H (0.52-1.04) mg/dL Est GFR (CKD-EPI) (>=60) Est GFR (CKD-EPI)AfAm 41 (>60 ml/min/1.73 sqM) Est GFR (CKD-EPI)NonAf 35 (>60 ml/min/1.73 sqM) BUN/Creatinine Ratio (12.00-20.00) Ratio Glucose 76 (74-99) mg/dL Calcium 8.2 L (8.4-10.2) mg/dL Total Bilirubin 0.4 (0.2-1.3) mg/dL AST 32 (14-36) U/L ALT 10 (4-34) U/L Alkaline Phosphatase 95 (38-126) U/L Total Protein 5.2 L (6.3-8.2) g/dL Albumin 2.3 L (3.5-5.0) g/dL Globulin (1.6-3.3) g/dL Albumin/Globulin Ratio (1.60-3.17) Ratio Urine Color Yellow Urine Appearance Cloudy H (Clear) Urine pH 5.0 (5.0-8.0) Ur Specific [place] 1.016 (1.001-1.035) Urine Protein Trace H (Negative) Urine Glucose (UA) Negative (Negative) Urine Ketones 1+ H (Negative) Urine Blood Negative (Negative) Urine Nitrite Negative (Negative) Urine Bilirubin Negative (Negative) Urine Urobilinogen <2.0 (<2.0) mg/dL Ur Leukocyte Esterase Moderate H (Negative) Urine RBC 3 (0-5) /hpf Urine WBC 4 (0-5) /hpf Ur Squamous Epith Cells 3 (0-4) /hpf Urine Bacteria Rare H (None) /hpf Hyaline Casts 28 H (0-2) /lpf Urine Mucus Rare H (None) /hpf Urine Yeast (Budding) Rare H (None) /hpf C. difficile (EIA) Intrp (Negative) 06/27/24 06/28/24 06/28/24 Range/Units 07:44 02:59 02:59 WBC 5.34 (4.50-10.00) 10*3/uL RBC 2.83 L (4.10-5.20) 10*6/uL Hgb 8.9 L (12.0-15.0) g/dL Hct 28.6 L (37.2-46.3) % MCV 101.1 H (80.0-97.0) fL MCH 31.4 (27.0-32.0) pg MCHC 31.1 L (32.0-37.0) g/dL RDW 12.6 (11.5-14.5) % Plt Count 294 (140-440) 10*3/uL MPV 9.5 (9.5-12.2) fL Immature Gran % (Auto) 0.20 % Absolute Nucleated RBC 0 % Neutrophils % 48.4 % Lymphocytes % 21.2 % Monocytes % 16.9 % Eosinophils % 12.4 % Basophils % 0.9 % Immature Gran # 0.01 (0.00-0.04) 10*3/uL Neutrophils # 2.59 (1.80-7.70) 10*3/uL Lymphocytes # 1.13 (0.90-5.00) 10*3/uL Monocytes # 0.90 (0.20-1.00) 10*3/uL Eosinophils # 0.66 H (0.04-0.35) 10*3/uL Basophils # 0.05 (0.00-0.10) 10*3/uL NRBC/100 WBC Diff 0 (0.00-0.01) X 10*3/uL Sodium 136 L 137 (137-145) mmol/L Potassium 4.1 3.8 (3.5-5.1) mmol/L Chloride 108 H 108 (98-107) mmol/L Carbon Dioxide 21 L 20.6 L (22-30) mmol/L Anion Gap 7 8.40 mmol/L BUN 29 H 20.8 (7-17) mg/dL Creatinine 1.25 H 0.9 (0.52-1.04) mg/dL Est GFR (CKD-EPI) 71 (>=60) Est GFR (CKD-EPI)AfAm 52 (>60 ml/min/1.73 sqM) Est GFR (CKD-EPI)NonAf 45 (>60 ml/min/1.73 sqM) BUN/Creatinine Ratio 23.11 H (12.00-20.00) Ratio Glucose 72 L 67 L (74-99) mg/dL Calcium 8.0 L 8.0 L (8.4-10.2) mg/dL Total Bilirubin 0.2 L (0.2-1.3) mg/dL AST 27 (14-36) U/L ALT 8 (4-34) U/L Alkaline Phosphatase 87 (38-126) U/L Total Protein 4.7 L (6.3-8.2) g/dL Albumin 2.3 L (3.5-5.0) g/dL Globulin 2.4 (1.6-3.3) g/dL Albumin/Globulin Ratio 0.96 L (1.60-3.17) Ratio Urine Color Urine Appearance (Clear) Urine pH (5.0-8.0) Ur Specific [place] (1.001-1.035) Urine Protein (Negative) Urine Glucose (UA) (Negative) Urine Ketones (Negative) Urine Blood (Negative) Urine Nitrite (Negative) Urine Bilirubin (Negative) Urine Urobilinogen (<2.0) mg/dL Ur Leukocyte Esterase (Negative) Urine RBC (0-5) /hpf Urine WBC (0-5) /hpf Ur Squamous Epith Cells (0-4) /hpf Urine Bacteria (None) /hpf Hyaline Casts (0-2) /lpf Urine Mucus (None) /hpf Urine Yeast (Budding) (None) /hpf C. difficile (EIA) Intrp (Negative) 06/28/24 Range/Units 09:00 WBC (4.50-10.00) 10*3/uL RBC (4.10-5.20) 10*6/uL Hgb (12.0-15.0) g/dL Hct (37.2-46.3) % MCV (80.0-97.0) fL MCH (27.0-32.0) pg MCHC (32.0-37.0) g/dL RDW (11.5-14.5) % Plt Count (140-440) 10*3/uL MPV (9.5-12.2) fL Immature Gran % (Auto) % Absolute Nucleated RBC % Neutrophils % % Lymphocytes % % Monocytes % % Eosinophils % % Basophils % % Immature Gran # (0.00-0.04) 10*3/uL Neutrophils # (1.80-7.70) 10*3/uL Lymphocytes # (0.90-5.00) 10*3/uL Monocytes # (0.20-1.00) 10*3/uL Eosinophils # (0.04-0.35) 10*3/uL Basophils # (0.00-0.10) 10*3/uL NRBC/100 WBC Diff (0.00-0.01) X 10*3/uL Sodium (137-145) mmol/L Potassium (3.5-5.1) mmol/L Chloride (98-107) mmol/L Carbon Dioxide (22-30) mmol/L Anion Gap mmol/L BUN (7-17) mg/dL Creatinine (0.52-1.04) mg/dL Est GFR (CKD-EPI) (>=60) Est GFR (CKD-EPI)AfAm (>60 ml/min/1.73 sqM) Est GFR (CKD-EPI)NonAf (>60 ml/min/1.73 sqM) BUN/Creatinine Ratio (12.00-20.00) Ratio Glucose (74-99) mg/dL Calcium (8.4-10.2) mg/dL Total Bilirubin (0.2-1.3) mg/dL AST (14-36) U/L ALT (4-34) U/L Alkaline Phosphatase (38-126) U/L Total Protein (6.3-8.2) g/dL Albumin (3.5-5.0) g/dL Globulin (1.6-3.3) g/dL Albumin/Globulin Ratio (1.60-3.17) Ratio Urine Color Urine Appearance (Clear) Urine pH (5.0-8.0) Ur Specific [place] (1.001-1.035) Urine Protein (Negative) Urine Glucose (UA) (Negative) Urine Ketones (Negative) Urine Blood (Negative) Urine Nitrite (Negative) Urine Bilirubin (Negative) Urine Urobilinogen (<2.0) mg/dL Ur Leukocyte Esterase (Negative) Urine RBC (0-5) /hpf Urine WBC (0-5) /hpf Ur Squamous Epith Cells (0-4) /hpf Urine Bacteria (None) /hpf Hyaline Casts (0-2) /lpf Urine Mucus (None) /hpf Urine Yeast (Budding) (None) /hpf C. difficile (EIA) Intrp Negative (Negative) Disposition Clinical Impression: Dehydration, Diverticulitis, YONATAN (acute kidney injury) Disposition: ADMITTED IP TO THIS [facility] Condition: Stable
[2024-06-27] MEDS: SODIUM CHLORIDE 0.9% 500 ML 500 ML IV ONE (01:00)
[2024-06-27 01:18] LABS: Basophils # (A) 0.05 10*3/uL (0.00-0.10); Basophils % (A) 0.9 %; Eosinophils # (A) 0.79 10*3/uL (0.04-0.35); Eosinophils % (A) 13.8 %; HCT 27.3 % (37.2-46.3); HGB 8.8 g/dL (12.0-15.0); Lymphocytes # (A) 1.26 10*3/uL (0.90-5.00); Lymphocytes % (A) 22.1 %; MCH 32.1 pg (27.0-32.0); MCHC 32.2 g/dL (32.0-37.0); MCV 99.6 fL (80.0-97.0); Mean Platelet Volume 9.2 fL (9.5-12.2); Monocytes # (A) 0.82 10*3/uL (0.20-1.00); Monocytes % (A) 14.4 %; Neutrophils # (A) 2.78 10*3/uL (1.80-7.70); Neutrophils % (A) 48.6 %; Platelet Count 311 10*3/uL (140-440); RBC 2.74 10*6/uL (4.10-5.20); RDW 12.5 % (11.5-14.5); WBC 5.71 10*3/uL (4.50-10.00)
[2024-06-27 01:52] LABS: ALT 10 U/L (4-34); AST 32 U/L (14-36); African American GFR (CKD) 41 (>60 ml/min/1.73 sqM); Albumin 2.3 g/dL (3.5-5.0); Alkaline Phosphatase 95 U/L (38-126); Anion Gap 9 mmol/L; Blood Urea Nitrogen 32 mg/dL (7-17); Calcium 8.2 mg/dL (8.4-10.2); Carbon Dioxide 22 mmol/L (22-30); Chloride 101 mmol/L (98-107); Glucose 76 mg/dL (74-99); Non-African American GFR(CKD) 35 (>60 ml/min/1.73 sqM); Potassium 3.8 mmol/L (3.5-5.1); Sodium 132 mmol/L (137-145); Total Bilirubin 0.4 mg/dL (0.2-1.3); Total Protein 5.2 g/dL (6.3-8.2)
[2024-06-27] MEDS: SODIUM CHLORIDE 0.9% 1,000 ML IV SCH (02:06)
[2024-06-27] MEDS: ONDANSETRON 4 MG/2 ML VIAL IVP STA (02:28)
[2024-06-27] MEDS: cefTRIAXone IN SWFI 1,000 MG/10 ML SYRINGE IVP STA (02:33)
[2024-06-27] MEDS: metroNIDAZOLE-NS PMX 500 MG in SALINE 1 100ML.BAG IVPB STA (02:39)
[2024-06-27] MEDS: SODIUM CHLORIDE 0.9% 1,000 ML IV ONE (02:55)
[2024-06-27] MEDS ORDERED: HYDROmorphone 1 MG/ML 1 ML SYRINGE IVP PRN (03:04)
[2024-06-27] MEDS ORDERED: NALOXONE 0.4 MG/ML 1 ML VIAL IV PRN (03:04)
[2024-06-27] MEDS ORDERED: ACETAMINOPHEN TAB 325 MG TAB PO PRN (03:04)
[2024-06-27] MEDS ORDERED: HYDROmorphone 0.5 MG/0.5 ML SYRINGE IVP PRN (03:04)
[2024-06-27 07:21] LABS: Appearance,Urine Cloudy (Clear); Bacteria,Urine Rare /hpf; Bilirubin,Urine Negative (Negative); Blood,Urine Negative (Negative); Budding Yeast,Urine Rare /hpf; Color,Urine Yellow; Glucose,Urine (UA) Negative (Negative); Hyaline Casts,Urine 28 /lpf (0-2); Ketones,Urine 1+ (Negative); Leukocyte Esterase,Urine Moderate (Negative); Mucus,Urine Rare /hpf; Nitrite,Urine Negative (Negative); Protein,Urine Trace (Negative); RBC,Urine 3 /hpf (0-5); Specific Gravity,Urine 1.016 (1.001-1.035); Squamous Epithelial Cell,Urine 3 /hpf (0-4); Urobilinogen,Urine <2.0 mg/dL (<2.0); WBC,Urine 4 /hpf (0-5)
[2024-06-27 08:39] LABS: African American GFR (CKD) 52 (>60 ml/min/1.73 sqM); Anion Gap 7 mmol/L; Blood Urea Nitrogen 29 mg/dL (7-17); Carbon Dioxide 21 mmol/L (22-30); Chloride 108 mmol/L (98-107); Glucose 72 mg/dL (74-99); Non-African American GFR(CKD) 45 (>60 ml/min/1.73 sqM); Potassium 4.1 mmol/L (3.5-5.1); Sodium 136 mmol/L (137-145)
[2024-06-27] MEDS: PANTOPRAZOLE 40 MG/10 ML VIAL IV SCH (09:30)
--- NOTE | 2024-06-27 10:34 | P.HPIM ---
History of Present Illness H&P Date: 06/27/24 Chief Complaint: Abdominal pain 63-year-old female who presented with 1 week history of nausea intermittent with clear fluid vomiting, and generalized weakness lightheadedness, patient has been very weak however denies any fever night sweats, chronic any hematemesis or mopped Faye, patient on arrival was hypotensive received 4 L of crystalloid blood pressure was improved patient admitted into the hospital. Labs include hemoglobin hematocrit of 8.8/27, platelet 103 and 11, chemistry significant for mild hyponatremia sodium 132, BUN/creatinine 32/1.54 improved to 29/1.25, LFT fairly within normal limit. Urine analysis moderate leukocyte esterase few WBC RBC. Today's exam sodium improved to 136, CT at transferring facility positive for diverticulitis patient currently being treated with pain medicine has received a dose of Rocephin and Flagyl will recommend to continue Prior medical history significant for depression, adrenal insufficiency, peptic ulcer disease, hypertension hypertensive cardiovascular disease, heart failure history of breast cancer in the remote past, history of left Achilles tendon repair patient used to smoke quit several years ago Review of Systems All systems: negative Past Medical History Past Medical History: Heart Failure, COPD, Hyperlipidemia, Hypertension History of Any Multi-Drug Resistant Organisms: None Reported Past Surgical History: Unable to Obtain Additional Past Surgical History / Comment(s): Left Mastectomy 1994 Chemo and radiation, Left achilles tendon repair Past Anesthesia/Blood Transfusion Reactions: No Reported Reaction Past Psychological History: No Psychological Hx Reported Smoking Status: Former smoker Past Alcohol Use History: None Reported Medications and Allergies Home Medications Medication Instructions Recorded Confirmed Type Aspirin EC [Ecotrin Low Dose] 81 mg PO DAILY 04/16/24 05/28/24 History FLUoxetine HCL 40 mg PO DAILY 04/16/24 05/28/24 History Magnesium Oxide [Magox 400] 400 mg PO DAILY 04/16/24 05/28/24 History carvediloL [Coreg] 3.125 mg PO BID 04/16/24 05/28/24 History Folic Acid 1 mg PO DAILY #30 tab 04/22/24 05/28/24 Rx Hydrocortisone [Cortef] 5 mg PO BID #30 tab 04/22/24 05/28/24 Rx Famotidine [Pepcid] 20 mg PO HS 90 Days #90 tab 06/03/24 Rx cefuroxime axetiL [Ceftin] 500 mg PO BID #14 tab 06/04/24 Rx lisinopriL [Zestril] 2.5 mg PO DAILY 90 Days #90 tab 06/04/24 Rx Allergies Allergy/AdvReac Type Severity Reaction Status Date / Time Penicillins Allergy Rash/Hives Verified 06/27/24 00:33 Physical Exam Vitals: Vital Signs Temp Pulse Resp BP Pulse Ox 06/27/24 06:56 98.2 F 79 20 103/73 99 06/27/24 05:06 84 101/66 98 06/27/24 04:00 106/73 06/27/24 02:15 77 18 98/72 98 06/27/24 01:20 73 95/58 95 06/27/24 00:19 98.1 F 71 16 90/54 95 Intake and Output 06/26/24 06/27/24 06/27/24 22:59 06:59 14:59 Other: Weight 80.739 kg - Constitutional General appearance: average body habitus, disheveled - EENT Eyes: EOMI, PERRLA ENT: normal oropharynx Ears: bilateral: normal - Neck Neck: normal ROM Carotids: bilateral: upstroke normal Thyroid: bilateral: normal size - Respiratory Respiratory: bilateral: CTA - Cardiovascular Rhythm: regular Heart sounds: normal: S1, S2 - Gastrointestinal General gastrointestinal: decreased bowel sounds - Integumentary Integumentary: normal turgor - Neurologic Neurologic: CNII-XII intact - Musculoskeletal Musculoskeletal: gait normal, generalized weakness, strength equal bilaterally - Psychiatric Psychiatric: A&O x's 3, appropriate affect, intact judgment & insight Results CBC & Chem 7: 06/27/24 01:07 06/27/24 07:44 Labs: Abnormal Lab Results - Last 24 Hours (Table) 06/27/24 06/27/24 06/27/24 Range/Units 01:07 01:07 06:55 RBC 2.74 L (4.10-5.20) 10*6/uL Hgb 8.8 L (12.0-15.0) g/dL Hct 27.3 L (37.2-46.3) % MCV 99.6 H (80.0-97.0) fL MCH 32.1 H (27.0-32.0) pg MPV 9.2 L (9.5-12.2) fL Eosinophils # 0.79 H (0.04-0.35) 10*3/uL Sodium 132 L (137-145) mmol/L Chloride (98-107) mmol/L Carbon Dioxide (22-30) mmol/L BUN 32 H (7-17) mg/dL Creatinine 1.54 H (0.52-1.04) mg/dL Glucose (74-99) mg/dL Calcium 8.2 L (8.4-10.2) mg/dL Total Protein 5.2 L (6.3-8.2) g/dL Albumin 2.3 L (3.5-5.0) g/dL Urine Appearance Cloudy H (Clear) Urine Protein Trace H (Negative) Urine Ketones 1+ H (Negative) Ur Leukocyte Esterase Moderate H (Negative) Urine Bacteria Rare H (None) /hpf Hyaline Casts 28 H (0-2) /lpf Urine Mucus Rare H (None) /hpf Urine Yeast (Budding) Rare H (None) /hpf 06/27/24 Range/Units 07:44 RBC (4.10-5.20) 10*6/uL Hgb (12.0-15.0) g/dL Hct (37.2-46.3) % MCV (80.0-97.0) fL MCH (27.0-32.0) pg MPV (9.5-12.2) fL Eosinophils # (0.04-0.35) 10*3/uL Sodium 136 L (137-145) mmol/L Chloride 108 H (98-107) mmol/L Carbon Dioxide 21 L (22-30) mmol/L BUN 29 H (7-17) mg/dL Creatinine 1.25 H (0.52-1.04) mg/dL Glucose 72 L (74-99) mg/dL Calcium 8.0 L (8.4-10.2) mg/dL Total Protein (6.3-8.2) g/dL Albumin (3.5-5.0) g/dL Urine Appearance (Clear) Urine Protein (Negative) Urine Ketones (Negative) Ur Leukocyte Esterase (Negative) Urine Bacteria (None) /hpf Hyaline Casts (0-2) /lpf Urine Mucus (None) /hpf Urine Yeast (Budding) (None) /hpf Assessment and Plan Assessment: Acute diverticulitis Acute kidney injury Severe dehydration and volume depletion Electrolyte imbalance with hyponatremia COPD Hypertension hypertensive cardiovascular disease Dyslipidemia Chronic hypoxic respiratory failure on 3 L nasal cannula Plan: Continue broad-spectrum antibiotics with Rocephin and Flagyl Monitor labs including chemistry daily Symptomatic pain management and nausea management Continue gentle rehydration Continue supplemental oxygen Time with Patient: Greater than 30
[2024-06-27] MEDS: metroNIDAZOLE-NS PMX 500 MG in SALINE 1 100ML.BAG IVPB SCH (12:22)
--- NOTE | 2024-06-27 13:50 | P.NPCON ---
History of Present Illness - Reason for Consult Consult date: 06/27/24 - Chief Complaint Abdominal Pain - History of Present Illness 63-year-old female who presented with 1 week history of nausea intermittent with clear fluid vomiting, and generalized weakness lightheadedness, patient has been very weak. She was noted to be dehydrated and hypotensive upon presentation to ED> She denies any history of kidney disease or chronic NSAID use. Still having abdominal discomfort at this time. No other complaints. Patient is NAD, AAOx3 Examination of the heart S1 and S2 Examination of the lungs bilateral breath sounds are heard Abdomen is soft nontender Examination of lower extremities shows no evidence of edema Review of Systems Constitutional: Reports as per HPI Past Medical History Past Medical History: Heart Failure, COPD, Hyperlipidemia, Hypertension History of Any Multi-Drug Resistant Organisms: None Reported Past Surgical History: Unable to Obtain Additional Past Surgical History / Comment(s): Left Mastectomy 1995 Chemo and radiation, Left achilles tendon repair Past Anesthesia/Blood Transfusion Reactions: No Reported Reaction Past Psychological History: No Psychological Hx Reported Smoking Status: Former smoker Past Alcohol Use History: None Reported Medications and Allergies Home Medications Medication Instructions Recorded Confirmed Type Aspirin EC [Ecotrin Low Dose] 81 mg PO DAILY 04/16/24 06/27/24 History FLUoxetine HCL 40 mg PO DAILY 04/16/24 06/27/24 History Magnesium Oxide [Magox 400] 400 mg PO DAILY 04/16/24 06/27/24 History carvediloL [Coreg] 3.125 mg PO BID 04/16/24 06/27/24 History Famotidine [Pepcid] 20 mg PO HS 90 Days #90 tab 06/03/24 06/27/24 Rx Folate 1333 Mcg Dfe 1,333 mcg PO DAILY 06/27/24 06/27/24 History Ipratropium-Albuterol Nebulize 3 ml INHALATION RT-TID 06/27/24 06/27/24 History [Duoneb 0.5 mg-3 mg/3 ml Soln] Losartan [Cozaar] 25 mg PO DAILY 06/27/24 06/27/24 History Allergies Allergy/AdvReac Type Severity Reaction Status Date / Time Penicillins Allergy Rash/Hives Verified 06/27/24 11:22 Physical Exam Vitals: Vital Signs Temp Pulse Resp BP Pulse Ox 06/27/24 11:06 100 06/27/24 10:00 79 18 121/72 100 05/17/25 08:00 78 18 101/64 97 06/27/24 06:56 98.2 F 79 20 103/73 99 06/27/24 05:06 84 101/66 98 06/27/24 04:00 106/73 06/27/24 02:15 77 18 98/72 98 06/27/24 01:20 73 95/58 95 06/27/24 00:19 98.1 F 71 16 90/54 95 Intake and Output 06/26/24 06/27/24 06/27/24 22:59 06:59 14:59 Other: Weight 80.739 kg Results - Lab Results Most recent lab results Calcium 8.0 mg/dL (8.4-10.2) L 06/27/24 07:44 06/27/24 01:07 06/27/24 07:44 Assessment and Plan Assessment: 1. Non-oliguric YONATAN 2/2 volume depletion from vomiting. Baseline creatinine 0.6, presented 1.5 now improved to 1.2 with IVF. UA showed hyaline casts. 2. Hypovolemic hyponatremia- improving. 3. Diverticulitis 4. Hypertension Plan: Continue IVF Monitor strict I/O's Hold Losartan ABX per primary
[2024-06-27] MEDS: FAMOTIDINE 20 MG TAB PO SCH (20:33)
[2024-06-27] MEDS: carvediloL 3.125 MG TAB PO SCH (20:47)
[2024-06-27] MEDS: IPRATROPIUM-ALBUTEROL 3 ML NEB INHALATION SCH (22:21)
[2024-06-28] MEDS: LOSARTAN 25 MG TAB PO SCH (08:25)
[2024-06-28] MEDS: metroNIDAZOLE-NS PMX 500 MG in SALINE 1 100ML.BAG IVPB SCH (08:27)
[2024-06-28] MEDS: ASPIRIN 81 MG PO SCH (08:30)
[2024-06-28] MEDS: FOLIC ACID 1 MG TAB PO SCH (08:32)
[2024-06-28] MEDS: MAGNESIUM OXIDE 400 MG TAB PO SCH (08:32)
[2024-06-28] MEDS: FLUoxetine HCL 20 MG CAP PO SCH (08:32)
[2024-06-28 09:27] LABS: Basophils # (A) 0.05 X 10*3/uL (0.00-0.10); Basophils % (A) 0.9 %; Eosinophils # (A) 0.66 X 10*3/uL (0.04-0.35); Eosinophils % (A) 12.4 %; HCT 28.6 % (37.2-46.3); HGB 8.9 g/dL (12.0-15.0); Lymphocytes # (A) 1.13 X 10*3/uL (0.90-5.00); Lymphocytes % (A) 21.2 %; MCH 31.4 pg (27.0-32.0); MCHC 31.1 g/dL (32.0-37.0); MCV 101.1 FL (80.0-97.0); Mean Platelet Volume 9.5 FL (9.5-12.2); Monocytes % (A) 16.9 %; NRBC Per 100 WBC 0 X 10*3/uL (0.00-0.01); Neutrophils # (A) 2.59 X 10*3/uL (1.80-7.70); Neutrophils % (A) 48.4 %; Platelet Count 294 X 10*3/uL (140-440); RBC 2.83 X 10*6/uL (4.10-5.20); RDW 12.6 % (11.5-14.5); WBC 5.34 X 10*3/uL (4.50-10.00)
--- NOTE | 2024-06-28 09:29 | P.PN ---
Subjective Progress Note Date: 06/28/24 Principal diagnosis: Acute diverticulitis Acute kidney injury Severe dehydration and volume depletion Electrolyte imbalance with hyponatremia COPD Hypertension hypertensive cardiovascular disease Dyslipidemia Chronic hypoxic respiratory failure on 3 L nasal cannula June 28, 2024, patient seen eval examined during rounds labs reviewed medication patient remains on broad-spectrum antibiotics tolerating well, pain in the abdomen slightly improved, labs from today reviewed hemoglobin remained stable 8.9, sodium improved to 136 BUN/creatinine also improving, patient resumed on antihypertensive agents 63-year-old female who presented with 1 week history of nausea intermittent with clear fluid vomiting, and generalized weakness lightheadedness, patient has been very weak however denies any fever night sweats, chronic any hematemesis or mopped Faye, patient on arrival was hypotensive received 4 L of crystalloid blood pressure was improved patient admitted into the hospital. Labs include hemoglobin hematocrit of 8.8/27, platelet 103 and 11, chemistry significant for mild hyponatremia sodium 132, BUN/creatinine 32/1.54 improved to 29/1.25, LFT fairly within normal limit. Urine analysis moderate leukocyte esterase few WBC RBC. Today's exam sodium improved to 136, CT at transferring facility positive for diverticulitis patient currently being treated with pain medicine has received a dose of Rocephin and Flagyl will recommend to continue Prior medical history significant for depression, adrenal insufficiency, peptic ulcer disease, hypertension hypertensive cardiovascular disease, heart failure history of breast cancer in the remote past, history of left Achilles tendon repair patient used to smoke Objective - Vital Signs Vital signs: Vital Signs Temp 98.0 F 06/28/24 07:07 Pulse 90 06/28/24 07:07 Resp 17 06/28/24 07:07 BP 99/65 06/28/24 07:07 Pulse Ox 96 06/28/24 07:07 FiO2 Intake & Output 06/27/24 06/28/24 06/28/24 18:59 06:59 18:59 Output Total 1 Balance -1 Weight 80.739 kg Output: Stool 1 Other: Voiding Method Toilet Bedside Commode Bedpan # Voids 4 - Exam - Constitutional General appearance: average body habitus, disheveled - EENT Eyes: EOMI, PERRLA ENT: normal oropharynx Ears: bilateral: normal - Neck Neck: normal ROM Carotids: bilateral: upstroke normal Thyroid: bilateral: normal size - Respiratory Respiratory: bilateral: CTA - Cardiovascular Rhythm: regular Heart sounds: normal: S1, S2 - Gastrointestinal General gastrointestinal: decreased bowel sounds - Integumentary Integumentary: normal turgor - Neurologic Neurologic: CNII-XII intact - Musculoskeletal Musculoskeletal: gait normal, generalized weakness, strength equal bilaterally - Psychiatric Psychiatric: A&O x's 3, appropriate affect, intact judgment & insight - Labs CBC & Chem 7: 06/27/24 01:07 06/27/24 07:44 Assessment and Plan Assessment: Acute diverticulitis Acute kidney injury Severe dehydration and volume depletion Electrolyte imbalance with hyponatremia COPD Hypertension hypertensive cardiovascular disease Dyslipidemia Chronic hypoxic respiratory failure on 3 L nasal cannula Plan: Continue broad-spectrum antibiotics with Rocephin and Flagyl Monitor labs including chemistry daily Symptomatic pain management and nausea management Continue gentle rehydration Continue supplemental oxygen Time with Patient: Greater than 30
[2024-06-28 09:44] LABS: ALT 8 U/L (8-44); AST 27 U/L (13-35); Albumin 2.3 g/dL (3.8-4.9); Albumin/Globulin Ratio 0.96 Ratio (1.60-3.17); Alkaline Phosphatase 87 U/L (41-126); BUN/Creat Ratio 23.11 Ratio (12.00-20.00); Blood Urea Nitrogen 20.8 mg/dL (9.0-27.0); Carbon Dioxide 20.6 mmol/L (21.6-31.8); Chloride 108 mmol/L (96-109); Globulin 2.4 g/dL (1.6-3.3); Glucose 67 mg/dL (70-110); Potassium 3.8 mmol/L (3.5-5.5); Sodium 137 mmol/L (135-145); Total Bilirubin 0.2 mg/dL (0.3-1.2); Total Protein 4.7 g/dL (6.2-8.2)
--- NOTE | 2024-06-28 12:15 | P.PN ---
Subjective Progress Note Date: 06/28/24 Patient seen in follow-up for YONATAN. No new complaints. Difficulty with IV access per nursing. Patient is NAD, AAOx3 Examination of the heart S1 and S2 Examination of the lungs bilateral breath sounds are heard Abdomen is soft nontender Examination of lower extremities shows no evidence of edema Objective - Vital Signs Vital signs: Vital Signs Temp 98.0 F 06/28/24 07:07 Pulse 84 06/28/24 09:43 Resp 17 06/28/24 07:07 BP 99/65 06/28/24 07:07 Pulse Ox 96 06/28/24 07:07 FiO2 Intake & Output 06/27/24 06/28/24 06/28/24 18:59 06:59 18:59 Output Total 1 Balance -1 Weight 80.739 kg Output: Stool 1 Other: Voiding Method Toilet Bedside Commode Bedpan # Voids 4 - Labs CBC & Chem 7: 06/28/24 02:59 06/28/24 02:59 Labs: Abnormal Lab Results - Last 24 Hours (Table) 06/28/24 06/28/24 Range/Units 02:59 02:59 RBC 2.83 L (4.10-5.20) X 10*6/uL Hgb 8.9 L (12.0-15.0) g/dL Hct 28.6 L (37.2-46.3) % MCV 101.1 H (80.0-97.0) FL MCHC 31.1 L (32.0-37.0) g/dL Eosinophils # 0.66 H (0.04-0.35) X 10*3/uL Carbon Dioxide 20.6 L (21.6-31.8) mmol/L BUN/Creatinine Ratio 23.11 H (12.00-20.00) Ratio Glucose 67 L (70-110) mg/dL Calcium 8.0 L (8.7-10.3) mg/dL Total Bilirubin 0.2 L (0.3-1.2) mg/dL Total Protein 4.7 L (6.2-8.2) g/dL Albumin 2.3 L (3.8-4.9) g/dL Albumin/Globulin Ratio 0.96 L (1.60-3.17) Ratio Assessment and Plan Assessment: 1. Non-oliguric YONATAN 2/2 volume depletion from vomiting. Baseline creatinine 0.6, presented 1.5 now improved to 0.9 with IVF. UA showed hyaline casts. 2. Hypovolemic hyponatremia- Resolved with IVF 3. Diverticulitis 4. Hypertension Plan: Continue IVF, decrease rate 75 cc/hr Monitor strict I/O's Ok to resume Losartan ABX per primary Encourage PO intake when able
[2024-06-28] MEDS: SODIUM CHLORIDE 0.9% 500 ML 500 ML IV ONE (14:52)
--- NOTE | 2024-06-29 11:03 | P.PN ---
Subjective Patient is seen in follow-up for acute kidney injury. Creatinine 0.9 yesterday. Tolerating clear liquid diet. Vital signs are stable. General: No acute distress. HEENT: Head exam is unremarkable. LUNGS: No audible rhonchi or wheezes. HEART: Rate and Rhythm are regular. ABDOMEN: Nontender. EXTREMITITES: No edema. Objective - Vital Signs Vital signs: Vital Signs Temp 98.1 F 06/29/24 07:08 Pulse 84 06/29/24 09:50 Resp 16 06/29/24 07:08 BP 95/60 06/29/24 07:08 Pulse Ox 97 06/29/24 07:08 FiO2 Intake & Output 06/28/24 06/29/24 06/29/24 18:59 06:59 18:59 Other: Voiding Method Bedside Commode Bedside Commode Incontinent # Voids 3 4 - Labs CBC & Chem 7: 06/28/24 02:59 06/28/24 02:59 Assessment and Plan Plan: Assessment: 1. Acute kidney injury secondary to vasomotor nephropathy secondary to hypovolemia from vomiting. Resolved. 2. Hypovolemic hyponatremia improved with IV fluids. 3. Diverticulitis. On antibiotics. 4. Benign hypertension. Blood pressure on the lower end. 5. Metabolic acidosis secondary to IV fluids. Plan: Maintain IV fluids for now. Repeat labs in the morning. Avoid nephrotoxins. Hold losartan as blood pressure is low.
[2024-06-30 08:54] LABS: BUN/Creat Ratio 12.33 Ratio (12.00-20.00); Blood Urea Nitrogen 11.1 mg/dL (9.0-27.0); Chloride 110 mmol/L (96-109); Glucose 67 mg/dL (70-110); Magnesium 1.5 mg/dL (1.5-2.4); Potassium 3.8 mmol/L (3.5-5.5); Sodium 138 mmol/L (135-145)
[2024-06-30] MEDS: SODIUM CHLORIDE 0.9% 1,000 ML IV ONE (09:18)
[2024-06-30] MEDS: SODIUM CHLORIDE 0.9% 1,000 ML IV SCH (10:13)
--- NOTE | 2024-06-30 10:21 | P.PN ---
Subjective Patient is seen in follow-up for acute kidney injury. Renal function at baseline. Tolerating soft diet. No abdominal pain or diarrhea. Vital signs are stable. General: No acute distress. HEENT: Head exam is unremarkable. LUNGS: No audible rhonchi or wheezes. HEART: Rate and Rhythm are regular. ABDOMEN: Nontender. EXTREMITITES: No edema. Objective - Vital Signs Vital signs: Vital Signs Temp 98.2 F 06/30/24 07:00 Pulse 95 06/30/24 07:00 Resp 18 06/30/24 07:00 BP 83/55 06/30/24 09:19 Pulse Ox 96 06/30/24 07:00 FiO2 Intake & Output 06/29/24 06/30/24 06/30/24 18:59 06:59 18:59 Intake Total 677 Balance 677 Intake: Oral 677 Other: Voiding Method Bedside Commode Incontinent # Voids 1 3 1 # Bowel Movements 1 1 - Labs CBC & Chem 7: 06/28/24 02:59 06/30/24 03:10 Labs: Abnormal Lab Results - Last 24 Hours (Table) 06/30/24 Range/Units 03:10 Chloride 110 H (96-109) mmol/L Carbon Dioxide 20.0 L (21.6-31.8) mmol/L Glucose 67 L (70-110) mg/dL Calcium 8.0 L (8.7-10.3) mg/dL Assessment and Plan Plan: Assessment: 1. Acute kidney injury secondary to vasomotor nephropathy secondary to hypovolemia from vomiting. Resolved. 2. Hypovolemic hyponatremia improved with IV fluids. 3. Diverticulitis. On antibiotics. 4. Benign hypertension. Blood pressure on the lower end. 5. Metabolic acidosis secondary to IV fluids. Plan: Maintain IV fluids for now. Received a fluid bolus due to hypotension. Add midodrine. Check a.m. cortisol level. Add p.o. bicarb. Avoid nephrotoxins. Continue to hold antihypertensives as blood pressure is low.
[2024-06-30] MEDS: SODIUM BICARBONATE TAB 650 MG TAB PO SCH (10:34)
[2024-06-30] MEDS: ONDANSETRON 4 MG/2 ML VIAL IVP PRN (13:56)
[2024-06-30] MEDS: MIDODRINE 5 MG TAB PO SCH (13:56)
[2024-07-01 03:43] LABS: African American GFR (CKD) 81 (>60 ml/min/1.73 sqM); Anion Gap 9 mmol/L; Blood Urea Nitrogen 9 mg/dL (7-17); Calcium 8.1 mg/dL (8.4-10.2); Carbon Dioxide 18 mmol/L (22-30); Chloride 110 mmol/L (98-107); Magnesium 1.4 mg/dL (1.6-2.3); Non-African American GFR(CKD) 70 (>60 ml/min/1.73 sqM); Potassium 3.4 mmol/L (3.5-5.1); Sodium 137 mmol/L (137-145)
[2024-07-01 03:57] LABS: Glucose 47 mg/dL (74-99)
[2024-07-01 04:00] LABS: Glucose,Whole Blood 50 mg/dL (70-110)
[2024-07-01 04:25] LABS: Glucose,Whole Blood 54 mg/dL (70-110)
[2024-07-01 05:01] LABS: Glucose,Whole Blood 77 mg/dL (70-110)
[2024-07-01 06:23] LABS: Glucose,Whole Blood 97 mg/dL (70-110)
[2024-07-01] MEDS: DEXTROSE 5% IN WATER 1,000 ML IV SCH (08:52)
[2024-07-01] MEDS: HYDROcodone/APAP 5-325MG 1 EACH TAB PO PRN (10:07)
--- NOTE | 2024-07-01 11:30 | P.PN ---
Subjective Patient is seen in follow-up for acute kidney injury. Renal function at baseline. Again had episode of vomiting and diarrhea. Receiving IV fluids. Vital signs are stable. General: No acute distress. HEENT: Head exam is unremarkable. LUNGS: No audible rhonchi or wheezes. HEART: Rate and Rhythm are regular. ABDOMEN: Nontender. EXTREMITITES: No edema. Objective - Vital Signs Vital signs: Vital Signs Temp 98.3 F 07/01/24 07:21 Pulse 64 07/01/24 09:45 Resp 17 07/01/24 07:21 BP 92/62 07/01/24 07:21 Pulse Ox 92 L 07/01/24 09:34 FiO2 Intake & Output 06/30/24 07/01/24 07/01/24 18:59 06:59 18:59 Intake Total 500 Output Total 150 Balance 500 -150 Intake: Oral 500 Output: Emesis 150 Other: Voiding Method Bedside Commode Bedside Commode Incontinent Incontinent # Voids 1 3 # Bowel Movements 1 - Labs CBC & Chem 7: 06/28/24 02:59 07/01/24 03:09 Labs: Abnormal Lab Results - Last 24 Hours (Table) 07/01/24 07/01/24 07/01/24 Range/Units 03:09 03:59 04:23 Potassium 3.4 L (3.5-5.1) mmol/L Chloride 110 H (98-107) mmol/L Carbon Dioxide 18 L (22-30) mmol/L Glucose 47 L* (74-99) mg/dL POC Glucose (mg/dL) 50 L 54 L (70-110) mg/dL Calcium 8.1 L (8.4-10.2) mg/dL Magnesium 1.4 L (1.6-2.3) mg/dL Cortisol (3.1-22.4) UG/DL 07/01/24 Range/Units 05:53 Potassium (3.5-5.1) mmol/L Chloride (98-107) mmol/L Carbon Dioxide (22-30) mmol/L Glucose (74-99) mg/dL POC Glucose (mg/dL) (70-110) mg/dL Calcium (8.4-10.2) mg/dL Magnesium (1.6-2.3) mg/dL Cortisol <1.5 L (3.1-22.4) UG/DL Assessment and Plan Plan: Assessment: 1. Acute kidney injury secondary to vasomotor nephropathy secondary to hypovolemia from vomiting. Resolved. 2. Hypovolemic hyponatremia improved with IV fluids. 3. Diverticulitis. On antibiotics. 4. Benign hypertension. Blood pressure on the lower end. 5. Metabolic acidosis secondary to IV fluids and GI losses. On oral bicarb. 6. Hypokalemia from poor intake and renal losses. 7. Hypomagnesemia from GI losses. Plan: Currently on D5W due to low blood sugars. Change fluids to D5.9 saline. Maintain midodrine. A.m. cortisol level low. Check cosyntropin stimulation test. Replace potassium and magnesium. Avoid nephrotoxins. Continue to hold antihypertensives as blood pressure is low.
[2024-07-01] MEDS: MAGNESIUM SULFATE-D5W PMX 1 GM in DEXTROSE/WATER 1 100ML.BAG IVPB SCH (11:35)
[2024-07-01] MEDS: POTASSIUM CHLORIDE ER 20 MEQ TAB.ER PO STA (11:35)
[2024-07-01] MEDS: DEXTROSE 5%-0.9% NACL 1,000 ML IV SCH (11:36)
[2024-07-01] MEDS: COSYNTROPIN 0.25 MG VIAL IVP ONE (11:52)
[2024-07-01 11:59] LABS: Glucose,Whole Blood 79 mg/dL (70-110)
[2024-07-01 14:31] LABS: Basophils # (A) 0.05 10*3/uL (0.00-0.10); Basophils % (A) 0.8 %; Eosinophils # (A) 0.48 10*3/uL (0.04-0.35); Eosinophils % (A) 7.5 %; HGB 9.5 g/dL (12.0-15.0); Lymphocytes # (A) 1.52 10*3/uL (0.90-5.00); Lymphocytes % (A) 23.9 %; MCH 31.5 pg (27.0-32.0); MCHC 31.7 g/dL (32.0-37.0); MCV 99.3 fL (80.0-97.0); Monocytes # (A) 0.99 10*3/uL (0.20-1.00); Monocytes % (A) 15.5 %; Neutrophils # (A) 3.32 10*3/uL (1.80-7.70); Neutrophils % (A) 52.1 %; Platelet Count 277 10*3/uL (140-440); RBC 3.02 10*6/uL (4.10-5.20); RDW 13.1 % (11.5-14.5); WBC 6.37 10*3/uL (4.50-10.00)
[2024-07-01 14:50] LABS: ALT 10 U/L (4-34); African American GFR (CKD) 87 (>60 ml/min/1.73 sqM); Albumin 2.1 g/dL (3.5-5.0); Albumin/Globulin Ratio 0.7; Anion Gap 9 mmol/L; Blood Urea Nitrogen 8 mg/dL (7-17); Calcium 8.5 mg/dL (8.4-10.2); Carbon Dioxide 17 mmol/L (22-30); Chloride 109 mmol/L (98-107); Glucose 78 mg/dL (74-99); Non-African American GFR(CKD) 75 (>60 ml/min/1.73 sqM); Sodium 135 mmol/L (137-145); Total Bilirubin 0.7 mg/dL (0.2-1.3); Total Protein 5.1 g/dL (6.3-8.2)
[2024-07-01 14:51] LABS: AST 40 U/L (14-36); Alkaline Phosphatase 110 U/L (38-126); Potassium 3.8 mmol/L (3.5-5.1)
--- NOTE | 2024-07-02 05:21 | PN ---
PROGRESS NOTE DATE OF SERVICE: 07/01/2024 SUBJECTIVE: A 63-year-old white female with dehydration, diverticulitis, hyperglycemia. Her diet has been advanced. She had some nausea and vomiting yesterday on 06/30/24. Nausea medicine has been given, hyperglycemia medicine given. Prognosis is guarded. OBJECTIVE: CARDIOVASCULAR: S1, S2. LUNGS: Clear. GI: Soft. VITAL SIGNS: She is 92% on 3 L, blood pressure is still low at 89/60, pulse 60 to 64, temp 98.3. ASSESSMENT AND PLAN: Hypotension secondary to dehydration secondary to diverticulitis. We cut her Coreg down to 3.125 b.i.d. She is on fluoxetine, remains on her breathing treatments, the patient continues on oxygen, maybe cut down on her pain medicine, rehydrate her, continue her IV antibiotics. ProAmatine was given for hypotension. Prognosis is guarded. Continue IV hydration. MMODL / IJN: [id number] /
--- NOTE | 2024-07-02 05:31 | PN ---
PROGRESS NOTE SUBJECTIVE: 63-year-old white female, remains on antibiotics, Rocephin, Flagyl. Diverticulitis. She is hypotensive still. She is on IV fluids at 75 mL an hour. We cut her Coreg down from 6.25 to 3.125. Remains on her breathing treatments, Protonix, sodium bicarb. OBJECTIVE: VITAL SIGNS: Temp 98.3, blood pressure is 89 to 92 over 60s. Oxygen saturation is 92 on 3 L. CARDIOVASCULAR: S1, S2. LUNGS: Transmitted upper sounds. GI: Soft. HEMATOLOGY: Negative Homans. PSYCH: Fair mood and affect. PLAN: Continue current treatment. for the patient. Renal function is at baseline. She is given IV fluids. She remains hypotensive. We are going to continue to rehydrate her. Hypoglycemia, she is on D5 normal saline. Acute on chronic anemia, monitor hemoglobin. Diverticulitis, hypovolemic, hyponatremic, improved with IV fluids. Hypertension, metabolic acidosis, hypokalemia, hypomagnesemia. Fluids are going to be 0.5 normal saline, midodrine, check cortisol. We will order cosyntropin stimulation test. Replace potassium, magnesium. She may need long-term Cortef. Prognosis guarded. MMODL / IJN: [id number] /
[2024-07-02 08:22] LABS: BUN/Creat Ratio 7.22 Ratio (12.00-20.00); Blood Urea Nitrogen 6.5 mg/dL (9.0-27.0); Calcium 7.7 mg/dL (8.7-10.3); Carbon Dioxide 22.3 mmol/L (21.6-31.8); Chloride 113 mmol/L (96-109); Glucose 109 mg/dL (70-110); Magnesium 1.6 mg/dL (1.5-2.4); Potassium 3.8 mmol/L (3.5-5.5); Sodium 141 mmol/L (135-145)
--- NOTE | 2024-07-02 11:07 | P.PN ---
Subjective Patient is seen in follow-up for acute kidney injury. Renal function at baseline. Oral intake just fair. Still having intermittent episodes of vo miting and diarrhea. Vital signs are stable. General: No acute distress. HEENT: Head exam is unremarkable. LUNGS: No audible rhonchi or wheezes. HEART: Rate and Rhythm are regular. ABDOMEN: Nontender. EXTREMITITES: No edema. Objective - Vital Signs Vital signs: Vital Signs Temp 97.9 F 07/02/24 07:13 Pulse 84 07/02/24 08:30 Resp 18 07/02/24 07:13 BP 90/60 07/02/24 07:13 Pulse Ox 92 L 07/02/24 07:13 FiO2 Intake & Output 07/01/24 07/02/24 07/02/24 18:59 06:59 18:59 Intake Total 1530 Output Total 150 Balance 1380 Intake: Intake, IV Titration 1050 Amount Dextrose 5% in Water 1, 0 000 ml @ 75 mls/hr IV . [id number] BUZZ Rx#:[id number] Dextrose 5%-0.9% NaCl 1, 600 000 ml @ 75 mls/hr IV . [id number] BUZZ Rx#:[id number] Magnesium Sulfate-D5w Pmx 200 1 gm In Dextrose/Water 1 100ml.bag @ 100 mls/hr IVPB Q1H BUZZ Rx#: [id number] Sodium Chloride 0.9% 1, 100 000 ml @ 100 mls/hr IV . Q10H BUZZ Rx#:[id number] cefTRIAXone 1 gm In 50 Sodium Chloride 0.9% 50 ml @ 100 mls/hr IVPB Q24HR BUZZ Rx#:[id number] metroNIDAZOLE-NS PMX 500 100 mg In Saline 1 100ml.bag @ 100 mls/hr IVPB Q8H BUZZ Rx#:[id number] Oral 480 Output: Emesis 150 Other: # Voids 2 2 # Bowel Movements 2 - Labs CBC & Chem 7: 07/01/24 14:14 07/02/24 04:50 Labs: Abnormal Lab Results - Last 24 Hours (Table) 07/01/24 07/01/24 07/01/24 Range/Units 11:50 14:14 14:14 RBC 3.02 L (4.10-5.20) 10*6/uL Hgb 9.5 L (12.0-15.0) g/dL Hct 30.0 L (37.2-46.3) % MCV 99.3 H (80.0-97.0) fL MCHC 31.7 L (32.0-37.0) g/dL MPV 9.0 L (9.5-12.2) fL Eosinophils # 0.48 H (0.04-0.35) 10*3/uL Sodium 135 L (137-145) mmol/L Chloride 109 H (98-107) mmol/L Carbon Dioxide 17 L (22-30) mmol/L BUN (9.0-27.0) mg/dL BUN/Creatinine Ratio (12.00-20.00) Ratio Calcium (8.7-10.3) mg/dL AST 40 H (14-36) U/L Total Protein 5.1 L (6.3-8.2) g/dL Albumin 2.1 L (3.5-5.0) g/dL Cortisol 1.6 L (3.1-22.4) UG/DL 07/02/24 Range/Units 04:50 RBC (4.10-5.20) 10*6/uL Hgb (12.0-15.0) g/dL Hct (37.2-46.3) % MCV (80.0-97.0) fL MCHC (32.0-37.0) g/dL MPV (9.5-12.2) fL Eosinophils # (0.04-0.35) 10*3/uL Sodium (137-145) mmol/L Chloride 113 H (98-107) mmol/L Carbon Dioxide (22-30) mmol/L BUN 6.5 L (9.0-27.0) mg/dL BUN/Creatinine Ratio 7.22 L (12.00-20.00) Ratio Calcium 7.7 L (8.7-10.3) mg/dL AST (14-36) U/L Total Protein (6.3-8.2) g/dL Albumin (3.5-5.0) g/dL Cortisol (3.1-22.4) UG/DL Assessment and Plan Plan: Assessment: 1. Acute kidney injury secondary to vasomotor nephropathy secondary to hypovolemia from vomiting. Resolved. 2. Hypovolemic hyponatremia improved with IV fluids. 3. Diverticulitis. On antibiotics. 4. Benign hypertension. Blood pressure on the lower end. Cortisol level low at 1.6 and improved to 11.1 2 hours post cosyntropin stimulation. 5. Metabolic acidosis secondary to IV fluids and GI losses. On oral bicarb. 6. Hypokalemia from poor intake and renal losses. 7. Hypomagnesemia from GI losses. Replaced. Better. On oral magnesium oxide. Plan: Maintain IV fluids. Maintain midodrine. Add Florinef. Replace potassium. Increase frequency of magnesium oxide to twice daily. Avoid nephrotoxins. Continue to hold antihypertensives as blood pressure is low. Patient will need to see endocrinology outpatient.
[2024-07-02] MEDS: FLUDROCORTISONE 0.1 MG TAB PO SCH (12:23)
[2024-07-02] MEDS: POTASSIUM CHLORIDE ER 20 MEQ TAB.ER PO STA (12:23)
[2024-07-02 14:20] VITALS: RESP 16
[2024-07-02] MEDS: MAGNESIUM OXIDE 400 MG TAB PO SCH (21:01)
[2024-07-03 07:22] VITALS: TEMP 98.1
[2024-07-03 08:26] LABS: BUN/Creat Ratio 7.25 Ratio (12.00-20.00); Blood Urea Nitrogen 5.8 mg/dL (9.0-27.0); Calcium 7.6 mg/dL (8.7-10.3); Carbon Dioxide 20.2 mmol/L (21.6-31.8); Chloride 114 mmol/L (96-109); Glucose 89 mg/dL (70-110); Magnesium 1.5 mg/dL (1.5-2.4); Sodium 139 mmol/L (135-145)
[2024-07-03 08:47] VITALS: PULSE 78
--- NOTE | 2024-07-03 10:37 | PN ---
PROGRESS NOTE DATE OF SERVICE: 07/02/2024 SUBJECTIVE: A 63-year-old white female, admitted with dehydration, diverticulitis, recently had orthostatic hypotension with low adrenal cortisol levels. Started her on pills for adrenal insufficiency, which is helping her hypotension. She feels better. She is up moving. Her abdominal pain is getting better. She wants to go home tomorrow. OBJECTIVE: CARDIOVASCULAR: S1, S2. LUNGS: Clear. GI: Soft. HEMATOLOGY: Negative Homans. PSYCH: Fair mood and affect. PLAN: To discharge to rehab for PT/OT. Treat for adrenal insufficiency and diverticulitis. Switch to oral antibiotics. She has increased her diet. Her nausea and vomiting a bit decreased. She will be able to go home for rehab tomorrow. MMODL / IJN: [id number] /
--- NOTE | 2024-07-03 10:52 | P.PN ---
Subjective Patient is seen in follow-up for acute kidney injury. Renal function at baseline. Oral intake just fair. Vomited this morning. Vital signs are stable. General: No acute distress. HEENT: Head exam is unremarkable. LUNGS: No audible rhonchi or wheezes. HEART: Rate and Rhythm are regular. ABDOMEN: Nontender. EXTREMITITES: No edema. Objective - Vital Signs Vital signs: Vital Signs Temp 98.1 F 07/03/24 06:49 Pulse 78 07/03/24 08:47 Resp 16 07/03/24 06:49 BP 103/70 07/03/24 06:49 Pulse Ox 98 07/03/24 06:49 FiO2 Intake & Output 07/02/24 07/03/24 07/03/24 18:59 06:59 18:59 Output Total 1 Balance -1 Output: Stool 1 Other: Voiding Method Bedside Commode Bedside Commode Bedside Commode Incontinent Incontinent Incontinent # Voids 3 1 # Bowel Movements 3 - Labs CBC & Chem 7: 07/01/24 14:14 07/03/24 04:14 Labs: Abnormal Lab Results - Last 24 Hours (Table) 07/03/24 Range/Units 04:14 Chloride 114 H (96-109) mmol/L Carbon Dioxide 20.2 L (21.6-31.8) mmol/L BUN 5.8 L (9.0-27.0) mg/dL BUN/Creatinine Ratio 7.25 L (12.00-20.00) Ratio Calcium 7.6 L (8.7-10.3) mg/dL Microbiology - Last 24 Hours (Table) 07/02/24 00:09 Urine Culture - Final Urine,Voided Assessment and Plan Plan: Assessment: 1. Acute kidney injury secondary to vasomotor nephropathy secondary to hypovolemia from vomiting. Resolved. 2. Hypovolemic hyponatremia improved with IV fluids. 3. Diverticulitis. On antibiotics. 4. Benign hypertension. Blood pressure on the lower end. Cortisol level low at 1.6 and improved to 11.1 2 hours post cosyntropin stimulation. 5. Metabolic acidosis secondary to IV fluids and GI losses. On oral bicarb. 6. Hypokalemia from poor intake and renal losses. Replaced. Better. 7. Hypomagnesemia from GI losses. On oral magnesium oxide. Plan: Maintain IV fluids. Maintain midodrine. Maintain Florinef. Avoid nephrotoxins. Continue to hold antihypertensives as blood pressure is low. Patient will need to see endocrinology outpatient.
[2024-07-03] MEDS: MAGNESIUM SULFATE-D5W PMX 1 GM in DEXTROSE/WATER 1 100ML.BAG IVPB SCH (11:41)
[2024-07-03 11:55] VITALS: BP 113/78
--- NOTE | 2024-07-03 12:37 | DS ---
DISCHARGE SUMMARY HOSPITAL COURSE: 63-year-old white female admitted with acute diverticulitis of the left lower quadrant, abdominal pain, complicated by dehydration, orthostatic hypotension. Medications readjusted. Her diverticulitis got better over 3 to 4 days. We gave her IV antibiotics x2 or 3, sodium bicarbonate for chronic renal disease, Protonix for GERD, midodrine for orthostatic hypotension. She will continue on all these medicines at home including oxygen she wears 2 L all the time day and night and she does DuoNeb breathing treatments 3 times a day scheduled. Otherwise, she will continue on Coreg 3.125 b.i.d., Omnicef 300 b.i.d. for 1 week due to diverticulitis, Pepcid for GERD, Florinef for adrenal insufficiency, which we diagnosed in the hospital, which helped to stabilize her low blood pressures, so she will be on Florinef and midodrine. She is on Prozac 40 daily. She is on folic acid 1 mg daily. She is on sodium bicarb 650 b.i.d., folic acid 1 mg daily, Mag oxide 400 b.i.d. CONDITION: Stable. PROGNOSIS: Guarded. Ambulate as tolerated. Physical therapy up where she lives and she will follow up in the office whenever she can get in and then we could do. ELMER / MARGARET: [id number] /
[2024-07-03] MEDS ORDERED: CEFDINIR 300 MG CAP PO SCH (21:00)
== END 2024-07-03 15:07 | disposition home or self-care (01) | DRG 391 ==
LOC: EC 00:12 → 6NMEDSUR 03:04 → 4SSUR 05:01 → OBSVTOIN 06-29 08:32
PROVIDERS: ADMIT Family Medicine; ATTEND Family Medicine
DX: K57.32 Diverticulitis of large intestine without perforation or abscess without bleeding (principal); N17.0 Acute kidney failure with tubular necrosis; E87.20 Acidosis, unspecified; I13.0 Hypertensive heart and chronic kidney disease with heart failure and stage 1 through stage 4 chronic kidney disease, or unspecified chronic kidney disease; J44.9 Chronic obstructive pulmonary disease, unspecified; N18.9 Chronic kidney disease, unspecified; J96.11 Chronic respiratory failure with hypoxia; E27.40 Unspecified adrenocortical insufficiency; E87.1 Hypo-osmolality and hyponatremia; I50.9 Heart failure, unspecified; E86.0 Dehydration; I95.1 Orthostatic hypotension; K21.9 Gastro-esophageal reflux disease without esophagitis; E86.1 Hypovolemia; E87.8 Other disorders of electrolyte and fluid balance, not elsewhere classified; E78.5 Hyperlipidemia, unspecified; E87.6 Hypokalemia; E83.42 Hypomagnesemia; R73.9 Hyperglycemia, unspecified; Z85.3 Personal history of malignant neoplasm of breast; Z79.82 Long term (current) use of aspirin; Z79.899 Other long term (current) drug therapy; Z88.0 Allergy status to penicillin; Z87.891 Personal history of nicotine dependence; Z87.11 Personal history of peptic ulcer disease; Z90.12 Acquired absence of left breast and nipple
CPT/HCPCS: 36410; 36415; 76937; 80048; 80053; 81001; 82533; 83735; 85025; 87086; 87324; 94640; 94760; 96361; 96365; 96367; 96368; 96375; 99291